=== PATIENT | female | born 1955 | race Caucasian/White ===

== ENCOUNTER → 2016-06-15 | Outpatient (CLI) | payer OTHER ==
--- NOTE | 2016-06-15 14:19 | REPMRS ---
Patient History The patient states she has not had a clinical breast exam in over a year. Patient is postmenopausal, has history of lung cancer at age 60, and had previous chemotherapy at age 60. No known family history of cancer. Benign excisional biopsy of the left breast, 1979. Benign excisional biopsy of the right breast, 1977. Took hormonal contraceptives for 2 months. Digital Woman Screen Mammo: June 15, 2016 - Exam #: [id number] Bilateral CC and MLO view(s) were taken. Technologist: Tammy Martinez, Technologist Prior study comparison: July 15, 2014, digital woman screen mammo performed at [facility]. October 17, 2012, bilateral bilat screen digital mammo, performed at [facility] ([facility]). FINDINGS: The breast tissue is heterogeneously dense. This may lower the sensitivity of mammography. There has been no change in the appearance of the mammogram from the prior studies. There is a moderate amount of residual fibroglandular tissue which is fairly symmetric. There is no interval development of dominant mass, areas of architectural distortion, or clustered microcalcification typical of malignancy. ASSESSMENT: BI-RADS/ACR category 1 mammogram. Negative. Recommendation Routine screening mammogram in 1 year (for women over age 40). This mammogram was interpreted with the aid of an FDA-approved computer-aided dectection system. Electronically Signed By: Eriberto Ulloa MD 06/15/16 [id number]
== END | disposition home or self-care (01) ==
LOC: M WHC 13:03
PROVIDERS: ATTEND Family Medicine
DX: Z12.31 Encounter for screening mammogram for malignant neoplasm of breast (principal); Z78.0 Asymptomatic menopausal state; Z92.0 Personal history of contraception; Z85.118 Personal history of other malignant neoplasm of bronchus and lung; Z92.21 Personal history of antineoplastic chemotherapy

== ENCOUNTER → 2016-06-28 | Outpatient (CLI) | payer OTHER ==
[2016-06-28 17:57] LABS: MEAN CORPUSCULAR HEMOGLOBIN 30.2 pg (27.0-33.0); MEAN CORPUSCULAR HGB CONC 33.1 g/dl (32.0-36.5); MEAN CORPUSCULAR VOLUME 91.1 fl (80.0-96.0); RED CELL DISTRIBUTION WIDTH 12.6 % (11.5-14.5)
[2016-06-28 21:43] LABS: BASOPHILS 1 % (0-4)
[2016-06-28 21:44] LABS: POIKILOCYTOSIS 1+
[2016-06-28 21:47] LABS: ACANTHOCYTES 1+
== END | disposition home or self-care (01) ==
LOC: M WUC 11:35
PROVIDERS: ATTEND Family Medicine
DX: D70.2 Other drug-induced agranulocytosis (principal)

== ENCOUNTER → 2016-06-28 | Outpatient (REF) | payer OTHER | END | disposition home or self-care (01) | LOC: M SFHCPLAZ 10:44 | PROVIDERS: ATTEND Family Medicine | DX: Z53.8 Procedure and treatment not carried out for other reasons (principal) ==

== ENCOUNTER → 2016-07-08 | Outpatient (REF) | payer OTHER | END | disposition home or self-care (01) | LOC: M LAB REF 12:41 | PROVIDERS: ATTEND Internal Medicine Medical Oncology | DX: C34.90 Malignant neoplasm of unspecified part of unspecified bronchus or lung (principal) ==

== ENCOUNTER → 2016-08-09 | Outpatient (REF) | payer OTHER | LOC: M LAB REF 13:14 | PROVIDERS: ATTEND Internal Medicine Medical Oncology | DX: C34.90 Malignant neoplasm of unspecified part of unspecified bronchus or lung (principal) ==

== ENCOUNTER → 2016-08-17 | Outpatient (CLI) | payer OTHER ==
[~2016-08-17] MED LIST: GASTROGRAFIN SOLUTION 30ML (Q9963) As Ordered ONE; ISOVUE-370 76% 100ML VIAL (Q9967) As Ordered ONE
--- NOTE | 2016-08-17 18:27 | REP ---
CT study of the chest with IV contrast: History: Non-small cell lung carcinoma on chemotherapy. Increasing tumor markers with cough. Question progression. Comparison chest CT study is from 05/03/2016. Also reviewed is 10/13/[address] findings: There is a band of spiculated density in the right lower lobe again noted essentially unchanged from the most recent prior study of 05/03/2016. At its posterior extent this has a somewhat spherical spiculated shape. This component of this density measures 2.5 x 1.5 cm previously 2.4 x 1.4 cm. This is essentially unchanged. At the anterior margin of this band of density there is a nodular opacity which measures 7 mm in diameter. This appears a little more prominent. Previously this measured 5.5-6 mm. There is a tiny stable 4 mm noncalcified nodular opacity in the right middle lobe adjacent to the minor fissure unchanged from both prior studies. No other pulmonary nodule or mass lesion is seen. No pleural effusion is seen. No pericardial effusion is noted. No hilar or mediastinal mass has developed. Bone window settings show a hemangioma in the lower cervical spine unchanged from comparison study. No bony destructive lesion is seen. Impression: Stable appearance of the spiculated mass in the right lower lobe. There is a band of fibrosis extending anteriorly from this. At the anterior edge of this there is a 7 mm nodular component. This nodular component appears a little larger than the most recent prior study although it is smaller than on October 2015. Otherwise stable chest CT findings. Signed by Eddie Connors MD 08/18/2016 12:24 P
--- NOTE | 2016-08-17 18:30 | REP ---
CT abdomen and pelvis without and with IV contrast: With oral contrast. History: Non-small cell lung carcinoma on chemotherapy. Increased tumor markers and cough. Question of progression. Comparison PET/CT is from 02/11/2016. Comparison CT abdomen study is from 05/03/2016. CT contrast dose: There are two low density lesions in the right lobe of the liver and one in the belkis region of the left lobe. These are unchanged compared to multiple prior studies and felt to be compatible with hemangiomas or cysts. No new focal liver lesion is appreciated. No adrenal mass has developed. Pancreas is unremarkable. There is a cyst in the left kidney in the upper pole measuring 4.8 cm in greatest diameter unchanged. Small and large bowel loops are normal in the abdomen and pelvis. No uterine or adnexal abnormality is seen. No pelvic mass or adenopathy is seen. No retroperitoneal mass or adenopathy is observed. Bone window settings show no bony destructive lesion. There is bilateral L5 spondylolysis and a grade 1 L5-S1 spondylolisthesis is noted unchanged measuring 12 mm. Impression: No CT evidence of intraabdominal progression or metastasis. Multiple stable low density liver lesions consistent with hepatic cysts or hemangiomas. Signed by Eddie Connors MD 08/18/2016 12:24 P
== END ==
LOC: M RAD 14:29
PROVIDERS: ATTEND Internal Medicine Medical Oncology
DX: C34.90 Malignant neoplasm of unspecified part of unspecified bronchus or lung (principal); R05 Cough
CPT/HCPCS: 71260; 74178; Q9963; Q9967

== ENCOUNTER → 2016-10-07 | Outpatient (REF) | payer OTHER | LOC: M LAB REF 13:40 | PROVIDERS: ATTEND Internal Medicine Medical Oncology | DX: C34.90 Malignant neoplasm of unspecified part of unspecified bronchus or lung (principal) ==

== ENCOUNTER → 2016-12-15 | Outpatient (REF) | payer OTHER | LOC: M LAB REF 12:38 | PROVIDERS: ATTEND Internal Medicine Medical Oncology | DX: C34.90 Malignant neoplasm of unspecified part of unspecified bronchus or lung (principal) ==

== ENCOUNTER → 2017-01-13 | Outpatient (REF) | payer OTHER | LOC: M LAB REF 13:18 | PROVIDERS: ATTEND Internal Medicine Medical Oncology | DX: C34.90 Malignant neoplasm of unspecified part of unspecified bronchus or lung (principal) ==

== ENCOUNTER → 2017-01-14 | Outpatient (REF) | payer OTHER | LOC: M LAB REF 11:06 | PROVIDERS: ATTEND Internal Medicine Medical Oncology | DX: R19.7 Diarrhea, unspecified (principal) ==

== ENCOUNTER → 2017-01-17 | Outpatient (CLI) | payer OTHER ==
[~2017-01-17] MED LIST changes: -GASTROGRAFIN SOLUTION 30ML (Q9963) As Ordered ONE
--- NOTE | 2017-01-17 12:33 | REP ---
CT of the chest with IV contrast: Comparisons are 08/17/2016 and 05/03/2016. The patient's known spiculated mass in the right lower lobe on image 68 today measures 1.6 x 2.6 cm. (1.5 x 2.5 cm on 08/17/2016 and 1.4 x 2.4 cm 05/03/2016). The anterior and lateral to this in the right lower lobe there is a second nodular density today measuring 1.5 by 1.8 cm (0.5 cm on 05/03/2016 and 0. 7 cm 08/17/2016. There are linear bands extending between these two densities in the right lower lobe which have also been present previously. There is a 4 mm nodule in the right middle lobe which is unchanged from both prior studies. There are no other masses or nodules. There are no infiltrates or effusions. There is no mediastinal, hilar or axillary adenopathy. The thoracic aorta is unremarkable. Cardiac size is normal. There is no pericardial effusion. There is a double low density lesion in the C7 vertebral body, unchanged from 08/03/2004, compatible with hemangioma. There are multiple low density lesions in the liver, unchanged. Impression: The patient's known two right lower lobe lung masses have increased in size. The there is no adenopathy. There is no acute infiltrate or effusion. Signed by Eriberto Calvo MD 01/17/2017 12:25 P
== END ==
LOC: M RAD 10:49
PROVIDERS: ATTEND Advanced Practice Midwife
DX: C34.90 Malignant neoplasm of unspecified part of unspecified bronchus or lung (principal)
CPT/HCPCS: 71260; Q9967

== ENCOUNTER → 2017-01-26 | Outpatient (CLI) | payer OTHER ==
--- NOTE | 2017-01-27 16:19 | REP ---
Whole body PET CT scan: The studies performed for restaging lung carcinoma. Comparison is a 2015. Whole body PET CT scanning is performed from skull base to the upper thighs. Neck and supraclavicular areas: There are no hypermetabolic foci. Chest: There are too nodules in the lower lobe of the right lung. The more posterior and medial nodule demonstrates hypermetabolic activity with a standard uptake value of 5.3. This value was 3.2 previously. More anterior and lateral to this nodule is a second nodule today demonstrating hypermetabolic uptake with a standard uptake value of 7.2. On the prior study there was no hypermetabolic uptake in this nodule. There is a small borderline hypermetabolic focus in the right hilus with a standard uptake value of 3.0. Previously this value was 3.5. There are no other hypermetabolic foci in the chest. Abdomen, pelvis and upper thighs: There are no hypermetabolic foci, as previously. Impression: There are two hypermetabolic nodules in the lower lobe of the right lung as described. There is a small hypermetabolic focus in the right hilus as described. There are no other hypermetabolic foci. The studies performed with 10 mCi of F 18 FDG. Signed by Eriberto Calvo MD 01/27/2017 04:10 P
== END ==
LOC: M PLARAD 10:31
PROVIDERS: ATTEND Internal Medicine Medical Oncology
DX: C34.90 Malignant neoplasm of unspecified part of unspecified bronchus or lung (principal); R91.8 Other nonspecific abnormal finding of lung field
CPT/HCPCS: 78815; A9552

== ENCOUNTER → 2017-02-08 | Outpatient (REF) | payer OTHER | LOC: M LAB REF 11:22 | PROVIDERS: ATTEND Internal Medicine Medical Oncology | DX: C34.90 Malignant neoplasm of unspecified part of unspecified bronchus or lung (principal) ==

== ENCOUNTER → 2017-02-21 | Outpatient (REF) | payer OTHER | LOC: M LAB REF 13:10 | PROVIDERS: ATTEND Internal Medicine Medical Oncology | DX: C18.9 Malignant neoplasm of colon, unspecified (principal) ==

== ENCOUNTER → 2017-03-17 | Outpatient (REF) | payer OTHER | LOC: M LAB REF 17:55 | PROVIDERS: ATTEND Internal Medicine Medical Oncology | DX: C34.90 Malignant neoplasm of unspecified part of unspecified bronchus or lung (principal) ==

== ENCOUNTER → 2017-05-13 | Outpatient (REF) | payer OTHER | LOC: M LAB REF 13:31 | PROVIDERS: ATTEND Internal Medicine Medical Oncology | DX: C78.01 Secondary malignant neoplasm of right lung (principal); C34.80 Malignant neoplasm of overlapping sites of unspecified bronchus and lung ==

== ENCOUNTER → 2017-05-18 | Outpatient (CLI) | payer OTHER ==
[~2017-05-18] MED LIST changes: +GASTROGRAFIN SOLUTION 30ML (Q9963) As Ordered ONE
--- NOTE | 2017-05-19 07:37 | REP ---
CONTRAST ENHANCED CHEST CT: CLINICAL: Non-small cell lung cancer with progressive increasing cough and pain. TECHNIQUE: Axial contrast enhanced images from the thoracic inlet to the upper abdomen using 100 mL Isovue 370 intravenous contrast material with coronal and sagittal reformations. COMPARISON: 01/17/2017. FINDINGS: Most notable are multiple right lower lobe lung masses which have increased in size from prior examination. Two dominant lesions connected by soft tissue and/or fibrosis are identified. The more anterior lesion currently measures approximately 3.0 x 2.3 cm and previously measured 1.8 x 1.5 cm. The more posterior lesion currently measures approximately 2.8 x 2.3 cm and previously measured approximately 2.5 x 1.6 cm. Smaller scattered soft tissue lesions and nodules predominately noted in the right lower lobe have also increased in size. As example, there is a lesion along the anterior margin of the right lower lobe adjacent to the fissure which currently measures 11 mm (image 64) and previously measured 6.5 mm. A small lesion in the medial basilar right upper lobe adjacent to the mediastinum (image 47) currently measures approximately 6 mm and previously measured at best 2 mm. Subtle increased interstitial changes with a slight tree-in-bud type of appearance to the basilar right upper lobe, and right middle lobe, as well as scattered increased interstitial markings noted bilaterally (right greater than left) are also identified. No pleural effusion. Tracheobronchial tree is patent. Mediastinal and hilar lymph nodes are nonspecific and measure up to approximately 16 mm in the right hilum. Thoracic aorta, pulmonary vasculature and heart/pericardium are relatively normal. There is no evidence for aortic aneurysm/dissection or pericardial effusion. The surrounding musculoskeletal structures are intact and without focal osseous abnormality. IMPRESSION: Increase in size to the two main lesions in the right lower lobe as well as diffusely increased quantity and size to multiple pulmonary nodules. Increased interstitial changes are also noted, and findings are most compatible with progressive neoplastic changes. MTDD
--- NOTE | 2017-05-19 07:37 | REP ---
CONTRAST ENHANCED CT OF THE ABDOMEN AND PELVIS: CLINICAL HISTORY: Non small cell lung cancer with increasing progressive cough and abdominal pain. TECHNIQUE: Axial contrast enhanced images from the lung bases to the pubic symphysis using oral (per protocol) and 100 mL Isovue 370 intravenous contrast material with precontrast and delayed images of the abdomen as well as coronal and sagittal reformations. COMPARISON: 08/17/2016, 05/03/2016. FINDINGS: Right lower lobe lung masses have increased in size from prior examination. The visualized portions of the heart and pericardium are normal. The liver again includes two low density lesions in the posterior segment right lobe consistent with hemangioma and cyst and unchanged compared to 2016. The spleen includes 12 mm hyper enhancing lesion along the anterior spleen and subcentimeter hypodensity in the mid spleen, which remain stable compared to 2016 and likely represent splenic hemangioma and cyst. Pancreas, gallbladder, bilateral adrenal glands and kidneys are normal/stable. 4.8 cm septated bilobed left renal cyst remains unchanged. The enteric system demonstrates moderate fecal stasis without obstruction or acute inflammatory process. Normal terminal ileum and appendix are identified in the right lower quadrant. The pelvis demonstrates partially collapsed normal bladder and normal age-appropriate uterus/adnexa. No pelvic fluid or ascites. No obvious intraperitoneal or retroperitoneal adenopathy. No solitary abdominal mass lesion identified. Atherosclerotic changes to the aorta noted without aneurysm or dissection. Musculoskeletal structures demonstrate chronic degenerative changes including spondylolysis and grade 2 spondylolisthesis at the L5-S1 level. IMPRESSION: 1. Increasing mass lesions in the right lung base. 2. Stable appearance to hepatic, splenic, and left renal cysts and benign hemangiomas. 3. Moderate fecal stasis. 4. Chronic grade 2 spondylolysis and spondylolisthesis at the L5-S1 level. 5. No further acute abdominopelvic pathology appreciated. Signed by Patricio Martinez MD 05/20/2017 09:01 A
== END ==
LOC: M RAD 15:00
PROVIDERS: ATTEND Internal Medicine Medical Oncology
DX: C34.90 Malignant neoplasm of unspecified part of unspecified bronchus or lung (principal); R05 Cough

== ENCOUNTER → 2017-05-25 | Outpatient (REF) | payer OTHER ==
[2017-05-25 17:43] LABS: INR 1.07
== END ==
LOC: M LAB REF 16:38
PROVIDERS: ATTEND Internal Medicine Medical Oncology
DX: C34.90 Malignant neoplasm of unspecified part of unspecified bronchus or lung (principal)

== ENCOUNTER → 2017-06-15 | Outpatient (CLI) | payer OTHER ==
[~2017-06-15] MED LIST changes: +ACETAMINOPHEN 325 MG TAB As Ordered; -GASTROGRAFIN SOLUTION 30ML (Q9963) As Ordered ONE; -ISOVUE-370 76% 100ML VIAL (Q9967) As Ordered ONE; +LIDOCAINE 1% MDV 20ML VIAL As Ordered
== END ==
LOC: M RADPRO 08:14
DX: C34.11 Malignant neoplasm of upper lobe, right bronchus or lung (principal); J93.9 Pneumothorax, unspecified; Z79.899 Other long term (current) drug therapy; Z88.8 Allergy status to other drugs, medicaments and biological substances
CPT/HCPCS: 32405

== ENCOUNTER → 2017-06-20 | Outpatient (REF) | payer OTHER ==
[2017-06-21 07:17] LABS: CARCINOEMBRYONIC ANTIGEN 16.6 NG/ML (<2.5)
== END ==
LOC: M LAB REF 13:39
DX: C34.90 Malignant neoplasm of unspecified part of unspecified bronchus or lung (principal)
CPT/HCPCS: 82378

== ENCOUNTER → 2017-06-28 | Outpatient (CLI) | payer OTHER ==
[~2017-06-28] MED LIST changes: -ACETAMINOPHEN 325 MG TAB As Ordered; -LIDOCAINE 1% MDV 20ML VIAL As Ordered; +PROHANCE 279.3MG/ML 15ML VIAL (A9576) As Ordered
== END ==
LOC: M RAD 14:23
DX: C34.90 Malignant neoplasm of unspecified part of unspecified bronchus or lung (principal)
CPT/HCPCS: A9576

== ENCOUNTER → 2017-07-08 | Outpatient (CLI) | payer OTHER | LOC: M WHC 08:07 | DX: Z12.31 Encounter for screening mammogram for malignant neoplasm of breast (principal); R92.8 Other abnormal and inconclusive findings on diagnostic imaging of breast | CPT/HCPCS: 77067 ==

== ENCOUNTER → 2017-07-28 | Outpatient (REF) | payer OTHER ==
[2017-07-29 11:47] LABS: CARCINOEMBRYONIC ANTIGEN 18.2 NG/ML (<2.5)
== END ==
LOC: M LAB REF 13:14
DX: C34.90 Malignant neoplasm of unspecified part of unspecified bronchus or lung (principal)

== ENCOUNTER → 2017-08-04 | Outpatient (CLI) | payer OTHER | LOC: M RAD 08:34 | DX: J01.90 Acute sinusitis, unspecified (principal) | CPT/HCPCS: 70486 ==

== ENCOUNTER → 2017-08-15 | Outpatient (CLI) | payer OTHER | LOC: M CARPUL 08:59 | DX: I50.1 Left ventricular failure, unspecified (principal) ==

== ENCOUNTER → 2017-08-22 | Outpatient (REF) | payer OTHER ==
[2017-08-23 09:57] LABS: CARCINOEMBRYONIC ANTIGEN 14.5 NG/ML (<2.5)
== END ==
LOC: M LAB REF 13:48
DX: C34.90 Malignant neoplasm of unspecified part of unspecified bronchus or lung (principal)
CPT/HCPCS: 82378

== ENCOUNTER → 2017-08-26 | Outpatient (CLI) | payer OTHER ==
[~2017-08-26] MED LIST changes: +GASTROGRAFIN SOLUTION 30ML (Q9963) As Ordered; +ISOVUE-370 76% 100ML VIAL (Q9967) As Ordered; -PROHANCE 279.3MG/ML 15ML VIAL (A9576) As Ordered
== END ==
LOC: M RAD 14:06
DX: C34.90 Malignant neoplasm of unspecified part of unspecified bronchus or lung (principal); K76.89 Other specified diseases of liver; D73.89 Other diseases of spleen; N28.1 Cyst of kidney, acquired
CPT/HCPCS: Q9963

== ENCOUNTER → 2017-10-13 | Outpatient (REF) | payer OTHER ==
[2017-10-14 09:03] LABS: CARCINOEMBRYONIC ANTIGEN 12.6 NG/ML (<2.5)
== END ==
LOC: M LAB REF 18:36
DX: C34.90 Malignant neoplasm of unspecified part of unspecified bronchus or lung (principal)
CPT/HCPCS: 82378

== ENCOUNTER → 2017-10-14 | Outpatient (CLI) | payer OTHER ==
[~2017-10-14] MED LIST changes: -GASTROGRAFIN SOLUTION 30ML (Q9963) As Ordered; -ISOVUE-370 76% 100ML VIAL (Q9967) As Ordered; +PROHANCE 279.3MG/ML 15ML VIAL (A9576) As Ordered
== END ==
LOC: M RAD 16:27
DX: C34.31 Malignant neoplasm of lower lobe, right bronchus or lung (principal); C79.31 Secondary malignant neoplasm of brain; C79.49 Secondary malignant neoplasm of other parts of nervous system
CPT/HCPCS: A9576

== ENCOUNTER → 2017-11-01 | Outpatient (REF) | payer OTHER ==
[2017-11-01 18:16] LABS: BASO % 0.3 % (0.0-1.0); HEMATOCRIT 34.8 % (36.0-47.0); HEMOGLOBIN 11.4 g/dl (12.0-15.5); IMMATURE GRANULOCYTE % 0.3 % (0-3.0); LYMPH # 0.9 10^3/uL (1.5-4.5); LYMPH % 23.6 % (24.0-44.0); MEAN CORPUSCULAR HEMOGLOBIN 29.5 pg (27.0-33.0); MEAN CORPUSCULAR HGB CONC 32.8 g/dl (32.0-36.5); MEAN CORPUSCULAR VOLUME 89.9 fl (80.0-96.0); MONO # 0.4 10^3/uL (0.0-0.8); MONO % 10.1 % (0.0-5.0); NEUTROPHILS # 2.5 10^3/uL (1.8-7.7); NEUTROPHILS % 64.7 % (36.0-66.0); PLATELET COUNT, AUTOMATED 191 10^3/uL (150-450); RED BLOOD COUNT 3.87 10^6/uL (4.00-5.40); RED CELL DISTRIBUTION WIDTH 12.6 % (11.5-14.5); WHITE BLOOD COUNT 3.9 10^3/uL (4.0-10.0)
== END ==
LOC: M SFHCPLAZ 14:42
DX: R68.83 Chills (without fever) (principal)

== ENCOUNTER → 2017-11-01 | Outpatient (CLI) | payer OTHER | LOC: M WUC 15:19 | DX: R91.8 Other nonspecific abnormal finding of lung field (principal); R91.1 Solitary pulmonary nodule | CPT/HCPCS: 71046 ==

== ENCOUNTER → 2017-12-01 | Outpatient (CLI) | payer OTHER ==
[~2017-12-01] MED LIST changes: +GASTROGRAFIN SOLUTION 30ML (Q9963) As Ordered; +ISOVUE-370 76% 100ML VIAL (Q9967) As Ordered; -PROHANCE 279.3MG/ML 15ML VIAL (A9576) As Ordered
== END ==
LOC: M RAD 09:47
DX: R05 Cough (principal); C34.31 Malignant neoplasm of lower lobe, right bronchus or lung
CPT/HCPCS: Q9963

== ENCOUNTER 2017-12-15 09:40 | Observation (INO) | payer OTHER ==
[2017-12-15 11:14] LABS: BASO % 0.3 % (0.0-1.0); EOS # 0.1 10^3/uL (0.0-0.50); EOS % 2.3 % (0.0-3.0); HEMATOCRIT 35.7 % (36.0-47.0); HEMOGLOBIN 11.8 g/dl (12.0-15.5); IMMATURE GRANULOCYTE % 0.3 % (0-3.0); LYMPH # 0.7 10^3/uL (1.5-4.5); LYMPH % 22.1 % (24.0-44.0); MEAN CORPUSCULAR HEMOGLOBIN 30.1 pg (27.0-33.0); MEAN CORPUSCULAR HGB CONC 33.1 g/dl (32.0-36.5); MEAN CORPUSCULAR VOLUME 91.1 fl (80.0-96.0); MONO # 0.4 10^3/uL (0.0-0.8); MONO % 11.7 % (0.0-5.0); NEUTROPHILS # 1.9 10^3/uL (1.8-7.7); NEUTROPHILS % 63.3 % (36.0-66.0); PLATELET COUNT, AUTOMATED 197 10^3/uL (150-450); RED BLOOD COUNT 3.92 10^6/uL (4.00-5.40); RED CELL DISTRIBUTION WIDTH 12.8 % (11.5-14.5)
[2017-12-15 11:17] LABS: INR 1.07
[2017-12-15 11:18] LABS: PARTIAL THROMBOPLASTIN TIME 35.4 SECONDS (25.4-37.6)
[2017-12-15 11:39] LABS: ALBUMIN 3.1 GM/DL (3.2-5.2); ALBUMIN/GLOBULIN RATIO 0.84 (1.00-1.93); ALKALINE PHOSPHATASE 44 U/L (45-117); ALT/SGPT 19 U/L (12-78); ANION GAP 6 MEQ/L (8-16); AST/SGOT 18 U/L (7-37); BILIRUBIN,DIRECT < 0.1 MG/DL (0.0-0.2); BILIRUBIN,TOTAL 0.3 MG/DL (0.2-1.0); BLOOD UREA NITROGEN 13 MG/DL (7-18); CALCIUM LEVEL 8.9 MG/DL (8.8-10.2); CARBON DIOXIDE LEVEL 31 MEQ/L (21-32); CHLORIDE LEVEL 106 MEQ/L (98-107); CREATININE FOR GFR 1.09 MG/DL (0.55-1.30); GLOMERULAR FILTRATION RATE 53.8 (>45); GLUCOSE, FASTING 82 MG/DL (70-100); LIPASE 310 U/L (73-393); POTASSIUM SERUM 4.4 MEQ/L (3.5-5.1); SODIUM LEVEL 143 MEQ/L (136-145); TOTAL PROTEIN 6.8 GM/DL (6.4-8.2); TROPONIN I < 0.02 NG/ML (< 0.10)
[2017-12-15 11:44] LABS: CK-MB VALUE MASS < 1.0 NG/ML (<3.6); CPK CREATINE PHOSPHOKINASE 119 U/L (26-192); MB/CK RELATIVE INDEX 0.84 (< OR =4); THYROID STIMULATING HORMONE 0.878 uIU/ML (0.358-3.740)
[2017-12-15 13:46] LABS: CK-MB VALUE MASS < 1.0 NG/ML (<3.6); CPK CREATINE PHOSPHOKINASE 115 U/L (26-192); MB/CK RELATIVE INDEX 0.86 (< OR =4); TROPONIN I < 0.02 NG/ML (< 0.10)
[2017-12-15 16:04] LABS: CK-MB VALUE MASS < 1.0 NG/ML (<3.6); CPK CREATINE PHOSPHOKINASE 108 U/L (26-192); MB/CK RELATIVE INDEX 0.92 (< OR =4); TROPONIN I < 0.02 NG/ML (< 0.10)
[2017-12-15] MEDS ORDERED: PROHANCE 279.3MG/ML 5ML VIAL (A9576) As Ordered (18:08)
[2017-12-15] MEDS ORDERED: BISACODYL 5 MG TAB PO (21:15)
[2017-12-15] MEDS ORDERED: ONDANSETRON 4 MG TAB (S0181) PO (21:15)
[2017-12-15] MEDS ORDERED: ACETAMINOPHEN TAB 650MG DOSE (2X325MG) PO (21:15)
[2017-12-15 22:29] LABS: CREATININE FOR GFR 0.89 MG/DL (0.55-1.30); GLOMERULAR FILTRATION RATE > 60.0 (>45)
[2017-12-15] MEDS: SIMVASTATIN 20 MG TAB PO (23:07)
[2017-12-15] MEDS: VITAMIN D 1,000 INTERNATIONAL UNITS TABLET PO (23:08)
[2017-12-15] MEDS: ASCORBIC ACID 500 MG TAB PO (23:08)
[2017-12-16] MEDS: VITAMIN B COMPLEX/VIT C CAP PO ×3 (02:35→14:49)
[2017-12-16 05:48] LABS: BASO % 0.3 % (0.0-1.0); EOS # 0.1 10^3/uL (0.0-0.50); EOS % 2.2 % (0.0-3.0); HEMATOCRIT 33.9 % (36.0-47.0); HEMOGLOBIN 11.6 g/dl (12.0-15.5); IMMATURE GRANULOCYTE % 0.3 % (0-3.0); LYMPH # 0.7 10^3/uL (1.5-4.5); LYMPH % 20.2 % (24.0-44.0); MEAN CORPUSCULAR HGB CONC 34.2 g/dl (32.0-36.5); MEAN CORPUSCULAR VOLUME 87.6 fl (80.0-96.0); MONO # 0.4 10^3/uL (0.0-0.8); MONO % 9.8 % (0.0-5.0); NEUTROPHILS # 2.4 10^3/uL (1.8-7.7); NEUTROPHILS % 67.2 % (36.0-66.0); PLATELET COUNT, AUTOMATED 185 10^3/uL (150-450); RED BLOOD COUNT 3.87 10^6/uL (4.00-5.40); RED CELL DISTRIBUTION WIDTH 12.7 % (11.5-14.5); WHITE BLOOD COUNT 3.6 10^3/uL (4.0-10.0)
[2017-12-16 06:14] LABS: ANION GAP 8 MEQ/L (8-16); BLOOD UREA NITROGEN 12 MG/DL (7-18); CALCIUM LEVEL 8.7 MG/DL (8.8-10.2); CARBON DIOXIDE LEVEL 26 MEQ/L (21-32); CHLORIDE LEVEL 105 MEQ/L (98-107); CREATININE FOR GFR 0.88 MG/DL (0.55-1.30); GLOMERULAR FILTRATION RATE > 60.0 (>45); GLUCOSE, FASTING 96 MG/DL (70-100); POTASSIUM SERUM 4.1 MEQ/L (3.5-5.1); SODIUM LEVEL 139 MEQ/L (136-145); THYROID STIMULATING HORMONE 0.999 uIU/ML (0.358-3.740)
[2017-12-16] MEDS: ENOXAPARIN 100MG/1ML SYRINGE (J1650) SC (09:07)
[2017-12-16] MEDS: VITAMIN D 1,000 INTERNATIONAL UNITS TABLET PO ×2 (09:07→14:49)
[2017-12-16] MEDS: ASCORBIC ACID 500 MG TAB PO ×2 (09:07→14:49)
[2017-12-16] MEDS: ASPIRIN 81 MG ENTERIC TAB PO (14:49)
[2017-12-16] MEDS ORDERED: OSIMERTINIB 80 MG PO (21:00)
== END 2017-12-16 18:15 | disposition home or self-care (01) ==
LOC: M ED 09:40 → M ED INP 21:33 → M MSPAV 22:11
DX: G45.9 Transient cerebral ischemic attack, unspecified (principal); R53.1 Weakness; I35.0 Nonrheumatic aortic (valve) stenosis; Z85.118 Personal history of other malignant neoplasm of bronchus and lung; Z85.841 Personal history of malignant neoplasm of brain; Z79.01 Long term (current) use of anticoagulants; Z79.899 Other long term (current) drug therapy; I50.30 Unspecified diastolic (congestive) heart failure; E78.4 Other hyperlipidemia
CPT/HCPCS: A9576

== ENCOUNTER → 2017-12-19 | Outpatient (REF) | payer OTHER ==
[2017-12-19 14:12] LABS: CHOLESTEROL LEVEL 148 MG/DL (< 200)
[2017-12-20 09:55] LABS: CARCINOEMBRYONIC ANTIGEN 30.3 NG/ML (<2.5)
== END ==
LOC: M LAB REF 13:41
DX: E78.4 Other hyperlipidemia (principal)

== ENCOUNTER → 2018-01-03 | Outpatient (CLI) | payer OTHER | LOC: M PLARAD 11:59 | DX: C34.31 Malignant neoplasm of lower lobe, right bronchus or lung (principal); N28.1 Cyst of kidney, acquired | CPT/HCPCS: 78815 ==

== ENCOUNTER → 2018-02-23 | Outpatient (REF) | payer OTHER ==
[2018-02-24 13:13] LABS: CARCINOEMBRYONIC ANTIGEN 38.1 NG/ML (<2.5)
== END ==
LOC: M LAB REF 18:27
DX: Z00.00 Encounter for general adult medical examination without abnormal findings (principal)
CPT/HCPCS: 82378

== ENCOUNTER → 2018-03-14 | Outpatient (CLI) | payer MEDICARE, OTHER ==
[2018-03-14 11:02] LABS: HEMATOCRIT 38.2 % (36.0-47.0); HEMOGLOBIN 12.3 g/dl (12.0-15.5); MEAN CORPUSCULAR HEMOGLOBIN 29.2 pg (27.0-33.0); MEAN CORPUSCULAR HGB CONC 32.2 g/dl (32.0-36.5); MEAN CORPUSCULAR VOLUME 90.7 fl (80.0-96.0); PLATELET COUNT, AUTOMATED 253 10^3/uL (150-450); RED BLOOD COUNT 4.21 10^6/uL (4.00-5.40); RED CELL DISTRIBUTION WIDTH 12.6 % (11.5-14.5); WHITE BLOOD COUNT 4.4 10^3/uL (4.0-10.0)
[2018-03-14 11:47] LABS: ALBUMIN/GLOBULIN RATIO 0.71 (1.00-1.93); ALKALINE PHOSPHATASE 94 U/L (45-117); ALT/SGPT 19 U/L (12-78); ANION GAP 10 MEQ/L (8-16); AST/SGOT 24 U/L (7-37); BILIRUBIN,TOTAL 0.3 MG/DL (0.2-1.0); BLOOD UREA NITROGEN 10 MG/DL (7-18); CALCIUM LEVEL 8.9 MG/DL (8.8-10.2); CARBON DIOXIDE LEVEL 26 MEQ/L (21-32); CARCINOEMBRYONIC ANTIGEN 37.3 NG/ML (<2.5); CHLORIDE LEVEL 102 MEQ/L (98-107); CREATININE FOR GFR 1.01 MG/DL (0.55-1.30); GLOMERULAR FILTRATION RATE 58.6 (>45); GLUCOSE, FASTING 90 MG/DL (70-100); POTASSIUM SERUM 4.5 MEQ/L (3.5-5.1); SODIUM LEVEL 138 MEQ/L (136-145); TOTAL PROTEIN 7.2 GM/DL (6.4-8.2)
== END ==
LOC: M LAB 09:29
DX: C78.01 Secondary malignant neoplasm of right lung (principal); C79.31 Secondary malignant neoplasm of brain; E78.5 Hyperlipidemia, unspecified; E55.9 Vitamin D deficiency, unspecified
CPT/HCPCS: 82378

== ENCOUNTER → 2018-03-14 | Outpatient (CLI) | payer MEDICARE, OTHER ==
[2018-03-14 11:42] LABS: CHOLESTEROL LEVEL 165 MG/DL (<200); CHOLESTEROL RISK RATIO 2.291 (<5); HDL CHOLESTEROL 72 MG/DL (>40); LDL CHOLESTEROL 76 MG/DL (<100); NON-HDL-C 93 MG/DL; TOTAL 25(OH) VITAMIN D 75.6 NG/ML (30.0-100.0); TRIGLYCERIDES LEVEL 85 MG/DL (<150)
== END ==
LOC: M LAB 09:24
DX: E78.5 Hyperlipidemia, unspecified (principal); E55.9 Vitamin D deficiency, unspecified

== ENCOUNTER → 2018-03-14 | Outpatient (CLI) | payer MEDICARE, OTHER ==
[2018-03-14 11:42] LABS: BLOOD UREA NITROGEN 9 MG/DL (7-18)
[2018-03-14 11:42] LABS: GLOMERULAR FILTRATION RATE 59.2 (>45)
== END ==
LOC: M LAB 09:33
DX: C79.31 Secondary malignant neoplasm of brain (principal)

== ENCOUNTER 2018-03-16 13:17 | Day surgery (SDC) | payer MEDICARE, OTHER ==
[~2018-03-16 13:17] MED LIST changes: -GASTROGRAFIN SOLUTION 30ML (Q9963) As Ordered; -ISOVUE-370 76% 100ML VIAL (Q9967) As Ordered; +LIDOCAINE 1% MDV 20ML VIAL SQ; +LIDOCAINE 2% INJ 100 MG/5 ML SDV (FOR ANES.) As Ordered; +MIDAZOLAM INJ 2 MG/2 ML VIAL (J2250) As Ordered; +ONDANSETRON 4MG/2ML VIAL (J2405) As Ordered; +PROPOFOL 200 MG/20 ML VIAL As Ordered; +fentaNYL 100 MCG/2 ML INJECTION (J3010) As Ordered
[2018-03-16] MEDS: LR 1,000 ML IV (14:10)
[2018-03-16] MEDS: ceFAZolin SOD 1 GM in D5W MINI-BAG PLUS 50 ML IV (14:24)
[2018-03-16] MEDS: LIDOCAINE 1% SDV INJ 30 ML VIAL As Ordered (14:44)
== END 2018-03-16 16:01 | disposition home or self-care (01) ==
LOC: M SDC 13:17
DX: I63.9 Cerebral infarction, unspecified (principal); E78.00 Pure hypercholesterolemia, unspecified; C34.90 Malignant neoplasm of unspecified part of unspecified bronchus or lung; C79.31 Secondary malignant neoplasm of brain; T88.59XD Other complications of anesthesia, subsequent encounter; Z88.8 Allergy status to other drugs, medicaments and biological substances; Z79.899 Other long term (current) drug therapy; Z79.82 Long term (current) use of aspirin; Z79.01 Long term (current) use of anticoagulants; Z92.3 Personal history of irradiation; Z92.21 Personal history of antineoplastic chemotherapy; Z86.718 Personal history of other venous thrombosis and embolism; Z78.0 Asymptomatic menopausal state
CPT/HCPCS: 33282

== ENCOUNTER 2018-03-20 11:50 | Emergency (ER) | payer MEDICARE, OTHER | END 2018-03-20 15:24 | disposition home or self-care (01) | LOC: M ED 11:50 | DX: L23.89 Allergic contact dermatitis due to other agents (principal); E78.00 Pure hypercholesterolemia, unspecified; E05.90 Thyrotoxicosis, unspecified without thyrotoxic crisis or storm; F41.9 Anxiety disorder, unspecified; C34.90 Malignant neoplasm of unspecified part of unspecified bronchus or lung; Z86.73 Personal history of transient ischemic attack (TIA), and cerebral infarction without residual deficits; Z86.718 Personal history of other venous thrombosis and embolism; Z88.8 Allergy status to other drugs, medicaments and biological substances; Z79.899 Other long term (current) drug therapy; Z79.82 Long term (current) use of aspirin; Z98.890 Other specified postprocedural states | CPT/HCPCS: 99283 ==

== ENCOUNTER → 2018-03-21 | Outpatient (CLI) | payer MEDICARE, OTHER ==
[~2018-03-21] MED LIST changes: -LIDOCAINE 1% MDV 20ML VIAL SQ; -LIDOCAINE 2% INJ 100 MG/5 ML SDV (FOR ANES.) As Ordered; -MIDAZOLAM INJ 2 MG/2 ML VIAL (J2250) As Ordered; -ONDANSETRON 4MG/2ML VIAL (J2405) As Ordered; +PROHANCE 279.3MG/ML 5ML VIAL (A9576) As Ordered; -PROPOFOL 200 MG/20 ML VIAL As Ordered; -fentaNYL 100 MCG/2 ML INJECTION (J3010) As Ordered
== END ==
LOC: M RAD 10:15
DX: C79.31 Secondary malignant neoplasm of brain (principal)
CPT/HCPCS: A9576

== ENCOUNTER → 2018-03-27 | Outpatient (REF) | payer MEDICARE, OTHER | LOC: M SFHCPLAZ 11:53 | DX: R87.615 Unsatisfactory cytologic smear of cervix (principal); Z23 Encounter for immunization | CPT/HCPCS: G0123 ==

== ENCOUNTER 2018-04-13 06:47 | Day surgery (SDC) | payer MEDICARE, OTHER ==
[2018-04-13] MEDS: OFLOXACIN 0.3 % (OCUFLOX) OPTH SOL 5ML OD (07:28)
[2018-04-13] MEDS: TROPICAMIDE 1% OPHTH SOLN 2ML OD (07:28)
[2018-04-13] MEDS: PHENYLEPHRINE 2.5% OPHTH SOL 2ML OD (07:29)
[2018-04-13] MEDS: PROPARACAINE 0.5% OPHTH SOL 15ML OD (07:29)
[2018-04-13] MEDS ORDERED: fentaNYL 100 MCG/2 ML INJECTION (J3010) As Ordered (07:31)
[2018-04-13] MEDS ORDERED: MIDAZOLAM INJ 2 MG/2 ML VIAL (J2250) As Ordered (07:31)
[2018-04-13] MEDS: POVIDONE-IODINE 5% OPHTH PREP SOL 30ML As Ordered (07:54)
[2018-04-13] MEDS: BALANCED SALT IRRIGATION SOLUTION 500ML BAG (FOR OR EYE MACHINE) As Ordered (08:00)
[2018-04-13] MEDS: LIDOCAINE 0.75%/EPINEPHRINE 0.025% IN BSS 1ML SYR INTRACAMERAL (OR ONLY) As Ordered (08:00)
[2018-04-13] MEDS: DUOVISC (0.50ML VISCOAT/0.55ML PROVISC) OPHTH KIT As Ordered (08:00)
[2018-04-13] MEDS: CEFUROXIME 1MG/0.1ML INTRACAMERAL INJ As Ordered (08:00)
== END 2018-04-13 08:50 | disposition home or self-care (01) ==
LOC: M SDC 06:47
DX: H25.11 Age-related nuclear cataract, right eye (principal); E78.5 Hyperlipidemia, unspecified; C34.90 Malignant neoplasm of unspecified part of unspecified bronchus or lung; Z92.21 Personal history of antineoplastic chemotherapy; Z92.3 Personal history of irradiation; Z79.82 Long term (current) use of aspirin; Z86.73 Personal history of transient ischemic attack (TIA), and cerebral infarction without residual deficits
CPT/HCPCS: 66984

== ENCOUNTER → 2018-04-20 | Outpatient (CLI) | payer MEDICARE, OTHER ==
[~2018-04-20] MED LIST changes: +GASTROGRAFIN SOLUTION 30ML (Q9963) As Ordered; +ISOVUE-370 76% 100ML VIAL (Q9967) As Ordered; -PROHANCE 279.3MG/ML 5ML VIAL (A9576) As Ordered
== END ==
LOC: M RAD 11:10
DX: C34.91 Malignant neoplasm of unspecified part of right bronchus or lung (principal); C79.31 Secondary malignant neoplasm of brain; J90 Pleural effusion, not elsewhere classified; N28.1 Cyst of kidney, acquired; K76.89 Other specified diseases of liver; M43.17 Spondylolisthesis, lumbosacral region; D18.03 Hemangioma of intra-abdominal structures
CPT/HCPCS: Q9963

== ENCOUNTER → 2018-05-02 | Outpatient (CLI) | payer MEDICARE, OTHER ==
[~2018-05-02] MED LIST changes: +ASPI1TAB PO; +ASPI81TAEC PO; +BESI0.6S; +BROM0.07 OU; +CALC100T2 PO; +DRENAMIN PO; +ENOX100I3; +ENOX40IN3 SC; -GASTROGRAFIN SOLUTION 30ML (Q9963) As Ordered; +HYDR5TAB59 PO; -ISOVUE-370 76% 100ML VIAL (Q9967) As Ordered; +LEVO750T13 PO; +LOVE0.8I; +LOVE0.8I SC; +ONDA8TAB7 PO; +PRED1SOL3 OU; +PREDOPD; +PREDOPD OD; +PROC10TA4 PO; +SIMV20TA2; +SIMV20TA2 PO; +TAGR80TA; +TAGR80TA PO; +VITA100066 PO; +VITA500T PO; +VITATAB11 PO; +ZOFR4TAB14 PO; +[UNRECOGNIZED DRUG - OTHER] PO; +[UNRECOGNIZED DRUG - OTHER] PO
--- NOTE | 2018-05-05 09:33 | REP ---
PET/CT: History: Stage IV non-small cell lung carcinoma. New adrenal and lung mets. Restaging exam. Comparisons: Comparison PET CT January 03, 2018. Comparison CT chest and abdomen April 20, 2018. TECHNIQUE: 45 minutes following the intravenous injection of a 8.5 mCi dose of F-18 FDG, three-dimensional PET scintigraphy is acquired from the skull base to the proximal thighs. Triplanar noncontrast CT scanning is acquired through the same anatomic range for attenuation correction, and image registration with scan parameters optimized to minimize radiation exposure to the patient. PET scintigraphy and CT datasets were fused and displayed on a workstation with multiplanar and projection display capability. PET/CT Findings: There is improvement in the intrathoracic disease as seen on the last PET CT in the right lower lobe from December 2017. The hypermetabolic masses previously noted in the right lower lobe have regressed. However, there is some residual hypermetabolic uptake in the right hilus in a small subcentimeter focus, maximum standard uptake value 4.1. There is extensive consolidation and collapse in the right lower lobe. There is increased metabolic uptake in this collapsed and consolidated right lower lobe. This may be post radiation or inflammatory pneumonia. The activity pattern is not mass-like. There is a focus of nodular hypermetabolic uptake in the posteromedial lung gutter on the right with maximum standard uptake value 4.8. The nodular opacity in this location measures 1.4 cm. There is some mild nonhypermetabolic pleural uptake. There is extrathoracic hypermetabolic uptake in the skeletal muscle along the medial edge of the right clavicle posteriorly. Maximum standard uptake value here is 8.0. This focus measures approximately 2 cm in greatest diameter. There is a subtle isodense mass visible in this location on accompanying CT and this would be a safe target for ultrasound-guided needle biopsy if additional tissue sampling if clinically warranted. No other abnormal hypermetabolic uptake is seen within the thorax. However, there is a bony lesion in the thoracic spine at the T3 vertebral body level. Maximum standard uptake value here is 7.0. This is consistent with skeletal metastasis. In the abdomen and pelvis, there are metastatic hypermetabolic masses in the adrenal glands bilaterally as seen on recent CT. These are hypermetabolic. Maximum standard uptake value in the larger right adrenal mass is 13.7. The hypermetabolic left adrenal mass lesion has maximum standard uptake value of 15.5. The right adrenal mass appears a little larger than it was on April 20, 2018. Lastly, there is a new hypermetabolic mass in the left lower quadrant of the abdomen anterior to the iliopsoas muscle. This mass measures 3.8 x 3.0 of cm. Maximum standard uptake value within this lesion is 13.4. Lateral to this, in and adjacent small bowel loop, there is another hypermetabolic somewhat annular mass lesion. Maximum standard uptake value within the small bowel lesion is 11.4. Impression: The previously radiated right lower lobe lung disease has regressed. However, there is multifocal evidence of progression with metastatic lesions in the adrenals bilaterally, left lower quadrant small bowel mesentery, a jejunal small bowel metastasis, a right posterior chest wall skeletal muscle metastasis, and a bony metastasis in the T3 vertebral body. If additional histologic sampling is clinically warranted, I would suggest ultrasound guided needle biopsy of the right posterior chest wall muscle metastasis be considered. Electronically Signed by Eddie Connors MD 05/05/2018 09:46 A
== END ==
LOC: M PLARAD 15:07
PROVIDERS: ATTEND Internal Medicine Medical Oncology
DX: C34.91 Malignant neoplasm of unspecified part of right bronchus or lung (principal); C79.71 Secondary malignant neoplasm of right adrenal gland; C79.72 Secondary malignant neoplasm of left adrenal gland; C78.4 Secondary malignant neoplasm of small intestine; C79.89 Secondary malignant neoplasm of other specified sites; C79.51 Secondary malignant neoplasm of bone
CPT/HCPCS: 78815; A9552

== ENCOUNTER 2018-05-10 11:54 | Emergency (ER) | payer MEDICARE, OTHER ==
[2018-05-10] MEDS: NS 1,000 ML IV ×2 (12:50→14:35)
[2018-05-10] MEDS: ONDANSETRON 4MG/2ML VIAL (J2405) IV (12:51)
[2018-05-10 13:05] LABS: BASO % 0.2 % (0.0-1.0); EOS # 0.2 10^3/uL (0.0-0.50); EOS % 2.5 % (0.0-3.0); HEMOGLOBIN 10.2 g/dl (12.0-15.5); IMMATURE GRANULOCYTE % 0.5 % (0-3.0); LYMPH # 0.7 10^3/uL (1.5-4.5); LYMPH % 7.7 % (24.0-44.0); MEAN CORPUSCULAR HEMOGLOBIN 27.6 pg (27.0-33.0); MEAN CORPUSCULAR HGB CONC 32.9 g/dl (32.0-36.5); MONO # 0.7 10^3/uL (0.0-0.8); MONO % 7.7 % (0.0-5.0); NEUTROPHILS # 7.1 10^3/uL (1.8-7.7); NEUTROPHILS % 81.4 % (36.0-66.0); PLATELET COUNT, AUTOMATED 343 10^3/uL (150-450); RED BLOOD COUNT 3.69 10^6/uL (4.00-5.40); RED CELL DISTRIBUTION WIDTH 12.5 % (11.5-14.5); WHITE BLOOD COUNT 8.7 10^3/uL (4.0-10.0)
[2018-05-10 13:37] LABS: ALBUMIN/GLOBULIN RATIO 0.75 (1.00-1.93); ALKALINE PHOSPHATASE 99 U/L (45-117); ALT/SGPT 13 U/L (12-78); ANION GAP 7 MEQ/L (8-16); AST/SGOT 25 U/L (7-37); BILIRUBIN,DIRECT < 0.1 MG/DL (0.0-0.2); BILIRUBIN,TOTAL 0.4 MG/DL (0.2-1.0); BLOOD UREA NITROGEN 15 MG/DL (7-18); CALCIUM LEVEL 9.2 MG/DL (8.8-10.2); CARBON DIOXIDE LEVEL 30 MEQ/L (21-32); CHLORIDE LEVEL 93 MEQ/L (98-107); CREATININE FOR GFR 1.01 MG/DL (0.55-1.30); GLOMERULAR FILTRATION RATE 58.6 (>45); GLUCOSE, FASTING 90 MG/DL (70-100); LIPASE 223 U/L (73-393); POTASSIUM SERUM 4.3 MEQ/L (3.5-5.1); SODIUM LEVEL 130 MEQ/L (136-145)
[2018-05-10] MEDS: GASTROGRAFIN SOLUTION 30ML PO ×2 (14:35→15:00)
[2018-05-10] MEDS ORDERED: ISOVUE-370 76% 100ML VIAL (Q9967) As Ordered (16:21)
[2018-05-10] MEDS: ACETAMINOPHEN TAB 650MG DOSE (2X325MG) PO (17:05)
[2018-05-10] MEDS ORDERED: IBUPROFEN 600 MG TAB PO (18:30)
== END 2018-05-10 19:39 | disposition home or self-care (01) ==
LOC: M ED 11:54
DX: R11.10 Vomiting, unspecified (principal); R50.9 Fever, unspecified; E55.9 Vitamin D deficiency, unspecified; E78.5 Hyperlipidemia, unspecified; C34.31 Malignant neoplasm of lower lobe, right bronchus or lung; M19.90 Unspecified osteoarthritis, unspecified site; Z86.73 Personal history of transient ischemic attack (TIA), and cerebral infarction without residual deficits; Z86.718 Personal history of other venous thrombosis and embolism; Z88.8 Allergy status to other drugs, medicaments and biological substances; Z79.899 Other long term (current) drug therapy; Z79.82 Long term (current) use of aspirin
CPT/HCPCS: Q9963

== ENCOUNTER 2018-05-25 12:02 | Outpatient (CLI) | payer MEDICARE, OTHER ==
[~2018-05-25] VITALS: Ht 160 cm; Wt 52.7 kg
[2018-05-25] VITALS (8 sets, daily range): BP systolic 108–129; BP diastolic 56–64
[~2018-05-25 12:02] MED LIST changes: -ASPI1TAB PO; -PRED1SOL3 OU; -PREDOPD OD
[2018-05-25] MEDS ORDERED: diphenhydrAMINE 50 MG CAP PO ONE (12:15)
[2018-05-25] MEDS ORDERED: ACETAMINOPHEN TAB 650MG DOSE (2X325MG) PO ONE (12:15)
== END 2018-05-25 13:45 | disposition home or self-care (01) ==
LOC: M INFU 12:02
PROVIDERS: ATTEND Nurse Practitioner Family
DX: C34.90 Malignant neoplasm of unspecified part of unspecified bronchus or lung (principal); Z88.8 Allergy status to other drugs, medicaments and biological substances

== ENCOUNTER 2018-05-27 17:23 | Inpatient (IN) | payer MEDICARE, OTHER ==
[~2018-05-27] VITALS: Ht 160 cm; Wt 51.5 kg
[2018-05-27] MEDS ORDERED: NS 1,000 ML IV SCH (17:45)
[2018-05-27 18:19] LABS: HEMATOCRIT 29.8 % (36.0-47.0); HEMOGLOBIN 9.5 g/dl (12.0-15.5); MEAN CORPUSCULAR HEMOGLOBIN 27.2 pg (27.0-33.0); MEAN CORPUSCULAR HGB CONC 31.9 g/dl (32.0-36.5); MEAN CORPUSCULAR VOLUME 85.4 fl (80.0-96.0); PLATELET COUNT, AUTOMATED 299 10^3/uL (150-450); RED BLOOD COUNT 3.49 10^6/uL (4.00-5.40); WHITE BLOOD COUNT 23.7 10^3/uL (4.0-10.0)
[2018-05-27 18:44] LABS: LYMPHOCYTES 3 % (16-52); METAMYELOCYTES 1 % (0-0); NEUTROPHILS 88 % (35-75)
[2018-05-27 18:45] LABS: DOHLE BODIES 1+; PLATELET ESTIMATE NORMAL (NORMAL)
[2018-05-27 18:59] LABS: INR 1.16; PARTIAL THROMBOPLASTIN TIME 28.2 SECONDS (25.4-37.6)
[2018-05-27 19:05] LABS: ALBUMIN 2.3 GM/DL (3.2-5.2); ALT/SGPT 12 U/L (12-78); BILIRUBIN,DIRECT < 0.1 MG/DL (0.0-0.2); BILIRUBIN,TOTAL 0.2 MG/DL (0.2-1.0); BLOOD UREA NITROGEN 29 MG/DL (7-18); CALCIUM LEVEL 8.3 MG/DL (8.8-10.2); CARBON DIOXIDE LEVEL 25 MEQ/L (21-32); CHLORIDE LEVEL 100 MEQ/L (98-107); CREATININE FOR GFR 0.89 MG/DL (0.55-1.30); GLOMERULAR FILTRATION RATE > 60.0 (>45); GLUCOSE, FASTING 112 MG/DL (70-100); LIPASE 276 U/L (73-393); POTASSIUM SERUM 4.5 MEQ/L (3.5-5.1); SODIUM LEVEL 134 MEQ/L (136-145)
[2018-05-27] MEDS ORDERED: ISOVUE-370 76% 100ML VIAL (Q9967) As Ordered ONE (19:14)
[2018-05-27] MEDS ORDERED: NS 1,000 ML IV ONE ×2 (19:15→21:15)
--- NOTE | 2018-05-27 20:42 | REPVR ---
EXAM: CT Abdomen and Pelvis With Contrast EXAM DATE/TIME: 05/27/2018 7:20 PM CLINICAL HISTORY: 63 years old, female; Signs and symptoms; Vomiting; Patient HX: Lung CA, brain mets. ; Additional info: Vomiting, gi bleed TECHNIQUE: Axial computed tomography images of the abdomen and pelvis with intravenous contrast. All CT scans at this facility use at least one of these dose optimization techniques: automated exposure control; mA and/or kV adjustment per patient size (includes targeted exams where dose is matched to clinical indication); or iterative reconstruction. Coronal and sagittal reformatted images were created and reviewed. CONTRAST: 100 ml of ISOVUE 370 administered intravenously. COMPARISON: CT ABD/PEL W/IV ORAL CONTRAS 05/10/2018 4:21 PM FINDINGS: Lower thorax: Right middle lobe and right lower lobe consolidation, not significantly changed. Tiny right pleural effusion decreased since the prior examination. ABDOMEN: Liver: Unchanged low density lesions with peripheral contrast puddling within the medial segment of the left hepatic lobe and posterior segment of the right hepatic lobe, likely hemangiomas. Unchanged indeterminate 6 mm low-density lesion within the right hepatic lobe posterior segment. No new hepatic lesions. Gallbladder and bile ducts: Unremarkable. No calcified stones. No ductal dilation. Pancreas: Unremarkable. No ductal dilation. Spleen: 10 mm enhancing lesion within the spleen and indeterminate tiny low density splenic lesion, unchanged. No new splenic lesions. Adrenals: Bilateral low-density adrenal masses, unchanged and consistent with adrenal metastases. Kidneys and ureters: 3 cm cyst within the left kidney, unchanged. Unremarkable right kidney. No renal stone or hydronephrosis. Stomach and bowel: Distended fluid-filled proximal and mid small bowel with decompressed mid and distal ileum consistent with bowel obstruction, likely partial. The etiology of small bowel obstruction is not identified. No definite obstructing mass is seen. 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 A bowel wall mass is not excluded given lack of enteric contrast. Appendix: No evidence of appendicitis. Retroperitoneal space: No free intraperitoneal fluid or free air. PELVIS: Bladder: Unremarkable as visualized. Reproductive: Unremarkable as visualized. ABDOMEN and PELVIS: Intraperitoneal space: Unremarkable. No free air. No significant fluid collection. Bones/joints: Bilateral L5 chronic pars defects with grade 2 anterolisthesis of L5. No suspicious bone lesions. Soft tissues: Trace gas collections within the subcutaneous tissues of left anterior abdomen likely secondary to medication injection. Vasculature: Unremarkable. No abdominal aortic aneurysm. Lymph nodes: Unremarkable. No enlarged lymph nodes. IMPRESSION: 1. Right lower lobe and right middle lobe pulmonary consolidation, unchanged. Interval decrease in size of right pleural effusion, now tiny. 2. Radiographically stable hepatic and splenic lesions. 3. Bilateral adrenal metastases, unchanged. 4. 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 A bowel wall mass is not excluded given the lack of enteric contrast. 5. Mid small bowel obstruction, likely partial, with indeterminate etiology and gradual caliber transition. COMMENT: Consistent with the [employer]'s Incidental Findings Committee Report (J Am Tila Radiol 2010): Unless the patient's specific circumstances suggest otherwise, any liver lesion 0.5 cm or less, any cystic kidney lesion less than 1.0 cm, and/or any adrenal lesion 1.0 cm or less not otherwise characterized in this report as possessing suspicious or indeterminate imaging features is/are highly likely to be benign and do not require follow-up imaging or biopsy. Electronically signed by: Mark Cosby On 05/27/2018 20:42:23 PM
[2018-05-27] MEDS ORDERED: ONDANSETRON 4MG/2ML VIAL (J2405) As Ordered ONE (21:07)
[2018-05-27] MEDS ORDERED: ONDANSETRON 4MG/2ML VIAL (J2405) IV ONE (21:15)
[2018-05-27] MEDS ORDERED: PRED1SOL3 OU (21:28)
[2018-05-27] MEDS ORDERED: PREDOPD OD (21:29)
[2018-05-27] MEDS ORDERED: ENOX40IN3 SC (21:39)
[2018-05-27] MEDS ORDERED: ONDA8TAB7 PO (21:39)
[2018-05-27] MEDS ORDERED: ASPI1TAB PO (21:41)
[2018-05-27] MEDS ORDERED: PROC10TA4 PO (21:43)
[2018-05-27] MEDS ORDERED: HYDROCORTISONE 100 MG/2 ML VIAL (J1720) IV SCH (23:00)
[2018-05-27 23:53] VITALS: BP 152/72
[2018-05-28] VITALS (20 sets, daily range): BP systolic 99–135; BP diastolic 55–66
[2018-05-28] MEDS: HYDROCORTISONE 100 MG/2 ML VIAL (J1720) IV SCH ×3 (00:32→16:38)
[2018-05-28] MEDS: PROMETHAZINE INJ 25 MG/ML VIAL (J2550) IV PRN (00:32)
[2018-05-28] MEDS: MEROPENEM INJ 1 GM in APPROPRIATE DILUENT 1 EA IV SCH ×4 (00:32→20:54)
[2018-05-28] MEDS: NS 1,000 ML IV SCH ×4 (00:32→20:10)
[2018-05-28] MEDS: PANTOPRAZOLE 40MG INJ (PROTONIX) (C9113) IV SCH ×3 (00:32→20:53)
[2018-05-28] MEDS ORDERED: ACETAMINOPHEN 325 MG/10.15 ML UDC PO ONE (01:00)
[2018-05-28] MEDS: metroNIDAZOLE 500 MG in APPROPRIATE DILUENT 1 EA IV SCH ×3 (02:12→16:38)
[2018-05-28 03:05] LABS: HEMATOCRIT 26.9 % (36.0-47.0); HEMOGLOBIN 8.8 g/dl (12.0-15.5); MEAN CORPUSCULAR HEMOGLOBIN 27.8 pg (27.0-33.0); MEAN CORPUSCULAR HGB CONC 32.7 g/dl (32.0-36.5); MEAN CORPUSCULAR VOLUME 85.1 fl (80.0-96.0); PLATELET COUNT, AUTOMATED 229 10^3/uL (150-450); RED BLOOD COUNT 3.16 10^6/uL (4.00-5.40); WHITE BLOOD COUNT 17.3 10^3/uL (4.0-10.0)
[2018-05-28 03:33] LABS: ALBUMIN 2.1 GM/DL (3.2-5.2); ALT/SGPT 13 U/L (12-78); BILIRUBIN,TOTAL 0.2 MG/DL (0.2-1.0); BLOOD UREA NITROGEN 26 MG/DL (7-18); CALCIUM LEVEL 7.7 MG/DL (8.8-10.2); CARBON DIOXIDE LEVEL 25 MEQ/L (21-32); CHLORIDE LEVEL 104 MEQ/L (98-107); GLOMERULAR FILTRATION RATE > 60.0 (>45); GLUCOSE, FASTING 127 MG/DL (70-100); POTASSIUM SERUM 4.5 MEQ/L (3.5-5.1); SODIUM LEVEL 137 MEQ/L (136-145); TOTAL PROTEIN 5.9 GM/DL (6.4-8.2)
[2018-05-28 03:45] LABS: LYMPHOCYTES 2 % (16-52); METAMYELOCYTES 1 % (0-0); MONOCYTES 1 % (0-8); NEUTROPHILS 92 % (35-75)
[2018-05-28 03:46] LABS: PLATELET ESTIMATE NORMAL (NORMAL)
[2018-05-28 03:47] LABS: TOXIC VACUOLATION 1+
[2018-05-28 03:48] LABS: ANISOCYTOSIS 1+
[2018-05-28 03:49] LABS: DOHLE BODIES 1+
[2018-05-28] MEDS: MORPHINE 4 MG/ML 1ML VIAL/SYRINGE (J2270) IV PRN ×5 (09:36→20:11)
[2018-05-28 10:01] LABS: HEMATOCRIT 25.8 % (36.0-47.0)
[2018-05-28 10:36] LABS: HEMOGLOBIN 8.5 g/dl (12.0-15.5)
--- NOTE | 2018-05-28 12:29 | REP ---
REASON: Abdominal pain. COMPARISON: Frontal view of the chest of 12/15/2017. There is a patchy and asymmetric right lung base opacity which has transformed itself from a predominant patchy right lung opacity without costophrenic and cardiophrenic angle blunting on the prior exam. There is no other significant change in the lung ballesteros. The intestinal gas pattern is nonspecific. There is no evidence of intestinal obstruction or free intraperitoneal air. The organ silhouettes insofar as delineated are within normal limits. The osseous structures are within normal limits. IMPRESSION: Right lung base changes as described above pneumonia/atelectasis/pleural effusion this should be correlated clinically with appropriate followup. Nonspecific intestinal gas pattern without evidence of intestinal obstruction. Electronically Signed by Talon Marino DO 05/28/2018 10:38 A
--- NOTE | 2018-05-28 12:31 | HPE ---
DATE OF ADMISSION: 05/27/2018 PRIMARY CARE PROVIDER: Dr. Olvera ONCOLOGIST: Dr. Baker ATTENDING PHYSICIAN: Dr. Nur MACHINE TRACER: Dr. Hairston from general surgical service. CHIEF COMPLAINT: Abdominal pain, hematemesis, diarrhea, and rectal bleeding. HISTORY OF THE PRESENT ILLNESS: The patient is a 63-year-old white female with a history of metastatic lung cancer, presented to the emergency room (ER) for evaluation of above complaints. The history is provided by herself, as well as her family who are in the ER with her. Per the patient, she was diagnosed with lung cancer about 2 years ago, and she was treated with chemotherapy. Also, she was found to have metastasis to her brain, which was treated with Gamma knife and bilateral adrenal gland metastasis. Recently, she started on chemotherapy as well as immunotherapy. She states in the last few days, she has some diarrhea, otherwise she was doing relatively okay. However, since noontime, she said she developed abdominal pain, which is diffuse, about 5/10 in severity, no radiation and also she had some more frequent diarrhea. She also was found to have some rectal bleeding. Meanwhile, she threw up with hematemesis several times. But denies fever, no chills, and in the emergency room (ER) she was found to have leukocytosis, WBC of 23 with 8% bands. Also, she had a CT of the abdomen and pelvis done in the ER, which demonstrated she has extensive metastasis including liver, spleen, mesenteric tissue, and also questionable small bowel obstruction, so medicine called for admission. Meanwhile, the general surgical service was consulted per the ER attending. REVIEW OF SYSTEMS: Denies fever. No chills. No headache. No blurred vision. No shortness of breath. No chest pain. Positive nausea and hematemesis and positive abdominal pain. Positive diarrhea as well as rectal bleeding. No tingling, numbness, or weakness in the arms or lower extremities. All other systems were reviewed but negative. PAST MEDICAL HISTORY: 1. Lung cancer with metastasis to the brain, bone, adrenal glands. 2. Dyslipidemia. 3. Transient ischemic attack (TIA). 4. Deep vein thrombosis (DVT), on Lovenox. PAST SURGICAL HISTORY: 1. Bilateral breast mass removed, which was benign. 2. Dilation and curettage (D and C) in the past. 3. Cataract surgery. 4. Loop recorder placement. SOCIAL HISTORY: Denies tobacco use. Denies alcohol abuse. Denies illicit drug abuse. She is living with her , and she is a FULL CODE. ALLERGIES: No known drug allergies. MEDICATIONS: Reviewed. FAMILY HISTORY: One of the sisters has MS, another sister has thyroid cancer, and one brother has chronic obstructive pulmonary disease (COPD). PHYSICAL EXAMINATION: VITAL SIGNS: Temperature 95.3, heart rate is 100, respiratory rate 18, blood pressure 81/53, oxygen saturation 94% on room air. GENERAL: She is awake, alert, oriented times three. She is in acute distress. HEENT: Atraumatic. Pupils are equal, round, reactive to light. No jaundice. Extraocular muscles intact. NECK: No jugular venous distention (JVD), no bruits. LUNGS: Clear. No wheezing, no crackles. HEART; S1, S2, tachycardic but no murmur. ABDOMEN: Soft. Bowel sounds are positive, but has some tenderness in the middle of the abdomen. No rebound. LOWER EXTREMITIES: No edema in bilateral lower extremities. SKIN: No rash. NEUROLOGIC: Nonfocal. PSYCHOLOGIC: No acute psychosis. DIAGNOSTIC AND LAB STUDIES: Include the following - CBC and differential showed WBC 23.7 with 8% bands, hemoglobin and hematocrit 9.5 over 29.8, platelets 299. Sodium 134, potassium 4.5, chloride 100, bicarbonate 25, BUN 29, creatinine 0.9, glucose 112. CT of the abdomen and pelvis reviewed. ASSESSMENT AND PLAN: 1. Upper gastrointestinal (GI) bleed. She is typed and crossed and will transfuse as needed. Will follow hemoglobin and hematocrit every 6 hours, and I will start on intravenous (IV) Protonix. 2. Possible small bowel obstruction and will keep her nothing by mouth, and general surgical service will consult. 3. Severe sepsis. She has leukocytosis bands, but infection source is not clear. I will treat her with meropenem and Flagyl. Will check GI panel, to rule out any Clostridium difficile (C diff) diarrhea. 4. Lung cancer with extensive metastasis. 5. History of deep vein thrombosis and will hold her Lovenox since she has a GI bleed. DISPOSITION: She will be admitted to the intensive care unit (ICU) for close monitoring, and her prognosis is guarded. She is a FULL CODE. [facility]
--- NOTE | 2018-05-28 15:19 | IPNPDOC ---
Subjective Date Seen The patient was seen on 05/28/18. Subjective Chief Complaint/HPI Patient seen and examined at the bedside. Reports that she is feeling better this morning, but notes that she is having some pain in her left lower abdominal quadrant. She was also noted to have another bloody bowel movement this morning. Additional blood transfusion products have been ordered. We will continue to serially trend her H&H. General surgery on board. Objective Physical Examination General Exam: Positive: Alert, Cooperative, Mild Distress (2/2 lethargy), Other (pale-appearing) ENT Exam: Positive: Atraumatic; Negative: Mucous membr. moist/pink (dry mucous membranes) Neck Exam: Negative: JVD Chest Exam: Positive: Diminished Heart Exam: Positive: Rate Normal, Normal S1, Normal S2 Abdomen Exam: Positive: Soft, Tenderness (tenderness to deep palpation in the left lower quadrant. 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 Baker as an outpatient Leukocytosis possibly 2/2 GI Bleed, also on Chronic Steroid Therapy Cultures pending Patient has been febrile this morning Cont Meropenem, Flagyl given immunocompromised state We will cont to monitor Hx of CVA, Left Jugular Vein Thrombosis ASA, Lovenox SC on hold 2/2 GI Bleed DVT Prophylaxis SCDs/TEDs Condition: Critical Poor long-term prognosis I discussed goals of care and advanced directives extensively at the bedside with the patient and her . Poor prognosis with lung cancer with extensive metastasis was discussed at length with the patient. She understands that she is currently undergoing palliative chemotherapy, and that her cancer is terminal. However, the patient states that she would like to remain a full code at this time. Implications of this decision, and alternative options were discussed with her. She has verbalized understanding of the same, and all questions were answered to her satisfaction. VS, I&O, 24H, Fishbone Vital Signs/I&O Vital Signs Date Time Temp Pulse Resp B/P (MAP) Pulse Ox O2 Delivery O2 Flow Rate FiO2 05/28/18 15:03 85 20 129/61 100 Room Air 05/28/18 14:59 100.4 I&O- Last 24 Hours up to 6 AM 05/28/18 06:00 Intake Total 2881 ml Balance 2881 ml Laboratory Data 24H LABS Laboratory Tests 2 05/27/18 17:55: Immature Granulocyte % (Auto) , Nucleated Red Blood Cells % (auto) 0.0, Neutrophils 88H, Band Neutrophils 8, Lymphocytes (Manual) 3L, Metamyelocytes 1H, Dohle Bodies 1+, Platelet Estimate NORMAL 05/27/18 18:35: Prothrombin Time 15.0H, Prothromb Time International Ratio 1.16, Activated Partial Thromboplast Time 28.2, Anion Gap 9, Glomerular Filtration Rate > 60.0, Calcium Level 8.3L, Aspartate Amino Transf (AST/SGOT) 20, Alanine Aminotra nsferase (ALT/SGPT) 12, Alkaline Phosphatase 98, Total Bilirubin 0.2, Direct Bilirubin < 0.1, Total Protein 6.0L, Albumin 2.3L, Albumin/Globulin Ratio 0.62L, Lipase 276 05/28/18 02:56: Immature Granulocyte % (Auto) , Nucleated Red Blood Cells % (auto) 0.0, Neutrophils 92H, Band Neutrophils 4, Lymphocytes (Manual) 2L, Metamyelocytes 1H, Dohle Bodies 1+, Platelet Estimate NORMAL, Anion Gap 8, Glomerular Filtration Rate > 60.0, Calcium Level 7.7L, Aspartate Amino Transf (AST/SGOT) 19, Alanine Aminotransferase (ALT/SGPT) 13, Alkaline Phosphatase 88, Total Bilirubin 0.2, Total Protein 5.9L, Albumin 2.1L, Albumin/Globulin Ratio 0.55L, Monocytes (Manual) 1, Toxic Vacuolation 1+, Anisocytosis 1+, Blood Urea Nitrogen 26H, Creatinine 0.90, Sodium Level 137, Potassium Level 4.5, Chloride Level 104, Carbon Dioxide Level 25 05/28/18 12:34: Lactic Acid Level 1.1 CBC/BMP Laboratory Tests 05/27/18 17:55 Red Blood Count 3.49 L, Mean Corpuscular Volume 85.4, Mean Corpuscular Hemoglobin 27.2, Mean Corpuscular Hemoglobin Concent 31.9 L, Red Cell Distribution Width 14.6 H 05/27/18 18:35 05/28/18 02:56 Red Blood Count 3.16 L, Mean Corpuscular Volume 85.1, Mean Corpuscular Hemoglobin 27.8, Mean Corpuscular Hemoglobin Concent 32.7, Red Cell Distribution Width 14.6 H, Calcium Level 7.7 L, Aspartate Amino Transf (AST/SGOT) 19, Alanine Aminotransferase (ALT/SGPT) 13, Alkaline Phosphatase 88, Total Bilirubin 0.2, Total Protein 5.9 L, Albumin 2.1 L 05/28/18 09:49 CONRADO MANLEY MD May 28, 2018 15:19
--- NOTE | 2018-05-28 17:19 | IPN ---
DATE: 05/28/2018 The patient was seen last night in the emergency room after being admitted for sepsis, gastrointestinal (GI) bleeding, abdominal pain. She presents now this morning and overall she states that she is feeling better this morning. Her white count has dropped down and she is not as hypotensive as she was previously. Her abdominal exam reveals less abdominal distension. She is wharf tender head on exam, but it is a little bit less than it was last night. IMPRESSION AND PLAN: From a surgical standpoint, she is still a very poor operative risk for intervention and I do feel that nonoperative treatment is the best option for her, specifically trying to treat her with antibiotics should this be an infectious enteritis that is causing this problem. If it is a viral enteritis, it will take some time to get over it and otherwise it does not seem like it is an ischemic enteritis. Overall, I ordered an abdominal study this morning to rule out perforation given she had some increased abdominal pain earlier this morning that seemed to resolve and now she states that she is really not that uncomfortable when she is laying in bed. It is mostly when people palpate her abdomen. The patient's enteritis seems to be stable/improved from last night. I do feel that this is a very poor situation for her to be in given that it is a palliative position that she is in and I do feel that it is reasonable to continue her with antibiotic coverage; and at this point, no surgical intervention is recommended. She states that she has had some significant weight loss and it may be reasonable to start some total parenteral nutrition (TPN) on her tomorrow if she has continued improvement, resolution of her sepsis/acute symptoms.
[2018-05-28 18:41] LABS: HEMOGLOBIN 9.5 g/dl (12.0-15.5)
[2018-05-28] MEDS: prednisoLONE ACET 1% OPHTH SUSP 5ML OD SCH (20:53)
[2018-05-28] MEDS: PERCOCET 5MG/325MG TAB PO PRN (20:53)
[2018-05-28] MEDS: BROMSITE 0.075% OS SCH (20:54)
[2018-05-29] VITALS: BP 120/61
[2018-05-29] MEDS: HYDROCORTISONE 100 MG/2 ML VIAL (J1720) IV SCH ×3 (00:24→15:25)
[2018-05-29] MEDS: metroNIDAZOLE 500 MG in APPROPRIATE DILUENT 1 EA IV SCH ×3 (00:25→15:25)
[2018-05-29] MEDS: MORPHINE 4 MG/ML 1ML VIAL/SYRINGE (J2270) IV PRN ×3 (00:25→09:45)
[2018-05-29] MEDS: PERCOCET 5MG/325MG TAB PO PRN ×3 (01:22→10:34)
[2018-05-29 02:17] LABS: HEMATOCRIT 28.7 % (36.0-47.0); HEMOGLOBIN 9.6 g/dl (12.0-15.5); MEAN CORPUSCULAR HEMOGLOBIN 28.4 pg (27.0-33.0); MEAN CORPUSCULAR HGB CONC 33.4 g/dl (32.0-36.5); MEAN CORPUSCULAR VOLUME 84.9 fl (80.0-96.0); PLATELET COUNT, AUTOMATED 193 10^3/uL (150-450); RED BLOOD COUNT 3.38 10^6/uL (4.00-5.40); WHITE BLOOD COUNT 14.5 10^3/uL (4.0-10.0)
[2018-05-29 02:35] LABS: ANISOCYTOSIS 1+; ATYPICAL LYMPH 1 % (0-5); DOHLE BODIES 2+; LYMPHOCYTES 3 % (16-52); METAMYELOCYTES 3 % (0-0); MONOCYTES 1 % (0-8); NEUTROPHILS 88 % (35-75); PLATELET ESTIMATE NORMAL (NORMAL); TOXIC VACUOLATION 1+
[2018-05-29 02:51] LABS: ALT/SGPT 11 U/L (12-78); BILIRUBIN,TOTAL 0.4 MG/DL (0.2-1.0); BLOOD UREA NITROGEN 19 MG/DL (7-18); CARBON DIOXIDE LEVEL 25 MEQ/L (21-32); CHLORIDE LEVEL 110 MEQ/L (98-107); CREATININE FOR GFR 0.74 MG/DL (0.55-1.30); GLOMERULAR FILTRATION RATE > 60.0 (>45); GLUCOSE, FASTING 133 MG/DL (70-100); POTASSIUM SERUM 3.9 MEQ/L (3.5-5.1); SODIUM LEVEL 142 MEQ/L (136-145); TOTAL PROTEIN 5.5 GM/DL (6.4-8.2)
[2018-05-29 04:00] VITALS: BP 118/61
[2018-05-29] MEDS: NS 1,000 ML IV SCH ×2 (06:02→13:36)
[2018-05-29] MEDS: MEROPENEM INJ 1 GM in APPROPRIATE DILUENT 1 EA IV SCH ×3 (06:02→21:10)
[2018-05-29 07:45] VITALS: BP 142/70
[2018-05-29] MEDS: BROMSITE 0.075% OS SCH ×2 (08:06→21:08)
[2018-05-29] MEDS: PANTOPRAZOLE 40MG INJ (PROTONIX) (C9113) IV SCH ×2 (08:06→21:08)
[2018-05-29] MEDS ORDERED: MORPHINE 4 MG/ML 1ML VIAL/SYRINGE (J2270) IV PRN (11:00)
--- NOTE | 2018-05-29 11:29 | REP ---
Portable chest x-ray: Single view. History: Abdomen pain. Comparison study: May 28, 2018. Findings: Bowel gas pattern is unremarkable. No large or small bowel dilation is seen. Flank stripes are intact. Psoas margins are intact. No organomegaly is seen. There is consolidation and/or collapse in the right lower lobe of the lung with blunting of the right lateral pleural angle unchanged from May 28, 2018 prior study. No pathologic calcification seen. Impression: Large area of infiltrate with air bronchograms and pleural thickening and pleural angle blunting in the right base. A normal bowel gas pattern. Electronically Signed by Eddie Connors MD 05/29/2018 07:59 P
--- NOTE | 2018-05-29 11:45 | IPNPDOC ---
Subjective Date Seen The patient was seen on 05/29/18. Subjective Chief Complaint/HPI Patient seen and examined at the bedside. She continues to have left sided abdominal pain this morning. Denies any more episodes of bloody bowel movements. Her hemoglobin has remained stable. A PICC line has been ordered to start the patient on TPN. Surgical input appreciated. Objective Physical Examination General Exam: Positive: Alert, Cooperative, Mild Distress (LLQ Abdominal Pain) ENT Exam: Positive: Atraumatic Neck Exam: Negative: JVD Chest Exam: Positive: Diminished Heart Exam: Positive: Rate Normal, Normal S1, Normal S2 Abdomen Exam: Positive: Soft, Tenderness (tenderness to deep palpation in the left lower quadrant. 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, and mid small bowel obstruction IV fluid hydration, s/p blood transfusions The patient's blood pressure and Hgb is stable this morning, and she has not had a bloody BM since yesterday morning We will continue to monitor H&H serially Patient advanced to clear liquid diet Analgesic medication as ordered, Pain management consulted PICC Line ordered for TPN infusion Surgery on consult Lung Cancer with Metastasis to Brain s/p gamma knife, and recently discovered extensive Metastasis to B/L Adrenal Glands, Infrascapular region, and Intestinal Metastatic Implants s/p 1st cycle of Palliative Chemotherapy on 05/24 for recently discovered Mets Follows with Dr. Baker as an outpatient Leukocytosis possibly 2/2 GI Bleed, also on Chronic Steroid Therapy Cultures pending Patient has not had a fever this morning, and WBC continues to trend downward Cont Meropenem, Flagyl given immunocompromised state We will cont to monitor Hx of CVA, Left Jugular Vein Thrombosis ASA, Lovenox SC on hold 2/2 GI Bleed DVT Prophylaxis SCDs/TEDs Condition: Critical Poor long-term prognosis VS, I&O, 24H, Fishbone Vital Signs/I&O Vital Signs Date Time Temp Pulse Resp B/P (MAP) Pulse Ox O2 Delivery O2 Flow Rate FiO2 05/29/18 11:04 20 05/29/18 07:45 98.8 82 142/70 (94) 95 Room Air I&O- Last 24 Hours up to 6 AM 05/29/18 05:59 Intake Total 3105 ml Output Total 450 ml Balance 2655 ml Laboratory Data 24H LABS Laboratory Tests 2 05/28/18 12:34: Lactic Acid Level 1.1 05/29/18 02:07: Immature Granulocyte % (Auto) , Nucleated Red Blood Cells % (auto) 0.0, Neutrophils 88H, Band Neutrophils 4, Lymphocytes (Manual) 3L, Monocytes (Manual) 1, Metamyelocytes 3H, Atypical Lymphocytes 1, Toxic Vacuolation 1+, Dohle Bodies 2+, Platelet Estimate NORMAL, Anisocytosis 1+, Anion Gap 7L, Glomerular Filtration Rate > 60.0, Blood Urea Nitrogen 19H, Creatinine 0.74, Sodium Level 142, Potassium Level 3.9, Chloride Level 110H, Carbon Dioxide Level 25, Calcium Level 8.0L, Aspartate Amino Transf (AST/SGOT) 15, Alanine Aminotransferase (ALT/SGPT) 11L, Alkaline Phosphatase 101, Total Bilirubin 0.4#, Total Protein 5.5L, Albumin 2.0L, Albumin/Globulin Ratio 0.57L CBC/BMP Laboratory Tests 05/28/18 18:01 05/29/18 02:07 Red Blood Count 3.38 L, Mean Corpuscular Volume 84.9, Mean Corpuscular Hemoglobin 28.4, Mean Corpuscular Hemoglobin Concent 33.4, Red Cell Distribution Width 15.0 H, Calcium Level 8.0 L, Aspartate Amino Transf (AST/SGOT) 15, Alanine Aminotransferase (ALT/SGPT) 11 L, Alkaline Phosphatase 101, Total Bilirubin 0.4 #, Total Protein 5.5 L, Albumin 2.0 L CONRADO MANLEY MD May 29, 2018 11:45
[2018-05-29 12:00] VITALS: BP 145/69
[2018-05-29] MEDS: MORPHINE 30 MG SA TAB PO SCH ×2 (12:13→21:08)
[2018-05-29] MEDS ORDERED: LIDOCAINE 1% MDV 20ML VIAL As Ordered ONE (14:36)
[2018-05-29] MEDS: SODIUM CHLORIDE 0.9% INJ 10 ML SYR IV SCH (17:46)
--- NOTE | 2018-05-29 18:13 | IPN ---
DATE OF CONSULTATION: CHIEF COMPLAINT: Generalized back pain with history of metastatic cancer (CA). We were asked to see Hallie Turcios for uncontrolled pain. Spoke with child care teacher nurse in ICU taking care of Hallie this afternoon. Since early this afternoon, her pain has been better controlled. They started her on MS Contin 30 mg twice a day and she is also using oxycodone 5/325 as needed for breakthrough pain. Also on Fortaz IV, morphine 4 mg every 2 hours as needed. She was sleeping when I came up to visit her today. I spoke with nursing and they will talk to Dr. Vogt to let us know if her pain becomes out of control again that we would be glad to see her tomorrow. Otherwise, my recommendations would be to not change her current available pain regimen.
[2018-05-29 19:20] LABS: HEMATOCRIT 30.4 % (36.0-47.0); HEMOGLOBIN 9.9 g/dl (12.0-15.5)
--- NOTE | 2018-05-29 19:57 | REP ---
Procedure: PICC line insertion with Keeley The procedure was performed under the direct supervision of Dr. Connors. The risks and benefits of the procedure were explained to the patient and informed consent was obtained. The right brachial vein was localized using ultrasound guidance. The skin was prepped and draped in a sterile fashion. 2% lidocaine was used as a local anesthetic. Using ultrasound guidance the brachial vein was cannulated and a 0.018 guidewire was inserted and advanced to the SVC using fluoroscopic guidance. The needle was removed and a 5.5 Mohawk dilator and peel-away sheath was inserted over the guide wire. A 5.5 [place]awk dual lumen catheter was cut to length of 34 cm. The dilator was removed and the catheter was inserted over the guide wire with the tip ending in the SVC. The peel-away sheath was removed and the catheter was flushed with heparinized saline as per Hospital protocol. The catheter was affixed to the skin and a sterile dressing was applied. The patient tolerated the procedure well and there were no immediate complications. 0.2 minutes of fluoro time was utilized for this procedure. Reviewed by ZENY Reinoso 05/29/2018 04:56 P Electronically Signed by Eddie Connors MD 05/29/2018 07:48 P
[2018-05-29 20:00] VITALS: BP 130/63
[2018-05-29] MEDS: prednisoLONE ACET 1% OPHTH SUSP 5ML OD SCH (21:08)
[2018-05-30] VITALS: BP 124/66
[2018-05-30] MEDS: HYDROCORTISONE 100 MG/2 ML VIAL (J1720) IV SCH ×3 (00:15→16:08)
[2018-05-30] MEDS: NS 1,000 ML IV SCH ×4 (00:15→22:14)
[2018-05-30] MEDS: metroNIDAZOLE 500 MG in APPROPRIATE DILUENT 1 EA IV SCH ×3 (00:15→16:08)
[2018-05-30 04:00] VITALS: BP 138/78
[2018-05-30 05:10] LABS: HEMATOCRIT 27.7 % (36.0-47.0); HEMOGLOBIN 9.1 g/dl (12.0-15.5); MEAN CORPUSCULAR HEMOGLOBIN 28.1 pg (27.0-33.0); MEAN CORPUSCULAR HGB CONC 32.9 g/dl (32.0-36.5); MEAN CORPUSCULAR VOLUME 85.5 fl (80.0-96.0); PLATELET COUNT, AUTOMATED 179 10^3/uL (150-450); RED BLOOD COUNT 3.24 10^6/uL (4.00-5.40); WHITE BLOOD COUNT 14.8 10^3/uL (4.0-10.0)
[2018-05-30] MEDS: MEROPENEM INJ 1 GM in APPROPRIATE DILUENT 1 EA IV SCH ×3 (05:11→21:11)
[2018-05-30] MEDS: SODIUM CHLORIDE 0.9% INJ 10 ML SYR IV SCH ×2 (05:12→17:49)
[2018-05-30 05:48] LABS: DOHLE BODIES 2+; LYMPHOCYTES 1 % (16-52); MONOCYTES 2 % (0-8); NEUTROPHILS 96 % (35-75); PLATELET ESTIMATE NORMAL (NORMAL)
[2018-05-30 05:49] LABS: ANISOCYTOSIS 1+
[2018-05-30 05:51] LABS: BURR CELLS 1+
[2018-05-30 08:00] VITALS: BP 138/72
[2018-05-30 08:30] LABS: ALBUMIN 1.8 GM/DL (3.2-5.2); ALT/SGPT 12 U/L (12-78); BILIRUBIN,TOTAL 0.2 MG/DL (0.2-1.0); BLOOD UREA NITROGEN 16 MG/DL (7-18); CALCIUM LEVEL 7.8 MG/DL (8.8-10.2); CARBON DIOXIDE LEVEL 25 MEQ/L (21-32); CHLORIDE LEVEL 107 MEQ/L (98-107); CREATININE FOR GFR 0.56 MG/DL (0.55-1.30); GLOMERULAR FILTRATION RATE > 60.0 (>45); GLUCOSE, FASTING 112 MG/DL (70-100); MAGNESIUM LEVEL 1.9 MG/DL (1.8-2.4); POTASSIUM SERUM 3.8 MEQ/L (3.5-5.1); SODIUM LEVEL 140 MEQ/L (136-145); TOTAL PROTEIN 4.6 GM/DL (6.4-8.2)
[2018-05-30] MEDS: BROMSITE 0.075% OS SCH ×2 (09:16→21:15)
[2018-05-30] MEDS: PANTOPRAZOLE 40MG INJ (PROTONIX) (C9113) IV SCH ×2 (09:17→21:11)
[2018-05-30] MEDS: MORPHINE 30 MG SA TAB PO SCH ×2 (09:17→21:11)
[2018-05-30 12:00] VITALS: BP 127/60
[2018-05-30 13:09] LABS: HEMATOCRIT 28.7 % (36.0-47.0); HEMOGLOBIN 9.5 g/dl (12.0-15.5)
--- NOTE | 2018-05-30 14:24 | IPNPDOC ---
Text Note Date of Service The patient was seen on 05/30/18. NOTE Subjective: Patient is a 63-year-old female with a PMHx of Lung CA (Stage IV, metastasis to bone, brain, adrenal glands), DLP, Hx of TIA, Hx of DVT who presented to the ER with abdominal pain and associated rectal bleeding. Patient was admitted to the hospitalist service for further evaluation and treatment. Patient was seen and examined at the bedside. This morning patient denies any chest pain, shortness of breath, palpitations. Denies any nausea or vomiting. Has reported improvement in abdominal pain. Denies any recent bowel movements. Denies any discomfort with urination. Objective: Vitals (See below) General: Lying in bed, no acute distress, comfortable, AAOx3 HEENT: NC, AT CVS: RRR, +S1S2 Lungs: Fair air entry b/l, -w/r/r Abdomen: Soft, ND, NT Extremities: - Edema, - Calf tenderness Assessment and plan: Acute blood loss anemia - likely 2/2 GI etiology - Clinically has noted improvement in abdominal pain - Hemodynamically stable - H&H stable - s/p 3 units PRBC - CT ab/pelv 05/27:1. RLL and RML pulmonary consolidation, unchanged. Interval decrease in size of right pleural effusion, now tiny. 2. Radiographically stable hepatic and splenic lesions. 3. Bilateral adrenal metastases, unchanged. 4. 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 A bowel wall mass is not excluded given the lack of enteric contrast. 5. Mid small bowel obstruction, likely partial, with indeterminate etiology and gradual caliber transition. - Will follow H&H q6h - General surgery on consultation - Advance diet as tolerated; will start TPN today Lung Cancer (Stage IV; Metastasis to Brain s/p gamma knife, recent metastasis to B/L Adrenal Glands, Infrascapular region, and Intestinal Metastatic Implants) - s/p 1st cycle of Palliative Chemotherapy on 05/24 for recently discovered Mets - Follows with Dr. Baker as an outpatient Leukocytosis - likely 2/2 reactive etiology; less likely 2/2 infectious etiology - ROS negative for source of infection - Afebrile / hemodynamically stable - c/w Meropenem / Flagyl Hx of CVA - c/w ASA Left Jugular Vein Thrombosis - Lovenox on hold / GI Bleed DVT Prophylaxis - c/w SCDs Prognosis: - Poor Disposition: - Slowly advance diet as tolerated VS,Fishbone, I+O VS, Fishbone, I+O Laboratory Tests 05/29/18 18:48 05/30/18 04:59 Red Blood Count 3.24 L, Mean Corpuscular Volume 85.5, Mean Corpuscular Hemoglobin 28.1, Mean Corpuscular Hemoglobin Concent 32.9, Red Cell Distribution Width 15.8 H 05/30/18 07:49 Calcium Level 7.8 L, Aspartate Amino Transf (AST/SGOT) 38 H, Alanine Aminotransferase (ALT/SGPT) 12, Alkaline Phosphatase 100, Total Bilirubin 0.2, Total Protein 4.6 L, Albumin 1.8 L 05/30/18 12:47 Vital Signs Date Time Temp Pulse Resp B/P (MAP) Pulse Ox O2 Delivery O2 Flow Rate FiO2 05/30/18 12:00 99.0 89 16 127/60 (82) 94 Room Air I&O- Last 24 Hours up to 6 AM 05/30/18 05:59 Intake Total 2810 ml Output Total 1200 ml Balance 1610 ml TONI KURTZ MD May 30, 2018 14:24
[2018-05-30 16:00] VITALS: BP 158/69
[2018-05-30] MEDS: AMINO AC/ELECTROLYTE/DEX/CALC 2,000 ML IV SCH (17:49)
[2018-05-30] MEDS ORDERED: FAT EMULSION IV 20% 500 ML IV SCH (18:00)
[2018-05-30] MEDS ORDERED: SODIUM CHLORIDE NASAL 0.65% SPRAY BTL (OCEAN) PRN (18:00)
[2018-05-30] MEDS: PERCOCET 5MG/325MG TAB PO PRN (18:44)
[2018-05-30 19:37] LABS: HEMATOCRIT 28.8 % (36.0-47.0); HEMOGLOBIN 9.5 g/dl (12.0-15.5)
[2018-05-30 21:00] VITALS: BP 146/80
[2018-05-30] MEDS: prednisoLONE ACET 1% OPHTH SUSP 5ML OD SCH (21:15)
[2018-05-31] VITALS (7 sets, daily range): BP systolic 93–143; BP diastolic 56–95
[2018-05-31] MEDS: PERCOCET 5MG/325MG TAB PO PRN ×5 (00:15→19:36)
[2018-05-31] MEDS: HYDROCORTISONE 100 MG/2 ML VIAL (J1720) IV SCH ×4 (00:15→23:33)
[2018-05-31] MEDS: metroNIDAZOLE 500 MG in APPROPRIATE DILUENT 1 EA IV SCH ×2 (00:15→08:02)
[2018-05-31 00:46] LABS: HEMOGLOBIN 10.5 g/dl (12.0-15.5)
[2018-05-31] MEDS: MEROPENEM INJ 1 GM in APPROPRIATE DILUENT 1 EA IV SCH ×3 (05:12→21:34)
[2018-05-31] MEDS: SODIUM CHLORIDE 0.9% INJ 10 ML SYR IV SCH ×2 (05:13→16:54)
[2018-05-31 05:40] LABS: HEMATOCRIT 32.2 % (36.0-47.0); HEMOGLOBIN 10.7 g/dl (12.0-15.5); MEAN CORPUSCULAR HEMOGLOBIN 27.9 pg (27.0-33.0); MEAN CORPUSCULAR HGB CONC 33.2 g/dl (32.0-36.5); MEAN CORPUSCULAR VOLUME 83.9 fl (80.0-96.0); PLATELET COUNT, AUTOMATED 206 10^3/uL (150-450); RED BLOOD COUNT 3.84 10^6/uL (4.00-5.40)
[2018-05-31 05:56] LABS: ALBUMIN 1.6 GM/DL (3.2-5.2); ALT/SGPT 15 U/L (12-78); BILIRUBIN,TOTAL 0.2 MG/DL (0.2-1.0); BLOOD UREA NITROGEN 18 MG/DL (7-18); CALCIUM LEVEL 7.5 MG/DL (8.8-10.2); CARBON DIOXIDE LEVEL 23 MEQ/L (21-32); CHLORIDE LEVEL 105 MEQ/L (98-107); CREATININE FOR GFR 0.61 MG/DL (0.55-1.30); GLOMERULAR FILTRATION RATE > 60.0 (>45); GLUCOSE, FASTING 200 MG/DL (70-100); POTASSIUM SERUM 3.9 MEQ/L (3.5-5.1); SODIUM LEVEL 137 MEQ/L (136-145); TOTAL PROTEIN 4.5 GM/DL (6.4-8.2)
[2018-05-31 06:08] LABS: DOHLE BODIES 1+; LYMPHOCYTES 3 % (16-52); MONOCYTES 3 % (0-8); MYELOCYTES 2 % (0-0); NEUTROPHILS 90 % (35-75); TOXIC VACUOLATION 1+
[2018-05-31 06:09] LABS: BURR CELLS 1+
[2018-05-31 06:10] LABS: PLATELET ESTIMATE NORMAL (NORMAL)
[2018-05-31] MEDS: PANTOPRAZOLE 40MG INJ (PROTONIX) (C9113) IV SCH ×2 (08:02→21:33)
[2018-05-31] MEDS: MORPHINE 30 MG SA TAB PO SCH ×2 (08:03→21:36)
[2018-05-31] MEDS: NS 1,000 ML IV SCH (08:04)
[2018-05-31] MEDS: BROMSITE 0.075% OS SCH ×2 (08:04→21:34)
--- NOTE | 2018-05-31 10:56 | REP ---
KUB: Portable exam. History: Abdominal distension. Comparison portable abdominal film is from May 29, 2018. Findings: Supine abdominal film shows a essentially normal bowel gas pattern. There is no evidence of obstruction or significant ileus. Some gas is seen in the colon loops. I cannot exclude some degree of ascites. No significant bony abnormality. Impression: No evidence of obstruction or significant ileus. Question some degree of ascites. Electronically Signed by Eddie Connors MD 05/31/2018 08:31 P
--- NOTE | 2018-05-31 10:58 | REP ---
Portable chest x-ray: Single view. History: Leukocytosis. Comparison study: May 28, 2018. Findings: There are bilateral pleural effusions blunting the pleural angles. A loop recorder is visualized over the heart. EKG electrodes are seen. A right arm PICC line is seen with its tip in the expected location of the superior vena cava. There is bowel gas under the right hemidiaphragm and left hemidiaphragm. Heart is not felt to be enlarged. Remaining lung ballesteros are clear. Impression: Bilateral pleural effusions, left a little larger than right. These are increased compared to the May 28, 2018 prior study. Electronically Signed by Eddie Connors MD 05/31/2018 08:31 P
[2018-05-31] MEDS ORDERED: VANCOMYCIN HCL 1,000 MG, VIAL MATE ADAPTER 1 EACH in D5W 250 ML IV ONE (11:15)
--- NOTE | 2018-05-31 11:21 | IPNPDOC ---
Text Note Date of Service The patient was seen on 05/31/18. NOTE Subjective: Patient is a 63-year-old female with a PMHx of Lung CA (Stage IV, metastasis to bone, brain, adrenal glands), DLP, Hx of TIA, Hx of DVT who presented to the ER with abdominal pain and associated rectal bleeding. Patient was admitted to the hospitalist service for further evaluation and treatment. Patient was seen and examined at the bedside. Patient has noted that she's not experiencing any significant abdominal pain. He denies experiencing any nausea or vomiting. Has had bowel movements yesterday that were dark colored with possible blood. .He denies any discomfort with urination. Denies any chest pain, shortness of breath, palpitations, lightheadedness or dizziness. I have called and discussed the case with oncology, Dr. Baker. They have indicated that the patient's leukocytosis could probably be a reflection of Neulasta and corticosteroids. They've indicated that the patient's prognosis may be poor given stage IV lung cancer. In general, however, she has had good functional status as an outpatient recently. Will discuss case with surgery for considering possible EGD or colonoscopy given persistence of GI bleed. Objective: Vitals (See below) General: Lying in bed, no acute distress, comfortable, AAOx3 HEENT: NC, AT CVS: RRR, +S1S2 Lungs: Fair air entry b/l, no appreciable wheezing, rales or rhonchi Abdomen: Soft, ND, remains nontender Extremities: - Edema, - Calf tenderness Assessment and plan: Acute blood loss anemia - likely 2/2 GI etiology - unclear if this is 2/2 to metastatic disease - Clinically has noted improvement in abdominal pain - Hemodynamically stable - H&H stable - s/p 3 units PRBC - CT ab/pelv 05/27:1. RLL and RML pulmonary consolidation, unchanged. Interval decrease in size of right pleural effusion, now tiny. 2. Radiographically stable hepatic and splenic lesions. 3. Bilateral adrenal metastases, unchanged. 4. 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 A bowel wall mass is not excluded given the lack of enteric contrast. 5. Mid small bowel obstruction, likely partial, with indeterminate etiology and gradual caliber transition. - Will follow H&H q6h - c/w Protonix IV BID - General surgery on consultation - c/w soft diet as tolerated and TPN Leukocytosis - possibly 2/2 reactive etiology - 2/2 Neulasta / Corticosteroids; possibly 2/2 infectious etiology - Clinically patient has not noted any significant abdominal pain at this time - She denies any shortness of breath, cough, discomfort with urination or diarrhea - She remains afebrile / hemodynamically stable - Will check blood cultures, lactic acid, UA - Will check CXR / Abdominal XR - c/w Meropenem; Will DC Flagyl, will add vancomycin Adrenal insufficiency - c/w Hydrocortisone Lung Cancer (Stage IV; Metastasis to Brain s/p gamma knife, recent metastasis to B/L Adrenal Glands, Infrascapular region, and Intestinal Metastatic Implants) - s/p 1st cycle of Palliative Chemotherapy on 05/24 for recently discovered Mets - Follows with Dr. Baker as an outpatient - Consulted oncology Hx of CVA - c/w ASA Left Jugular Vein Thrombosis - Lovenox on hold 2/2 GI Bleed Protein calorie malnutrition - likely moderate - Patient has had significant weight loss - likely 2/2 malignancy - Poor oral intake - Appears cachectic DVT Prophylaxis - c/w SCDs Prognosis: - Poor Disposition: - Slowly advance diet as tolerated - Monitor H&H; transfuse PRN - Potential EGD / Colonoscopy if bleeding fails to resolve VS,Fishbone, I+O VS, Fishbone, I+O Laboratory Tests 05/30/18 12:47 05/30/18 19:23 05/31/18 00:28 05/31/18 05:11 Red Blood Count 3.84 L, Mean Corpuscular Volume 83.9, Mean Corpuscular Hemoglobin 27.9, Mean Corpuscular Hemoglobin Concent 33.2, Red Cell Distribution Width 16.2 H, Calcium Level 7.5 L, Aspartate Amino Transf (AST/SGOT) 47 H, Alanine Aminotransferase (ALT/SGPT) 15, Alkaline Phosphatase 115, Total Bilirubin 0.2, Total Protein 4.5 L, Albumin 1.6 L Vital Signs Date Time Temp Pulse Resp B/P (MAP) Pulse Ox O2 Delivery O2 Flow Rate FiO2 05/31/18 10:45 22 05/31/18 10:15 126 127/62 94 Room Air 05/31/18 08:00 98.9 I&O- Last 24 Hours up to 6 AM 05/31/18 05:59 Intake Total 4590 ml Output Total 650 ml Balance 3940 ml TONI KURTZ MD May 31, 2018 11:20
[2018-05-31] MEDS: AMINO AC/ELECTROLYTE/DEX/CALC 2,000 ML IV SCH (11:39)
[2018-05-31 12:13] LABS: HEMATOCRIT 34.5 % (36.0-47.0); HEMOGLOBIN 11.6 g/dl (12.0-15.5); MEAN CORPUSCULAR HEMOGLOBIN 28.5 pg (27.0-33.0); MEAN CORPUSCULAR HGB CONC 33.6 g/dl (32.0-36.5); MEAN CORPUSCULAR VOLUME 84.8 fl (80.0-96.0); PLATELET COUNT, AUTOMATED 193 10^3/uL (150-450); RED BLOOD COUNT 4.07 10^6/uL (4.00-5.40); WHITE BLOOD COUNT 18.7 10^3/uL (4.0-10.0)
[2018-05-31] MEDS ORDERED: FUROSEMIDE 40 MG/4 ML VIAL (J1940) IV ONE (12:15)
[2018-05-31 12:41] LABS: ATYPICAL LYMPH 7 % (0-5); LYMPHOCYTES 1 % (16-52); METAMYELOCYTES 10 % (0-0); MONOCYTES 6 % (0-8); NEUTROPHILS 48 % (35-75); NUCLEATED RED BLOOD CELL 5 % (0-0); PLATELET ESTIMATE NORMAL (NORMAL)
[2018-05-31 12:42] LABS: TOXIC GRANULATION 2+; TOXIC VACUOLATION 1+
--- NOTE | 2018-05-31 14:24 | PHACANCOPD ---
PHARMACY VANCOMYCIN DOSING Pt Demographics Demographics Patient Age:63 , Weight:51.400 , Gender: female Adjusted Body Weight Date: 05/31/18, Adjusted Body Weight: Kg Events Past 24 Hours Events Past 24 Hours: NO: Dialysis, Diuretic Therapy, Change in CrCl, Fever, Elevation in WBC, Pending Diagnostics, Pending Procedures, Other Vancomycin Vancomycin Target Ranges: 15-20 mcg/ml Vancomycin Load Y/N: Yes Load Dose Date Time Vancomycin Load Dose: 1G Date: 05/31/18 Time: 1138 Vancomycin Dose Date: 05/31/18. Current Vancomycin Dose: Intermittent Dosing?: No Labs Labs Item Value Date Time White Blood Count 18.7 10^3/uL H 05/31/18 1155 White Blood Count 20.0 10^3/uL H 05/31/18 0511 Creatinine 0.61 MG/DL 05/31/18 0511 Creatinine 0.56 MG/DL 05/30/18 0749 Creatinine 0.74 MG/DL 05/29/18 0207 Vital Signs Label Value Date Time Patient Temperature 98.9 degrees F 05/31/18 0800 Temperature Source Temporal 05/31/18 0800 Patient Temperature 99.9 degrees F 05/31/18 0430 Temperature Source Temporal 05/31/18 0430 Patient Temperature 99.7 degrees F 05/31/18 0000 Temperature Source Temporal 05/31/18 0000 Micro Microbiology 05/31/18 Blood Culture, Received Pending 05/31/18 Blood Culture, Received Pending Creatinine Clearance Date:05/31/18. Creatinine Clearance: . Assessment and Plan Maintaining Current Dose?: No Reason for dose change: No Dose Change Pharmacist Note Pharmacist Note Date: 05/31/18. Pharmacist note: Pt. started on Vanco and Merrem for possible sepsis. Pt has no hx of Vanco with us. I have loaded her with 1G today at 1138 followed by Vanco 750mg IV Q12H@0000(midnight 06/01). We will continue to follow and adjust dose as needed. GUS HERNANDEZ [facility]ARM[facility] May 31, 2018 14:24
[2018-05-31] MEDS ORDERED: MULTIVITAMIN -ADULT INJECTION 10 ML, CR/CU/SE/MN/ZN INJ 1 ML in AMINO AC/ELECTROLYTE/DE... IV SCH (18:00)
[2018-05-31] MEDS ORDERED: FAT EMULSION IV 20% 500 ML IV SCH (18:00)
[2018-05-31 18:40] LABS: HEMATOCRIT 36.3 % (36.0-47.0); HEMOGLOBIN 12.2 g/dl (12.0-15.5)
[2018-05-31] MEDS ORDERED: FUROSEMIDE 40 MG/4 ML VIAL (J1940) IV SCH (20:00)
[2018-05-31] MEDS: prednisoLONE ACET 1% OPHTH SUSP 5ML OD SCH (21:34)
[2018-05-31] MEDS: prednisoLONE ACET 1% OPHTH SUSP 5ML OS SCH (22:16)
[2018-05-31] MEDS: FUROSEMIDE 40 MG/4 ML VIAL (J1940) IV SCH (23:33)
[2018-05-31] MEDS: VANCOMYCIN HCL 750 MG, VIAL MATE ADAPTER 1 EACH in D5W 250 ML IV SCH (23:34)
[2018-05-31 23:44] LABS: HEMATOCRIT 34.5 % (36.0-47.0); HEMOGLOBIN 11.3 g/dl (12.0-15.5)
[2018-06-01] VITALS (40 sets, daily range): BP systolic 84–145; BP diastolic 46–94
[2018-06-01] MEDS ORDERED: DIGOXIN INJ 0.5 MG/2 ML AMP (J1160) IV STA ×2 (00:37→03:04)
[2018-06-01] MEDS ORDERED: METOPROLOL 5 MG/5 ML VIAL IV STA (00:50)
[2018-06-01] MEDS ORDERED: METOPROLOL 5 MG/5 ML VIAL As Ordered ONE (00:52)
[2018-06-01 01:19] LABS: MB/CK RELATIVE INDEX 1.8 (< OR =4); TROPONIN I 1.04 NG/ML (< 0.10)
[2018-06-01] MEDS ORDERED: AMIODARONE 200 MG TAB (PACERONE) PO ONE (01:30)
[2018-06-01] MEDS ORDERED: DIGOXIN INJ 0.5 MG/2 ML AMP (J1160) IV ONE (02:00)
[2018-06-01] MEDS ORDERED: MIDAZOLAM INJ 2 MG/2 ML VIAL (J2250) As Ordered ONE ×2 (03:23→03:24)
[2018-06-01] MEDS ORDERED: MIDAZOLAM INJ 2 MG/2 ML VIAL (J2250) IV STA (03:52)
--- NOTE | 2018-06-01 03:58 | CR ---
DATE OF CONSULTATION: 02/22/1920 Dr. Toshia Joseph of hospitalist service requested inpatient medical oncology consult for management recommendations regarding Hallie Turcios with metastatic EGFR mutation positive adenocarcinoma of lung, admitted with gastrointestinal (GI) bleed malaise, fever following start of the salvage chemotherapy 05/24/2018 for aggressive recurrence of adenocarcinoma of lung. HISTORY OF PRESENT ILLNESS: Hallie is a never smoker, active normally. Eastern Cooperative Oncology Group (ECOG) performance status zero. A 63-year-old woman who in July 2015 was diagnosed with T4 N2 M0 advanced stage III, EGFR mutation positive adenocarcinoma of lung involving dominant right lower lobe, right middle lobes, infiltrate suspicious for lymphangitic spread right paratracheal adenopathy. She was deemed unresectable and because of multilobar disease not a candidate for definitive chemoradiation. She began treatment with erlotinib, a TKI and had a great response with near complete resolution of all sites of disease. In late 2016 she developed progression with increase in size in the right lower lobe mass and was found to have a T790 EGFR mutation, and began osimertinib. In early 2017, June She was found to have screen-detected intracranial metastases treated with gamma treatment in [place]. In December 18, 2017, she had small volume progression of disease in the right lung. No distant sites of disease detectable, no intracranial recurrence. This focus in the right lung was treated with involved-field radiation and she continued on the osimertinib. At the time of her first progression she was seen by Artemio Torres MD of the thoracic oncology program at [facility] who had recommended the switch to osimertinib. In April 2018 she presented with new GI symptoms, increased cough and rising CEA which has been a reliable marker of her disease state. Restaging scans revealed extensive visceral progression involving bilateral large adrenal metastases, a possible left lower quadrant intestinal mass which was new, anterior to the iliopsoas measuring up to 3.8 cm with high SUV and postradiation consolidation with collapse of the right lower lobe lung. There were no bone sites of disease and no detectable intracranial metastases. Prior to starting a new treatment 05/24/2018, Hallie sought second opinion with Dr. Torres again [facility]. There were no active clinical trials appropriate for her. Biopsy was performed at [facility], it came back non small cell lung carcinoma, T790 mutation negative, indicating an evolution of her tumor to be resistant to TKI therapy. Dr. Torres recommended she immediately began combination chemo immunotherapy and she did on 05/24/2018 with the following drugs: carboplatin/ paclitaxel/bevacizumab/atezolizumab. She received pegfilgrastim injection the following day. Of note, while in [place], Hallie was also diagnosed with adrenal insufficiency having a very high ACTH though a normal a.m. cortisol and was started on hydrocortisone [address] Torres. Three days after starting chemotherapy with carboplatin/Taxol/ethan/atezolizumab, Hallie, who had been feeling more or less quite well took a nap and woke up dizzy, unable to stand up well, semi collapsed, developed diarrhea with blood in her stools and went to the emergency room. On admission, 05/27/2018 white blood cell (WBC) was 23, hemoglobin/hematocrit 9.5 and 29.8 respectively with hematocrit dropping down to 25. 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 A bowel MALT wall mass could not be excluded on the non by mouth contrast study. A mid small bowel partial obstruction was also noted. Since admission Hallie has had very great difficulty eating and taking in by mouth but has had no iman evidence of bowel perforation, has continued to lose weight and 2 days ago she was started on TPN. Albumin is 1.6 today. Serial abdominal imaging over the last several days continues to be negative for free air or evidence of perforation. There is a question of ascites on today's abdominal x-ray. Dr. Hairston is following closely. Today, Hallie reportedly had another episode of bloody stool. Her most recent blood transfusion was 05/28/2018 when she received 2 units of RBCs. PAST MEDICAL HISTORY: Lung cancer as described above, dyslipidemia, transient ischemic attack (TIA), deep vein thrombosis (DVT), adrenal insufficiency secondary to adrenal metastases diagnosed May 2018. PAST SURGICAL HISTORY: Bilateral benign breast biopsy, dilation and curettage (D and C), cataract surgery, loop recorder placement. SOCIAL HISTORY: Never smoker and denies alcohol. , lives with her . Has a grown daughter living in [place]. Baseline physically fit and active. ALLERGIES: No known drug allergies. MEDICATIONS: Medications were reviewed and include: - Lasix - vancomycin - TPN - morphine sulfate - long-acting and short-acting morphine sulfate - hydrocortisone 100 mg every 8 hours - ondansetron - meropenem PHYSICAL EXAMINATION: On limited physical exam at the bedside Hallie is mildly tachypneic but denies feeling short of breath. She is aware that she is breathing faster, reports feeling much better today than yesterday, though she has had more opioids today. On brief exam, her abdomen is nontender. No rebound tenderness. No palpable mass. No palpable organomegaly. Remainder of exam deferred. Vital signs: Heart rate 136, blood pressure 115/76, her respiratory rate "35" (25 by MD). LABORATORY DATA: As described above. IMPRESSION: Hallie Turcios is a 64-year-old woman diagnosed in 2015 with EGFR mutation positive, advanced lung cancer who enjoyed a nearly 2-year period of clinical remission on erlotinib followed by oligoprogression in the brain and lung switched to osimertinib upon finding T790 EGFR mutation and undergoing gamma radiation to small brain metastases. She had mild right lung progression as her only site in December 2017 received radiation to the site and continued on osimertinib but unfortunately in April has had fairly vigorous disease recurrence involving extensive below the diaphragm visceral metastases with bilateral large adrenal metastases and a left lower quadrant mesenteric mass, possible intestinal implant. She nevertheless was minimally symptomatic from this beyond a cough and a generalized GI malaise; she has undergone a repeat biopsy involving the adrenal metastatic disease while at [facility] which shows non-small cell lung carcinoma with a disappearance of a T790, mutation reflecting resistance to TKI therapy. She started on combination chemotherapy and immunotherapy and anti-VEGF therapy 05/24/2018 was fine for 3 days but on the fourth day or so developed a fairly rapid onset dizziness, near syncope and GI bleed. She was admitted to the hospital 05/27/2018. She has received 3 units of RBC transfusion. Continues to have abdominal discomfort but under much better control with opioids, analgesics. There is no clear-cut evidence of GI perforation. Notably this a risk with the drug bevacizumab, the anti-VEGF she received on the May 24, 2018 but this would be a very rapid onset of wound nonhealing/intestinal perforation somewhat unlikely. Overall it is unclear whether her abdominal pain, reflects the mesenteric mass and adrenal metastases which are progressing though stable on most recent scans, evolution of an intestinal site which may threaten perforation, or some other cause uncertain like a colitis unrelated to her cancer. She was briefly admitted to the hospital about a week before her trip to [place] for colitis that then seemed to resolve. Overall she is at high risk for GI perforation based on an intestinal implant of cancer and having received bevacizumab, she is at high risk for an aggressive chemo resistant progression of her lung cancer, but it is too early to make this call given she is only 7 days out from receiving initial high-potency chemotherapy. She has adrenal insufficiency associated with her adrenal metastases and is appropriately treated with hydrocortisone. Her leukocytosis likely reflects corticosteroids and pegfilgrastim. She is mildly improved today but notably tachypnic with new bilateral pleural effusions on chest x-ray. These may reflect fluid overload secondary to hypoalbuminemia and receiving IV fluids in the hospital but malignant pleural effusion needs to be considered as well. Hallie was somewhat loopy on her MS Contin today and I spoke extensively with her after a brief visit. I outlined the potentially dire situation in which she has a chemo-resistant aggressive recurrence of lung cancer which can be the natural evolution of initially indolent EGFR mutation adenocarcinoma of lung. Alternatively she suffered an acute intestinal disruption possibly related to the cancer but potentially amendable to correction. The clinical picture is not clear right now. PLAN/RECOMMENDATIONS 1. Continue aggressive/close surgical followup. Would have a low threshold for considering endoscopy with another episode of GI bleeding. 2. So far Hallie is FULL CODE and not ready to consider DNR. It is not unreasonable to aggressively treat the current situation given we do not yet know if she will respond to chemotherapy, and her symptoms came on so suddenly it argues a little more strongly for a localized GI problem rather than systemic disease progression. 3. I will continue to follow. There is no role for additional chemotherapy now that there is a 21-day interval between treatment cycles. Platelets may drop in response to chemotherapy in the typical bj period approximately day 10 which would be 06/03/2018. Will continue to follow. MTDD
[2018-06-01] MEDS: SODIUM CHLORIDE 0.9% INJ 10 ML SYR IV SCH ×2 (05:56→16:42)
[2018-06-01] MEDS: MEROPENEM INJ 1 GM in APPROPRIATE DILUENT 1 EA IV SCH ×3 (05:57→21:32)
[2018-06-01] MEDS: PERCOCET 5MG/325MG TAB PO PRN (06:03)
--- NOTE | 2018-06-01 06:29 | IPNPDOC ---
Text Note Date of Service The patient was seen on 06/01/18. NOTE overnight provider called for patient converting to A. fib RVR with rates into the 220's, upon physical exam patient was AAOx3 and only complained of some minor SOB, denied chest pain or palpitations. Pt. was treated overall medically with IV labetolol, digoxin and amiodarone which slowed rate down temporarily however also resulted in hypotension, cardiology was consulted and patient was given additional digoxin. Eventually due to poor response from medications and soft BP., cardiology came in and cardioverted the patient which resulted in sinus tachycardia with rate into 120's. Pt will be followed by cardiology, we appreciate their help greatly. VS,Fishbone, I+O VS, Fishbone, I+O Laboratory Tests 05/31/18 11:55 Red Blood Count 4.07, Mean Corpuscular Volume 84.8, Mean Corpuscular Hemoglobin 28.5, Mean Corpuscular Hemoglobin Concent 33.6, Red Cell Distribution Width 16.4 H 05/31/18 18:28 05/31/18 23:40 Vital Signs Date Time Temp Pulse Resp B/P (MAP) Pulse Ox O2 Delivery O2 Flow Rate FiO2 06/01/18 06:03 117 28 133/73 92 Nasal Cannula 4.0 06/01/18 04:00 99.4 I&O- Last 24 Hours up to 6 AM 06/01/18 05:59 Intake Total 3010 ml Output Total 1900 ml Balance 1110 ml GME ATTESTATION GME ATTESTATION My faculty preceptor for this patient encounter was physically present during the encounter and was fully available. All aspects of the patient interview, examination, medical decision making process, and medical care plan development were reviewed and approved by the faculty preceptor. The faculty preceptor is aware and concurs with the plan as stated in the body of this note and will attest to such by his/her cosignature. LIEN APONTE DO Jun 01, 2018 06:29
[2018-06-01 06:33] LABS: HEMATOCRIT 33.5 % (36.0-47.0); HEMOGLOBIN 11.1 g/dl (12.0-15.5); MEAN CORPUSCULAR HEMOGLOBIN 27.6 pg (27.0-33.0); MEAN CORPUSCULAR HGB CONC 33.1 g/dl (32.0-36.5); MEAN CORPUSCULAR VOLUME 83.3 fl (80.0-96.0); PLATELET COUNT, AUTOMATED 159 10^3/uL (150-450); RED BLOOD COUNT 4.02 10^6/uL (4.00-5.40); WHITE BLOOD COUNT 15.2 10^3/uL (4.0-10.0)
--- NOTE | 2018-06-01 06:49 | RO ---
DATE OF PROCEDURE: 06/01/2018 PREPROCEDURE DIAGNOSIS: Hemodynamically unstable atrial fibrillation with rapid ventricular rate. POSTPROCEDURE DIAGNOSIS: Sinus tachycardia. PROCEDURE PERFORMED: Direct current electrical cardioversion, 125 joules times one. INDICATION: Hemodynamically unstable atrial fibrillation with rapid ventricular rate. PROCEDURE PERFORMED BY: Sanjay Kim MD [employer] P[employer]: None. IV SEDATION: Midazolam 3 mg IV. COMPLICATIONS: None. PROCEDURE DESCRIPTION: Transthoracic paced/defibrillation patches were applied in reverse polarity with the sternal patch applied over the left posterior hemithorax and the apical patch placed over the central anterior chest. The patient received IV sedation with midazolam 3 mg IV. She then received a single synchronized direct current biphasic cardioversion shock of 125 joules, which was successful converting her to sinus tachycardia initially at 125 beats per minute. She tolerated the procedure well without any immediate complications.
[2018-06-01] MEDS: FUROSEMIDE 40 MG/4 ML VIAL (J1940) IV SCH ×3 (07:02→18:33)
[2018-06-01 07:05] LABS: ALBUMIN 1.3 GM/DL (3.2-5.2); ALT/SGPT 21 U/L (12-78); BILIRUBIN,TOTAL 0.3 MG/DL (0.2-1.0); BLOOD UREA NITROGEN 28 MG/DL (7-18); CARBON DIOXIDE LEVEL 23 MEQ/L (21-32); CHLORIDE LEVEL 102 MEQ/L (98-107); CREATININE FOR GFR 0.94 MG/DL (0.55-1.30); GLOMERULAR FILTRATION RATE > 60.0 (>45); GLUCOSE, FASTING 114 MG/DL (70-100); MAGNESIUM LEVEL 1.9 MG/DL (1.8-2.4); POTASSIUM SERUM 4.3 MEQ/L (3.5-5.1); SODIUM LEVEL 135 MEQ/L (136-145); TOTAL PROTEIN 4.4 GM/DL (6.4-8.2)
[2018-06-01 08:11] LABS: LYMPHOCYTES 4 % (16-52); MONOCYTES 4 % (0-8); MYELOCYTES 2 % (0-0); NEUTROPHILS 79 % (35-75); PLATELET ESTIMATE NORMAL (NORMAL); TOXIC GRANULATION 1+
[2018-06-01 08:12] LABS: ANISOCYTOSIS 1+; HYPOCHROMASIA 1+; MICROCYTOSIS 1+; POIKILOCYTOSIS 1+
[2018-06-01] MEDS: PANTOPRAZOLE 40MG INJ (PROTONIX) (C9113) IV SCH ×2 (08:16→21:32)
[2018-06-01] MEDS: HYDROCORTISONE 100 MG/2 ML VIAL (J1720) IV SCH ×2 (08:16→16:41)
[2018-06-01] MEDS: AMIODARONE 200 MG TAB (PACERONE) PO SCH ×4 (08:17→21:31)
[2018-06-01] MEDS: MORPHINE 30 MG SA TAB PO SCH ×2 (08:17→21:31)
[2018-06-01] MEDS: BROMSITE 0.075% OS SCH ×2 (08:18→21:31)
--- NOTE | 2018-06-01 10:00 | IPNPDOC ---
Text Note Date of Service The patient was seen on 06/01/18. NOTE Subjective: Patient is a 63-year-old female with a PMHx of Lung CA (Stage IV, metastasis to bone, brain, adrenal glands), DLP, Hx of TIA, Hx of DVT who presented to the ER with abdominal pain and associated rectal bleeding. Patient was admitted to the hospitalist service for further evaluation and treatment. Overnight (06/01 early AM) patient experienced worsening tachycardia and was found to be in a. fib with RVR. Cardiology was consulted and had recommended Digoxin, however she failed to improve. Ultimately patient was cardioverted and revered back to sinus rhythm. Patient was seen and examined at the bedside. This morning, she denies any CP, SOB or palpitations. Denies any N/V, abdominal pain, C/D or discomfort with urination. Objective: Vitals (See below) General: Lying in bed, no acute distress, comfortable, AAOx3 HEENT: NC, AT CVS: RRR, +S1S2 Lungs: Fair air entry b/l, diminished sounds at bases, no aprpeciated rhonchi / rales/ wheezing Abdomen: Soft, ND, remains nontender Extremities: No evidence of LE edema, - Calf tenderness Assessment and plan: Acute blood loss anemia - likely 2/2 GI etiology - unclear if this is 2/2 to metastatic disease - No significant abdominal pain noted this morning; physical without any tenderness - Hemodynamically stable - H&H stable - s/p 3 units PRBC - CT ab/pelv 05/27:1. RLL and RML pulmonary consolidation, unchanged. Interval decrease in size of right pleural effusion, now tiny. 2. Radiographically stable hepatic and splenic lesions. 3. Bilateral adrenal metastases, unchanged. 4. 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 A bowel wall mass is not excluded given the lack of enteric contrast. 5. Mid small bowel obstruction, likely partial, with indeterminate etiology and gradual caliber transition. - Will continue to follow H&H every 12 hours - c/w Protonix IV BID - General surgery on consultation - c/w soft diet as tolerated; TPN on hold Leukocytosis - possibly 2/2 reactive etiology - 2/2 Neulasta / Corticosteroids; possibly 2/2 infectious etiology - Improving - Clinically patient has not noted any significant abdominal pain at this time - She denies any shortness of breath, cough, discomfort with urination or diarrhea - She remains afebrile / hemodynamically stable - Lactic acid negative; UA without signs of infection - Blood culture 05/31: Pending / MRSA scren 05/31: Pending - CXR 05/31: Bilateral pleural effusions, left a little larger than right. These are increased compared to the May 28, 2018 prior study. - Abdominal XR 05/31: No evidence of obstruction or significant ileus. Question some degree of ascites. - c/w Meropenem and Vancomycin - Will trend CRP Atrial fibrillation with RVR - Failed to improve with Digoxin - s/p Cardioversion - ECHO completed 06/01: report pending - Dr. Kim (Cardiology) on consult; appreciate their input Fluid overload - Imaging consistent with b/l pleural effusions and evidence of ascites - ECHO completed 06/01: report pending - c/w strict ins/outs, daily weights, - Will c/w Furosemide 40 IV q6h Adrenal insufficiency - c/w Hydrocortisone Lung Cancer (Stage IV; Metastasis to Brain s/p gamma knife, recent metastasis to B/L Adrenal Glands, Infrascapular region, and Intestinal Metastatic Implants) - s/p 1st cycle of Palliative Chemotherapy on 05/24 for recently discovered Mets - Follows with Dr. Baker as an outpatient - Dr. Baker (Oncology) on consult; appreciate their input Hx of CVA - c/w ASA Left Jugular Vein Thrombosis - Lovenox on hold 2/2 GI Bleed Protein calorie malnutrition - likely moderate - Patient has had significant weight loss - likely 2/2 malignancy - Poor oral intake - Appears cachectic DVT Prophylaxis - c/w SCDs Prognosis: - Poor Disposition: - c/w Diuresis - Monitor H&H; transfuse PRN - Potential EGD / Colonoscopy if bleeding fails to resolve VS,Fishbone, I+O VS, Fishbone, I+O Laboratory Tests 05/31/18 11:55 Red Blood Count 4.07, Mean Corpuscular Volume 84.8, Mean Corpuscular Hemoglobin 28.5, Mean Corpuscular Hemoglobin Concent 33.6, Red Cell Distribution Width 16.4 H 05/31/18 18:28 05/31/18 23:40 06/01/18 05:55 Red Blood Count 4.02, Mean Corpuscular Volume 83.3, Mean Corpuscular Hemoglobin 27.6, Mean Corpuscular Hemoglobin Concent 33.1, Red Cell Distribution Width 16.7 H, Calcium Level 8.0 L, Aspartate Amino Transf (AST/SGOT) 58 H, Alanine Aminotransferase (ALT/SGPT) 21, Alkaline Phosphatase 98, Total Bilirubin 0.3, Total Protein 4.4 L, Albumin 1.3 L Vital Signs Date Time Temp Pulse Resp B/P (MAP) Pulse Ox O2 Delivery O2 Flow Rate FiO2 06/01/18 08:17 117 21 104/65 97 Nasal Cannula 3.0 06/01/18 08:00 97.9 I&O- Last 24 Hours up to 6 AM 06/01/18 06:00 Intake Total 3010 ml Output Total 1900 ml Balance 1110 ml TONI KURTZ MD Jun 01, 2018 10:00
[2018-06-01] MEDS: VANCOMYCIN HCL 750 MG, VIAL MATE ADAPTER 1 EACH in D5W 250 ML IV SCH (12:17)
[2018-06-01] MEDS ORDERED: METOPROLOL TART 25 MG TABLET As Ordered ONE (13:14)
[2018-06-01] MEDS ORDERED: METOPROLOL TART 25 MG TABLET PO ONE (13:30)
--- NOTE | 2018-06-01 16:45 | CR ---
DATE OF CONSULTATION: 06/01/2018 REFERRING PHYSICIAN: Dr. Sarabia REASON FOR CONSULTATION: Atrial fibrillation with rapid ventricular response. INDICATION: Atrial fibrillation with rapid ventricular response, heart failure unspecified. HISTORY OF PRESENT ILLNESS: Hallie Turcios is a very pleasant 63-year-old woman with a history of a TIA 12/17/2017 at which time she was discovered to have evidence of a subacute stroke involving the left posterior temporal and septal parietal lobe. She underwent implantation of a [employer] implantable loop recorder for cryptogenic stroke 03/16/2018. She has hypercholesterolemia. She was hospitalized at [facility] on this occasion on 05/27/2018 after presenting with abdominal pain, hematemesis, diarrhea, and rectal bleeding. During this hospitalization she received several units of packed red blood cells and also received intravenous fluids. PAST MEDICAL HISTORY: Significant for metastatic lung cancer with metastases to the brain, bone, adrenal glands. She also has a history of DVT for which she has been on Lovenox. She felt atrial fibrillation with rapid ventricular response very early this morning approximately 30 minutes after midnight. Her ECG 06/01/2018 documented atrial fibrillation with rapid ventricular response, heart rate 204 BPM. She was given several doses of Digoxin IV and was given one dose of Metoprolol 5 mg IV. Despite these actions she continued to have a ventricular response hypertension for which she mildly hemodynamically unstable. For this reason I came in early this morning and performed a successful direct current cardioversion which got her back to sinus tachycardia at about 125 beats per minute. She is also observed to be in heart failure during this hospitalization with a significant elevated NT ProBNP level. She had also received some IV Lasix this far during her hospitalization. She has not been noticing any dyspnea at rest. No chest, neck, jaw, or upper extremity pain, pressure, tightness, squeezing or heaviness. She has an approximate 1 year history of stable exertional dyspnea with above ordinary physical activity. No orthopnea or PND. No leg or ankle swelling. No presyncope or syncope. She has not been symptomatic with palpitations. No intermittent claudication. Echocardiogram Doppler showed normal LV internal dimensions and wall thickness. Normal regional LV wall motion and wall thickening. Normal LV systolic function. (LVEF 65%) and normal diastolic function. Mild aortic valve sclerosis of a three-cuspid aortic valve. Very mild aortic regurgitation. Otherwise normal appearing echocardiogram Doppler findings. Carotid ultrasound 12/15/2017 was normal. Brain MRA 12/16/2017 did not show any critical stenosis or aneurysms. OTHER PAST MEDICAL AND SURGICAL HISTORY: Lung cancer with metastases to the left cerebellum, status-post gamma knife radiation 07/2017. Metastases to the bilateral adrenal glands. She was first diagnosed with lung cancer about 2 years ago. She has had previous chemotherapy as well as immunotherapy. History of TIA 12/17/2017 with an incidental discovery at that time of a subacute stroke involving the left posterior temporal and septal parietal lobe. Hypercholesterolemia. Cataracts. Bilateral breast lumpectomies. Prior D and C. FAMILY HISTORY: Father of stroke at age 74, mother of heart attack at age 97 and had a stroke. 1 brother with a myocardial infarct. SOCIAL HISTORY: . Lives with spouse. Retired. Independent with activities of daily living. Lifetime nonsmoker. Occasional wine. REVIEW OF SYSTEMS: Fatigue, cataracts, wears glasses, exertional shortness of breath, prior to this admission diarrhea, hematemesis, rectal bleeding. No fever or chills, low back pain, cold intolerance, all other 10 point review of systems is negative. ADVERSE DRUG REACTIONS: PREDNISONE. MEDICATIONS PRIOR TO ADMISSION: Vitamin C 500 mg three times a day, aspirin 81 mg daily, vitamin B complex 1 three times a day, Bromsite 1 drop both eyes twice a day, calcium lactate 200 mg three times a day Vitamin D 200 units by mouth three times a day, Lovenox 40 mg subcu daily, hydrocortisone 5 mg twice a day, Zofran 8 mg by mouth at bedtime as needed for nausea, prednisolone ophthalmic solution 1 drop OD at bedtime, prochlorperazine 10 mg by mouth every 6 hours as needed for nausea, ribonucleic acid 180 mg three times a day. Simvastatin 20 mg at bedtime. CURRENT MEDICATIONS IN HOSPITAL SETTING: Amiodarone 200 mg by mouth three times a day, furosemide 40 mg IV every 6 hours, heparin PICC line flush, hydrocortisone 100 mg IV every 8 hours at bedtime, meropenem 1 gram IV every 8 hours, Morphine 4 mg IV every 2 hours as needed, Morphine MS contin 30 mg by mouth three times a day, Zofran 30 mg by mouth three times a day, Zofran 4 mg IV every 6 hours as needed, Percocet 1 tablet every 4 hours as needed, Protonix 40 mg IV every 12 hours, Bromsite ophthalmic solution OS twice a day, prednisone ophthalmic solution 1 drop OS at bedtime, Phenergan 25 mg IV every 6 hours as needed for nausea, vancomycin 750 mg IV every 12 hours. PHYSICAL EXAMINATION: Pleasant woman who appears her stated age who is not in any respiratory or psychological distress. She appears her stated normal body weight. Temperature 98.6, pulse 125 (regular), respiratory 21, blood pressure 110/68, Oxygen saturation 88% on oxygen 4 liters per minute by nasal cannula. No conjunctiva pallor. She has some dental fillings and some missing teeth. Oral mucosa is moist without pallor or cyanosis. Trachea is midline. No palpable thyroid, jugular venous pulsations were at 4 cm. Respiratory expansion effort was normal. No crackles or wheezes. No left parasternal disease. Palpable heart sounds. Implant loop recorder in situ left parasternal border region. S1 normal. S2 rub. S4 present. No S3. No murmurs. No pericardial friction rubs. Carotid are normal in volume and contour and without bruits. No palpable abdominal aorta. Femoral pulse 2+/2. Pedal pulses 2+/2. No lower extremity edema bilaterally. No varicose veins. No clubbing, cyanosis, or splinter hemorrhages. Positive bowel sounds. Abdomen was soft, nontender with normal bowel sounds. No abdominal masses. No hepatosplenomegaly. Stool for occult blood not presently indicated. This patient has known GI bleeding. Gait was not appropriate to test at the time as the patient is on bedrest. No kyphosis or scoliosis. Gross motor strength and tone appear normal. No skin icterus, lesions, or skin color. Alert to person, place and time. Mood and affect are normal. Electrocardiogram 06/01/2018 at 0032 hours shows atrial fibrillation with rapid ventricular response, 204 beats per minute, nonspecific ST-T abnormalities. I have independently visualized the patient's portable chest x-ray acquired 05/31/2018 at 1015 hours. Presence of small bilateral pleural effusions, left more than right. Implantable loop recorder near the left parasternal border region. Presence of a PICC line in the right arm. Suboptimal inflation. Cardiac silhouette did not appear enlarged. LABORATORY WORK: 06/01/2018 was reviewed: WBC 15.2, hemoglobin 11.1, hematocrit 33.5, platelets 459, sodium 135, potassium 4.3, chloride 102, CO2 23, BUN 28, anion gap 10, creatinine 0.94, estimated GFR greater than 60, glucose 114, calcium 8.0, magnesium 1.9, AST elevated at 58, total protein 4.4, albumin 1.3. NT ProBNP level 05/31/2018 at 2205 hours was 19,178. ASSESSMENT AND RECOMMENDATION: 1. Paroxysmal atrial fibrillation. In view of this patient's prior stroke and TIA, it would be best if this patient was on anticoagulation custodial. However, in fear of the patient's current hospitalization for GI bleeding for which she is still being evaluated it will not be possible to safely place her on anticoagulation at this time. Agree with discontinuation of aspirin, further decision with regards to chcf anticoagulation will depend upon results of her GI investigations with regards to etiology of her current GI bleeding. I have cardioverted this patient earlier this morning and this was dictated under a separate report. She was hemodynamically unstable and required cardioversion. Electrocardioversion was successful to return to sinus rhythm. Since then she has been having short burst of atrial fibrillation. Recommend amiodarone. Also for heart rate control I have ordered a dose of Metoprolol tartrate by mouth. If she does well with that then I will continue with oral beta-jamie. 2. Left heart failure. Echocardiogram Doppler has been performed earlier today. I will review this later. She appears compensated at present. At present she is on IV furosemide. Further treatment depending on results of the echocardiogram Doppler. I believe that this patient's left heart failure has significant contribution by atrial fibrillation with rapid ventricular response. 3. Hypercholesterolemia. Recommend a low fat low cholesterol diet. Her usual statin therapy is presently on hold. 4. History of stroke. Now that the patient has been demonstrating to have a paroxysmal atrial fibrillation ideally she should be on some form of anticoagulation custodial. As noted above, however this will depend upon what is discovered during this hospitalization with regards to the etiology of her current GI bleeding. I agree with discontinuation of aspirin and placing her Lovenox subcu on hold. Thank you kindly for asking me to participate in the cardiac care of Hallie Turcios.
[2018-06-01] MEDS: METOPROLOL SUCC (TopROL XL) 50MG **XL** TAB PO SCH (16:54)
[2018-06-01 18:05] LABS: HEMATOCRIT 35.2 % (36.0-47.0); HEMOGLOBIN 11.5 g/dl (12.0-15.5)
--- NOTE | 2018-06-01 20:47 | ECGEPIP ---
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
--- NOTE | 2018-06-01 20:47 | ECGEPIP ---
Stationary ECG Study 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
[2018-06-01] MEDS: prednisoLONE ACET 1% OPHTH SUSP 5ML OS SCH (21:32)
[2018-06-02] VITALS (11 sets, daily range): BP systolic 126–152; BP diastolic 67–93
[2018-06-02] MEDS: HYDROCORTISONE 100 MG/2 ML VIAL (J1720) IV SCH ×3 (00:21→20:52)
[2018-06-02] MEDS: VANCOMYCIN HCL 750 MG, VIAL MATE ADAPTER 1 EACH in D5W 250 ML IV SCH (00:21)
[2018-06-02] MEDS: FUROSEMIDE 40 MG/4 ML VIAL (J1940) IV SCH ×2 (00:22→06:02)
[2018-06-02 04:58] LABS: HEMATOCRIT 34.2 % (36.0-47.0); HEMOGLOBIN 11.3 g/dl (12.0-15.5); MEAN CORPUSCULAR HEMOGLOBIN 27.7 pg (27.0-33.0); MEAN CORPUSCULAR VOLUME 83.8 fl (80.0-96.0); PLATELET COUNT, AUTOMATED 149 10^3/uL (150-450); RED BLOOD COUNT 4.08 10^6/uL (4.00-5.40); WHITE BLOOD COUNT 16.6 10^3/uL (4.0-10.0)
[2018-06-02] MEDS: MEROPENEM INJ 1 GM in APPROPRIATE DILUENT 1 EA IV SCH ×3 (05:31→22:04)
[2018-06-02] MEDS: SODIUM CHLORIDE 0.9% INJ 10 ML SYR IV SCH ×2 (05:32→20:49)
[2018-06-02 05:39] LABS: ALBUMIN 1.4 GM/DL (3.2-5.2); ANISOCYTOSIS 1+; BILIRUBIN,TOTAL 0.3 MG/DL (0.2-1.0); CALCIUM LEVEL 8.9 MG/DL (8.8-10.2); CREATININE FOR GFR 1.22 MG/DL (0.55-1.30); GLOMERULAR FILTRATION RATE 47.1 (>45); LYMPHOCYTES 2 % (16-52); MAGNESIUM LEVEL 2.2 MG/DL (1.8-2.4); METAMYELOCYTES 4 % (0-0); MONOCYTES 1 % (0-8); MYELOCYTES 2 % (0-0); NEUTROPHILS 78 % (35-75); PLATELET ESTIMATE NORMAL (NORMAL); POLYCHROMASIA 1+; POTASSIUM SERUM 4.1 MEQ/L (3.5-5.1); TOTAL PROTEIN 5.6 GM/DL (6.4-8.2)
[2018-06-02 05:40] LABS: POIKILOCYTOSIS 1+
--- NOTE | 2018-06-02 06:17 | ECHO ---
DATE OF STUDY: 06/01/2018 REFERRING PHYSICIAN: Dr. Sanjay Kim INDICATION: Heart failure unspecified, paroxysmal atrial fibrillation. HEIGHT: 150 cm WEIGHT: 51 kg 2-D MEASUREMENTS: Ventricular septum: 1.08 cm Posterior wall: 1.13 cm Left ventricle diastole: 3.6 cm Aortic root: 2.91 cm Left atrium: 3.2 cm LVOT: 2.0 cm Left atrial volume index: 21 DOPPLER MEASUREMENTS: Mild aortic regurgitation. No aortic stenosis. Aortic valve velocity: 131 cm/s LVOT velocity: 126 cm/s LVOT VTI: 20.3 cm Mitral E velocity: 46.6 cm/s Mitral A velocity: 78.1 cm/s Mitral deceleration time: 123 ms Moderate tricuspid regurgitation. Estimated right ventricle systolic pressure 54 mmHg assuming an atrial pressure of 15 mmHg. MITRAL ANNULAR TISSUE DOPPLER: E prime lateral: 10.8 cm/s E prime septal: 13.1 cm/s DESCRIPTION: Rhythm was sinus tachycardia. Image quality was good. This is a 2-D, M-mode, color flow Doppler and pulse waved Doppler examination and included mitral annular tissue Doppler. CONCLUSIONS: 1. Normal left ventricle internal dimensions and wall thickness. Normal regional LV wall motion and wall thickening. Normal LV systolic function. Left ventricular ejection fraction (LVEF) 70% by visual estimate. Normal LV diastolic function. 2. Suggestive of moderate elevation of estimated right ventricle sytolic pressure (54 mmHg). Normal right ventricle size and systolic function. Severe tricuspid regurgitation. Normal-appearing tricuspid leaflets. 3. Normal left atrial size by left atrial volume index. 4. Mild to moderate aortic valve sclerosis of a 3-cusp aortic valve. No aortic stenosis. Mild aortic regurgitation. 5. Bilateral pleural effusions. 6. Very small pericardial effusion.
[2018-06-02] MEDS: AMIODARONE 200 MG TAB (PACERONE) PO SCH ×2 (08:50→13:00)
[2018-06-02] MEDS: METOPROLOL SUCC (TopROL XL) 50MG **XL** TAB PO SCH (08:50)
[2018-06-02] MEDS: PANTOPRAZOLE 40MG INJ (PROTONIX) (C9113) IV SCH ×2 (08:50→20:47)
[2018-06-02] MEDS: MORPHINE 30 MG SA TAB PO SCH (08:51)
[2018-06-02] MEDS: BROMSITE 0.075% OS SCH ×2 (08:52→20:47)
--- NOTE | 2018-06-02 09:28 | REP ---
Chest x-ray: Two views. History: Evaluate pleural effusions. Comparison study: June 10, 2018. Findings: Upright chest x-ray today demonstrates collection of free air under the leaves of the diaphragm bilaterally. There are bilateral pleural effusions again noted. Free air is a new finding. This implies intra-abdominal perforation. A right-sided PICC line is again noted with its tip in the expected location of the superior vena cava. Impression: Bilateral pleural effusions persist. There is evidence of free air bilaterally under the left and right leaves of the diaphragms today abdominal bowel perforation. Findings were reviewed at the workstation with Dr. Hairston, attending surgeon at the time of this dictation. Electronically Signed by Eddie Connors MD 06/02/2018 10:18 A
[2018-06-02] MEDS: GASTROGRAFIN SOLUTION 30ML PO SCH ×2 (09:56→10:23)
--- NOTE | 2018-06-02 10:37 | IPNPDOC ---
Text Note Date of Service The patient was seen on 06/02/18. NOTE Subjective: Patient is a 63-year-old female with a PMHx of Lung CA (Stage IV, metastasis to bone, brain, adrenal glands), DLP, Hx of TIA, Hx of DVT who presented to the ER with abdominal pain and associated rectal bleeding. Patient was admitted to the hospitalist service for further evaluation and treatment. Overnight (06/01 early AM) patient experienced worsening tachycardia and was found to be in a. fib with RVR. Cardiology was consulted and had recommended Digoxin, however she failed to improve. Ultimately patient was cardioverted and revered back to sinus rhythm. Patient was seen and examined at the bedside. Currently patient does not report any significant pain. She does note some difficulty with breathing. Denies any CP or palpitations. Denies any significant abdominal pain, N/V, she has been having bowel movements. Stool has been described as dark. Denies any discomfort with urination. Objective: Vitals (See below) General: Lying in bed, no acute distress, comfortable, AAOx3 HEENT: NC, AT CVS: RRR, +S1S2 Lungs: Fair air entry b/l, again diminished at the bases, no wheezing / rales / rhonchi Abdomen: Soft, ND, again no significant abdominal tenderness Extremities: LE are without any edema, - Calf tenderness Assessment and plan: Acute blood loss anemia - likely 2/2 GI etiology - unclear if this is 2/2 to metastatic disease - Benign abdomen on exam - Hemodynamically stable / Afebrile - H&H stable - s/p 3 units PRBC - CT ab/pelv 05/27:1. RLL and RML pulmonary consolidation, unchanged. Interval decrease in size of right pleural effusion, now tiny. 2. Radiographically stable hepatic and splenic lesions. 3. Bilateral adrenal metastases, unchanged. 4. 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 A bowel wall mass is not excluded given the lack of enteric contrast. 5. Mid small bowel obstruction, likely partial, with indeterminate etiology and gradual caliber transition. - c/w Protonix IV BID - General surgery (Dr. Hairston) on consultation; appreciate their input Abdominal metastatic disease with free air in abdomen - CXR 06/02: Bilateral pleural effusions persist. There is evidence of free air bilaterally under the left and right leaves of the diaphragms today abdominal bowel perforation. - Will change patient to NPO - Radiologist has discussed findings with Surgery; current plan is for additional imaging via CT abdomen / pelvis - General surgery (Dr. Hairston) on consultation; appreciate their input Leukocytosis - possibly 2/2 reactive etiology - 2/2 Neulasta / Corticosteroids; possibly 2/2 infectious etiology - Improving - Clinically patient has not noted any significant abdominal pain at this time - She denies any shortness of breath, cough, discomfort with urination or diarrhea - She remains afebrile / hemodynamically stable - Lactic acid negative; UA without signs of infection - Blood culture 05/31: Pending / MRSA scren 05/31: Pending - CXR 05/31: Bilateral pleural effusions, left a little larger than right. These are increased compared to the May 28, 2018 prior study. - Abdominal XR 05/31: No evidence of obstruction or significant ileus. Question some degree of ascites. - c/w Meropenem; Will DC Vancomycin Atrial fibrillation with RVR - Failed to improve with Digoxin - s/p Cardioversion - ECHO completed 06/01: report pending - Dr. Kim (Cardiology) on consult; appreciate their input Right sided heart failure - likely 2/2 Moderate - Severe pulmonary HTN - Imaging consistent with b/l pleural effusions and evidence of ascites - CVP evaluated this morning of 4 - ECHO 06/01: EF 70%, Normal Diastolic function, Moderate elevation of RVSP at 54, Severe TR, Very small pericardial effusion - c/w strict ins/outs, daily weights, - Will hold diuresis Adrenal insufficiency - c/w Hydrocortisone Lung Cancer (Stage IV; Metastasis to Brain s/p gamma knife, recent metastasis to B/L Adrenal Glands, Infrascapular region, and Intestinal Metastatic Implants) - s/p 1st cycle of Palliative Chemotherapy on 05/24 for recently discovered Mets - Follows with Dr. Baker as an outpatient - Dr. Baker (Oncology) on consult; appreciate their input Hx of CVA - c/w ASA Left Jugular Vein Thrombosis - Lovenox on hold 2/2 GI Bleed Protein calorie malnutrition - likely moderate - Patient has had significant weight loss - likely 2/2 malignancy - Poor oral intake - Appears cachectic DVT Prophylaxis - c/w SCDs Prognosis: - Poor Disposition: - c/w Diuresis - Monitor H&H; transfuse PRN - Free air within abdomen VS,Fishbone, I+O VS, Fishbone, I+O Laboratory Tests 06/01/18 17:54 06/02/18 04:42 Red Blood Count 4.08, Mean Corpuscular Volume 83.8, Mean Corpuscular Hemoglobin 27.7, Mean Corpuscular Hemoglobin Concent 33.0, Red Cell Distribution Width 16.7 H, Calcium Level 8.9, Aspartate Amino Transf (AST/SGOT) 110 H, Alanine Aminotransferase (ALT/SGPT) 42, Alkaline Phosphatase 107, Total Bilirubin 0.3, Total Protein 5.6 #L, Albumin 1.4 L Vital Signs Date Time Temp Pulse Resp B/P (MAP) Pulse Ox O2 Delivery O2 Flow Rate FiO2 06/02/18 10:00 98.6 86 16 133/73 (93) 95 High Flow Cannula 5.0 I&O- Last 24 Hours up to 6 AM 06/02/18 06:00 Intake Total 1195 ml Output Total 1450 ml Balance -255 ml TONI KURTZ MD Jun 02, 2018 10:37
[2018-06-02 11:15] LABS: C REACTIVE PROTEIN QUANTITATIV 29.5 MG/DL (0.00-0.30)
--- NOTE | 2018-06-02 12:33 | REP ---
CT abdomen and pelvis without IV but with oral contrast: History: Question free air. Comparison CT study May 27, 2018. Findings: Digital preliminary medical oncology physician radiograph shows evidence of ascites. Axial CT images show small to moderate bilateral pleural effusions. There are atelectatic changes in the lower lobes bilaterally. A tiny amount of pleural fluid was visible on the on the right on May 27. Findings are otherwise new. The CT images confirm the presence of free intraperitoneal air and a large amount of ascites which is also a new finding. Orally administered contrast is seen opacifying the stomach, duodenal C-loop and jejunal loops of bowel. There is however a peritoneal Gastrografin accumulating along the left anterior abdominal wall. These findings indicate perforation probably involving the upper gastrointestinal tract. Stomach is not dilated but there are some prominent bowel loops in the central abdomen. There is a large collection of extra luminal peritoneal Gastrografin in the left central abdomen between loops of small intestine. Impression: Pneumoperitoneum is confirmed. There is a large amount of ascitic fluid and some free intraperitoneal Gastrografin is seen in the peritoneal space mostly in the left mid abdomen. Findings are compatible with a perforation of the upper gastrointestinal tract. Electronically Signed by Eddie Connors MD 06/02/2018 04:34 P
[2018-06-02] MEDS ORDERED: ROCURONIUM BROMIDE 50 MG/5 ML VIAL As Ordered ONE ×2 (14:08→16:52)
[2018-06-02] MEDS ORDERED: ONDANSETRON 4MG/2ML VIAL (J2405) As Ordered ONE (14:10)
[2018-06-02] MEDS ORDERED: dexameTHASONE 4 MG/ML 1ML VIAL (J1100) As Ordered ONE (14:10)
[2018-06-02] MEDS ORDERED: LIDOCAINE 2% INJ 100 MG/5 ML SDV (FOR ANES.) As Ordered ONE (14:11)
[2018-06-02] MEDS ORDERED: PROPOFOL 200 MG/20 ML VIAL As Ordered ONE (14:11)
[2018-06-02] MEDS ORDERED: fentaNYL 250 MCG/5 ML INJECTION (J3010) As Ordered ONE (14:12)
[2018-06-02] MEDS ORDERED: MIDAZOLAM INJ 2 MG/2 ML VIAL (J2250) As Ordered ONE (14:12)
[2018-06-02] MEDS ORDERED: GLUCAGON FOR INJ 1 MG VIAL (J1610) As Ordered ONE (14:18)
--- NOTE | 2018-06-02 14:44 | IPN ---
DATE: 06/02/2018 Patient was seen early this morning after being notified of a possible free air underneath the diaphragm. Patient was seen and, overall, the patient states that she seems to be feeling better each day without nausea, without vomiting. She is tolerating some minimal by mouth intake at this time. She is still having some light maroon stool. Her CAT scan was ordered, and with the CAT scan, she had evidence of perforation and, more importantly, had evidence of contrast going into abscess cavity/peritoneum. Thus, original discussions with the patient was if she had a stable abdomen with possible contained perforation, there may have been some options for possible nonoperative, possible drainage, etc., but given the obvious drainage of contrast into the peritoneum, this an uncontrolled perforation at this time, and I have discussed this with the patient and her family and they understand that my recommendation is to proceed with exploratory laparotomy with possible small bowel resection. I anticipate the location of the perforation is the small bowel given her inflammatory changes in this previously, and then when I reviewed the films again with the radiologist. Originally, they had said they thought there was some diagnosis of possible nodule intra-abdominally, and when I reviewed this with the radiologist again here today, he originally was not able to visualize this area, thought this was actually unopacified bowel, but it may have actually been a necrotic lymph node in the mesentery of the bowel or necrotic metastatic lesion is another possibility. If that is the concern, it may be that there is a small area of ischemic small bowel (1) or possibly that the chemotherapy was working on this lymph node or nodule and it may have shrunk away enough that the bowel wall might be compromised. In any case, at this point, it seems as though it is most likely small bowel as the most likely etiology. Of course, we discussed that other possibilities are obviously a potential, such as stomach, colon, etc., but given her presentation, I anticipate this is most likely small bowel. The operative intervention had been discussed with her at length. The risks include, but are not limited to, infection, bleeding, damage to surrounding structures, probable bowel resection. At this point, I have instructed that I think that it is relatively unlikely that we will be proceeding with a colostomy unless something intra-abdominally changes our initial diagnosis. She understands she will have a probable Romero catheter, nasogastric (NG) tube, as well as drainage catheters in place. Will bring her to the operating room as soon as possible and proceed with exploratory laparotomy as soon as possible.
--- NOTE | 2018-06-02 14:51 | IPN ---
DATE/TIME OF SERVICE: 06/02/2018 @ 2:20 p.m. SUBJECTIVE: Patient is not having any dyspnea at rest. No orthopnea or paroxysmal nocturnal dyspnea (PND). No palpitations. No chest pain or chest discomfort. She has been discovered to have a bowel perforation and is scheduled to go to the operating room for emergency surgery later today. PHYSICAL EXAMINATION: Patient appeared to be mildly dyspneic. Temperature 97.3, pulse 87 (sinus rhythm), respiratory rate 18, blood pressure 141/82, oxygen saturation 96% on oxygen by high flow nasal cannula at 6 liters per minute. Input and output the 24 hours of 06/01/2018 show the patient to be net negative 410 mL. Weight today is listed as 62.9 kg, which does not appear right given that her weight recorded yesterday was 50.9 kg. Jugular venous pulsations were at 3 cm. First and second heart sounds were normal. No S3 or S4 or murmurs appreciated. Respiratory expansion effort was good. No crackles or wheezes. No lower extremity edema. Laboratory work 06/02/2018 was reviewed: WBC 16.6, hemoglobin 11.3, hematocrit 34.2, platelets 149, sodium 133, potassium 4.1, chloride 99, CO2 23, BUN 48, creatinine 1.22, estimated GFR 47.1, glucose 128, albumin 1.4, total protein 5.6, NT-proBNP 9,787. ASSESSMENT/PLAN: 1. Paroxysmal atrial fibrillation. The patient is now remaining in sinus rhythm. The plan will be to continue to load her up with amiodarone, which is currently 200 mg four times a day. She will be going for surgery soon and she has had a recent GI bleed therefore anticoagulation is not an option at this time. Continue metoprolol succinate 50 mg daily. 2. Left heart failure. The patient's echocardiogram Doppler showed normal LV systolic function. She appears compensated on examination. Her NT-proBNP remains elevated, but has come down quite markedly from a few days ago. Continue metoprolol succinate at the current dosage. IV furosemide has been stopped. 3. Hypercholesterolemia. Patient is currently nothing by mouth status awaiting surgery for bowel perforation. 4. Personal history of stroke. Now that this patient has been discovered to have paroxysmal atrial fibrillation, this is the likely etiology of the stroke. Unfortunately, she is not a candidate for anticoagulation at this time because of bowel perforation and recent GI bleeding.
[2018-06-02] MEDS ORDERED: BUPIVACAINE LIPOSOME/PF 1.3% 20ML VIAL (13.3MG/ML)(EXPAREL)(C9290 PER1MG) As Ordered ONE ×2 (17:45→17:48)
[2018-06-02] MEDS ORDERED: BUPIVACAINE HCL 0.25% 10 ML VIAL As Ordered ONE ×2 (17:45→17:48)
[2018-06-02] MEDS ORDERED: SUGAMMADEX SODIUM 500 MG/5 ML VIAL (BRIDION) As Ordered ONE (17:58)
[2018-06-02] MEDS ORDERED: FAT EMULSION IV 20% 500 ML IV SCH (18:00)
[2018-06-02] MEDS ORDERED: MULTIVITAMIN -ADULT INJECTION 10 ML, CR/CU/SE/MN/ZN INJ 1 ML in AMINO AC/ELECTROLYTE/DE... IV SCH (18:00)
[2018-06-02] MEDS ORDERED: NS 1,000 ML IV SCH (18:18)
[2018-06-02] MEDS ORDERED: NALBUPHINE HCL 10 MG/ML AMP (J2300) IV PRN (18:30)
[2018-06-02] MEDS ORDERED: NALOXONE INJ 0.4 MG/1 ML VIAL (J2310) IV PRN (18:30)
[2018-06-02] MEDS ORDERED: EPIDURAL/PCA KEYS XX PRN (18:30)
[2018-06-02] MEDS ORDERED: ONDANSETRON 4MG/2ML VIAL (J2405) IV PRN ×2 (18:30→18:45)
[2018-06-02] MEDS ORDERED: IPRATROPIUM 0.5MG/ALBUTEROL 2.5MG INH SOL UD 3ML (DUONEB)(J7620) NEB PRN (18:30)
[2018-06-02] MEDS ORDERED: diphenhydrAMINE INJ 50MG/ML VIAL (J1200) IV PRN (18:30)
[2018-06-02] MEDS ORDERED: MORPHINE 1MG/ML IN 0.9% NACL 100ML IV BAG As Ordered ONE (18:32)
[2018-06-02] MEDS ORDERED: PERCOCET 5MG/325MG TAB PO PRN (18:45)
[2018-06-02] MEDS ORDERED: MEPERIDINE INJ 25 MG/ML VIAL (J2175) IV PRN (18:45)
[2018-06-02] MEDS ORDERED: METOCLOPRAMIDE INJ 10MG/2ML VIAL (J2765) IV PRN (18:45)
[2018-06-02] MEDS ORDERED: LR 1,000 ML IV SCH (18:45)
[2018-06-02] MEDS ORDERED: fentaNYL 100 MCG/2 ML INJECTION (J3010) IV PRN (18:45)
[2018-06-02] MEDS ORDERED: FUROSEMIDE 40 MG/4 ML VIAL (J1940) IV SCH (19:00)
[2018-06-02] MEDS: MORPHINE 1MG/ML IN 0.9% NACL 100ML IV BAG IV PRN (19:53)
[2018-06-02] MEDS: IPRATROPIUM 0.5MG/ALBUTEROL 2.5MG INH SOL UD 3ML (DUONEB)(J7620) NEB SCH (20:00)
[2018-06-02] MEDS: prednisoLONE ACET 1% OPHTH SUSP 5ML OS SCH (20:47)
[2018-06-02] MEDS: AMIODARONE HCL 360 MG in APPROPRIATE DILUENT 1 EA IV SCH (20:47)
[2018-06-02] MEDS: NS 1,000 ML IV SCH (20:49)
[2018-06-03] VITALS (26 sets, daily range): BP systolic 126–201; BP diastolic 60–96; O2SAT 93
[2018-06-03] MEDS: HYDROCORTISONE 100 MG/2 ML VIAL (J1720) IV SCH ×4 (00:45→23:22)
[2018-06-03] MEDS: NS 1,000 ML IV SCH ×3 (01:40→15:00)
[2018-06-03] MEDS: IPRATROPIUM 0.5MG/ALBUTEROL 2.5MG INH SOL UD 3ML (DUONEB)(J7620) NEB SCH ×4 (02:29→20:12)
[2018-06-03 05:38] LABS: HEMATOCRIT 26.6 % (36.0-47.0); MEAN CORPUSCULAR HEMOGLOBIN 28.3 pg (27.0-33.0); MEAN CORPUSCULAR HGB CONC 33.5 g/dl (32.0-36.5); MEAN CORPUSCULAR VOLUME 84.4 fl (80.0-96.0); PLATELET COUNT, AUTOMATED 119 10^3/uL (150-450); RED BLOOD COUNT 3.15 10^6/uL (4.00-5.40); WHITE BLOOD COUNT 25.7 10^3/uL (4.0-10.0)
[2018-06-03 05:39] LABS: HEMOGLOBIN 8.9 g/dl (12.0-15.5)
[2018-06-03] MEDS: SODIUM CHLORIDE 0.9% INJ 10 ML SYR IV SCH ×2 (06:00→17:18)
[2018-06-03 06:03] LABS: ALT/SGPT 30 U/L (12-78); BILIRUBIN,TOTAL 0.2 MG/DL (0.2-1.0); BLOOD UREA NITROGEN 44 MG/DL (7-18); CALCIUM LEVEL 7.4 MG/DL (8.8-10.2); CARBON DIOXIDE LEVEL 24 MEQ/L (21-32); CHLORIDE LEVEL 102 MEQ/L (98-107); GLOMERULAR FILTRATION RATE > 60.0 (>45); GLUCOSE, FASTING 195 MG/DL (70-100); MAGNESIUM LEVEL 2.2 MG/DL (1.8-2.4); SODIUM LEVEL 134 MEQ/L (136-145); TOTAL PROTEIN 3.8 GM/DL (6.4-8.2)
[2018-06-03] MEDS: MEROPENEM INJ 1 GM in APPROPRIATE DILUENT 1 EA IV SCH ×3 (06:07→21:31)
[2018-06-03] MEDS: AMIODARONE HCL 360 MG in APPROPRIATE DILUENT 1 EA IV SCH ×2 (06:07→17:17)
[2018-06-03 06:30] LABS: LYMPHOCYTES 1 % (16-52); MONOCYTES 1 % (0-8); NEUTROPHILS 95 % (35-75); PLATELET ESTIMATE DECREASED (NORMAL); SMUDGE CELLS 1+; TOXIC VACUOLATION 2+
[2018-06-03 06:31] LABS: ANISOCYTOSIS 1+
[2018-06-03 06:33] LABS: POIKILOCYTOSIS 1+; POLYCHROMASIA 1+; SCHISTOCYTES 1+
[2018-06-03 06:34] LABS: TOXIC GRANULATION 1+
--- NOTE | 2018-06-03 07:33 | REP ---
Clinical: Pleural effusion. Follow-up. Comparison: 06/02/2018. Findings: Nasogastric tube courses below left hemidiaphragm in satisfactory position. Right PICC line with tip in the SVC. Interstitial edema is suggested. Bilateral perihilar/bibasilar opacities consistent with elements of atelectasis and pleural effusions are again noted and relatively unchanged allowing for differences in technique. No pneumothorax. Impression: Interstitial edema. Perihilar/basilar atelectasis and moderate pleural effusions similar to prior examination. Electronically Signed by Patricio Martinez MD 06/03/2018 07:24 A
[2018-06-03] MEDS: PANTOPRAZOLE 40MG INJ (PROTONIX) (C9113) IV SCH ×2 (08:54→21:31)
[2018-06-03] MEDS: BROMSITE 0.075% OS SCH ×2 (08:54→21:31)
[2018-06-03] MEDS: METOPROLOL SUCC (TopROL XL) 50MG **XL** TAB PO SCH (08:55)
[2018-06-03 12:07] LABS: HEMATOCRIT 26.1 % (36.0-47.0); HEMOGLOBIN 8.7 g/dl (12.0-15.5)
--- NOTE | 2018-06-03 12:52 | IPNPDOC ---
Text Note Date of Service The patient was seen on 06/03/18. NOTE Subjective: Patient is a 63-year-old female with a PMHx of Lung CA (Stage IV, metastasis to bone, brain, adrenal glands), DLP, Hx of TIA, Hx of DVT who presented to the ER with abdominal pain and associated rectal bleeding. Patient was admitted to the hospitalist service for further evaluation and treatment. Overnight (06/01 early AM) patient experienced worsening tachycardia and was found to be in a. fib with RVR. Cardiology was consulted and had recommended Digoxin, however she failed to improve. Ultimately patient was cardioverted and revered back to sinus rhythm. Patient was seen and examined at the bedside. Patient is seen post-operatively. She denies any N/V, notes that she is not experiencing any significant abdominal pain. Has not had any BMs. Denies any CP or palpitations. Still appears to have some SOB. Objective: Vitals (See below) General: Lying in bed, no acute distress, comfortable, AAOx3 HEENT: NC, AT, NG tube in place CVS: +S1S2 Lungs: Diminished sounds at bases, no rhonchi / rales / wheezing Abdomen: Mid abdominal wound, 2 GREER drains, remains non-tender, hypoactive bowel sounds Extremities: No evidence of edema, - Calf tenderness Assessment and plan: Perforated upper GI tract - likely 2/2 abdominal metastatic disease - Clinically patient has noted no significant abdominal pain, NG tube in place - CXR 06/03: Interstitial edema. Perihilar/basilar atelectasis and moderate pleural effusions similar to prior examination. - CT abdomen / pelvis 06/02: Pneumoperitoneum is confirmed. There is a large amount of ascitic fluid and some free intraperitoneal Gastrografin is seen in the peritoneal space mostly in the left mid abdomen. Findings are compatible wi th a perforation of the upper gastrointestinal tract. - s/p Exploratory laparotomy (POD#1) - General surgery (Dr. Hairston) on consultation; appreciate their input - c/w TPN Acute blood loss anemia - likely 2/2 GI etiology - suspected upper GI source (see above) - Benign abdomen on exam - Hemodynamically stable / Afebrile - H&H stable - s/p 3 units PRBC - CT ab/pelv 05/27:1. RLL and RML pulmonary consolidation, unchanged. Interval decrease in size of right pleural effusion, now tiny. 2. Radiographically stable hepatic and splenic lesions. 3. Bilateral adrenal metastases, unchanged. 4. 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 A bowel wall mass is not excluded given the lack of enteric contrast. 5. Mid small bowel obstruction, likely partial, with indeterminate etiology and gradual caliber transition. - c/w Protonix IV BID Leukocytosis - possibly 2/2 reactive etiology - 2/2 Neulasta / Corticosteroids; possibly 2/2 infectious etiology - Remains afebrile / hemodynamically stable - Lactic acid negative; UA without signs of infection - Blood culture 05/31: Negative at 72 horus / MRSA screen 05/31: Negative - CXR 05/31: Bilateral pleural effusions, left a little larger than right. These are increased compared to the May 28, 2018 prior study. - Abdominal XR 05/31: No evidence of obstruction or significant ileus. Question some degree of ascites. - c/w Meropenem; Will DC Vancomycin Atrial fibrillation with RVR - Failed to improve with Digoxin - s/p Cardioversion - ECHO completed 06/01: report pending - c/w Amiodarone; PO has been changed to drip - Dr. Kim (Cardiology) on consult; appreciate their input Anasarca / Right sided heart failure - likely 2/2 Moderate - Severe pulmonary HTN - Imaging consistent with b/l pleural effusions and evidence of ascites - CVP evaluated this morning of 4 - ECHO 06/01: EF 70%, Normal Diastolic function, Moderate elevation of RVSP at 54, Severe TR, Very small pericardial effusion - c/w strict ins/outs, daily weights, - c/w TPN Adrenal insufficiency - c/w Hydrocortisone Lung Cancer (Stage IV; Metastasis to Brain s/p gamma knife, recent metastasis to B/L Adrenal Glands, Infrascapular region, and Intestinal Metastatic Implants) - s/p 1st cycle of Palliative Chemotherapy on 05/24 for recently discovered Mets - Follows with Dr. Baker as an outpatient - Dr. Baker (Oncology) on consult; appreciate their input Hx of CVA - c/w ASA Left Jugular Vein Thrombosis - Lovenox on hold 2/2 GI Bleed Protein calorie malnutrition - likely moderate / severe - Patient has had significant weight loss - likely 2/2 malignancy - Poor oral intake - Appears cachectic - c/w TPN DVT Prophylaxis - c/w SCDs Prognosis: - Poor Disposition: - c/w Diuresis - c/w TPN VS,Fishbone, I+O VS, Fishbone, I+O Laboratory Tests 06/03/18 05:20 Red Blood Count 3.15 L, Mean Corpuscular Volume 84.4, Mean Corpuscular Hemoglobin 28.3, Mean Corpuscular Hemoglobin Concent 33.5, Red Cell Distribution Width 16.8 H, Lymphocytes # (Auto) , Calcium Level 7.4 #L, Aspartate Amino Transf (AST/SGOT) 61 H, Alanine Aminotransferase (ALT/SGPT) 30, Alkaline Phosphatase 92, Total Bilirubin 0.2, Total Protein 3.8 #L, Albumin 1.0 #L 06/03/18 11:51 Vital Signs Date Time Temp Pulse Resp B/P (MAP) Pulse Ox O2 Delivery O2 Flow Rate FiO2 06/03/18 11:00 96 152/74 (100) 94 Venturi Mask 50 183/85 (117) 06/03/18 10:00 18 06/03/18 08:00 98.1 06/03/18 02:29 15.0 I&O- Last 24 Hours up to 6 AM 06/03/18 06:00 Intake Total 5163.6 ml Output Total 2290 ml Balance 2873.6 ml TONI KURTZ MD Jun 03, 2018 12:52
--- NOTE | 2018-06-03 12:55 | IPN ---
DATE OF SERVICE: 06/03/2018 Mrs. Turcios had surgery yesterday evening. Surprisingly, she tolerated it quite well. There have not been any recurrences of atrial fibrillation, and she is currently maintained on intravenous amiodarone. At the bedside, she tells me that she is not feeling well but does not have any truly specific complaints. She tells me that her abdomen is not hurting too bad. On her vital signs: Blood pressure 133/65, heart rate has been mostly 90s sinus rhythm. I did not find any evidence for recurrence of atrial fibrillation (AFib) or any other ectopy on review of air sampling and monitoring. She is afebrile. Saturation is 94% on 50% FIO2. Her fluid balance yesterday was about positive 2 liters. She is alert and oriented times three, even though she is somewhat somnolent and dozes off intermittently. Her jugular venous pressure (JVP) does not appear high. Lungs are reasonably clear to auscultation. I do not appreciate any wheezing or crackles. Heart examination reveals a regular rhythm, relatively fast but no gallop, rub, or murmur is appreciated. Abdomen is soft. There is obviously tenderness, and she has very prominent peripheral edema on both lower and upper extremities. LABORATORY-TORIBIO: Basic metabolic panel: Sodium 134, potassium 4.0, BUN 44, creatinine 0.8, and glucose 195,000. Complete blood count (CBC): Hemoglobin 8.9, hematocrit 26, platelet count 119,000, WBC count 25.7. ASSESSMENT AND PLAN: Mrs. Turcios is a very unfortunate 63-year-old female who has metastatic lung cancer (CA). She, unfortunately, developed bowel perforation shortly after a course of chemotherapy last week. Underwent emergency surgery yesterday. Cardiology was involved because she had atrial fibrillation with rapid ventricular response. Dr. Kim actually cardioverted the patient 2 days ago and started her on amiodarone. She has been maintaining sinus rhythm since. She is still completing the course of IV loading. I will not make any changes in her management today. It is likely that she will not be able to be taking any oral preparations, so we will probably ending up giving her boluses of IV amiodarone for the next few days. Unfortunately, her overall prognosis certainly poor.
[2018-06-03] MEDS: FUROSEMIDE 40 MG/4 ML VIAL (J1940) IV SCH ×2 (17:18→23:23)
[2018-06-03] MEDS ORDERED: AMINO AC/ELECTROLYTE/DEX/CALC 2,000 ML IV SCH (18:00)
[2018-06-03] MEDS ORDERED: FAT EMULSION IV 20% 500 ML IV SCH (18:00)
[2018-06-03 18:51] LABS: HEMATOCRIT 27.1 % (36.0-47.0); HEMOGLOBIN 9.3 g/dl (12.0-15.5)
[2018-06-03] MEDS: prednisoLONE ACET 1% OPHTH SUSP 5ML OS SCH (21:31)
[2018-06-03 22:57] LABS: HEMATOCRIT 25.5 % (36.0-47.0); HEMOGLOBIN 8.6 g/dl (12.0-15.5)
[2018-06-03 23:18] LABS: BLOOD UREA NITROGEN 31 MG/DL (7-18); CALCIUM LEVEL 7.4 MG/DL (8.8-10.2); CARBON DIOXIDE LEVEL 28 MEQ/L (21-32); CHLORIDE LEVEL 102 MEQ/L (98-107); CREATININE FOR GFR 0.63 MG/DL (0.55-1.30); GLOMERULAR FILTRATION RATE > 60.0 (>45); GLUCOSE, FASTING 145 MG/DL (70-100); POTASSIUM SERUM 3.2 MEQ/L (3.5-5.1); SODIUM LEVEL 139 MEQ/L (136-145)
[2018-06-03] MEDS: KCL 10MEQ/100ML SWI (KRUN) 10 MEQ in APPROPRIATE DILUENT 1 EA IV SCH (23:23)
[2018-06-04] VITALS (22 sets, daily range): BP systolic 128–160; BP diastolic 66–84; O2SAT 93
[2018-06-04] MEDS: KCL 10MEQ/100ML SWI (KRUN) 10 MEQ in APPROPRIATE DILUENT 1 EA IV SCH ×4 (00:29→08:31)
[2018-06-04] MEDS: IPRATROPIUM 0.5MG/ALBUTEROL 2.5MG INH SOL UD 3ML (DUONEB)(J7620) NEB SCH ×4 (02:00→20:07)
[2018-06-04] MEDS: SODIUM CHLORIDE 0.9% INJ 10 ML SYR IV SCH ×2 (05:17→18:00)
[2018-06-04] MEDS: FUROSEMIDE 40 MG/4 ML VIAL (J1940) IV SCH ×4 (05:17→23:10)
[2018-06-04] MEDS: MEROPENEM INJ 1 GM in APPROPRIATE DILUENT 1 EA IV SCH ×3 (05:18→21:44)
[2018-06-04 05:38] LABS: HEMATOCRIT 24.6 % (36.0-47.0); HEMOGLOBIN 8.6 g/dl (12.0-15.5); MEAN CORPUSCULAR HEMOGLOBIN 27.7 pg (27.0-33.0); MEAN CORPUSCULAR VOLUME 79.4 fl (80.0-96.0); PLATELET COUNT, AUTOMATED 112 10^3/uL (150-450)
[2018-06-04 05:54] LABS: ALBUMIN 1.1 GM/DL (3.2-5.2); ALT/SGPT 29 U/L (12-78); BILIRUBIN,TOTAL 0.3 MG/DL (0.2-1.0); BLOOD UREA NITROGEN 32 MG/DL (7-18); CALCIUM LEVEL 7.7 MG/DL (8.8-10.2); CARBON DIOXIDE LEVEL 31 MEQ/L (21-32); CHLORIDE LEVEL 101 MEQ/L (98-107); CREATININE FOR GFR 0.72 MG/DL (0.55-1.30); GLOMERULAR FILTRATION RATE > 60.0 (>45); GLUCOSE, FASTING 121 MG/DL (70-100); MAGNESIUM LEVEL 1.9 MG/DL (1.8-2.4); POTASSIUM SERUM 3.3 MEQ/L (3.5-5.1); SODIUM LEVEL 139 MEQ/L (136-145); TOTAL PROTEIN 4.2 GM/DL (6.4-8.2)
[2018-06-04 06:10] LABS: WHITE BLOOD COUNT 36.9 10^3/uL (4.0-10.0)
[2018-06-04 06:13] LABS: ATYPICAL LYMPH 1 % (0-5); LYMPHOCYTES 2 % (16-52); MONOCYTES 1 % (0-8); NEUTROPHILS 93 % (35-75)
[2018-06-04 06:14] LABS: PLATELET ESTIMATE DECREASED (NORMAL)
[2018-06-04 06:16] LABS: ANISOCYTOSIS 1+; HYPOCHROMASIA 2+
[2018-06-04 06:18] LABS: DOHLE BODIES 1+
--- NOTE | 2018-06-04 07:47 | CR ---
DATE OF CONSULTATION: 06/03/2018 HISTORY OF PRESENT ILLNESS: Mrs. Turcios is a 63-year-old female with a past medical history of metastatic lung cancer with mets to the bone, brain and adrenal glands, history of deep vein thrombosis (DVT), history of transient ischemic attack (TIA), history of atrial fibrillation, who presented initially with a complaint of abdominal pain and gastrointestinal (GI) bleed. The patient was transfused with packed red blood cells (PRBCs) for her GI bleed. She also was noted to have atrial fibrillation with rapid ventricular response (RVR) and was being seen by cardiology. She was being managed by cardiology with IV digoxin and metoprolol. The patient became hemodynamically unstable with rapid ventricular response and had a synchronized direct cardioversion performed with return to sinus rhythm. The patient has also been noted to have decompensated heart failure with anasarca and severely elevated BNP. Of note, the patient's chest x-ray on 06/02 showed evidence of free air under the diaphragm suggestive of an abdominal bowel perforation. The patient had a CT of the abdomen and pelvis done which did show pneumoperitoneum as well as a large amount of ascitic fluid and some free intraperitoneal Gastrografin in the peritoneal space consistent with the perforation of the upper GI tract. The patient therefore had an exploratory laparotomy done on 06/02/2018. Postoperatively, the patient was able to be extubated, however she has required since her surgery increasing amounts of oxygen supplementation, was on a VentiMask earlier at 60% FiO2 and saturating in the 88-90% range. The patient does complain of some abdominal pain. 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 She denies any increased shortness of breath or chest pain. She does report some shortness of breath with any movement in bed. She does have an occasional cough, does not appear to be productive much. She has no fevers or chills. She continues to have diffuse anasarca. She was given IV Lasix, however, patient has continued to be significantly net positive. PAST MEDICAL HISTORY: 1. Lung cancer with mets to the brain, bone and adrenal glands. She is status post CyberKnife for the brain mets and on palliative chemotherapy. 2. Dyslipidemia. 3. Transient ischemic attack (TIA). 4. Deep vein thrombosis (DVT) was on Lovenox. 5. Adrenal insufficiency secondary to her adrenal mets on hydrocortisone. PAST SURGICAL HISTORY: 1. Bilateral breast mass removed, which was benign. 2. History of dilatation and curettage in the past. 3. Cataract surgery. 4. Loop recorder placement. SOCIAL HISTORY: No history of tobacco use or alcohol use. Denies illicit drug use. ALLERGIES: No known drug allergies. HOME MEDICATIONS: - aspirin - vitamin B - vitamin C - vitamin D - Lovenox - hydrocortisone - Zofran as needed - Compazine as needed - simvastatin PHYSICAL EXAMINATION: Temperature afebrile. Pulse 105. Respiratory rate 22. Blood pressure 149/81. Saturating 90% on high flow nasal cannula at 30 liters per minute with an FiO2 of 60%. GENERAL: Patient is in no apparent distress, appears weak. She is able to speak incomplete sentences, not using any accessory muscles. Appears to have some generalized anasarca. HEENT: Normocephalic, atraumatic. Pupil are reactive. Moist mucous membranes. NECK: Supple. No jugular venous distention (JVD) noted. CARDIAC: Tachycardic, regular rate and rhythm. No murmurs appreciated. LUNGS: Decreased breath sounds at the bases. No wheezing or rales or rhonchi. ABDOMEN: Soft. There is some tenderness. EXTREMITIES: There is pitting edema in the lower extremities as well as in the upper extremities and sacral edema. LABS: WBC 25.7, hemoglobin 8.9, platelets 119. Chemistries: Sodium 134, potassium 4.0, chloride 102, bicarb 24, BUN 44, creatinine 0.8, glucose 195, AST 61, ALT 30, CRP trending down 14.6. BNP 06/02 was 9789. Albumin today was 1.0. Total protein 3.8. Microbiology: Blood cultures have been no growth to date. IMAGING: Chest x-ray today showed NG tube in place coursing below the diaphragm. There is a right PICC line in place. There is bilateral atelectasis and moderate pleural effusion, which appear relatively unchanged and there is evidence of some pulmonary vascular congestion. ASSESSMENT/PLAN: Mrs. Turcios is a 63-year-old female with a past medical history of metastatic lung cancer, atrial fibrillation, history of TIA, history of DVT, who presented initially with rectal bleeding and abdominal pain. The patient had initial CT with evidence of some partial small bowel obstruction and a possible mesenteric james mass in the mid abdomen. Her hospital course was complicated by fluid overload and heart failure in the setting of atrial fibrillation with RVR, status post synchronized cardioversion to sinus rhythm. She further developed acute bowel perforation and is status post exploratory laparotomy, is postop day 1. After her surgery, patient was noted to require increasing oxygen requirements, was on a VentiMask and later changed to a Vapotherm at 30 liters per minute with FiO2 of 60%. The patient's chest x-ray appears relatively unchanged. She continues to have some moderate pleural effusions and atelectasis bilaterally with evidence of pulmonary vascular congestion. She does continue to have some diffuse anasarca, likely in the setting of severe hypoalbuminemia and protein malnourishment. The patient has been getting periodic doses of IV Lasix, however she has continued to be significantly net positive in the past few days. Her initial weight on admission was 53 kg and her weight today was almost 10 kg more at 62.9. Suspect the patient's worsening hypoxemia is likely in the setting of pulmonary edema with pleural effusion secondary to fluid overload as well as from worsening atelectasis postoperatively as the patient does appear to be uncomfortable with minimal movement and is most likely not taking deep breaths. She has a PCI for pain control, however she has not given herself any as needed doses of the pain medication. Will give the patient an incentive spirometer and encourage her to use her pain medication as needed for improved pain control and to aid in her mobilization as tolerated. Would also increase her diuretics. The patient will be increased to Lasix 40 mg every 6 hours as well as would given her albumin supplementation to assist with diuresis. The patient may require a Lasix drip for further diuresis depending on her intake and output. Will continue to monitor her renal function. She does have some mild acute kidney injury, may also be cardiorenal, however will continue to monitor her renal function and blood pressure with the diuresis. The patient does not appear to be in any acute respiratory distress at this time. Would hold off on thoracentesis or chest tube placement as the fluid is likely secondary to fluid overload and with chest tube placement, it would just likely have continuous drainage as well as drain protein and albumin. Would monitor electrolytes and replete as needed. The patient was noted to have leukocytosis today, likely from her postoperative state. She has had no fever. She is on meropenem for antibiotics. Would continue to monitor. Continue oxygen supplementation with Vapotherm and continue to wean down as tolerated. The patient is a FULL CODE, has had multiple discussions with the primary team and other providers about goals of care and she continues to wish to be a FULL CODE at this time. JIMI
--- NOTE | 2018-06-04 08:17 | IPN ---
MEDICAL ONCOLOGY INPATIENT FOLLOWUP DATE OF SERVICE: 06/03/2018 DIAGNOSIS: EGFR mutation metastatic adenocarcinoma of lung in a never smoker, now with aggressive visceral progressive disease, biopsy showing loss of T790 mutation previously sensitive to targeted agent. Admitted with gastrointestinal (GI) bleed, found to have bowel perforation three days after starting palliative chemotherapy with paclitaxel/carboplatin/bevacizumab/ atezolizumab. INTERVAL HISTORY: Hallie underwent surgery last night after abdomen and pelvis CT revealed extravasation of contrast into the intraperitoneal space and pneumoperitoneum. I am not able to see the operative note at this point. Postoperatively Hallie is awake, alert with some slightly labored breathing, complains of abdominal pain when she moves, but somewhat more cheerful than in the last prior few days. She denies shortness of breath, cough, fevers. Temperature normal 98.4, heart rate 95, blood pressure holding 150/79, satting at 93% on FiO2 of 40, Venturi mask. Labs this morning an approximate 2 unit hemoglobin drop to 8.7 and new thrombocytopenia has emerged in the last two days from platelet count normal to 119 today. This could reflect chemotherapy started on 05/24/2018 as this would tip the day 10 bj point. WBC is 25. Hallie was well enough to discuss her overall prognosis with me today along with her . Her healthcare proxy is her daughter. It is unclear whether her GI bleed is related or unrelated to the tumor, I suspect that it is; it is unclear whether her cancer is responding to the chemotherapy or whether her tumor is so aggressively progressing that she developed a GI bleed. She has had a prodrome of ongoing diarrhea and abdominal discomfort over the last month, even taking her to the hospital several weeks ago diagnosed with enteritis and discharged on antibiotics, feeling better and then again abruptly ill three days after chemotherapy. Of note, her ECOG performance status has been 0 up until admitted to the hospital on the 05/27. That is, she has been up and around, planning travel, and with almost no interruption of her normal life. IMPRESSION: Hallie Turcios is a 63-year-old woman with refractory recurrent adenocarcinoma of lung originally EGFR mutation positive, treated with erlotinib for more than a year, then developing mild progression, found to have T790 mutation treated with osimertinib, found on screening to have small intracranial metastases treated with gamma radiation. She then last summer had mild progression of her lung focus of disease in the right middle and lower lobes treated with radiation. However, this month she presented with rising tumor marker, progressive cough, found to have extensive peritoneal involvement including two large adrenal metastases, some intestinal implants. She started combination chemotherapy targeted therapy the 05/27/2018, one of the agents, bevacizumab, is known to be associated with viscus perforation. Whether the bevacizumab caused the perforation or whether it predated her treatment is unclear. She has been having GI problems on and off for several weeks. Today discussing her prognosis, her current acute illness Hallie expressed the desire to be a FULL CODE. She is not ready to consider DNR but she has given it thought and will continue to do so. RECOMMENDATIONS: 1. Defer to surgery the surgical management of this patient's perforation. 2. Will follow up pathology. 3. Would monitor platelets daily. A continuing drop in platelets should immediately prompt checking for heparin-induced thrombocytopenia antibody as from this day forward, Hallie will be farther and farther out from her chemotherapy and that cannot be invoked as the cause of her thrombocytopenia. I will continue to follow.
[2018-06-04] MEDS: PANTOPRAZOLE 40MG INJ (PROTONIX) (C9113) IV SCH ×2 (08:28→21:44)
[2018-06-04] MEDS: HYDROCORTISONE 100 MG/2 ML VIAL (J1720) IV SCH ×2 (08:28→15:21)
[2018-06-04] MEDS: METOPROLOL SUCC (TopROL XL) 50MG **XL** TAB PO SCH (08:31)
[2018-06-04] MEDS: BROMSITE 0.075% OS SCH ×2 (08:32→21:44)
--- NOTE | 2018-06-04 10:52 | IPN ---
DATE: 06/03/2018 HISTORY: The patient is now postop from exploratory laparotomy and a small bowel resection for a perforation with extensive bile staining and contamination of the abdomen. She has done fairly well postop. She has drains in place which are draining some lightly stained bilious fluid. She has been maintained on antibiotics with meropenem. She remains n.p.o. with a nasogastric tube in place. PHYSICAL EXAMINATION: The patient is a somewhat frail-appearing woman lying quietly in bed. She is on some higher flow oxygen at this point for support. This is being managed by the pulmonary team. The patient's abdomen is nondistended, but quiet. Laboratory studies today show a white count of 26,000 this morning with a hemoglobin of 9, hematocrit of 27 and platelet count of 119,000. Chemistry profile showed normal electrolytes with the exception of a sodium of 134. BUN was 44 with a creatinine of 0.8 and glucose was 195. IMPRESSION: The patient is doing well now one day postop from exploratory laparotomy for a small bowel perforation. She will need to remain on antibiotics for now. It remains to be seen how quickly her bowel will resume normal function. For now she will need to remain n.p.o. with the NG tube in place until there is some evidence of bowel function. Her urine output has been stimulated with some Lasix today and this has clearly improved her output.
[2018-06-04] MEDS ORDERED: AMIODARONE 150MG/3ML INJ (J0282) IVP SCH (11:00)
--- NOTE | 2018-06-04 11:11 | IPN ---
DATE: 06/04/2018 Mrs. Turcios feels a little bit better today she seems to be more alert and little more communicative. To my surprise she denies any chest pain and she tells me that she feels a relatively good other than abdominal "tenderness." The patient did get several doses of furosemide yesterday and had a very good urinary output with a net negative balance about 3.5 liters. She is already about 2 liters negative today. VITAL SIGNS: Blood pressure 134/68, heart rate has been mostly 100s. Sinus tachycardia. She is afebrile. Saturation 95% on 70% FiO2. Her jugular venous pulse (JVP) does not look high. Lungs are reasonably clear. Heart exam reveals irregular tachycardia. I do not appreciate any gallop or rub. Abdomen is diffusely tender. No guarding. She has an nasogastric (NG) tube in place. Extremities: Reveal marked improvement in edema of upper extremities but there is still fairly significant edema in the lower extremities. Neurologically, there is generalized weakness but otherwise she is intact. LABORATORY: Sodium 139, potassium 3.3, BUN 32, creatinine 0.7 and glucose 121, albumin is 1.1 and her CBC reveals WBC count 37,000, 8.6 hemoglobin, 24.6 hematocrit, platelet count 112,000 and in differential she has 93% neutrophils and 3 bands. ASSESSMENT/PLAN: Mrs. Turcios is a very unfortunate 63-year-old female who does have widely metastatic lung cancer that now presented with bowel perforation which required surgical intervention and also developed atrial fibrillation with rapid ventricular response(RVR) that actually required cardioversion initially due to hemodynamic instability. As far as the atrial fibrillation is concerned, she is currently maintaining sinus rhythm. She completed the loading dose of IV amiodarone yesterday afternoon. Because her oral intake is so far not possible, I am going to give her a daily dose of 150 mg in an attempt to prevent further episodes of atrial fibrillation. The risk of anticoagulation at this point outweigh the benefit as she presented with GI bleeding and she has thrombocytopenia and is on steroids. As far as the volume is concerned, she is being fairly aggressively diuresed in an attempt to prevent need for intubation. I think it is reasonable. I think that most of her volume overloaded state has to do with steroid administration and malnutrition. Unfortunately, I do not foresee a good ending to her story. I am afraid that the obstacles for recovery are just too high. I will continue following the patient with you. In spite of numerous discussions with the patient about her code status, she remains FULL CODE but I am afraid that if she should actually suffer cardiopulmonary arrest that the resuscitative measures would likely be futile. JIMI
[2018-06-04] MEDS: AMIODARONE HCL 150 MG in APPROPRIATE DILUENT 1 EA IV SCH (11:49)
--- NOTE | 2018-06-04 11:51 | IPNPDOC ---
Text Note Date of Service The patient was seen on 06/04/18. NOTE Subjective: Patient is a 63-year-old female with a PMHx of Lung CA (Stage IV, metastasis to bone, brain, adrenal glands), DLP, Hx of TIA, Hx of DVT who presented to the ER with abdominal pain and associated rectal bleeding. Patient was admitted to the hospitalist service for further evaluation and treatment. Overnight (06/01 early AM) patient experienced worsening tachycardia and was found to be in a. fib with RVR. Cardiology was consulted and had recommended Digoxin, however she failed to improve. Ultimately patient was cardioverted and revered back to sinus rhythm. Patient was seen and examined at the bedside. . Currently, patient does not complain of any significant chest pain or palpitations. Patient to report difficulty with breathing has maintained saturations using Vapotherm with an FiO2 of 70%. Denies any abdominal pain, NG tube remains in place. Has not expense any bowel movements urine output with Romero catheter in place has improved. Objective: Vitals (See below) General: Lying in bed, no acute distress, comfortable, AAOx3 HEENT: NC, AT, NG tube in place CVS: +S1S2 Lungs: Diminished sounds at bases, again, there does not appear to be any evidence of wheezing, rales or rhonchi Abdomen: Mid abdominal incision with dressing in place, 2 GREER drains present with serosanguineous fluid, no significant tenderness, hypoactive bowel sounds Extremities: Again LE are without any evidence of edema, - Calf tenderness Assessment and plan: Perforated upper GI tract - likely 2/2 abdominal metastatic disease - Clinically patient has noted no significant abdominal pain, NG tube in place - CXR 06/03: Interstitial edema. Perihilar/basilar atelectasis and moderate pleural effusions similar to prior examination. - CT abdomen / pelvis 06/02: Pneumoperitoneum is confirmed. There is a large amount of ascitic fluid and some free intraperitoneal Gastrografin is seen in the peritoneal space mostly in the left mid abdomen. Findings are compatible with a perforation of the upper gastrointestinal tract. - s/p Exploratory laparotomy (POD#2) - General surgery (Dr. Hairston) on consultation; appreciate their input - TPN on hold (re: fluid overload) Acute blood loss anemia - likely 2/2 GI etiology - suspected upper GI source (see above) - Benign abdomen on exam - Hemodynamically stable / Afebrile - H&H stable - s/p 3 units PRBC - CT ab/pelv 05/27:1. RLL and RML pulmonary consolidation, unchanged. Interval decrease in size of right pleural effusion, now tiny. 2. Radiographically stable hepatic and splenic lesions. 3. Bilateral adrenal metastases, unchanged. 4. 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 A bowel wall mass is not excluded given the lack of enteric contrast. 5. Mid small bowel obstruction, likely partial, with indeterminate etiology and gradual caliber transition. - c/w Protonix IV BID Leukocytosis - possibly 2/2 reactive etiology - 2/2 Neulasta / Corticosteroids; possibly 2/2 infectious etiology - Remains afebrile / hemodynamically stable - Lactic acid negative; UA without signs of infection - Blood culture 05/31: Negative at 72 horus / MRSA screen 05/31: Negative - CXR 05/31: Bilateral pleural effusions, left a little larger than right. These are increased compared to the May 28, 2018 prior study. - Abdominal XR 05/31: No evidence of obstruction or significant ileus. Question some degree of ascites. - c/w Meropenem; Will DC Vancomycin Atrial fibrillation with RVR - Failed to improve with Digoxin - s/p Cardioversion - ECHO completed 06/01: report pending - c/w Amiodarone; PO has been changed to drip - Dr. Kim (Cardiology) on consult; appreciate their input Anasarca / Right sided heart failure - likely 2/2 Moderate - Severe pulmonary HTN - Imaging consistent with b/l pleural effusions and evidence of ascites - ECHO 06/01: EF 70%, Normal Diastolic function, Moderate elevation of RVSP at 54, Severe TR, Very small pericardial effusion - c/w strict ins/outs, daily weights - has had significant diuresis - s/p TPN - c/w Furosemide Acute hypoxic respiratory failure - likely 2/2 anasarca / fluid overload, likely 2/2 atelectasis - See above - c/w Incentive spirometry - Dr. Neri (Pulmonary/intensive care) consulted; appreciate their input Thrombocytopenia - possibly 2/2 critical illness, possibly 2/2 chemotherapy, possibly 2/2 ALECIA - Will check coagulation profile, FDP, Fibrinogen, LDH - Will check serotonin release assay - Will continue to monitor - Dr. Carina Baker (Hematology) on consultation; appreciate input Adrenal insufficiency - c/w Hydrocortisone Lung Cancer (Stage IV; Metastasis to Brain s/p gamma knife, recent metastasis to B/L Adrenal Glands, Infrascapular region, and Intestinal Metastatic Implants) - s/p 1st cycle of Palliative Chemotherapy on 05/24 for recently discovered Mets - Follows with Dr. Baker as an outpatient - Dr. Baker (Oncology) on consult; appreciate their input Hx of CVA - c/w ASA Left Jugular Vein Thrombosis - Lovenox on hold 2/2 GI Bleed Protein calorie malnutrition - likely moderate / severe - Patient has had significant weight loss - likely 2/2 malignancy - Poor oral intake - Appears cachectic - s/p TPN DVT Prophylaxis - c/w SCDs Prognosis: - Poor Disposition: - c/w Diuresis VS,Fishbone, I+O VS, Fishbone, I+O Laboratory Tests 06/03/18 11:51 06/03/18 18:36 06/03/18 22:45 Calcium Level 7.4 L 06/04/18 05:16 Calcium Level 7.7 L, Red Blood Count 3.10 L, Mean Corpuscular Volume 79.4 L, Mean Corpuscular Hemoglobin 27.7, Mean Corpuscular Hemoglobin Concent 35.0, Red Cell Distribution Width 16.6 H, Neutrophils (%) (Auto) , Lymphocytes (%) (Auto) , Monocytes (%) (Auto) , Eosinophils (%) (Auto) , Basophils (%) (Auto) , Neutrophils # (Auto) , Lymphocytes # (Auto) , Monocytes # (Auto) , Eosinophils # (Auto) , Basophils # (Auto) , Aspartate Amino Transf (AST/SGOT) 61 H, Alanine Aminotransferase (ALT/SGPT) 29, Alkaline Phosphatase 186 H, Total Bilirubin 0.3, Total Protein 4.2 L, Albumin 1.1 L Vital Signs Date Time Temp Pulse Resp B/P (MAP) Pulse Ox O2 Delivery O2 Flow Rate FiO2 06/04/18 08:31 105 134/68 06/04/18 08:00 30.0 70 06/04/18 04:00 98.5 95 High Flow Cannula 06/04/18 00:00 20 I&O- Last 24 Hours up to 6 AM 06/04/18 06:00 Intake Total 150 ml Output Total 5645 ml Balance -5495 ml TONI KURTZ MD Jun 04, 2018 11:51
[2018-06-04 12:44] LABS: LDH LACTATE DEHYDROGENASE 387 U/L (84-246)
[2018-06-04 12:51] LABS: HEMATOCRIT 24.5 % (36.0-47.0); HEMOGLOBIN 8.3 g/dl (12.0-15.5)
--- NOTE | 2018-06-04 13:34 | IPN ---
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 Now hospitalized with GI bleed found to have small bowel perforation associated with a conglomerate necrotic james metastasis. Status post laparotomy and currently on IV antibiotics. Course complicated by fluid overload, atrial fibrillation requiring cardioversion now on diuresis. Progressive leukocytosis postoperatively. INTERVAL HISTORY: Hallie is doing better today, more awake and alert, oxygenation better. She has diuresed significantly over the last 24 hours. She does have progressive leukocytosis is on antibacterial antibiotics. A brief conversation with Dr. Lopez today. Consideration of fungal infection such as yeast needs to be made. There is a role for empiric antibiotics and culturing drains. At the bedside Hallie is accompanied by her daughter and son-in-law. She is awake, reclining has less pain. Was trying to use her spirometer but having difficulty. Dr. Neri of pulmonary is also now involved recommending aggressive diuresis. Echocardiogram showed normal systolic function, some tricuspid regurgitation. Dr. Cohen of cardiology also involved. He thinks all of this is secondary to ongoing oncology issues, surgery, fluid load. Current vital signs: Blood pressure 134/68, heart rate 105, O2 at 30 flow, FiO2 70. LABS: WBC 37, hemoglobin 8.6, hematocrit 24, platelets 112. Stable neutrophilia with 93% neutrophils. Electrolytes stable. Potassium today 3.3, BUN, creatinine with mild azotemia normal GFR albumin 1.1. IMPRESSION: Hallie Turcios is a 63-year-old woman with metastatic adenocarcinoma, recently with new disease progression involving bilateral adrenal metastases and mesenteric implants. She began a new chemotherapy regimen 05/24/2018, tolerated this well but within 3 days was admitted with malaise, presyncopal event and found to have GI bleed and subsequently diagnosed with GI perforation. One of her chemotherapy agents, bevacizumab is associated with viscus perforation but the chronology makes it unclear whether this was the cause or bystander and not involved. Certainly, the focus of necrotic james mass near and abutting small bowel resection resected by Dr. Hairston suggests that the tumor was involved in the perforation, and Hallie prodrome of GI disturbance of the last 3-4 weeks suggests tumor rather than antitumor agent is responsible for the perforation. She is postoperatively struggling with fluid overload much improved today with diuresis. Leukocytosis is worsening. Dr. Lopez suggested evaluating for yeast infected drains and empiric coverage for Grace. I agree with this approach given other indices improving but white count worsening. Alternatively, pegfilgrastim which she did receive could be responsible for the rising white count. However its half life is about 8 days and a white count should be dropping not rising at this point. Finally, she has had some mild to moderate thrombocytopenia. This has plateaued for the moment likely also chemotherapy associated. Overall prognosis is guarded. It is unclear whether Hallie will respond to the chemotherapy started on 05/24/2018; it is unclear if she has a refractory tumor and her overall clinical picture is one of tumor progression in this acute setting. She and I have discussed advance directives and DO NOT RESUSCITATE. She wishes to be FULL CODE for the present. PLAN/RECOMMENDATIONS: As above. Will follow
[2018-06-04 14:30] LABS: INR 1.07
[2018-06-04 14:31] LABS: PARTIAL THROMBOPLASTIN TIME 24.5 SECONDS (25.4-37.6)
[2018-06-04] MEDS: MICAFUNGIN SODIUM 100 MG in D5W MINI-BAG PLUS 100 ML IV SCH (15:21)
[2018-06-04 16:44] LABS: AMORPHOUS SEDIMENT SMALL (NEGATIVE); APPEARANCE, URINE HAZY (CLEAR); BACTERIA, URINE AUTO 1+ (NEGATIVE); BILIRUBIN, URINE AUTO NEGATIVE (NEGATIVE); BLOOD, URINE BLOOD 2+ (NEGATIVE); COLOR, URINE YELLOW (YELLOW); GLUCOSE, URINE (UA) AUTO NEGATIVE (NEGATIVE); KETONE, URINE AUTO NEGATIVE (NEGATIVE); LEUKOCYTE ESTERASE, URINE AUTO NEGATIVE (NEGATIVE); MUCUS, URINE SMALL (NEGATIVE); NITRITE, URINE AUTO NEGATIVE (NEGATIVE); PROTEIN, URINE AUTO 1+ mg/dL (NEGATIVE); RBC, URINE AUTO 2 /HPF (0-3); SPECIFIC GRAVITY URINE AUTO 1.009 (1.002-1.035); SQUAMOUS EPITHELIAL CELL UR AU 0 /HPF (0-6); UROBILINOGEN, URINE AUTO 0.2 mg/dL (0.0-2.0); WBC, URINE AUTO 1 /HPF (0-3)
[2018-06-04 16:56] LABS: CREATININE,RANDOM URINE 18.6 MG/DL; SODIUM,RANDOM URINE 74 MEQ/L
[2018-06-04 17:06] LABS: OSMOLALITY URINE 391 MOSM/KG (500-800)
[2018-06-04 17:34] LABS: BLOOD UREA NITROGEN 30 MG/DL (7-18); CALCIUM LEVEL 7.5 MG/DL (8.8-10.2); CARBON DIOXIDE LEVEL 27 MEQ/L (21-32); CHLORIDE LEVEL 94 MEQ/L (98-107); CREATININE FOR GFR 0.74 MG/DL (0.55-1.30); GLOMERULAR FILTRATION RATE > 60.0 (>45); GLUCOSE, FASTING 50 MG/DL (70-100); POTASSIUM SERUM 2.9 MEQ/L (3.5-5.1); SODIUM LEVEL 142 MEQ/L (136-145)
[2018-06-04] MEDS ORDERED: AMINO AC/ELECTROLYTE/DEX/CALC 2,000 ML IV SCH (18:00)
[2018-06-04] MEDS ORDERED: FAT EMULSION IV 20% 500 ML IV SCH (18:00)
[2018-06-04] MEDS: HumaLOG INSULIN (NovoLOG) PER UNIT SC SCH (18:00)
[2018-06-04] MEDS: KCL 20MEQ IN 100ML SWI (KRUN) 20 MEQ in APPROPRIATE DILUENT 1 EA IV SCH ×6 (18:01→21:44)
[2018-06-04 18:58] LABS: HEMATOCRIT 24.8 % (36.0-47.0); HEMOGLOBIN 8.3 g/dl (12.0-15.5)
[2018-06-04] MEDS: MORPHINE 1MG/ML IN 0.9% NACL 100ML IV BAG IV PRN (19:49)
[2018-06-04 20:55] LABS: MAGNESIUM LEVEL 2.3 MG/DL (1.8-2.4)
[2018-06-04] MEDS: prednisoLONE ACET 1% OPHTH SUSP 5ML OS SCH (21:44)
[2018-06-04 23:18] LABS: HEMATOCRIT 24.6 % (36.0-47.0); HEMOGLOBIN 8.6 g/dl (12.0-15.5)
[2018-06-04 23:43] LABS: BLOOD UREA NITROGEN 33 MG/DL (7-18); CALCIUM LEVEL 7.5 MG/DL (8.8-10.2); CARBON DIOXIDE LEVEL 36 MEQ/L (21-32); CHLORIDE LEVEL 95 MEQ/L (98-107); CREATININE FOR GFR 0.81 MG/DL (0.55-1.30); GLOMERULAR FILTRATION RATE > 60.0 (>45); GLUCOSE, FASTING 324 MG/DL (70-100); POTASSIUM SERUM 3.8 MEQ/L (3.5-5.1); SODIUM LEVEL 138 MEQ/L (136-145)
[2018-06-05] VITALS (22 sets, daily range): BP systolic 124–167; BP diastolic 66–85
[2018-06-05] MEDS: HumaLOG INSULIN (NovoLOG) PER UNIT SC SCH ×4 (00:13→17:41)
[2018-06-05] MEDS: HYDROCORTISONE 100 MG/2 ML VIAL (J1720) IV SCH ×3 (00:13→17:41)
[2018-06-05] MEDS: IPRATROPIUM 0.5MG/ALBUTEROL 2.5MG INH SOL UD 3ML (DUONEB)(J7620) NEB SCH ×4 (03:18→19:21)
[2018-06-05 05:48] LABS: HEMATOCRIT 24.7 % (36.0-47.0); HEMOGLOBIN 8.5 g/dl (12.0-15.5); MEAN CORPUSCULAR HEMOGLOBIN 28.3 pg (27.0-33.0); MEAN CORPUSCULAR HGB CONC 34.4 g/dl (32.0-36.5); MEAN CORPUSCULAR VOLUME 82.3 fl (80.0-96.0); PLATELET COUNT, AUTOMATED 131 10^3/uL (150-450)
[2018-06-05 05:49] LABS: WHITE BLOOD COUNT 31.5 10^3/uL (4.0-10.0)
[2018-06-05] MEDS: SODIUM CHLORIDE 0.9% INJ 10 ML SYR IV SCH ×2 (05:59→17:35)
[2018-06-05] MEDS: FUROSEMIDE 40 MG/4 ML VIAL (J1940) IV SCH ×3 (05:59→17:35)
[2018-06-05] MEDS: MEROPENEM INJ 1 GM in APPROPRIATE DILUENT 1 EA IV SCH ×3 (05:59→21:10)
[2018-06-05 06:08] LABS: ALBUMIN 1.1 GM/DL (3.2-5.2); ALT/SGPT 49 U/L (12-78); BILIRUBIN,TOTAL 0.4 MG/DL (0.2-1.0); BLOOD UREA NITROGEN 35 MG/DL (7-18); CALCIUM LEVEL 7.7 MG/DL (8.8-10.2); CARBON DIOXIDE LEVEL 37 MEQ/L (21-32); CHLORIDE LEVEL 97 MEQ/L (98-107); CREATININE FOR GFR 0.72 MG/DL (0.55-1.30); GLOMERULAR FILTRATION RATE > 60.0 (>45); GLUCOSE, FASTING 154 MG/DL (70-100); MAGNESIUM LEVEL 1.9 MG/DL (1.8-2.4); SODIUM LEVEL 145 MEQ/L (136-145); TOTAL PROTEIN 4.4 GM/DL (6.4-8.2)
[2018-06-05 06:39] LABS: ATYPICAL LYMPH 1 % (0-5); LYMPHOCYTES 1 % (16-52); MONOCYTES 5 % (0-8); NEUTROPHILS 88 % (35-75)
[2018-06-05 06:40] LABS: HYPOCHROMASIA 1+
[2018-06-05 06:41] LABS: ANISOCYTOSIS 1+; POIKILOCYTOSIS 1+
[2018-06-05 06:42] LABS: PLATELET ESTIMATE DECREASED (NORMAL); SCHISTOCYTES 1+
[2018-06-05 06:43] LABS: TOXIC VACUOLATION 1+
[2018-06-05] MEDS: PANTOPRAZOLE 40MG INJ (PROTONIX) (C9113) IV SCH ×2 (08:15→21:10)
[2018-06-05] MEDS: METOPROLOL SUCC (TopROL XL) 50MG **XL** TAB PO SCH (08:16)
[2018-06-05] MEDS: KCL 20MEQ IN 100ML SWI (KRUN) 20 MEQ in APPROPRIATE DILUENT 1 EA IV SCH ×8 (08:16→18:47)
[2018-06-05] MEDS: BROMSITE 0.075% OS SCH ×2 (08:17→20:01)
[2018-06-05] MEDS ORDERED: KCL 20MEQ IN 100ML SWI (KRUN) 20 MEQ in APPROPRIATE DILUENT 1 EA IV ONE ×4 (09:00)
[2018-06-05] MEDS: AMIODARONE HCL 150 MG in APPROPRIATE DILUENT 1 EA IV SCH (10:30)
--- NOTE | 2018-06-05 10:43 | IPNPDOC ---
Text Note Date of Service The patient was seen on 06/05/18. NOTE Subjective: Patient is a 63-year-old female with a PMHx of Lung CA (Stage IV, metastasis to bone, brain, adrenal glands), DLP, Hx of TIA, Hx of DVT who presented to the ER with abdominal pain and associated rectal bleeding. Patient was admitted to the hospitalist service for further evaluation and treatment. Overnight (06/01 early AM) patient experienced worsening tachycardia and was found to be in a. fib with RVR. Cardiology was consulted and had recommended Digoxin, however she failed to improve. Ultimately patient was cardioverted and revered back to sinus rhythm. Patient was seen and examined at the bedside. . Currently, patient does not complain of any significant chest pain or palpitations. Patient to report difficulty with breathing has maintained saturations using Vapotherm with an FiO2 of 70%. Denies any abdominal pain, NG tube remains in place. Has not expense any bowel movements urine output with Romero catheter in place has improved. Objective: Vitals (See below) General: Lying in bed, no acute distress, comfortable, AAOx3 HEENT: NC, AT, NG tube in place CVS: +S1S2 Lungs: Diminished sounds at bases, again, there does not appear to be any evidence of wheezing, rales or rhonchi Abdomen: Mid abdominal incision with dressing in place, 2 GREER drains present with serosanguineous fluid, no significant tenderness, hypoactive bowel sounds Extremities: Again LE are without any evidence of edema, - Calf tenderness Assessment and plan: Perforated upper GI tract - likely 2/2 abdominal metastatic disease - Clinically patient has noted no significant abdominal pain, NG tube in place - CXR 06/03: Interstitial edema. Perihilar/basilar atelectasis and moderate pleural effusions similar to prior examination. - CT abdomen / pelvis 06/02: Pneumoperitoneum is confirmed. There is a large amount of ascitic fluid and some free intraperitoneal Gastrografin is seen in the peritoneal space mostly in the left mid abdomen. Findings are compatible with a perforation of the upper gastrointestinal tract. - s/p Exploratory laparotomy (POD#3) - General surgery (Dr. Hairston) on consultation; appreciate their input - c/w TPN Acute blood loss anemia - likely 2/2 GI etiology - suspected upper GI source (see above) - Benign abdomen on exam - Hemodynamically stable / Afebrile - H&H stable - s/p 3 units PRBC - CT ab/pelv 05/27:1. RLL and RML pulmonary consolidation, unchanged. Interval decrease in size of right pleural effusion, now tiny. 2. Radiographically stable hepatic and splenic lesions. 3. Bilateral adrenal metastases, unchanged. 4. 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 A bowel wall mass is not excluded given the lack of enteric contrast. 5. Mid small bowel obstruction, likely partial, with indeterminate etiology and gradual caliber transition. - c/w Protonix IV BID Leukocytosis - possibly 2/2 reactive etiology - 2/2 Neulasta / Corticosteroids; possibly 2/2 infectious etiology - Remains afebrile / hemodynamically stable - Lactic acid negative; UA without signs of infection - Blood culture 05/31: Negative at 5 days / MRSA screen 05/31: Negative - Drainage fluid 06/04: Yeast like organisms - CXR 05/31: Bilateral pleural effusions, left a little larger than right. T hese are increased compared to the May 28, 2018 prior study. - Abdominal XR 05/31: No evidence of obstruction or significant ileus. Question some degree of ascites. - c/w Meropenem & Micafungin; s/p Vancomycin Atrial fibrillation with RVR - Failed to improve with Digoxin - s/p Cardioversion - ECHO completed 06/01: report pending - c/w Amiodarone; PO has been changed to drip - Dr. Kim (Cardiology) on consult; appreciate their input Anasarca / Right sided heart failure - likely 2/2 Moderate - Severe pulmonary HTN - Imaging consistent with b/l pleural effusions and evidence of ascites - ECHO 06/01: EF 70%, Normal Diastolic function, Moderate elevation of RVSP at 54, Severe TR, Very small pericardial effusion - c/w strict ins/outs, daily weights - has had significant diuresis - c/w Furosemide for net negative output of 1500 cc Acute hypoxic respiratory failure - likely 2/2 anasarca / fluid overload, likely 2/2 atelectasis, possibly 2/2 PE - See above - Consideration for possible CTA - c/w Incentive spirometry - Dr. Neri (Pulmonary/intensive care) consulted; appreciate their input Thrombocytopenia - possibly 2/2 critical illness, possibly 2/2 chemotherapy, less likely 2/2 ALECIA - Coagulation profile noted; Fibrogen level not depressed - Will check serotonin release assay - Will continue to monitor - Dr. Carina Baker (Hematology) on consultation; appreciate input Adrenal insufficiency - c/w Hydrocortisone Lung Cancer (Stage IV; Metastasis to Brain s/p gamma knife, recent metastasis to B/L Adrenal Glands, Infrascapular region, and Intestinal Metastatic Implants) - s/p 1st cycle of Palliative Chemotherapy on 05/24 for recently discovered Mets - Follows with Dr. Baker as an outpatient - Dr. Baker (Oncology) on consult; appreciate their input Hx of CVA - c/w ASA Left Jugular Vein Thrombosis - Anticoagulation on hold 2/2 GI Bleed - Will discuss with Surgery about resuming; will discuss risks / benefits with patient; may require IVC filter moving forward if anticoagulation cannot be reinstituted Protein calorie malnutrition - likely moderate / severe - Patient has had significant weight loss - likely 2/2 malignancy - Poor oral intake - Appears cachectic - s/p TPN DVT Prophylaxis - c/w SCDs Prognosis: - Poor Disposition: - c/w Diuresis VS,Fishbone, I+O VS, Fishbone, I+O Laboratory Tests 06/04/18 12:20 Calcium Level 7.5 L 06/04/18 18:43 06/04/18 23:09 Calcium Level 7.5 L 06/05/18 05:21 Calcium Level 7.7 L, Red Blood Count 3.00 L, Mean Corpuscular Volume 82.3, Mean Corpuscular Hemoglobin 28.3, Mean Corpuscular Hemoglobin Concent 34.4, Red Cell Distribution Width 16.5 H, Neutrophils # (Auto) , Aspartate Amino Transf (AST/SGOT) 94 H, Alanine Aminotransferase (ALT/SGPT) 49, Alkaline Phosphatase 291 H, Total Bilirubin 0.4, Total Protein 4.4 L, Albumin 1.1 L Vital Signs Date Time Temp Pulse Resp B/P (MAP) Pulse Ox O2 Delivery O2 Flow Rate FiO2 06/05/18 08:16 82 146/82 06/05/18 04:00 30.0 50 06/05/18 04:00 98.5 20 91 High Flow Cannula I&O- Last 24 Hours up to 6 AM 06/05/18 06:00 Intake Total 610 ml Output Total 6285 ml Balance -5675 ml TONI KURTZ MD Jun 05, 2018 10:43
[2018-06-05] MEDS: MICAFUNGIN SODIUM 100 MG in D5W MINI-BAG PLUS 100 ML IV SCH (12:01)
--- NOTE | 2018-06-05 13:23 | IPN ---
DATE: 06/05/2018 Mrs. Turcios has been doing quite better. She feels stronger. She does not feel as shortness of breath and the abdomen is even less tender, even though she did not complain about it much yesterday. She has not had any episodes of atrial fibrillation. VITAL SIGNS: Blood pressure 146/68, heart rate has been mostly in 80s. She is afebrile. Saturation is 91% on 30% FIO2. Fluid balance yesterday was documented negative almost 6 liters. The weight this morning has not been documented as yet. She is alert and oriented and completely appropriate. Her JVP is not high. Lungs are still diminished over bases but air movement is better. I do not appreciate any crackles or wheezing. Heart: Exam reveals regular rhythm. No gallop is appreciated. Abdomen is still somewhat tender. I do not appreciate a much short bowel sounds. NG tube is still in place. Peripheral edema has completely resolved. Neurologically she is intact. LABORATORY: Sodium 145, potassium 3.0, BUN 35, creatinine 8.7, glucose 154, albumin is 1.1 and CBC hemoglobin 8.5, hematocrit 24.7, platelet count is 31,000 and WBC count 31.5000. ASSESSMENT/PLAN: Mrs. Turcios is a 63-year-old who has metastatic lung cancer who presented with GI bleed and underwent urgent surgical intervention. In the preoperative period she developed AFib with RVR and was cardioverted by Dr. Kim. We have been maintaining her on daily amiodarone trying to prevent relapses, so far this strategy has been successful. I certainly believe that the risk of anticoagulation at this point outweighs the potential benefit and I will leave her without anticoagulants. She has been very aggressively diuresed, but her net negative balance over 5 liters yesterday think it will excessive. We have had a hard time keeping up with her potassium supplementation and I am going to restrict the oral use of diuretic to net negative balance of 1500 mL a day. Longer term prognosis remains very poor but in a short run she seems to be improving. MTDD
[2018-06-05 16:16] LABS: HEMATOCRIT 25.8 % (36.0-47.0); HEMOGLOBIN 8.8 g/dl (12.0-15.5); MEAN CORPUSCULAR HEMOGLOBIN 28.1 pg (27.0-33.0); MEAN CORPUSCULAR HGB CONC 34.1 g/dl (32.0-36.5); MEAN CORPUSCULAR VOLUME 82.4 fl (80.0-96.0); PLATELET COUNT, AUTOMATED 133 10^3/uL (150-450); RED BLOOD COUNT 3.13 10^6/uL (4.00-5.40)
[2018-06-05 16:28] LABS: ALBUMIN 1.2 GM/DL (3.2-5.2); ALT/SGPT 59 U/L (12-78); BILIRUBIN,TOTAL 0.5 MG/DL (0.2-1.0); BLOOD UREA NITROGEN 33 MG/DL (7-18); CALCIUM LEVEL 8.1 MG/DL (8.8-10.2); CARBON DIOXIDE LEVEL 38 MEQ/L (21-32); CHLORIDE LEVEL 91 MEQ/L (98-107); CREATININE FOR GFR 0.73 MG/DL (0.55-1.30); GLOMERULAR FILTRATION RATE > 60.0 (>45); GLUCOSE, FASTING 188 MG/DL (70-100); MAGNESIUM LEVEL 1.8 MG/DL (1.8-2.4); PHOSPHORUS LEVEL 2.1 MG/DL (2.5-4.9); POTASSIUM SERUM 3.1 MEQ/L (3.5-5.1); SODIUM LEVEL 139 MEQ/L (136-145); TOTAL PROTEIN 4.5 GM/DL (6.4-8.2)
[2018-06-05 16:48] LABS: LYMPHOCYTES 2 % (16-52); METAMYELOCYTES 2 % (0-0); MONOCYTES 4 % (0-8); NEUTROPHILS 84 % (35-75)
[2018-06-05 16:49] LABS: MICROCYTOSIS 1+; PLATELET ESTIMATE DECREASED (NORMAL)
[2018-06-05 16:51] LABS: WHITE BLOOD COUNT 30.6 10^3/uL (4.0-10.0)
[2018-06-05] MEDS ORDERED: [UNRECOGNIZED DRUG - MIXTURE] IV SCH ×4 (18:00)
[2018-06-05] MEDS ORDERED: FAT EMULSION IV 20% 500 ML IV SCH (18:00)
[2018-06-05] MEDS: prednisoLONE ACET 1% OPHTH SUSP 5ML OS SCH (20:01)
[2018-06-05] MEDS ORDERED: LISINOPRIL 5 MG TAB PO ONE (20:45)
[2018-06-05] MEDS: MORPHINE 1MG/ML IN 0.9% NACL 100ML IV BAG IV PRN (21:11)
[2018-06-06] VITALS (15 sets, daily range): BP systolic 138–162; BP diastolic 68–96
[2018-06-06] MEDS: HYDROCORTISONE 100 MG/2 ML VIAL (J1720) IV SCH ×4 (00:02→23:41)
[2018-06-06] MEDS: FUROSEMIDE 40 MG/4 ML VIAL (J1940) IV SCH ×2 (00:03→05:23)
[2018-06-06] MEDS: HumaLOG INSULIN (NovoLOG) PER UNIT SC SCH ×5 (00:04→23:47)
[2018-06-06] MEDS: NS 1,000 ML IV SCH (00:58)
[2018-06-06] MEDS: IPRATROPIUM 0.5MG/ALBUTEROL 2.5MG INH SOL UD 3ML (DUONEB)(J7620) NEB SCH ×4 (02:49→19:58)
[2018-06-06] MEDS: MEROPENEM INJ 1 GM in APPROPRIATE DILUENT 1 EA IV SCH ×3 (05:03→21:34)
[2018-06-06] MEDS: SODIUM CHLORIDE 0.9% INJ 10 ML SYR IV SCH ×2 (06:00→18:31)
[2018-06-06 06:24] LABS: HEMOGLOBIN 9.3 g/dl (12.0-15.5); MEAN CORPUSCULAR HEMOGLOBIN 27.9 pg (27.0-33.0); MEAN CORPUSCULAR HGB CONC 34.4 g/dl (32.0-36.5); MEAN CORPUSCULAR VOLUME 81.1 fl (80.0-96.0); PLATELET COUNT, AUTOMATED 148 10^3/uL (150-450); RED BLOOD COUNT 3.33 10^6/uL (4.00-5.40)
[2018-06-06 06:53] LABS: ALBUMIN 1.4 GM/DL (3.2-5.2); ALT/SGPT 77 U/L (12-78); BILIRUBIN,TOTAL 0.6 MG/DL (0.2-1.0); BLOOD UREA NITROGEN 36 MG/DL (7-18); CALCIUM LEVEL 8.5 MG/DL (8.8-10.2); CARBON DIOXIDE LEVEL 43 MEQ/L (21-32); CHLORIDE LEVEL 89 MEQ/L (98-107); CREATININE FOR GFR 0.73 MG/DL (0.55-1.30); GLOMERULAR FILTRATION RATE > 60.0 (>45); GLUCOSE, FASTING 212 MG/DL (70-100); POTASSIUM SERUM 3.1 MEQ/L (3.5-5.1); SODIUM LEVEL 136 MEQ/L (136-145); TOTAL PROTEIN 5.8 GM/DL (6.4-8.2)
[2018-06-06 06:55] LABS: WHITE BLOOD COUNT 30.4 10^3/uL (4.0-10.0)
[2018-06-06 06:57] LABS: ANISOCYTOSIS 1+; LYMPHOCYTES 2 % (16-52); METAMYELOCYTES 4 % (0-0); MONOCYTES 2 % (0-8); MYELOCYTES 2 % (0-0); NEUTROPHILS 87 % (35-75); PLATELET ESTIMATE NORMAL (NORMAL)
[2018-06-06 06:58] LABS: TEAR DROP CELLS 1+
[2018-06-06 07:01] LABS: POIKILOCYTOSIS 1+
[2018-06-06] MEDS: KCL 20MEQ IN 100ML SWI (KRUN) 20 MEQ in APPROPRIATE DILUENT 1 EA IV SCH ×6 (08:09→10:46)
[2018-06-06] MEDS: PANTOPRAZOLE 40MG INJ (PROTONIX) (C9113) IV SCH ×2 (08:09→21:34)
[2018-06-06] MEDS: METOPROLOL SUCC (TopROL XL) 50MG **XL** TAB PO SCH (08:10)
[2018-06-06] MEDS: BROMSITE 0.075% OS SCH ×2 (09:00→21:00)
[2018-06-06] MEDS ORDERED: LISINOPRIL 5 MG TAB PO SCH (09:00)
--- NOTE | 2018-06-06 09:49 | IPNPDOC ---
Text Note Date of Service The patient was seen on 06/06/18. NOTE Subjective: Patient is a 63-year-old female with a PMHx of Lung CA (Stage IV, metastasis to bone, brain, adrenal glands), DLP, Hx of TIA, Hx of DVT who presented to the ER with abdominal pain and associated rectal bleeding. Patient was admitted to the hospitalist service for further evaluation and treatment. Overnight (06/01 early AM) patient experienced worsening tachycardia and was found to be in a. fib with RVR. Cardiology was consulted and had recommended Digoxin, however she failed to improve. Ultimately patient was cardioverted and revered back to sinus rhythm. Patient was seen and examined at the bedside. Patient has no new complaints this morning. Notes that her breathing is doing better. Has any chest pain, palpitations or cough. Expresses some mild abdominal discomfort. Denies any nausea, vomiting, constipation. Has been experiencing bowel movements, still noted to be dark. Denies any discomfort with urination, however Romero catheter remains in place. Objective: Vitals (See below) General: Lying in bed, no acute distress, comfortable, AAOx3 HEENT: NC, AT, NG tube in place CVS: +S1S2 Lungs: Bases with diminished lung sounds without any evidence of rhonchi, wheezing or rales Abdomen: Abdominal wound in place with dressing present, 2 GREER drains present with serosanguineous fluid, mild tenderness appreciated at suprapubic area, hypoactive bowel sounds Extremities: No edema noted on exam, - Calf tenderness Assessment and plan: Perforated upper GI tract - likely 2/2 abdominal metastatic disease - Clinically patient has noted no significant abdominal pain, NG tube in place - CXR 06/03: Interstitial edema. Perihilar/basilar atelectasis and moderate pleural effusions similar to prior examination. - CT abdomen / pelvis 06/02: Pneumoperitoneum is confirmed. There is a large amount of ascitic fluid and some free intraperitoneal Gastrografin is seen in the peritoneal space mostly in the left mid abdomen. Findings are compatible with a perforation of the upper gastrointestinal tract. - s/p Exploratory laparotomy (POD#4) - General surgery (Dr. Hairston) on consultation; appreciate their input - c/w TPN Acute blood loss anemia - likely 2/2 GI etiology - suspected upper GI source (see above) - Benign abdomen on exam - Hemodynamically stable / Afebrile - H&H stable - s/p 3 units PRBC - CT ab/pelv 05/27:1. RLL and RML pulmonary consolidation, unchanged. Interval decrease in size of right pleural effusion, now tiny. 2. Radiographically stable hepatic and splenic lesions. 3. Bilateral adrenal metastases, unchanged. 4. 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 A bowel wall mass is not excluded given the lack of enteric contrast. 5. Mid small bowel obstruction, likely pa rtial, with indeterminate etiology and gradual caliber transition. - c/w Protonix IV BID Leukocytosis - possibly 2/2 reactive etiology - 2/2 Neulasta / Corticosteroids; possibly 2/2 infectious etiology - Remains afebrile / hemodynamically stable - Lactic acid negative; UA without signs of infection - Blood culture 05/31: Negative at 5 days / MRSA screen 05/31: Negative - Drainage fluid 06/04: Yeast like organisms - CXR 05/31: Bilateral pleural effusions, left a little larger than right. The se are increased compared to the May 28, 2018 prior study. - Abdominal XR 05/31: No evidence of obstruction or significant ileus. Question some degree of ascites. - c/w Meropenem & Micafungin; s/p Vancomycin s/p Atrial fibrillation with RVR - Failed to improve with Digoxin - s/p Cardioversion - ECHO completed 06/01: report pending - c/w Amiodarone - Dr. Kim (Cardiology) on consult; appreciate their input Anasarca / Right sided heart failure - likely 2/2 Moderate - Severe pulmonary HTN - Imaging consistent with b/l pleural effusions and evidence of ascites - Continues to diuresis significantly - ECHO 06/01: EF 70%, Normal Diastolic function, Moderate elevation of RVSP at 54, Severe TR, Very small pericardial effusion - c/w strict ins/outs, daily weights - has had significant diuresis - c/w Furosemide for net negative output of 1500 cc Acute hypoxic respiratory failure - likely 2/2 anasarca / fluid overload, likely 2/2 atelectasis, possibly 2/2 PE - See above - Consideration for possible CTA - c/w Incentive spirometry - Dr. Neri (Pulmonary/intensive care) consulted; appreciate their input Thrombocytopenia - possibly 2/2 critical illness, possibly 2/2 chemotherapy, less likely 2/2 ALECIA - Coagulation profile noted; Fibrogen level not depressed - Serotonin release assay pending - Counts improving - Dr. Carina Baker (Hematology) on consultation; appreciate input Adrenal insufficiency - c/w Hydrocortisone Lung Cancer (Stage IV; Metastasis to Brain s/p gamma knife, recent metastasis to B/L Adrenal Glands, Infrascapular region, and Intestinal Metastatic Implants) - s/p 1st cycle of Palliative Chemotherapy on 05/24 for recently discovered Mets - Follows with Dr. Baker as an outpatient - Dr. Baker (Oncology) on consult; appreciate their input Hx of CVA - c/w ASA Left Jugular Vein Thrombosis - Anticoagulation on hold 2/2 GI Bleed - Patient continues to experience dark stools; will continue to hold anticoagulation Protein calorie malnutrition - likely moderate / severe - Patient has had significant weight loss - likely 2/2 malignancy - Poor oral intake - Appears cachectic - s/p TPN DVT Prophylaxis - c/w SCDs Prognosis: - Poor Disposition: - c/w Diuresis - f/u CXR VS,Fishbone, I+O VS, Fishbone, I+O Laboratory Tests 06/05/18 15:54 Red Blood Count 3.13 L, Mean Corpuscular Volume 82.4, Mean Corpuscular Hemoglobin 28.1, Mean Corpuscular Hemoglobin Concent 34.1, Red Cell Distribution Width 16.4 H, Neutrophils # (Auto) , Calcium Level 8.1 L, Phosphorus Level 2.1 L, Aspartate Amino Transf (AST/SGOT) 111 H, Alanine Aminotransferase (ALT/SGPT) 59, Alkaline Phosphatase 352 H, Total Bilirubin 0.5, Total Protein 4.5 L, Albumin 1.2 L 06/06/18 06:07 Red Blood Count 3.33 L, Mean Corpuscular Volume 81.1, Mean Corpuscular Hem oglobin 27.9, Mean Corpuscular Hemoglobin Concent 34.4, Red Cell Distribution Width 16.9 H, Neutrophils # (Auto) , Calcium Level 8.5 L, Aspartate Amino Transf (AST/SGOT) 134 H, Alanine Aminotransferase (ALT/SGPT) 77, Alkaline Phosphatase 371 H, Total Bilirubin 0.6, Total Protein 5.8 #L, Albumin 1.4 L Vital Signs Date Time Temp Pulse Resp B/P (MAP) Pulse Ox O2 Delivery O2 Flow Rate FiO2 06/06/18 09:09 95 30.0 50 06/06/18 08:10 81 150/78 06/06/18 08:00 99.2 24 High Flow Cannula I&O- Last 24 Hours up to 6 AM 06/06/18 05:59 Intake Total 3225 ml Output Total 4130 ml Balance -905 ml TONI KURTZ MD Jun 06, 2018 09:49
--- NOTE | 2018-06-06 10:09 | REP ---
Clinical: Pleural effusion. Follow-up. Comparison: 06/03/2018. Findings: Right PICC line with tip in the SVC. Mediastinum and cardiac silhouette are stable. Moderate pleural effusions and lower lobe opacities are again identified and may be slightly improved when compared to prior examination. No pneumothorax. Impression: Moderate pleural effusions and lower lobe opacities minimally improved. Electronically Signed by Patricio Martinez MD 06/06/2018 10:00 A
--- NOTE | 2018-06-06 10:11 | IPN ---
DATE: 06/05/2018 The patient overall is doing relatively well since yesterday, feeling a little bit better each day, however her white count is still elevated today. Her pain however has been relatively well-controlled. She has only taken intermittent pain medication when she has some much more active. She states she had two bowel movements this morning which were a little bit bloody in nature (nurse stated that these were slightly bloody, patient did not realize there were old hilda/old blood.) The patient states otherwise she has been doing well, not nauseated. Had no vomiting. Hematocrit has been stable. Her albumin is still low and she has been getting TPN. PHYSICAL EXAMINATION: Lungs are diminished at the bases bilaterally without wheezes, without rhonchi. Heart is regular. She is definitely less labored in her breathing today on her exam. Abdomen is soft, mildly distended but nontender. No guarding, no rebound. No peritoneal signs are appreciated. Rahat-Sumner are draining serosanguineous drainage. No feculent drainage is appreciated. No other significant abnormality. IMPRESSION/PLAN: Patient has evidence of a elevated white count. At this point, the white count being elevated is most likely from the yeast infection that is currently being covered. Other possibilities are obviously developing abscess, although with a improving abdominal exam and resolving postoperative ileus, then I feel that it would make more sense that this is a yeast associated. Will see how treatment goes with antifungals at this point. I do feel that the best option at this time is to still keep her n.p.o. Will keep her NG tube clamped at this point, check residuals every 4, if this has not put significant output by the end of the day or by tomorrow morning we may discontinue her NG tube and possibly start up clears the next day or so if she still having bowel movements. The other issue concerning anticoagulation I would like to hold off on anticoagulation today with the hilda stools. It is most likely from the anastomosis or old blood that was there previously, but if she has a decreasing hematocrit obviously I do feel that we should forego treatment with anticoagulation at this time. However, if her hematocrit is stable tomorrow it is reasonable to start some subcu heparin or if it is felt that she needs a higher dose anticoagulation then I would recommend continuing with some IV heparin drip without a starting bolus. From a the standpoint of GI as stated above, I anticipate that she is starting to resolve her GI issues, and clamping her NG tube hopefully getting the NG tube out later on today/tomorrow and having her diet advanced at that point.
[2018-06-06] MEDS: AMIODARONE HCL 150 MG in APPROPRIATE DILUENT 1 EA IV SCH (10:46)
--- NOTE | 2018-06-06 11:09 | IPN ---
MEDICAL ONCOLOGY BRIEF FOLLOWUP DATE OF SERVICE: 06/05/2018 Hallie is reclining in bed awake, alert NG tube has been discontinued. She is eating a popsicle and feeling better. She continues to have some hypoxia and be O2 dependent. There is consideration of starting anticoagulation empirically. Yeastlike forms were present in the abdominal cavity fluid. She was started on antifungal micafungin, continues on meropenem. Pulmonary following, surgery following overall clinically more or less stable, still with leukocytosis WBC today 30, hemoglobin/hematocrit stable 8 and 25, platelets 133 stable. IMPRESSION: Metastatic EGFR mutation positive adenocarcinoma now with progression through T790 mutation targeting medication with rebiopsy of adrenal metastasis showing loss of T790 mutation, extensive visceral metastases, chronic right lower lobe atelectasis status post radiation, treated intracranial metastases, status post open laparotomy for GI bleed thought secondary to malignant implant involving small bowel. 1. I will continue to defer to surgical management regarding small bowel perforation. 2. Hallie is well out from chemotherapy and blood count bj and her leukocytosis is most likely inflammatory/infectious in origin rather than due to colony-stimulating factor. I agree with broad-spectrum antibiotics and antifungals. 3. I will continue to follow. MTDD
[2018-06-06] MEDS ORDERED: FUROSEMIDE 40 MG/4 ML VIAL (J1940) IV SCH (12:00)
--- NOTE | 2018-06-06 12:37 | REP ---
Clinical: Hypoxemia . Technique: Ulloa scale and color Doppler evaluation of the bilateral lower extremities using linear high frequency transducer. Findings: Ultrasound examination of the left lower extremity demonstrates nonocclusive thrombus in the distal superficial femoral vein. Remainder examination including common femoral vein, proximal/mid superficial femoral vein and popliteal vein demonstrate normal compressibility, flow, and wave patterns and response to respiration and augmentation. Ultrasound examination of the right lower extremity demonstrates normal compressibility, flow and wave patterns in response to respiration and augmentation from the common femoral vein to the popliteal vein. There is no evidence for deep venous thrombosis. Impression: 1. Acute nonocclusive thrombus in the left distal superficial femoral vein. 2. Normal right lower extremity without thrombosis. Electronically Signed by Patricio Martinez MD 06/06/2018 12:29 P
[2018-06-06] MEDS: MICAFUNGIN SODIUM 100 MG in D5W MINI-BAG PLUS 100 ML IV SCH (12:51)
[2018-06-06] MEDS ORDERED: HEPARIN DRIP 25,000 UNITS in APPROPRIATE DILUENT 1 EA IV SCH (14:58)
[2018-06-06] MEDS ORDERED: HEPARIN SOD (PORCINE) 5000 UNITS/ML VIAL IV PRN (15:00)
[2018-06-06 15:57] LABS: HEMATOCRIT 26.7 % (36.0-47.0); HEMOGLOBIN 9.1 g/dl (12.0-15.5); MEAN CORPUSCULAR HEMOGLOBIN 28.4 pg (27.0-33.0); MEAN CORPUSCULAR HGB CONC 34.1 g/dl (32.0-36.5); MEAN CORPUSCULAR VOLUME 83.4 fl (80.0-96.0); PLATELET COUNT, AUTOMATED 159 10^3/uL (150-450)
[2018-06-06 15:59] LABS: WHITE BLOOD COUNT 33.8 10^3/uL (4.0-10.0)
[2018-06-06] MEDS ORDERED: POTASSIUM CHLORIDE IV SCH (18:00)
[2018-06-06] MEDS ORDERED: AMINO AC IV SCH (18:00)
[2018-06-06] MEDS ORDERED: CALC IV SCH (18:00)
[2018-06-06] MEDS ORDERED: DEX IV SCH (18:00)
[2018-06-06] MEDS ORDERED: FAT EMULSION IV 20% 500 ML IV SCH (18:00)
[2018-06-06] MEDS ORDERED: ELECTROLYTE IV SCH (18:00)
[2018-06-06] MEDS: prednisoLONE ACET 1% OPHTH SUSP 5ML OS SCH (21:00)
[2018-06-06 21:02] LABS: HEMATOCRIT 27.3 % (36.0-47.0); HEMOGLOBIN 9.2 g/dl (12.0-15.5); MEAN CORPUSCULAR HGB CONC 33.7 g/dl (32.0-36.5); PLATELET COUNT, AUTOMATED 166 10^3/uL (150-450); RED BLOOD COUNT 3.29 10^6/uL (4.00-5.40)
[2018-06-06 21:05] LABS: WHITE BLOOD COUNT 35.6 10^3/uL (4.0-10.0)
[2018-06-07] VITALS (20 sets, daily range): BP systolic 138–170; BP diastolic 72–86
[2018-06-07] MEDS: NS 1,000 ML IV SCH (01:00)
[2018-06-07] MEDS: IPRATROPIUM 0.5MG/ALBUTEROL 2.5MG INH SOL UD 3ML (DUONEB)(J7620) NEB SCH ×4 (02:01→20:06)
[2018-06-07 02:56] LABS: HEMATOCRIT 27.2 % (36.0-47.0); HEMOGLOBIN 9.2 g/dl (12.0-15.5); MEAN CORPUSCULAR HEMOGLOBIN 28.3 pg (27.0-33.0); MEAN CORPUSCULAR HGB CONC 33.8 g/dl (32.0-36.5); MEAN CORPUSCULAR VOLUME 83.7 fl (80.0-96.0); PLATELET COUNT, AUTOMATED 182 10^3/uL (150-450); RED BLOOD COUNT 3.25 10^6/uL (4.00-5.40)
[2018-06-07 02:58] LABS: WHITE BLOOD COUNT 34.5 10^3/uL (4.0-10.0)
[2018-06-07] MEDS: SODIUM CHLORIDE 0.9% INJ 10 ML SYR IV SCH ×2 (04:23→18:00)
[2018-06-07] MEDS: MORPHINE 1MG/ML IN 0.9% NACL 100ML IV BAG IV PRN (05:00)
[2018-06-07] MEDS: MEROPENEM INJ 1 GM in APPROPRIATE DILUENT 1 EA IV SCH ×3 (05:38→20:57)
[2018-06-07] MEDS: HumaLOG INSULIN (NovoLOG) PER UNIT SC SCH ×2 (05:43→13:29)
--- NOTE | 2018-06-07 07:16 | RO ---
DATE OF PROCEDURE: 06/02/2018 PREOPERATIVE DIAGNOSIS: Gastrointestinal (GI) perforation. POSTOPERATIVE DIAGNOSIS: Small bowel perforation with bile peritonitis. PROCEDURE: Exploratory laparotomy with small-bowel resection. SURGEON: Dr. Ramiro Hairston. CUSTOM TAILOR: Dr. Neftali Chapman (provided assistance with retraction exposure, anastomosis and abdominal wall closure. ANESTHESIA: General. DISPOSITION: The patient was brought to the recovery room awake, alert, and hemodynamically stable. DESCRIPTION OF PROCEDURE: The patient was brought to the operating room and was given general anesthesia after adequate anesthesia and preoperative antibiotics were given, the patient was prepped and draped in the usual sterile fashion. Next a midline incision was made with skin knife. Electrocautery was used cut through dermis and subcutaneous tissue down to the peritoneum, which was opened sharply and several liters of bile were aspirated at this time. After the incision was increased along its length, more bile was removed and at least 3-4 liters of bile were removed at this time. Once this was removed and the abdomen was started to be copiously irrigated and multiple liters of irrigation were used to try to get rid of a lot of this fibrinous exudate, the small bowel was run distally as well as up to the ligament of Treitz and in the proximal jejunum, there was this omental nodule that was adherent to the bowel with some inflammation/nodules in the mesentery. I transected the omentum in this area using a MYNOR stapler. Further examination was used to evaluate the stomach and the colon. There is such a thick layer of fibrin over most structures that eventually I did have to wipe these away with rags and eventually I was adequately seeing things and knowing that this was much more proximal hole, we had concerns that it may actually be in the stomach as the small bowel was not showing any leakage. Thus, air was placed in the stomach. Water was placed within the abdomen at this point and there was no air leak in this area. The air was pushed into the small intestine and the small intestine then was milked distally and then air bubbles could be seen at the area where the omental implant was and the abnormality in the mesentery. The hole was actually on the mesenteric side in a crease and was actually somewhat hidden but was obvious that this was where the hole in the small bowel was. Thus the small bowel was resected using a MYNOR stapler on both sides of this and then the mesentery was taken with Delaplaine 60 vascular loads. But care was taken to slowly go across this area because the lymph node was so large and I had to get to the base of it that I want to stay away from the superior mesenteric artery (SMA) at this point and careful dissection off the lymph node. It seems as though it was a confluence of lymph nodes on the mesenteric side where the vessels across this area also were ligated with Vicryl ties as needed. But the majority of the mass in the mesentery was resected with the Delaplaine vascular load. Good hemostasis was achieved in that area and then a [id number] anastomosis was created with MYNOR 75 green loads. The abdomen was copiously irrigated once again until clear and then two Rahat-Sumner drains were left in the bed of the dissection area where the anastomosis was created. Had some mild oozing in general from the mesentery and it was mostly because of the inflammation present and I did use some Carey in this area to provide some additional hemostasis and this was nice and white after spreading this into this area. The midline then was closed in a running manner with looped 0 PDS and kashmir were used to loosely approximate the skin. A dry sterile dressing was applied. The patient was awakened, extubated, brought to recovery room awake, alert, hemodynamically stable. Sponge and needle counts correct time two.
[2018-06-07] MEDS: PANTOPRAZOLE 40MG INJ (PROTONIX) (C9113) IV SCH ×2 (08:51→20:57)
[2018-06-07] MEDS: HYDROCORTISONE 100 MG/2 ML VIAL (J1720) IV SCH ×2 (08:51→15:13)
[2018-06-07] MEDS: METOPROLOL SUCC (TopROL XL) 50MG **XL** TAB PO SCH (08:52)
[2018-06-07] MEDS: LISINOPRIL 10 MG TAB PO SCH (08:52)
[2018-06-07] MEDS: FUROSEMIDE 20 MG TAB PO SCH (08:52)
[2018-06-07] MEDS: BROMSITE 0.075% OS SCH ×2 (09:00→20:52)
[2018-06-07 10:07] LABS: ALBUMIN 1.3 GM/DL (3.2-5.2); ALT/SGPT 135 U/L (12-78); BILIRUBIN,TOTAL 0.7 MG/DL (0.2-1.0); BLOOD UREA NITROGEN 40 MG/DL (7-18); CALCIUM LEVEL 8.3 MG/DL (8.8-10.2); CARBON DIOXIDE LEVEL 37 MEQ/L (21-32); CHLORIDE LEVEL 92 MEQ/L (98-107); CREATININE FOR GFR 0.62 MG/DL (0.55-1.30); GLOMERULAR FILTRATION RATE > 60.0 (>45); GLUCOSE, FASTING 147 MG/DL (70-100); MAGNESIUM LEVEL 1.9 MG/DL (1.8-2.4); POTASSIUM SERUM 3.9 MEQ/L (3.5-5.1); SODIUM LEVEL 134 MEQ/L (136-145); TOTAL PROTEIN 5.4 GM/DL (6.4-8.2)
--- NOTE | 2018-06-07 11:22 | IPN ---
DATE: 06/06/2018 Mrs. Turcios has been doing relatively well. She had no arrhythmias since yesterday. She feels better, stronger. She started sipping on fluids and will start getting some liquid diet today. She complains about abdominal pain but she says it is tolerable and it is getting better. Her blood pressure is also higher. She got a single dose of lisinopril last night. Vital signs: Blood pressure 150/78, heart rate has been mostly 80s and in sinus rhythm. She is afebrile. Saturation is 95 to 97% on 50% FiO2. Her fluid balance yesterday was again negative about 1800. The weight has been documented 58.3 kg. She made almost 5 liters of urine yesterday and about 1400 mL today. She is alert and oriented and appropriate. Her jugular venous pressure is not high. Lungs still diminished over the bases. I do not appreciate any wheezing, crackles. Heart exam shows regular rhythm. There is no convincing gallop. Abdomen is tender but soft. Extremities are free of edema. Peripheral pulses are palpable. LABORATORY: Sodium 136, potassium 3.1, BUN 36, creatinine 0.7, glucose 212. CBC reveals hemoglobin 9.3, hematocrit 27 and platelet count 147,000. Her chest x-ray was performed today and continues to demonstrate pleural effusion bigger on the right and interstitial infiltrates as well, together with cardiomegaly. ASSESSMENT/PLAN: Mrs. Turcios is a 63-year-old female who has metastatic lung cancer and presented with GI bleeding and eventually turned out to have perforated small bowel that was surgically corrected. She currently is recovering. Cardiology was initially involved because she had episode of atrial fibrillation with rapid ventricular response. Dr. Kim cardioverted the patient and started her on amiodarone. She has been maintaining sinus rhythm since. She has been receiving daily dose of amiodarone IV as the gastrointestinal tract is still not completely reliable for absorption I am not going to start her on oral amiodarone as yet as it is generally a drug that is not well tolerated orally. As far as the additional issues are concerned, she was grossly volume overloaded but now looks much improved. I am going to reduce the dose of diuretics further and will switch her to oral furosemide. She appears euvolemic to me even though there is a persistent pleural effusion. I do expect that she will continue to have negative balance, even with this regimen. As far as the hypoxemia is concerned, it seems to be out of proportion to the degree of volume overload. There was a talk with Dr. Neri yesterday for potential suspicion for pulmonary embolism, she is certainly very high risk candidate, I think that it is still less likely. We will address this issue on a daily basis. I do think she probably will be ready for anticoagulation either today or tomorrow. JIMI
[2018-06-07] MEDS ORDERED: ISOVUE-300 61% 50ML VIAL (Q9967) As Ordered ONE (11:26)
[2018-06-07] MEDS ORDERED: LIDOCAINE 2% MDV 20 ML VIAL As Ordered ONE (11:26)
--- NOTE | 2018-06-07 11:44 | IPNPDOC ---
Text Note Date of Service The patient was seen on 06/07/18. NOTE Subjective: Patient is a 63-year-old female with a PMHx of Lung CA (Stage IV, metastasis to bone, brain, adrenal glands), DLP, Hx of TIA, Hx of DVT who presented to the ER with abdominal pain and associated rectal bleeding. Patient was admitted to the hospitalist service for further evaluation and treatment. Overnight (06/01 early AM) patient experienced worsening tachycardia and was found to be in a. fib with RVR. Cardiology was consulted and had recommended Digoxin, however she failed to improve. Ultimately patient was cardioverted and revered back to sinus rhythm. Patient was seen and examined at the bedside. Patient has no new complaints this morning. Denies any chest pain or palpitations. Notes improvement in her shortness of breath. Denies any significant cough. Denies any nausea, vomiting, abdominal pain, has been expressing dark stools. Has a Romero catheter in place. Objective: Vitals (See below) General: Lying in bed, no acute distress, comfortable, AAOx3 HEENT: NC, AT, NG tube in place CVS: +S1S2 Lungs: Diminished lung sounds at bases. No evidence of rhonchi, rales or wheezing Abdomen: Abdominal wound in place with dressing present, 2 GREER drains present with serosanguineous fluid, mild tenderness appreciated at suprapubic area, BS remain hypoactive Extremities: Lower extremities without any evidence of edema, - Calf tenderness Assessment and plan: Perforated upper GI tract - likely 2/2 abdominal metastatic disease - Clinically patient has noted no significant abdominal pain, NG tube in place - CXR 06/03: Interstitial edema. Perihilar/basilar atelectasis and moderate pleural effusions similar to prior examination. - CT abdomen / pelvis 06/02: Pneumoperitoneum is confirmed. There is a large amount of ascitic fluid and some free intraperitoneal Gastrografin is seen in the peritoneal space mostly in the left mid abdomen. Findings are compatible with a perforation of the upper gastrointestinal tract. - s/p Exploratory laparotomy (POD#5) - General surgery (Dr. Hairston) on consultation; appreciate their input - c/w TPN Acute blood loss anemia - likely 2/2 GI etiology - suspected upper GI source (see above) - Benign abdomen on exam - Hemodynamically stable / Afebrile - H&H stable - has not required any additional transfusions since 05/28 - s/p 3 units PRBC - CT ab/pelv 05/27:1. RLL and RML pulmonary consolidation, unchanged. Interval decrease in size of right pleural effusion, now tiny. 2. Radiographically stable hepatic and splenic lesions. 3. Bilateral adrenal metastases, unchanged. 4. 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 A bowel wall mass is not excluded given the lack of enteric contrast. 5. Mid small bowel obstruction, likely partial, with indeterminate etiology and gradual caliber transition. - c/w Protonix IV BID Leukocytosis - possibly 2/2 reactive etiology - 2/2 Neulasta / Corticosteroids; possibly 2/2 infectious etiology - Remains afebrile / hemodynamically stable - Lactic acid negative; UA without signs of infection - Blood culture 05/31: Negative at 5 days / MRSA screen 05/31: Negative - Drainage fluid 06/04: Yeast like organisms - CXR 05/31: Bilateral pleural effusions, left a little larger than right. These are increased compared to the May 28, 2018 prior study. - Abdominal XR 05/31: No evidence of obstruction or significant ileus. Question some degree of ascites. - c/w Meropenem & Micafungin; s/p Vancomycin Acute non-occlusive DVT at L distal superficial femoral vein - Patient is not a candidate for anticoagulation given her persistent GI bleed - Duplex US 06/06: Acute nonocclusive thrombus in the left distal superficial femoral vein. Normal right lower extremity without thrombosis. - Dr. Young (Vascular surgery) consulted; will be placing IVC filter today s/p Atrial fibrillation with RVR - Failed to improve with Digoxin - s/p Cardioversion - ECHO completed 06/01: report pending - c/w Amiodarone - Dr. Kim (Cardiology) on consult; appreciate their input Anasarca / Right sided heart failure - likely 2/2 Moderate - Severe pulmonary HTN - Imaging consistent with b/l pleural effusions and evidence of ascites - Continues to diuresis significantly - ECHO 06/01: EF 70%, Normal Diastolic function, Moderate elevation of RVSP at 54, Severe TR, Very small pericardial effusion - c/w strict ins/outs, daily weights - has had significant diuresis - c/w Furosemide for net negative output of 1500 cc Acute hypoxic respiratory failure - likely 2/2 anasarca / fluid overload, likely 2/2 atelectasis, possibly 2/2 PE - See above - Consideration for possible CTA - c/w Incentive spirometry - Dr. Neri (Pulmonary/intensive care) consulted; appreciate their input Thrombocytopenia - possibly 2/2 critical illness, possibly 2/2 chemotherapy, less likely 2/2 ALECIA - Coagulation profile noted; Fibrogen level not depressed - Serotonin release assay pending - Counts improving - Dr. Carina Baker (Hematology) on consultation; appreciate input Adrenal insufficiency - c/w Hydrocortisone Lung Cancer (Stage IV; Metastasis to Brain s/p gamma knife, recent metastasis to B/L Adrenal Glands, Infrascapular region, and Intestinal Metastatic Implants) - s/p 1st cycle of Palliative Chemotherapy on 05/24 for recently discovered Mets - Follows with Dr. Baker as an outpatient - Dr. Baker (Oncology) on consult; appreciate their input Hx of CVA - c/w ASA Left Jugular Vein Thrombosis - Anticoagulation on hold 2/2 GI Bleed - Patient continues to experience dark stools; will continue to hold anticoagulation Protein calorie malnutrition - likely moderate / severe - Patient has had significant weight loss - likely 2/2 malignancy - Poor oral intake - Appears cachectic - c/w TPN DVT Prophylaxis - c/w SCDs Prognosis: - Poor Disposition: - c/w Diuresis - Will be going for IVC filter today VS,Fishbone, I+O VS, Fishbone, I+O Laboratory Tests 06/06/18 15:42 Red Blood Count 3.20 L, Mean Corpuscular Volume 83.4, Mean Corpuscular Hemoglobin 28.4, Mean Corpuscular Hemoglobin Concent 34.1, Red Cell Distribution Width 16.6 H 06/06/18 20:52 Red Blood Count 3.29 L, Mean Corpuscular Volume 83.0, Mean Corpuscular Hemoglobin 28.0, Mean Corpuscular Hemoglobin Concent 33.7, Red Cell Distribution Width 16.6 H 06/07/18 02:43 Red Blood Count 3.25 L, Mean Corpuscular Volume 83.7, Mean Corpuscular Hemoglobin 28.3, Mean Corpuscular Hemoglobin Concent 33.8, Red Cell Distribution Width 16.8 H 06/07/18 09:27 Calcium Level 8.3 L, Aspartate Amino Transf (AST/SGOT) 201 H, Alanine Aminotransferase (ALT/SGPT) 135 H, Alkaline Phosphatase 403 H, Total Bilirubin 0.7, Total Protein 5.4 L, Albumin 1.3 L Vital Signs Date Time Temp Pulse Resp B/P (MAP) Pulse Ox O2 Delivery O2 Flow Rate FiO2 06/07/18 08:52 151/79 06/07/18 08:52 83 06/07/18 08:20 92 25.0 30 06/07/18 06:00 24 High Flow Cannula 06/07/18 04:00 98.4 I&O- Last 24 Hours up to 6 AM 06/07/18 06:00 Intake Total 890 ml Output Total 2255 ml Balance -1365 ml TONI KURTZ MD Jun 07, 2018 11:44
[2018-06-07] MEDS: MICAFUNGIN SODIUM 100 MG in D5W MINI-BAG PLUS 100 ML IV SCH (13:29)
--- NOTE | 2018-06-07 14:42 | IPN ---
DATE: 06/04/2018 HISTORY: Patient has metastatic lung cancer and has been undergoing chemotherapy. She is now 2 days postop from exploratory laparotomy with a small bowel resection for a perforation apparently related to an adjacent tumor nodule. She has a nasogastric tube in place, a Romero catheter and two lower abdominal drains. She is on high flow oxygen to maintain her saturations. She has been getting diuresed fairly aggressively by medicine. She is also being followed by medical oncology and cardiology. Vital signs: The patient has been afebrile for the past 24 hours. Pulse has generally ranged from 100-115. Blood pressure is acceptable and her pulse oximetry on 70% oxygen has been in the low 90s. Intake and output: Yesterday she had 1500 in with 5000 out. She had 4600 in urine, 100 from her nasogastric (NG) tube and 300 from her collected drains. Today shows 2250 of urine so far with no significant gastric output and only 30 from her drains. PHYSICAL EXAMINATION: The patient is a thin, somewhat frail woman appearing older than her age of 63 years. She is alert and responsive and appropriate. She has a nasogastric tube in place. This has some minimal light greenish fluid in the tubing itself. Heart exam shows a regular rhythm and the lungs show distant breath sounds bilaterally. The abdomen shows drains in both lower quadrants with a minimal amount of slightly cloudy serous fluid and both drains currently. She does have some bowel sounds on auscultation of the abdomen and the abdomen itself is nondistended and soft. LABORATORY STUDIES: Today she has a white count of 37,000 which represents a marked increase from yesterday's 26,000. Her hemoglobin is 9 with a hematocrit of 25 and her platelet count is 112,000. Her differential count showed 93% neutrophils and three bands with two lymphocytes. Chemistry profile shows sodium of 139, potassium 3.3, chloride 101, CO2 of 31, BUN of 32 and her creatinine is 0.7. Glucose was 121. Total protein is 4.2 with an albumin of 1.1. IMPRESSION: Patient is doing acceptably 2 days out from her exploratory laparotomy and bowel resection. Her most significant issues right now are her need for high flow oxygen to maintain adequate saturation and her significant rise in her white blood cell count today to 37,000. Clinically she looks fairly stable without any obvious immediate risk of . PLAN: I discussed briefly her care with Dr. Carina Baker and Dr. Cohen. The sudden rise in her white count would make me concerned about the possibility of fungal infection most likely rory in the abdomen. I will order a Gram stain and culture from the drain fluid in her right lower quadrant and start her empirically on some micafungin as this has a low risk of causing problems. I will leave the management of her other medical issues to the appropriate specialists. We will continue her abdominal drains for now. The NG tube is putting out very little and she does have some bowel sounds and when she shows more evidence for return of bowel function, we will discontinue (DC) the NG tube and then begin advancing her diet. It may well be prudent to start her back on her total parenteral nutrition as she may not yet eat for several days and her nutrition parameters are poor. JIMI
--- NOTE | 2018-06-07 16:18 | IPN ---
DATE: 06/06/2018 HISTORY: The patient is now 4 days postop from a exploratory laparotomy with bowel resection for perforation caused by an implant of tumor. The patient has been requiring high concentrations of oxygen. She was vigorously diuresed by the medicine service. She has been followed by pulmonary medicine who advised me yesterday that she thought it was likely the patient had, had a pulmonary embolus. The patient remains on antibiotic coverage. VITAL SIGNS: The patient has been afebrile over the past 24 hours. Pulse is in the 80s and her blood pressure is good with a pulse oximetry in the mid 90s on 50% oxygen. INTAKE AND OUTPUT: Yesterday, she had 2800 in with 4700 out. She is receiving total parenteral nutrition (TPN). Her drains in the lower abdomen together put out 30 mL yesterday. She had two bowel movements recorded yesterday. Her nasogastric (NG) tube was discontinued yesterday as well. PHYSICAL EXAM: The patient is sitting up in the bed looking more comfortable. She is alert and seems oriented. Heart exam shows a regular rhythm. Lungs show some bilateral breath sounds. The abdomen is mildly full. She has some bowel sounds present. The abdomen is soft and without undue tenderness considering her recent surgery. Her drains have minimal, if any output. Laboratory studies this morning showed a white count of 30,000 with a hemoglobin of 9, hematocrit of 27 and platelet count of 148,000. Differential count showed 87% neutrophils, 3% bands, 2 lymphocytes and 2 monocytes. Her chemistry profile showed a sodium of 136, potassium 3.1, chloride 89, CO2 of 43, BUN of 36 and a creatinine of 0.73. Glucose was 212. C-reactive protein was 11.4. Albumin was 1.4 with a total protein of 5.8. IMPRESSION: The patient appears to be tolerating the absence of the NG tube well. She is being started on heparin by medicine for the possibility of a pulmonary embolus. She is on total parenteral nutrition for support. Her oxygen will be weaned by pulmonary medicine as possible. PLAN: I would continue all supportive cares at this point. Continue the micafungin for a possible yeast infection in the abdomen. I will let her take some clear liquids and see how she does with these today. Overall I think she is doing fairly well all things considered.
--- NOTE | 2018-06-07 17:46 | IPN ---
DATE: 06/07/2018 This patient overall is stable. Had some bowel movements again, but she did have some blood within the bowel movement yesterday. Hematocrit has been relatively stable but despite, being stable with this bright red blood per rectum/melanotic stool, we have concerns that she may have some ongoing gastrointestinal (GI) bleeding. Did end up having a deep vein thrombosis (DVT) in her leg, and the plan is for a [place] filter today. Otherwise, her abdomen has been soft. She has been tolerating a clear liquid diet. Her Rahat-Sumner drains have some necrotic, old debris coming out of this, but the output has come down quite significantly. IMPRESSION AND PLAN: 1. From a gastrointestinal (GI) standpoint, I do feel that she can advance her diet as tolerated to regular diet. 2. Anemia, GI bleeding. I anticipated there may be still some ongoing bleeding at the anastomosis, although there could be a separate abnormality undiagnosed at this time. Most likely etiology is where we did our operation/the resection area; however, if the patient has ongoing bleeding/anemia issues, she may need endoscopy as well as possible capsule endoscopy in the future. I do feel that at this point, anticoagulation: I agree with full anticoagulation is not a great idea for her; however, if she stays stable for the next 24-48 hours, it is reasonable to start her on a heparin drip and then to see how she does with this over the ensuing few days. If she is stable with this, starting her up on full anticoagulation is not unreasonable from my standpoint. With the plan to have her on a medication that is reversible, such that if she has any recurrence of bleeding, that this can be reversed relatively quickly.
[2018-06-07] MEDS ORDERED: HumaLOG INSULIN (NovoLOG) PER UNIT SC SCH (18:00)
[2018-06-07] MEDS ORDERED: FAT EMULSION IV 20% 500 ML IV SCH (18:00)
[2018-06-07] MEDS ORDERED: MULTIVITAMIN -ADULT INJECTION 10 ML, CR/CU/SE/MN/ZN INJ 1 ML, POTASSIUM CHLORIDE INJ 83... IV SCH ×4 (18:00)
[2018-06-07] MEDS: prednisoLONE ACET 1% OPHTH SUSP 5ML OS SCH (20:52)
[2018-06-08] VITALS (7 sets, daily range): BP systolic 101–165; BP diastolic 68–84
[2018-06-08] MEDS: IPRATROPIUM 0.5MG/ALBUTEROL 2.5MG INH SOL UD 3ML (DUONEB)(J7620) NEB SCH ×4 (01:18→20:00)
[2018-06-08 04:48] LABS: HEMATOCRIT 26.6 % (36.0-47.0); HEMOGLOBIN 8.7 g/dl (12.0-15.5); MEAN CORPUSCULAR HEMOGLOBIN 27.2 pg (27.0-33.0); MEAN CORPUSCULAR HGB CONC 32.7 g/dl (32.0-36.5); MEAN CORPUSCULAR VOLUME 83.1 fl (80.0-96.0); PLATELET COUNT, AUTOMATED 204 10^3/uL (150-450)
[2018-06-08 05:06] LABS: WHITE BLOOD COUNT 33.4 10^3/uL (4.0-10.0)
[2018-06-08 05:08] LABS: ALBUMIN 1.4 GM/DL (3.2-5.2); ALT/SGPT 176 U/L (12-78); BILIRUBIN,TOTAL 0.5 MG/DL (0.2-1.0); BLOOD UREA NITROGEN 38 MG/DL (7-18); C REACTIVE PROTEIN QUANTITATIV 4.91 MG/DL (0.00-0.30); CALCIUM LEVEL 8.4 MG/DL (8.8-10.2); CARBON DIOXIDE LEVEL 37 MEQ/L (21-32); CHLORIDE LEVEL 93 MEQ/L (98-107); CREATININE FOR GFR 0.69 MG/DL (0.55-1.30); GLOMERULAR FILTRATION RATE > 60.0 (>45); GLUCOSE, FASTING 126 MG/DL (70-100); MAGNESIUM LEVEL 1.9 MG/DL (1.8-2.4); POTASSIUM SERUM 3.4 MEQ/L (3.5-5.1); SODIUM LEVEL 136 MEQ/L (136-145); TOTAL PROTEIN 5.4 GM/DL (6.4-8.2)
[2018-06-08 05:11] LABS: ANISOCYTOSIS 1+; METAMYELOCYTES 2 % (0-0); MONOCYTES 1 % (0-8); NEUTROPHILS 95 % (35-75); PLATELET ESTIMATE NORMAL (NORMAL); TOXIC GRANULATION 1+; TOXIC VACUOLATION 1+
[2018-06-08 05:13] LABS: POLYCHROMASIA 1+
[2018-06-08] MEDS: MORPHINE 1MG/ML IN 0.9% NACL 100ML IV BAG IV PRN (05:32)
[2018-06-08] MEDS: SODIUM CHLORIDE 0.9% INJ 10 ML SYR IV SCH ×2 (05:33→17:26)
[2018-06-08] MEDS: MEROPENEM INJ 1 GM in APPROPRIATE DILUENT 1 EA IV SCH ×3 (05:33→22:44)
[2018-06-08] MEDS ORDERED: PERCOCET 5MG/325MG TAB PO PRN (07:45)
[2018-06-08] MEDS: PANTOPRAZOLE 40MG INJ (PROTONIX) (C9113) IV SCH ×2 (08:32→20:41)
[2018-06-08] MEDS: HYDROCORTISONE 100 MG/2 ML VIAL (J1720) IV SCH ×3 (08:33→20:42)
[2018-06-08] MEDS: METOPROLOL SUCC (TopROL XL) 50MG **XL** TAB PO SCH ×2 (08:33→09:00)
[2018-06-08] MEDS: FUROSEMIDE 20 MG TAB PO SCH (08:34)
[2018-06-08] MEDS: LISINOPRIL 10 MG TAB PO SCH (09:00)
[2018-06-08] MEDS: BROMSITE 0.075% OS SCH (09:00)
--- NOTE | 2018-06-08 10:01 | IPN ---
DATE OF SERVICE: 06/07/2018 Mrs. Hallie Turcios was seen this evening, she was supine in bed in no acute distress at rest. She denies any chest pain or shortness of breath or palpitations. She said that she is feeling much better and stronger. She had a Doppler of the legs done yesterday and it revealed acute nonocclusive thrombosis in the left distal superficial femoral vein. The right lower extremity did not reveal any deep venous thrombosis (DVT). Earlier this year, she said that she was diagnosed with cerebrovascular accident (CVA) and she had an implantable loop recorder done by Dr. Kim. She was being monitored and has been negative until this hospitalization where she was found to be in atrial fibrillation. She was mechanically cardioverted by Dr. Kim. In view of recent bleed, she has not been on anticoagulation therapy. She has a history of metastatic lung cancer putting her at a high risk for thromboembolic events. On physical examination, patient is alert and oriented, in no acute distress at rest, and her vital signs when I saw her revealed a blood pressure of 157/79 with a pulse of 77, respiration 18-20 and a maximum temperature was 99 degree Fahrenheit. She has a negative fluid balance of 1.5 liters. Examination of the head: Atraumatic. Neck is supple. Lungs do not reveal any wheezing. Heart examination reveals irregular heart sounds without gallops. The PMI is not displaced. There is no rub. I could not appreciate any murmurs. Abdominal examination is normal. Extremities reveal no pedal edema. Neurological examination: Patient was able to move her upper extremities. LABS: CBC done today revealed a WBC of 34.5, hemoglobin 9.2, hematocrit 27.2, platelets 182,000. BMP revealed a sodium of 134, potassium 3.9, chloride 92, CO2 37, BUN 40, creatinine 0.62, glomerular filtration rate more than 60. Fasting glucose 146. Calcium 8.3. Serum magnesium is 1.9. Liver enzymes revealed an AST of 201, ALT 135, alkaline phosphatase is 403, total protein 5.4, albumin 1.3. IMPRESSION: 1. Atrial fibrillation, recently diagnosed, paroxysmal in nature and patient was mechanically cardioverted this hospitalization by Dr. Kim. Since then, she has been in normal sinus rhythm. She has been on the current dose of beta-jamie and will continue the same. When she is ready to be anticoagulated, I will consider Eliquis at 5 mg by mouth twice a day. IV amiodarone can be given as needed if any paroxysmal atrial fibrillation. 2. Hypertension. Patient denies any prior history. Currently on lisinopril and metoprolol succinate. The lisinopril can be increased if needed, if her blood pressure remains the same tomorrow 06/08/2018. 3. Anemia secondary to blood loss due to GI bleeding and is being addressed. 4. Leukocytosis and she is being monitored. 5. Nonocclusive deep venous thrombosis (DVT) of the left distal superficial femoral vein, an IVC filter was inserted today. When she is cleared, we shall consider chronic anticoagulation therapy. 6. Thrombocytopenia. 7. History of adrenal insufficiency. 8. History of lung cancer with metastasis to the brain, adrenal glands. She is being monitored by nephrology in [facility]. 9. History of cerebrovascular accident. It was a pleasure to participate in the care of Mrs. Hallie Turcios for her underlying cardiac condition. I will continue to monitor her along with you while in the hospital until the return of her primary dragline mechanic, Dr. Sanjay Kim. [facility]ENTER[facility]isel
--- NOTE | 2018-06-08 13:01 | IPNPDOC ---
Subjective Date Seen The patient was seen on 06/08/18. Subjective Chief Complaint/HPI Patient seen and examined at the bedside. Denies any acute overnight events. States that her volume status is improving with diuresis. Notes that she is still having some dark colored stools, but her H&H has remained relatively stable. Her diet has been advanced as tolerated. After extensive discussion, the patient has opted to start anticoagulation tomorrow pending stable H&H. We will continue to have the patient work with physical therapy today. The patient has been downgraded to PCU status. Objective Physical Examination General Exam: Positive: Alert, Cooperative, No Acute Distress ENT Exam: Positive: Atraumatic, Mucous membr. moist/pink, Other ENT (bitemporal wasting noted) Neck Exam: Negative: JVD Chest Exam: Positive: Diminished Heart Exam: Positive: Rate Normal, Normal S1, Normal S2 Telemetry: Positive: Sinus Abdomen Exam: Positive: Soft, Other (right-sided and left-sided GREER drain noted. Surgical dressing noted over the abdominal wall) Extremity Exam: Negative: Tenderness, Swelling Psych Exam: Positive: Oriented x 3 Assessment /Plan Plan/VTE VTE Prophylaxis Ordered?: Yes Plan Small Bowel Perforation with Bile Peritonitis s/p Ex Lap with Small Bowel Resection on 06/02 Patient with no abdominal pain GREER Drains x 2 with no significant drainage noted Patient's diet has been advanced by Gen Surg She has been passing BMs c/w TPN We will cont to f/u with Gen Surg recommendations Acute blood loss anemia likely 2/2 GI Bleeding, possibly from anastamosis H&H has been stable since blood transfusion Cont Protonix IV BID Leukocytosis - possibly 2/2 reactive etiology - 2/2 Neulasta / Corticosteroids; possibly 2/2 infectious etiology Remains afebrile / hemodynamically stable Lactic acid negative; UA without signs of infection Blood culture 05/31: Negative at 5 days / MRSA screen 05/31: Negative Drainage fluid 06/04: Yeast like organisms CXR 05/31: Bilateral pleural effusions, left a little larger than right Cont Meropenem & Micafungin Acute non-occlusive DVT at L distal superficial femoral vein Duplex US 06/06: Acute nonocclusive thrombus in the left distal superficial femoral vein. Normal right lower extremity without thrombosis. Dr. Young (Vascular surgery) consulted; s/p IVC filter on 06/07 I have extensively discussed the risks, benefits, and alternative therapies in relation to Anticoagulation for this patient. She has verbalized understanding that an IVC filter will not fully protect her from a pulmonary embolism. She understands that she is at a relatively high risk for bleeding given her metastatic cancer with GI bleeding, and this can ultimately lead to . She has opted to start anticoagulation tomorrow. We will start her on a heparin drip to make sure that she does not have any further bleeding episodes. s/p Atrial fibrillation with RVR s/p Mechanical Cardioversion on 06/01 with conversion to normal sinus rhythm ECHO notable for preserved EF, and normal diastolic function. Moderate/severe pulmonary hypertension and tricuspid regurgitation noted. Continue metoprolol We will start the patient on a heparin drip tomorrow for anticoagulation provided her hgb remains table. The patient has verbalized understanding of the risks, benefits, and alternative therapies available. She understands that she is at risk for a CVA (sony given her history of CVA/TIA, and A-Fib) if she is not on AC, and unfortunately she is also at risk for a GI bleed if she is started on AC. Dr. Kim (Cardiology) on consult; appreciate their input Anasarca / Right sided heart failure - likely 2/2 Moderate - Severe pulmonary HTN Imaging consistent with b/l pleural effusions and evidence of ascites The patient's volume status continues to improve with by mouth Lasix Continue strict ins/outs, daily weights We will continue to monitor the patient's volume status Acute hypoxic respiratory failure - likely 2/2 anasarca / fluid overload We will cont to downtirate supplemental oxygen as tolerated with optimization of volume status Thrombocytopenia, resolved Adrenal insufficiency Cont Hydrocortisone, tapering down to home dose Lung Cancer (Stage IV; Metastasis to Brain s/p gamma knife, 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 Baker as an outpatient Dr. Baker (Oncology) on consult; appreciate input Hx of CVA Left Jugular Vein Thrombosis s/p IVC filter Patient will be started on anticoagulation tomorrow pending stable H&H Protein calorie malnutrition - likely moderate / severe Patient has had significant weight loss - likely 2/2 malignancy Poor oral intake Appears cachectic c/w TPN Prognosis Poor--discussed at length with the patient at the bedside. Disposition: Pending clinical improvement based on continued diuresis, advancement of diet as tolerated, work with physical therapy, and H&H stability once anticoagulation is started. VS, I&O, 24H, Fishbone Vital Signs/I&O Vital Signs Date Time Temp Pulse Resp B/P (MAP) Pulse Ox O2 Delivery O2 Flow Rate FiO2 06/08/18 12:00 97.8 88 22 127/77 (94) 94 Nasal Cannula 3.0 06/07/18 10:08 30 I&O- Last 24 Hours up to 6 AM 06/08/18 06:00 Intake Total 1140 ml Output Total 1575 ml Balance -435 ml Laboratory Data 24H LABS Laboratory Tests 2 06/07/18 13:22: Bedside Glucose (Misc Panel) 166H 06/08/18 04:18: Immature Granulocyte % (Auto) , White Blood Count 33.4*H, Red Blood Count 3.20L, Hemoglobin 8.7L, Hematocrit 26.6L, Mean Corpuscular Volume 83.1, Mean Corpuscular Hemoglobin 27.2, Mean Corpuscular Hemoglobin Concent 32.7, Red Cell Distribution Width 17.0H, Platelet Count 204, Neutrophils # (Auto) , Nucleated Red Blood Cells % (auto) 0.1H, Neutrophils 95H, Band Neutrophils 2, Monocytes (Manual) 1, Metamyelocytes 2H, Toxic Granulation 1+, Toxic Vacuolation 1+, Platelet Estimate NORMAL, Polychromasia 1+, Basophilic Stippling 1+, Anisocytosis 1+, Anion Gap 6L, Glomerular Filtration Rate > 60.0, Blood Urea Nitrogen 38H, Creatinine 0.69, Sodium Level 136, Potassium Level 3.4L, Chloride Level 93L, Carbon Dioxide Level 37H, Calcium Level 8.4L, Aspartate Amino Transf (AST/SGOT) 183H, Alanine Aminotransferase (ALT/SGPT) 176H, Alkaline Phosphatase 363H, Total Bilirubin 0.5, Total Protein 5.4L, Albumin 1.4L, Magnesium Level 1.9, C-Reactive Protein, Quantitative 4.91H, Albumin/Globulin Ratio 0.35L CBC/BMP Laboratory Tests 06/08/18 04:18 Red Blood Count 3.20 L, Mean Corpuscular Volume 83.1, Mean Corpuscular Hemoglobin 27.2, Mean Corpuscular Hemoglobin Concent 32.7, Red Cell Distribution Width 17.0 H, Neutrophils # (Auto) , Calcium Level 8.4 L, Aspartate Amino Transf (AST/SGOT) 183 H, Alanine Aminotransferase (ALT/SGPT) 176 H, Alkaline Phosphatase 363 H, Total Bilirubin 0.5, Total Protein 5.4 L, Albumin 1.4 L Microbiology Microbiology 05/31/18 Blood Culture - Final, Complete NO GROWTH AFTER 5 DAYS 05/31/18 Blood Culture - Final, Complete NO GROWTH AFTER 5 DAYS 06/04/18 Gram Stain - Final, Complete 06/04/18 Body Fluid Culture - Final, Complete Yeast Like Organism 05/31/18 MRSA Screen - Final, Complete CONRADO MANLEY MD Jun 08, 2018 13:01
[2018-06-08] MEDS: PERCOCET 5MG/325MG TAB PO PRN (14:24)
[2018-06-08] MEDS: MICAFUNGIN SODIUM 100 MG in D5W MINI-BAG PLUS 100 ML IV SCH (14:24)
[2018-06-08] MEDS: AMIODARONE 200 MG TAB (PACERONE) PO SCH (16:03)
--- NOTE | 2018-06-08 19:18 | IPN ---
DATE: 06/08/2018 Patient seems to be making some good progress at this time. From her standpoint, we have discussed progressing her diet to a regular diet. She still has an elevated white count, but her abdomen, from her standpoint, has improved. She states that her pain has improved, her discomfort. Overall, she is feeling good. She is making some overall stable, progressive improvement from a gastrointestinal (GI) standpoint. Otherwise, her labs were as they have been, which are stable anemia and stable leukocytosis, without fever. Her abdomen is soft, nondistended, nontender. Her incisions are healing nicely without any erythema, drainage or discharge. The Rahat-Sumner drains are still draining some fluid and it is somewhat turbid colored, but the amount of drainage has cut down substantially, and she has been having some increased bowel movements. IMPRESSION/PLAN: Gastrointestinal (GI) ileus has resolved. At this point, regular diet is warranted. Changing her over to oral pain medications is warranted. I anticipate we will be able to get the Rahat-Sumner drains out over the next couple of days. From the standpoint of the leukocytosis, I am not sure of the etiology, but from the general surgery standpoint, I do feel that her chances of having an intraabdominal abscess are extremely high given our intraoperative findings and if proceeding with a CAT scan is deemed the next step, that is very reasonable; however, if we look at her clinically, she seems to be resolving her issues. I feel that this may actually be a more appropriate indicator of how she is doing and improving intraabdominally. We will see how she does over the next 24 hours with a regular diet.
[2018-06-08] MEDS: SODIUM CHLORIDE 0.9% INJ 10 ML SYR IV PRN (23:00)
[2018-06-09] VITALS (8 sets, daily range): BP systolic 139–162; BP diastolic 50–92
[2018-06-09] MEDS: IPRATROPIUM 0.5MG/ALBUTEROL 2.5MG INH SOL UD 3ML (DUONEB)(J7620) NEB SCH ×4 (01:32→20:33)
[2018-06-09] MEDS: PERCOCET 5MG/325MG TAB PO PRN (03:47)
[2018-06-09] MEDS: MEROPENEM INJ 1 GM in APPROPRIATE DILUENT 1 EA IV SCH ×3 (05:00→21:55)
[2018-06-09] MEDS: SODIUM CHLORIDE 0.9% INJ 10 ML SYR IV SCH ×2 (05:00→18:00)
[2018-06-09 05:10] LABS: BASO # 0.1 10^3/uL (0.0-0.2); BASO % 0.2 % (0.0-1.0); HEMOGLOBIN 8.6 g/dl (12.0-15.5); LYMPH # 0.3 10^3/uL (1.5-4.5); LYMPH % 1.1 % (24.0-44.0); MEAN CORPUSCULAR HEMOGLOBIN 27.2 pg (27.0-33.0); MEAN CORPUSCULAR HGB CONC 31.9 g/dl (32.0-36.5); MEAN CORPUSCULAR VOLUME 85.4 fl (80.0-96.0); MONO # 0.4 10^3/uL (0.0-0.8); MONO % 1.4 % (0.0-5.0); NEUTROPHILS # 24.9 10^3/uL (1.8-7.7); NEUTROPHILS % 93.7 % (36.0-66.0); PLATELET COUNT, AUTOMATED 203 10^3/uL (150-450); RED BLOOD COUNT 3.16 10^6/uL (4.00-5.40); WHITE BLOOD COUNT 26.6 10^3/uL (4.0-10.0)
[2018-06-09 05:40] LABS: ALBUMIN 1.4 GM/DL (3.2-5.2); ALT/SGPT 115 U/L (12-78); BILIRUBIN,TOTAL 0.4 MG/DL (0.2-1.0); BLOOD UREA NITROGEN 28 MG/DL (7-18); CALCIUM LEVEL 8.1 MG/DL (8.8-10.2); CARBON DIOXIDE LEVEL 36 MEQ/L (21-32); CHLORIDE LEVEL 91 MEQ/L (98-107); CREATININE FOR GFR 0.62 MG/DL (0.55-1.30); GLOMERULAR FILTRATION RATE > 60.0 (>45); GLUCOSE, FASTING 95 MG/DL (70-100); MAGNESIUM LEVEL 1.7 MG/DL (1.8-2.4); POTASSIUM SERUM 2.9 MEQ/L (3.5-5.1); SODIUM LEVEL 134 MEQ/L (136-145)
[2018-06-09] MEDS ORDERED: KCL 10MEQ/100ML SWI (KRUN) 10 MEQ in APPROPRIATE DILUENT 1 EA IV ONE (06:15)
[2018-06-09] MEDS ORDERED: POTASSIUM CHLORIDE 10 MEQ SR TABLET PO ONE ×3 (06:15→19:00)
[2018-06-09] MEDS ORDERED: MAGNESIUM CHLORIDE 64 MG TABCR (SLO MAG) PO ONE (06:30)
[2018-06-09] MEDS ORDERED: HEPARIN SOD (PORCINE) 5000 UNITS/ML VIAL IV PRN (08:15)
[2018-06-09] MEDS ORDERED: MAG SULF 1GM/100ML (MAG RUN) 1 GM in APPROPRIATE DILUENT 1 EA IV ONE (08:15)
[2018-06-09] MEDS: HYDROCORTISONE 100 MG/2 ML VIAL (J1720) IV SCH ×2 (08:22→20:30)
[2018-06-09] MEDS: AMIODARONE 200 MG TAB (PACERONE) PO SCH (08:23)
[2018-06-09] MEDS: PANTOPRAZOLE 40MG INJ (PROTONIX) (C9113) IV SCH ×2 (08:23→20:30)
[2018-06-09] MEDS: FUROSEMIDE 20 MG TAB PO SCH (08:23)
[2018-06-09] MEDS: METOPROLOL SUCC (TopROL XL) 50MG **XL** TAB PO SCH (08:24)
[2018-06-09] MEDS ORDERED: HEPARIN SOD (PORCINE) 5000 UNITS/ML VIAL IV ONE (09:00)
[2018-06-09] MEDS ORDERED: HEPARIN DRIP 25,000 UNITS in APPROPRIATE DILUENT 1 EA IV SCH (09:00)
[2018-06-09] MEDS: LISINOPRIL 20 MG TAB PO SCH (09:29)
[2018-06-09 10:13] LABS: UNFRACTIONATED HEPARIN HI DOSE <1 % (0-20); UNFRACTIONATED HEPARIN LOW DOS <1 % (0-20)
--- NOTE | 2018-06-09 11:08 | IPN ---
DATE: 06/09/2018 The patient has made some good progress over time from a surgical standpoint. She is tolerating the Romero out. She has been ambulating more. She has been tolerating a better diet and overall has had decreasing pain. She has been having bowel movements. Her incisions are clean and dry. Abdomen is soft. Rahat-Sumner drain on the right-hand side really has not put out much and thus, we will remove that today. IMPRESSION AND PLAN: Surgically we seem to have made some good improvement and at this point it is mostly a rehabilitation activity type of tissue. Thus, will have her increase her activity as tolerated and will see how we to over the weekend. I anticipate the left sided Rahat-Sumner will be removed tomorrow given that it is had minimal output.
[2018-06-09] MEDS: MICAFUNGIN SODIUM 100 MG in D5W MINI-BAG PLUS 100 ML IV SCH (13:48)
--- NOTE | 2018-06-09 15:55 | IPNPDOC ---
Subjective Date Seen The patient was seen on 06/09/18. Subjective Chief Complaint/HPI Patient seen and examined at the bedside. She continues to progress, and is tolerating a diet with a stable H&H. We will start her on a heparin drip today and monitor her for the weekend. Hopefully she can have her GREER drains removed over the next several days. The patient has already started to work with physical therapy post surgery, and seems to be doing well. Objective Physical Examination General Exam: Positive: Alert, Cooperative, No Acute Distress ENT Exam: Positive: Atraumatic, Mucous membr. moist/pink, Other ENT (bitemporal wasting noted) Neck Exam: Negative: JVD Chest Exam: Positive: Diminished Heart Exam: Positive: Rate Normal, Normal S1, Normal S2 Telemetry: Positive: Sinus Abdomen Exam: Positive: Soft, Other (right-sided and left-sided GREER drain noted. Surgical dressing noted over the abdominal wall); Negative: Tenderness Extremity Exam: Negative: Tenderness, Swelling Psych Exam: Positive: Oriented x 3 Assessment /Plan Plan/VTE VTE Prophylaxis Ordered?: Yes Plan Small Bowel Perforation with Bile Peritonitis s/p Ex Lap with Small Bowel Resection on 06/02 Patient with no abdominal pain GREER Drains x 2 with no significant drainage noted Patient's diet has been advanced by Gen Surg She has been passing BMs c/w TPN We will cont to f/u with Gen Surg recommendations Acute blood loss anemia likely 2/2 GI Bleeding, possibly from anastamosis H&H has been stable since blood transfusion Cont Protonix IV BID Leukocytosis - possibly 2/2 reactive etiology - 2/2 Neulasta / Corticosteroids; possibly 2/2 infectious etiology Remains afebrile / hemodynamically stable Lactic acid negative; UA without signs of infection Blood culture 05/31: Negative at 5 days / MRSA screen 05/31: Negative Drainage fluid 06/04: Yeast like organisms CXR 05/31: Bilateral pleural effusions, left a little larger than right Cont Meropenem & Micafungin Acute non-occlusive DVT at L distal superficial femoral vein Duplex US 06/06: Acute nonocclusive thrombus in the left distal superficial femoral vein. Normal right lower extremity without thrombosis. Dr. Young (Vascular surgery) consulted; s/p IVC filter on 06/07 I have extensively discussed the risks, benefits, and alternative therapies in relation to Anticoagulation for this patient. She has verbalized understanding that an IVC filter will not fully protect her from a pulmonary embolism. She und erstands that she is at a relatively high risk for bleeding given her metastatic cancer with GI bleeding, and this can ultimately lead to Heparin gtt started s/p Atrial fibrillation with RVR s/p Mechanical Cardioversion on 06/01 with conversion to normal sinus rhythm ECHO notable for preserved EF, and normal diastolic function. Moderate/severe pulmonary hypertension and tricuspid regurgitation noted. Continue metoprolol The patient has verbalized understanding of the risks, benefits, and alternative therapies available. She understands that she is at risk for a CVA (sony given her history of CVA/TIA, and A-Fib) if she is not on AC, and unfortunately she is also at risk for a GI bleed when she is started on AC. Heparin gtt started Dr. Kim (Cardiology) on consult; appreciate their input Anasarca / Right sided heart failure - likely 2/2 Moderate - Severe pulmonary HTN Imaging consistent with b/l pleural effusions and evidence of ascites The patient's volume status continues to improve with by mouth Lasix Continue strict ins/outs, daily weights We will continue to monitor the patient's volume status Acute hypoxic respiratory failure - likely 2/2 anasarca / fluid overload We will cont to downtirate supplemental oxygen as tolerated with optimization of volume status Thrombocytopenia, resolved Adrenal insufficiency Cont Hydrocortisone, tapering down to home dose Lung Cancer (Stage IV; Metastasis to Brain s/p gamma knife, 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 Baker as an outpatient Dr. Baker (Oncology) on consult; appreciate input Hx of CVA Left Jugular Vein Thrombosis s/p IVC filter On Heparin gtt Protein calorie malnutrition - likely moderate / severe Patient has had significant weight loss - likely 2/2 malignancy Poor oral intake Appears cachectic c/w TPN DVT Prophylaxis On Heparin gtt Prognosis Poor--discussed at length with the patient at the bedside. Disposition: Pending clinical improvement based on continued diuresis, advancement of diet as tolerated, work with physical therapy, and H&H stability VS, I&O, 24H, Fishbone Vital Signs/I&O Vital Signs Date Time Temp Pulse Resp B/P (MAP) Pulse Ox O2 Delivery O2 Flow Rate FiO2 06/09/18 12:00 98.5 91 18 139/85 (103) 93 Nasal Cannula 2.0 06/07/18 10:08 30 I&O- Last 24 Hours up to 6 AM 06/09/18 06:00 Intake Total 1050 ml Output Total 780 ml Balance 270 ml Laboratory Data 24H LABS Laboratory Tests 2 06/09/18 04:51: Immature Granulocyte % (Auto) 3.6H, White Blood Count 26.6H, Red Blood Count 3.16L, Hemoglobin 8.6L, Hematocrit 27.0L, Mean Corpuscular Volume 85.4, Mean Corpuscular Hemoglobin 27.2, Mean Corpuscular Hemoglobin Concent 31.9L, Red Cell Distribution Width 17.2H, Platelet Count 203, Neutrophils (%) (Auto) 93.7H, Lymphocytes (%) (Auto) 1.1L, Monocytes (%) (Auto) 1.4, Eosinophils (%) (Auto) 0.0, Basophils (%) (Auto) 0.2, Neutrophils # (Auto) 24.9H, Lymphocytes # (Auto) 0.3L, Monocytes # (Auto) 0.4, Eosinophils # (Auto) 0.0, Basophils # (Auto) 0.1, Nucleated Red Blood Cells % (auto) 0.1H, Anion Gap 7L, Glomerular Filtration Rate > 60.0, Blood Urea Nitrogen 28H, Creatinine 0.62, Sodium Level 134L, Potassium Level 2.9*L, Chloride Level 91L, Carbon Dioxide Level 36H, Calcium Level 8.1L, Aspartate Amino Transf (AST/SGOT) 103H, Alanine Aminotransferase (ALT/SGPT) 115H, Alkaline Phosphatase 301H, Total Bilirubin 0.4, Total Protein 5.0L, Albumin 1.4L, Magnesium Level 1.7L, C-Reactive Protein, Quantitative 4.37H, Albumin/Globulin Ratio 0.39L 06/09/18 09:28: Activated Partial Thromboplast Time 24.1L CBC/BMP Laboratory Tests 06/09/18 04:51 Red Blood Count 3.16 L, Mean Corpuscular Volume 85.4, Mean Corpuscular Hemoglobin 27.2, Mean Corpuscular Hemoglobin Concent 31.9 L, Red Cell Distribution Width 17.2 H, Neutrophils (%) (Auto) 93.7 H, Lymphocytes (%) (Auto) 1.1 L, Monocytes (%) (Auto) 1.4, Eosinophils (%) (Auto) 0.0, Basophils (%) (Auto) 0.2, Neutrophils # (Auto) 24.9 H, Lymphocytes # (Auto) 0.3 L, Monocytes # (Auto) 0.4, Eosinophils # (Auto) 0.0, Basophils # (Auto) 0.1, Calcium Level 8.1 L, Aspartate Amino Transf (AST/SGOT) 103 H, Alanine Aminotransferase (ALT/SGPT) 115 H, Alkaline Phosphatase 301 H, Total Bilirubin 0.4, Total Protein 5.0 L, Albumin 1.4 L Microbiology Microbiology 05/31/18 Blood Culture - Final, Complete NO GROWTH AFTER 5 DAYS 05/31/18 Blood Culture - Final, Complete NO GROWTH AFTER 5 DAYS 06/04/18 Gram Stain - Final, Complete 06/04/18 Body Fluid Culture - Final, Complete Yeast Like Organism 05/31/18 MRSA Screen - Final, Complete CONRADO MANLEY MD Jun 09, 2018 15:55
[2018-06-09] MEDS ORDERED: MULTIVITAMIN -ADULT INJECTION 10 ML, CR/CU/SE/MN/ZN INJ 1 ML in AMINO AC/ELECTROLYTE/DE... IV SCH (18:00)
[2018-06-09] MEDS ORDERED: FAT EMULSION IV 20% 500 ML IV SCH (18:00)
[2018-06-09] MEDS: HumaLOG INSULIN (NovoLOG) PER UNIT SC SCH (18:09)
[2018-06-09] MEDS: ACETAMINOPHEN TAB 650MG DOSE (2X325MG) PO PRN (21:54)
[2018-06-10] VITALS: BP 118/70
[2018-06-10 00:26] LABS: BLOOD UREA NITROGEN 24 MG/DL (7-18); CARBON DIOXIDE LEVEL 35 MEQ/L (21-32); CHLORIDE LEVEL 93 MEQ/L (98-107); CREATININE FOR GFR 0.68 MG/DL (0.55-1.30); GLOMERULAR FILTRATION RATE > 60.0 (>45); GLUCOSE, FASTING 144 MG/DL (70-100); POTASSIUM SERUM 3.2 MEQ/L (3.5-5.1); SODIUM LEVEL 133 MEQ/L (136-145)
[2018-06-10] MEDS ORDERED: KCL 10MEQ/100ML SWI (KRUN) 10 MEQ in APPROPRIATE DILUENT 1 EA IV ONE (00:45)
[2018-06-10] MEDS ORDERED: POTASSIUM CHLORIDE 10 MEQ SR TABLET PO ONE (00:45)
[2018-06-10] MEDS: HumaLOG INSULIN (NovoLOG) PER UNIT SC SCH ×4 (00:48→17:24)
[2018-06-10] MEDS: IPRATROPIUM 0.5MG/ALBUTEROL 2.5MG INH SOL UD 3ML (DUONEB)(J7620) NEB SCH ×4 (02:00→21:01)
[2018-06-10 04:00] VITALS: BP 138/84
[2018-06-10] MEDS: SODIUM CHLORIDE 0.9% INJ 10 ML SYR IV SCH ×2 (05:04→17:25)
[2018-06-10 05:56] LABS: BASO % 0.1 % (0.0-1.0); EOS % 0.1 % (0.0-3.0); HEMATOCRIT 25.3 % (36.0-47.0); HEMOGLOBIN 8.4 g/dl (12.0-15.5); LYMPH # 0.4 10^3/uL (1.5-4.5); LYMPH % 1.3 % (24.0-44.0); MEAN CORPUSCULAR HEMOGLOBIN 27.9 pg (27.0-33.0); MEAN CORPUSCULAR HGB CONC 33.2 g/dl (32.0-36.5); MEAN CORPUSCULAR VOLUME 84.1 fl (80.0-96.0); MONO # 0.4 10^3/uL (0.0-0.8); MONO % 1.2 % (0.0-5.0); NEUTROPHILS % 95.3 % (36.0-66.0); PLATELET COUNT, AUTOMATED 227 10^3/uL (150-450); RED BLOOD COUNT 3.01 10^6/uL (4.00-5.40); WHITE BLOOD COUNT 29.3 10^3/uL (4.0-10.0)
[2018-06-10] MEDS: MEROPENEM INJ 1 GM in APPROPRIATE DILUENT 1 EA IV SCH ×3 (06:06→21:23)
[2018-06-10 06:28] LABS: ALBUMIN 1.3 GM/DL (3.2-5.2); ALT/SGPT 78 U/L (12-78); BILIRUBIN,TOTAL 0.5 MG/DL (0.2-1.0); BLOOD UREA NITROGEN 25 MG/DL (7-18); CALCIUM LEVEL 7.8 MG/DL (8.8-10.2); CARBON DIOXIDE LEVEL 33 MEQ/L (21-32); CHLORIDE LEVEL 94 MEQ/L (98-107); CREATININE FOR GFR 0.63 MG/DL (0.55-1.30); GLOMERULAR FILTRATION RATE > 60.0 (>45); GLUCOSE, FASTING 124 MG/DL (70-100); POTASSIUM SERUM 3.5 MEQ/L (3.5-5.1); SODIUM LEVEL 133 MEQ/L (136-145); TOTAL PROTEIN 5.1 GM/DL (6.4-8.2)
[2018-06-10 06:42] LABS: NEUTROPHILS # 27.9 10^3/uL (1.8-7.7)
[2018-06-10 08:00] VITALS: BP 135/83
[2018-06-10] MEDS: PANTOPRAZOLE 40MG INJ (PROTONIX) (C9113) IV SCH ×2 (08:28→21:22)
[2018-06-10] MEDS: HYDROCORTISONE 100 MG/2 ML VIAL (J1720) IV SCH ×2 (08:28→21:22)
[2018-06-10] MEDS: METOPROLOL SUCC (TopROL XL) 50MG **XL** TAB PO SCH (08:29)
[2018-06-10] MEDS: LISINOPRIL 20 MG TAB PO SCH (08:29)
[2018-06-10] MEDS: FUROSEMIDE 20 MG TAB PO SCH (08:30)
[2018-06-10] MEDS: AMIODARONE 200 MG TAB (PACERONE) PO SCH (08:30)
[2018-06-10] MEDS: GASTROGRAFIN SOLUTION 30ML PO SCH ×2 (11:20→11:50)
[2018-06-10] MEDS: ONDANSETRON 4MG/2ML VIAL (J2405) IV PRN (11:29)
[2018-06-10 12:00] VITALS: BP 139/79
--- NOTE | 2018-06-10 12:10 | IPN ---
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 Adrenal insufficiency secondary to metastatic adrenal implants on corticosteroids. Hallie is now on the floor in progressive care unit (PCU). Today she looks a little frail but is now getting up with assistance, eating and one of her drains removed today. She did have an episode of vomiting this afternoon and reports feeling very weak. Laboratories today notable for WBC 26, H and H 8.6 and 27, platelets 203. She continues on hydrocortisone 50 mg every 12. Pathology from her surgery 06/07/2018 is pending. She has a leukocytosis but peripheral smear shows no blast and most likely this is secondary to the corticosteroids. She grew out yeast-like organism from one of her drains and was started on antifungals, continuing micafungin, as well as meropenem. At the bedside, she is awake, alert, appearing a little bit uncomfortable but speaks in full sentences. Her abdomen is nontender, soft. The site where drain was pulled appears clean, dry, intact. IMPRESSION Hallie Turcios is a 63-year-old woman diagnosed in 2016 with locally advanced adenocarcinoma of lung with EGFR mutation, did very well for a year and half on oral medication but over the summer developed right lung progression requiring radiation and in April/May developing rapid onset visceral involvement with adrenal metastases and intestinal implants.. A biopsy shows acquired T790M resistance . She was started on four-drug chemotherapy 05/24/2018 with carboplatin / paclitaxel / atezolizomab/ bevacizumab. She was admitted to 05/27/2018 with GI bleed. The bevacizumab can contribute to poor wound healing, though retrospectively it is unlikely to be the cause of her GI bleed. More likely an intestinal implant caused erosion into the viscus causing perforation and this likely happened over several weeks prior to her 05/27/2018 admission. She is improving now but gradually, still requiring assistance to get out of bed, go to the bathroom and so forth. PLAN/RECOMMENDATIONS: 1. Oncology will continue to follow surgical management. No role for active treatment intervention from oncology standpoint. Hallie would normally be scheduled for next cycle of chemotherapy June 2. Obviously this will be postponed indefinitely. Because she received bevacizumab and has intestinal implants , she remains at risk for intestinal perforation and any new signs of a same should be closely followed up. Her leukocytosis is most likely secondary to corticosteroids, which should be continued until she is fully recovered and restaging scans show evidence of reduction in the adrenal metastases. I am away for 1 week until 06/18/2017. Dr. Abigail Almonte is vocational examiner over the weekend for oncology emergencies. The regular call scheduled with Dr. Robbins and Dr. Almonte will cover during the week next week.
[2018-06-10] MEDS: MICAFUNGIN SODIUM 100 MG in D5W MINI-BAG PLUS 100 ML IV SCH ×2 (12:53→13:42)
[2018-06-10] MEDS ORDERED: ISOVUE-370 76% 100ML VIAL (Q9967) As Ordered ONE (13:19)
--- NOTE | 2018-06-10 13:27 | IPNPDOC ---
Subjective Date Seen The patient was seen on 06/10/18. Subjective Chief Complaint/HPI Patient seen and examined at the bedside. She endorses that she has been having nausea and vomiting since yesterday with poor by mouth intake. In addition, the patient was noted to have multiple episodes of fever last night, and this morning her white blood cell count and CRP markers are more elevated. A CT scan of the abdomen/pelvis with by mouth/IV contrast has been ordered. General surgery aware and on board. Objective Physical Examination General Exam: Positive: Alert, Cooperative, No Acute Distress ENT Exam: Positive: Atraumatic, Mucous membr. moist/pink, Other ENT (bitemporal wasting noted) Neck Exam: Negative: JVD Chest Exam: Positive: Diminished Heart Exam: Positive: Rate Normal, Normal S1, Normal S2 Telemetry: Positive: Sinus Abdomen Exam: Positive: Soft, Other (right-sided drain removed, purulant discharge noted from site. Left-sided GREER drain noted with minimal purulant output. Surgical dressing noted over the abdominal wall); Negative: Tenderness Extremity Exam: Negative: Tenderness, Swelling Psych Exam: Positive: Oriented x 3 Assessment /Plan Plan/VTE VTE Prophylaxis Ordered?: Yes Plan Small Bowel Perforation with Bile Peritonitis s/p Ex Lap with Small Bowel Resection on 06/02 Patient with nausea and vomiting since yesterday, denies any abdominal pain Patient also had fevers last night, and noted to have more elevated WBC and CRP markers this morning Discussed case with on-call surgeon, we will order a CT Abd/Pel with IV/PO contrast to further investigate We will cont Meropenem, Micafungin Hold heparin gtt for possible surgical intervention Acute blood loss anemia likely 2/2 GI Bleeding, possibly from anastamosis H&H has been stable since blood transfusion Cont Protonix IV BID Leukocytosis - possibly 2/2 reactive etiology - 2/2 Neulasta / Corticosteroids; possibly 2/2 infectious etiology Remains afebrile / hemodynamically stable Lactic acid negative; UA without signs of infection Blood culture 05/31: Negative at 5 days / MRSA screen 05/31: Negative Drainage fluid 06/04: Yeast like organisms CXR 05/31: Bilateral pleural effusions, left a little larger than right Cont Meropenem & Micafungin Acute non-occlusive DVT at L distal superficial femoral vein Duplex US 06/06: Acute nonocclusive thrombus in the left distal superficial femoral vein. Normal right lower extremity without thrombosis. Dr. Young (Vascular surgery) consulted; s/p IVC filter on 06/07 Heparin gtt being held for possible surgical intervention s/p Atrial fibrillation with RVR s/p Mechanical Cardioversion on 06/01 with conversion to normal sinus rhythm ECHO notable for preserved EF, and normal diastolic function. Moderate/severe pulmonary hypertension and tricuspid regurgitation noted. Continue metoprolol Heparin gtt on hold Dr. Kim (Cardiology) on consult; appreciate their input Anasarca / Right sided heart failure - likely 2/2 Moderate - Severe pulmonary HTN Imaging consistent with b/l pleural effusions and evidence of ascites The patient's volume status continues to improve with by mouth Lasix Continue strict ins/outs, daily weights We will continue to monitor the patient's volume status Acute hypoxic respiratory failure - likely 2/2 anasarca / fluid overload We will cont to downtirate supplemental oxygen as tolerated with optimization of volume status Thrombocytopenia, resolved Adrenal insufficiency Cont Hydrocortisone, tapering down to home dose Lung Cancer (Stage IV; Metastasis to Brain s/p gamma knife, 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 Baker as an outpatient Dr. Baker (Oncology) on consult; appreciate input Hx of CVA Left Jugular Vein Thrombosis s/p IVC filter On Heparin gtt Protein calorie malnutrition - likely moderate / severe Patient has had significant weight loss - likely 2/2 malignancy Poor oral intake Appears cachectic c/w TPN DVT Prophylaxis Heparin gtt on hold Prognosis Poor--discussed at length with the patient at the bedside. I once again, had an extensive conversation with the patient and her family at the bedside regarding further medical treatment, which includes invasive intervention in view of the patient's current guarded clinical condition, and poor long-term prognosis. At this time, the patient states that she wishes to remain full code. Disposition: Pending clinical improvement VS, I&O, 24H, Fishbone Vital Signs/I&O Vital Signs Date Time Temp Pulse Resp B/P (MAP) Pulse Ox O2 Delivery O2 Flow Rate FiO2 06/10/18 12:00 98.7 99 18 139/79 (99) 94 Nasal Cannula 2.0 06/07/18 10:08 30 I&O- Last 24 Hours up to 6 AM 06/10/18 06:00 Intake Total 3046 ml Output Total 1282 ml Balance 1764 ml Laboratory Data 24H LABS Laboratory Tests 2 06/09/18 17:53: Bedside Glucose (Misc Panel) 102 06/09/18 17:58: Activated Partial Thromboplast Time 64.6H 06/09/18 23:52: Bedside Glucose (Misc Panel) 148H 06/10/18 00:00: Activated Partial Thromboplast Time 73.3H, Anion Gap 5L, Glomerular Filtration Rate > 60.0, Blood Urea Nitrogen 24H, Creatinine 0.68, Sodium Level 133L, Potassium Level 3.2L, Chloride Level 93L, Carbon Dioxide Level 35H, Calcium Level 8.0L 06/10/18 05:39: Bedside Glucose (Misc Panel) 128H 06/10/18 05:43: Immature Granulocyte % (Auto) 2.0, White Blood Count 29.3H, Red Blood Count 3.01L, Hemoglobin 8.4L, Hematocrit 25.3L, Mean Corpuscular Volume 84.1, Mean Corpuscular Hemoglobin 27.9, Mean Corpuscular Hemoglobin Concent 33.2, Red Cell Distribution Width 17.6H, Platelet Count 227, Neutrophils (%) (Auto) 95.3H, Lymphocytes (%) (Auto) 1.3L, Monocytes (%) (Auto) 1.2, Eosinophils (%) (Auto) 0.1, Basophils (%) (Auto) 0.1, Neutrophils # (Auto) 27.9H, Lymphocytes # (Auto) 0.4L, Monocytes # (Auto) 0.4, Eosinophils # (Auto) 0.0, Basophils # (Auto) 0.0, Nucleated Red Blood Cells % (auto) 0.0, Activated Partial Thromboplast Time 66.4H, Anion Gap 6L, Glomerular Filtration Rate > 60.0, Blood Urea Nitrogen 25H, Creatinine 0.63, Sodium Level 133L, Potassium Level 3.5, Chloride Level 94L, Carbon Dioxide Level 33H, Calcium Level 7.8L, Aspartate Amino Transf (AST/SGOT) 68H, Alanine Aminotransferase (ALT/SGPT) 78, Alkaline Phosphatase 242H, Total Bilirubin 0.5, Total Protein 5.1L, Albumin 1.3L, Magnesium Level 2.0, C-Reactive Protein, Quantitative 17.50H, Albumin/Globulin Ratio 0.34L 06/10/18 12:26: Bedside Glucose (Misc Panel) 156H CBC/BMP Laboratory Tests 06/09/18 17:58 06/10/18 00:00 Calcium Level 8.0 L 06/10/18 05:43 Calcium Level 7.8 L, Red Blood Count 3.01 L, Mean Corpuscular Volume 84.1, Mean Corpuscular Hemoglobin 27.9, Mean Corpuscular Hemoglobin Concent 33.2, Red Cell Distribution Width 17.6 H, Neutrophils (%) (Auto) 95.3 H, Lymphocytes (%) (Auto) 1.3 L, Monocytes (%) (Auto) 1.2, Eosinophils (%) (Auto) 0.1, Basophils (%) (Auto) 0.1, Neutrophils # (Auto) 27.9 H, Lymphocytes # (Auto) 0.4 L, Monocytes # (Auto) 0.4, Eosinophils # (Auto) 0.0, Basophils # (Auto) 0.0, Aspartate Amino Transf (AST/SGOT) 68 H, Alanine Aminotransferase (ALT/SGPT) 78, Alkaline Phosphatase 242 H, Total Bilirubin 0.5, Total Protein 5.1 L, Albumin 1.3 L Microbiology Microbiology 05/31/18 Blood Culture - Final, Complete NO GROWTH AFTER 5 DAYS 05/31/18 Blood Culture - Final, Complete NO GROWTH AFTER 5 DAYS 06/04/18 Gram Stain - Final, Complete 06/04/18 Body Fluid Culture - Final, Complete Yeast Like Organism 05/31/18 MRSA Screen - Final, Complete 06/10/18 Wound Culture, Received Pending CONRADO MANLEY MD Jun 10, 2018 13:27
--- NOTE | 2018-06-10 13:42 | IPNPDOC ---
Text Note Date of Service The patient was seen on 06/10/18. NOTE No acute events overnight. Her abd pain is slightly worse, and she had some nausea and emesis last night. She also had a few fevers up to 101.3. She is still having multiple soft loose BMs. VSSAF currently, Tmax 101.3 last night UOP - 1250 drain - 25 BM - 7 NAD abd - soft, TTP diffuse, no rebound or guarding, drain in the LUQ with some purulent drainage, there is some purulent drainage form the top of the midline incision, and also from the RLQ drain site. labs - below wbc - 26.6>29.3 A) 63y/o female s/p SBR for perforation of the small bowel from a likely metastatic lung cancer. persistent leukocytosis r/o abscess P) reg diet abx ambulate check CT with contrast to look for abdominal abscess Sg Conde DO VS,Fishbone, I+O VS, Fishbone, I+O Laboratory Tests 06/09/18 17:58 06/10/18 00:00 Calcium Level 8.0 L 06/10/18 05:43 Calcium Level 7.8 L, Red Blood Count 3.01 L, Mean Corpuscular Volume 84.1, Mean Corpuscular Hemoglobin 27.9, Mean Corpuscular Hemoglobin Concent 33.2, Red Cell Distribution Width 17.6 H, Neutrophils (%) (Auto) 95.3 H, Lymphocytes (%) (Auto) 1.3 L, Monocytes (%) (Auto) 1.2, Eosinophils (%) (Auto) 0.1, Basophils (%) (Auto) 0.1, Neutrophils # (Auto) 27.9 H, Lymphocytes # (Auto) 0.4 L, Monocytes # (Auto) 0.4, Eosinophils # (Auto) 0.0, Basophils # (Auto) 0.0, Aspartate Amino Transf (AST/SGOT) 68 H, Alanine Aminotransferase (ALT/SGPT) 78, Alkaline Phosp hatase 242 H, Total Bilirubin 0.5, Total Protein 5.1 L, Albumin 1.3 L Vital Signs Date Time Temp Pulse Resp B/P (MAP) Pulse Ox O2 Delivery O2 Flow Rate FiO2 06/10/18 12:00 98.7 99 18 139/79 (99) 94 Nasal Cannula 2.0 06/07/18 10:08 30 I&O- Last 24 Hours up to 6 AM 06/10/18 06:00 Intake Total 3046 ml Output Total 1282 ml Balance 1764 ml ARCADIO CONDE DO Jun 10, 2018 13:42
--- NOTE | 2018-06-10 14:05 | REP ---
Clinical: Small bowel perforation with peritonitis. Technique: Axial contrast enhanced images from the lung bases to the pubic symphysis using oral (per protocol) and 100 ml Isovue 370 intravenous contrast material with coronal and sagittal re-formations. Comparison: 06/02/2018. Findings: Postsurgical changes are appreciated including drainage catheter identified in the pelvis. A small amount of ascites is appreciated throughout the abdomen and pelvis along with infiltration and stranding throughout the mesentery consistent with the given history of peritonitis. No significant free air identified. No discrete drainable collection/abscess. The enteric system suggests an associated mild inflammatory enterocolitis pattern without obstruction. Liver demonstrates multiple hypodensities which are nonspecific. A few hepatic densities demonstrate peripheral enhancement pattern suggesting hemangiomas and warrant correlation. Spleen demonstrates 1.3 cm enhancing lesion and few scattered hypodensities suggesting cysts as well as lymphangioma/hemangioma. Pancreas is grossly normal. Kidneys demonstrate stable hypodensities suggesting peripelvic and cortical cysts - the largest of which is noted in the left kidney and measures 3.3 cm diameter. The gallbladder is relatively normal although mild gallbladder wall thickening cannot be excluded. The adrenal glands demonstrate stable hypodense nodular appearance suggesting benign adrenal adenomas. Pelvis demonstrates normal bladder and age-appropriate uterus/adnexa. Abdominal aorta and vasculature demonstrates atherosclerotic changes without aneurysm or dissection. IVC filter identified in the infrarenal vena cava. Osseous structures are intact. Lung bases demonstrate moderate pleural effusions with bibasilar, right middle lobe and lingular atelectasis. Impression: 1. Postsurgical changes with small amount of residual ascites and diffuse stranding throughout the mesentery consistent with a history of peritonitis. A mild associated inflammatory enterocolitis cannot be excluded. 2. There is no evidence for bowel obstruction and no free air is identified. 3. No discrete drainable collection/abscess. 4. Moderate bilateral pleural effusions with right middle lobe, lingular and lower lobe consolidations/atelectasis. 5. Further relatively chronic-appearing changes as detailed above including possible hepatic cysts and hemangiomas, splenic hemangioma, renal cysts, and bilateral adrenal adenomatous changes. Electronically Signed by Patricio Martinez MD 06/10/2018 01:57 P
[2018-06-10] MEDS ORDERED: HEPARIN SOD (PORCINE) 5000 UNITS/ML VIAL IV PRN (15:00)
[2018-06-10] MEDS: HEPARIN DRIP 25,000 UNITS in APPROPRIATE DILUENT 1 EA IV SCH (15:22)
[2018-06-10 16:00] VITALS: BP 127/72
[2018-06-10] MEDS ORDERED: AMINO AC/ELECTROLYTE/DEX/CALC 2,000 ML IV SCH (18:00)
[2018-06-10] MEDS ORDERED: FAT EMULSION IV 20% 500 ML IV SCH (18:00)
[2018-06-10 20:00] VITALS: BP 138/82
[2018-06-11] VITALS: BP 128/60
[2018-06-11] MEDS: HumaLOG INSULIN (NovoLOG) PER UNIT SC SCH ×4 (00:10→18:37)
[2018-06-11] MEDS: IPRATROPIUM 0.5MG/ALBUTEROL 2.5MG INH SOL UD 3ML (DUONEB)(J7620) NEB SCH ×3 (02:00→20:25)
[2018-06-11 04:00] VITALS: BP 135/71
[2018-06-11] MEDS: SODIUM CHLORIDE 0.9% INJ 10 ML SYR IV SCH ×2 (04:59→18:00)
[2018-06-11] MEDS: MEROPENEM INJ 1 GM in APPROPRIATE DILUENT 1 EA IV SCH ×3 (06:05→21:33)
[2018-06-11 06:45] LABS: BASO % 0.1 % (0.0-1.0); EOS % 0.1 % (0.0-3.0); HEMATOCRIT 23.5 % (36.0-47.0); HEMOGLOBIN 7.6 g/dl (12.0-15.5); LYMPH # 0.4 10^3/uL (1.5-4.5); LYMPH % 1.6 % (24.0-44.0); MEAN CORPUSCULAR HEMOGLOBIN 27.6 pg (27.0-33.0); MEAN CORPUSCULAR HGB CONC 32.3 g/dl (32.0-36.5); MEAN CORPUSCULAR VOLUME 85.5 fl (80.0-96.0); MONO # 0.4 10^3/uL (0.0-0.8); MONO % 1.6 % (0.0-5.0); NEUTROPHILS % 94.8 % (36.0-66.0); PLATELET COUNT, AUTOMATED 219 10^3/uL (150-450); RED BLOOD COUNT 2.75 10^6/uL (4.00-5.40)
[2018-06-11 07:10] LABS: ALBUMIN 1.3 GM/DL (3.2-5.2); ALT/SGPT 67 U/L (12-78); BILIRUBIN,TOTAL 0.2 MG/DL (0.2-1.0); BLOOD UREA NITROGEN 23 MG/DL (7-18); CALCIUM LEVEL 7.9 MG/DL (8.8-10.2); CARBON DIOXIDE LEVEL 33 MEQ/L (21-32); CHLORIDE LEVEL 94 MEQ/L (98-107); CREATININE FOR GFR 0.52 MG/DL (0.55-1.30); GLOMERULAR FILTRATION RATE > 60.0 (>45); GLUCOSE, FASTING 105 MG/DL (70-100); MAGNESIUM LEVEL 1.9 MG/DL (1.8-2.4); POTASSIUM SERUM 3.2 MEQ/L (3.5-5.1); SODIUM LEVEL 132 MEQ/L (136-145); TOTAL PROTEIN 5.2 GM/DL (6.4-8.2)
[2018-06-11 07:19] LABS: NEUTROPHILS # 25.6 10^3/uL (1.8-7.7)
[2018-06-11 08:00] VITALS: BP 140/98
[2018-06-11] MEDS ORDERED: POTASSIUM CHLORIDE 10 MEQ SR TABLET PO ONE ×2 (08:00→16:00)
[2018-06-11] MEDS: HYDROCORTISONE 100 MG/2 ML VIAL (J1720) IV SCH ×2 (08:09→21:33)
[2018-06-11] MEDS: METOPROLOL SUCC (TopROL XL) 50MG **XL** TAB PO SCH (08:09)
[2018-06-11] MEDS: LISINOPRIL 20 MG TAB PO SCH (08:09)
[2018-06-11] MEDS: FUROSEMIDE 20 MG TAB PO SCH (08:10)
[2018-06-11] MEDS: PANTOPRAZOLE 40MG INJ (PROTONIX) (C9113) IV SCH ×2 (08:10→21:33)
[2018-06-11] MEDS: AMIODARONE 200 MG TAB (PACERONE) PO SCH (08:10)
--- NOTE | 2018-06-11 11:28 | IPNPDOC ---
Text Note Date of Service The patient was seen on 06/11/18. NOTE No acute events overnight. Her abd pain is improved, and she is tolerating PO diet. Still having a slight fever up to 101.5. She is still having multiple soft loose BMs. VSSAF currently, Tmax 101.5 last night UOP - 900 drain - 45 BM - 8 NAD abd - soft, TTP diffuse, no rebound or guarding, drain in the LUQ with some purulent drainage, there is some purulent drainage form the top of the midline incision, and also from the RLQ drain site. labs - below wbc - 26.6>29.3>27 Imaging - CT was reviewed, there is some inflammation, but no distinct fluid collections to be drained A) 63y/o female s/p SBR for perforation of the small bowel from a likely metastatic lung cancer. persistent leukocytosis likely secondary to fungal infections P) reg diet abx, antifungals ambulate encouraged Po intake Sg Conde DO VS,Fishbone, I+O VS, Fishbone, I+O Laboratory Tests 06/11/18 06:23 Red Blood Count 2.75 L, Mean Corpuscular Volume 85.5, Mean Corpuscular Hemoglobin 27.6, Mean Corpuscular Hemoglobin Concent 32.3, Red Cell Distribution Width 17.5 H, Neutrophils (%) (Auto) 94.8 H, Lymphocytes (%) (Auto) 1.6 L, Monocytes (%) (Auto) 1.6, Eosinophils (%) (Auto) 0.1, Basophils (%) (Auto) 0.1, Neutrophils # (Auto) 25.6 H, Lymphocytes # (Auto) 0.4 L, Monocytes # (Auto) 0.4, Eosinophils # (Auto) 0.0, Basophils # (Auto) 0.0, Calcium Level 7.9 L, Aspartate Amino Transf (AST/SGOT) 63 H, Alanine Aminotransferase (ALT/SGPT) 67, Alkaline Phosphatase 199 H, Total Bilirubin 0.2 #, Total Protein 5.2 L, Albumin 1.3 L Vital Signs Date Time Temp Pulse Resp B/P (MAP) Pulse Ox O2 Delivery O2 Flow Rate FiO2 06/11/18 08:09 150/90 06/11/18 08:09 98 06/11/18 08:00 98.3 18 97 Room Air 06/11/18 00:00 12/26/18 10:08 30 I&O- Last 24 Hours up to 6 AM 06/11/18 06:00 Intake Total 1121 ml Output Total 1235 ml Balance -114 ml ARCADIO CONDE DO Jun 11, 2018 11:28
--- NOTE | 2018-06-11 12:14 | IPNPDOC ---
Subjective Date Seen The patient was seen on 06/11/18. Subjective Chief Complaint/HPI Patient seen and examined at the bedside. CT scan of the abdomen/pelvis did not reveal any abscess or significant fluid collection yesterday. She reports that she has been able to tolerate a by mouth diet without any further nausea/vomiting. She continues to have some loose bowel movements. Denies any significant abdominal pain. However, the patient's hemoglobin has down trended this morning, but she denies noting any changes to her bowel movements. We will transfuse the patient 1 unit of packed red blood cells. Objective Physical Examination General Exam: Positive: Alert, Cooperative, No Acute Distress ENT Exam: Positive: Atraumatic, Mucous membr. moist/pink, Other ENT (bitemporal wasting noted) Neck Exam: Negative: JVD Chest Exam: Positive: Diminished Heart Exam: Positive: Rate Normal, Normal S1, Normal S2 Telemetry: Positive: Sinus Abdomen Exam: Positive: Soft, Other (right-sided drain removed, purulant discharge noted from site. Left-sided GREER drain noted with some purulant output. Surgical dressing noted over the abdominal wall); Negative: Tenderness Extremity Exam: Negative: Tenderness, Swelling Psych Exam: Positive: Oriented x 3 Assessment /Plan Plan/VTE VTE Prophylaxis Ordered?: Yes Plan Small Bowel Perforation with Bile Peritonitis s/p Ex Lap with Small Bowel Resection on 06/02 Patient with one episode of fever last night, however WBC and CRP markers downtrending this morning Repeat CT Abd/Pel with IV/PO contrast from 06/10 with no abscess or significant fluid accumulation noted Patient tolerating a diet this morning w/o nausea or vomiting We will cont Meropenem, Micafungin Gen surg on board Acute blood loss anemia likely 2/2 GI Bleeding, possibly from anastamosis Patient's hgb has drifted downward this AM--however no overt bleeding noted We will transfuse the patient 1 Unit and repeat an H&H this afternoon Cont Protonix IV BID Leukocytosis - possibly 2/2 reactive etiology - 2/2 Neulasta / Corticosteroids; possibly 2/2 infectious etiology Blood culture 05/31: Negative at 5 days / MRSA screen 05/31: Negative Drainage fluid 06/04: Yeast like organisms Wound Culture from 06/10: Yeast like organisms Cont Meropenem & Micafungin Acute non-occlusive DVT at L distal superficial femoral vein Duplex US 06/06: Acute nonocclusive thrombus in the left distal superficial femoral vein. Normal right lower extremity without thrombosis. Dr. Young (Vascular surgery) consulted; s/p IVC filter on 06/07 Heparin gtt s/p Atrial fibrillation with RVR s/p Mechanical Cardioversion on 06/01 with conversion to normal sinus rhythm ECHO notable for preserved EF, and normal diastolic function. Moderate/severe pulmonary hypertension and tricuspid regurgitation noted. Continue metoprolol Heparin gtt Dr. Kim (Cardiology) on consult; appreciate their input Anasarca / Right sided heart failure - likely 2/2 Moderate - Severe pulmonary HTN Imaging consistent with b/l pleural effusions and evidence of ascites The patient's volume status continues to improve with by mouth Lasix Continue strict ins/outs, daily weights We will continue to monitor the patient's volume status Acute hypoxic respiratory failure - likely 2/2 anasarca / fluid overload We will cont to downtirate supplemental oxygen as tolerated with optimization of volume status Thrombocytopenia, resolved Adrenal insufficiency Cont Hydrocortisone, tapering down to home dose Lung Cancer (Stage IV; Metastasis to Brain s/p gamma knife, 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 Baker as an outpatient Dr. Baker (Oncology) on consult; appreciate input Hx of CVA Left Jugular Vein Thrombosis s/p IVC filter On Heparin gtt Protein calorie malnutrition - likely moderate / severe Patient has had significant weight loss - likely 2/2 malignancy Poor oral intake Appears cachectic c/w TPN DVT Prophylaxis Heparin gtt Poor Prognosis Disposition: Pending clinical improvement VS, I&O, 24H, Fishbone Vital Signs/I&O Vital Signs Date Time Temp Pulse Resp B/P (MAP) Pulse Ox O2 Delivery O2 Flow Rate FiO2 06/11/18 08:09 150/90 06/11/18 08:09 98 06/11/18 08:00 98.3 18 97 Room Air 06/11/18 00:00 06/07/18 10:08 30 I&O- Last 24 Hours up to 6 AM 06/11/18 06:00 Intake Total 1121 ml Output Total 1235 ml Balance -114 ml Laboratory Data 24H LABS Laboratory Tests 2 06/10/18 12:26: Bedside Glucose (Misc Panel) 156H 06/10/18 17:20: Bedside Glucose (Misc Panel) 135H 06/10/18 21:28: Activated Partial Thromboplast Time 40.3H 06/11/18 00:02: Bedside Glucose (Misc Panel) 151H 06/11/18 06:09: Bedside Glucose (Misc Panel) 118H 06/11/18 06:22: Activated Partial Thromboplast Time 74.3H 06/11/18 06:23: Immature Granulocyte % (Auto) 1.8, White Blood Count 27.0H, Red Blood Count 2.75L, Hemoglobin 7.6L, Hematocrit 23.5L, Mean Corpuscular Volume 85.5, Mean Corpuscular Hemoglobin 27.6, Mean Corpuscular Hemoglobin Concent 32.3, Red Cell Distribution Width 17.5H, Platelet Count 219, Neutrophils (%) (Auto) 94.8H, Lymphocytes (%) (Auto) 1.6L, Monocytes (%) (Auto) 1.6, Eosinophils (%) (Auto) 0.1, Basophils (%) (Auto) 0.1, Neutrophils # (Auto) 25.6H, Lymphocytes # (Auto) 0.4L, Monocytes # (Auto) 0.4, Eosinophils # (Auto) 0.0, Basophils # (Auto) 0.0, Nucleated Red Blood Cells % (auto) 0.0, Anion Gap 5L, Glomerular Filtration Rate > 60.0, Blood Urea Nitrogen 23H, Creatinine 0.52L, Sodium Level 132L, Potassium Level 3.2L, Chloride Level 94L, Carbon Dioxide Level 33H, Calcium Level 7.9L, Aspartate Amino Transf (AST/SGOT) 63H, Alanine Aminotransferase (ALT/SGPT) 67, Alkaline Phosphatase 199H, Total Bilirubin 0.2#, Total Protein 5.2L, Albumin 1.3L, Magnesium Level 1.9, C-Reactive Protein, Quantitative 13.10H, Albumin/Globulin Ratio 0.33L CBC/BMP Laboratory Tests 06/11/18 06:23 Red Blood Count 2.75 L, Mean Corpuscular Volume 85.5, Mean Corpuscular Hemoglobin 27.6, Mean Corpuscular Hemoglobin Concent 32.3, Red Cell Distribution Width 17.5 H, Neutrophils (%) (Auto) 94.8 H, Lymphocytes (%) (Auto) 1.6 L, Monocytes (%) (Auto) 1.6, Eosinophils (%) (Auto) 0.1, Basophils (%) (Auto) 0.1, Neutrophils # (Auto) 25.6 H, Lymphocytes # (Auto) 0.4 L, Monocytes # (Auto) 0.4, Eosinophils # (Auto) 0.0, Basophils # (Auto) 0.0, Calcium Level 7.9 L, Aspartate Amino Transf (AST/SGOT) 63 H, Alanine Aminotransferase (ALT/SGPT) 67, Alkaline Phosphatase 199 H, Total Bilirubin 0.2 #, Total Protein 5.2 L, Albumin 1.3 L Microbiology Microbiology 06/04/18 Gram Stain - Final, Complete 06/04/18 Body Fluid Culture - Final, Complete Yeast Like Organism 06/10/18 Wound Culture - Final, Complete Yeast Like Organism CONRADO MANLEY MD Jun 11, 2018 12:14
[2018-06-11 13:00] VITALS: BP 141/80
[2018-06-11] MEDS: MICAFUNGIN SODIUM 100 MG in D5W MINI-BAG PLUS 100 ML IV SCH (13:01)
[2018-06-11 15:16] LABS: HEMOGLOBIN 8.3 g/dl (12.0-15.5)
[2018-06-11 16:00] VITALS: BP 140/74
[2018-06-11] MEDS ORDERED: FAT EMULSION IV 20% 500 ML IV SCH (18:00)
[2018-06-11] MEDS ORDERED: AMINO AC/ELECTROLYTE/DEX/CALC 2,000 ML IV SCH (18:00)
[2018-06-11] MEDS: HEPARIN DRIP 25,000 UNITS in APPROPRIATE DILUENT 1 EA IV SCH (18:00)
[2018-06-11 19:52] VITALS: BP 134/84
[2018-06-12] VITALS (7 sets, daily range): BP systolic 119–145; BP diastolic 70–84
[2018-06-12] MEDS: HumaLOG INSULIN (NovoLOG) PER UNIT SC SCH ×4 (01:06→18:00)
[2018-06-12] MEDS: IPRATROPIUM 0.5MG/ALBUTEROL 2.5MG INH SOL UD 3ML (DUONEB)(J7620) NEB SCH ×3 (01:58→20:00)
[2018-06-12] MEDS: SODIUM CHLORIDE 0.9% INJ 10 ML SYR IV SCH ×2 (06:00→18:00)
[2018-06-12] MEDS: ONDANSETRON 4MG/2ML VIAL (J2405) IV PRN ×2 (06:18→13:56)
[2018-06-12 07:17] LABS: BASO % 0.1 % (0.0-1.0); EOS # 0.1 10^3/uL (0.0-0.50); EOS % 0.2 % (0.0-3.0); HEMATOCRIT 24.9 % (36.0-47.0); HEMOGLOBIN 8.3 g/dl (12.0-15.5); LYMPH # 0.5 10^3/uL (1.5-4.5); LYMPH % 2.3 % (24.0-44.0); MEAN CORPUSCULAR HEMOGLOBIN 28.2 pg (27.0-33.0); MEAN CORPUSCULAR HGB CONC 33.3 g/dl (32.0-36.5); MEAN CORPUSCULAR VOLUME 84.7 fl (80.0-96.0); MONO # 0.4 10^3/uL (0.0-0.8); NEUTROPHILS # 20.3 10^3/uL (1.8-7.7); NEUTROPHILS % 93.4 % (36.0-66.0); PLATELET COUNT, AUTOMATED 250 10^3/uL (150-450); RED BLOOD COUNT 2.94 10^6/uL (4.00-5.40); WHITE BLOOD COUNT 21.7 10^3/uL (4.0-10.0)
[2018-06-12] MEDS: MEROPENEM INJ 1 GM in APPROPRIATE DILUENT 1 EA IV SCH ×3 (07:34→22:21)
[2018-06-12 07:53] LABS: ALBUMIN 1.4 GM/DL (3.2-5.2); ALT/SGPT 74 U/L (12-78); BILIRUBIN,TOTAL 0.2 MG/DL (0.2-1.0); BLOOD UREA NITROGEN 29 MG/DL (7-18); C REACTIVE PROTEIN QUANTITATIV 8.19 MG/DL (0.00-0.30); CALCIUM LEVEL 8.1 MG/DL (8.8-10.2); CARBON DIOXIDE LEVEL 29 MEQ/L (21-32); CHLORIDE LEVEL 97 MEQ/L (98-107); CREATININE FOR GFR 0.56 MG/DL (0.55-1.30); GLOMERULAR FILTRATION RATE > 60.0 (>45); GLUCOSE, FASTING 133 MG/DL (70-100); MAGNESIUM LEVEL 1.9 MG/DL (1.8-2.4); POTASSIUM SERUM 3.2 MEQ/L (3.5-5.1); SODIUM LEVEL 133 MEQ/L (136-145); TOTAL PROTEIN 5.6 GM/DL (6.4-8.2)
[2018-06-12] MEDS: PROMETHAZINE INJ 25 MG/ML VIAL (J2550) IV PRN (07:54)
[2018-06-12] MEDS: PANTOPRAZOLE 40MG INJ (PROTONIX) (C9113) IV SCH ×2 (09:36→22:21)
[2018-06-12] MEDS: HYDROCORTISONE 100 MG/2 ML VIAL (J1720) IV SCH ×2 (09:36→22:20)
[2018-06-12] MEDS: KCL 10MEQ/100ML SWI (KRUN) 10 MEQ in APPROPRIATE DILUENT 1 EA IV SCH ×4 (09:36→13:31)
--- NOTE | 2018-06-12 10:06 | IPNPDOC ---
Text Note Date of Service The patient was seen on 06/12/18. NOTE No acute events overnight. She is still having multiple soft loose BMs. No f kayden overnight, but she feels weak and is haing lots of chills now. VSSAF UOP - 650 drain - 115 BM - 4 NAD abd - soft, TTP diffuse, no rebound or guarding, drain in the LUQ with some purulent drainage, there is some purulent drainage form the top of the midline incision, and also from the RLQ drain site. labs - below wbc - 26.6>29.3>27>21.7 Imaging - CT was reviewed, there is some inflammation, but no distinct fluid collections to be drained A) 63y/o female s/p SBR for perforation of the small bowel from a likely metastatic lung cancer. persistent leukocytosis likely secondary to fungal infections P) reg diet abx, antifungals ambulate encouraged Po intake PT will follow Sg Conde DO VS,Carter, I+O VS, Parrise, I+O Laboratory Tests 06/11/18 15:04 06/12/18 06:00 Red Blood Count 2.94 L, Mean Corpuscular Volume 84.7, Mean Corpuscular Hemoglobin 28.2, Mean Corpuscular Hemoglobin Concent 33.3, Red Cell Distribution Width 17.2 H, Neutrophils (%) (Auto) 93.4 H, Lymphocytes (%) (Auto) 2.3 L, Monocytes (%) (Auto) 2.0, Eosinophils (%) (Auto) 0.2, Basophils (%) (Auto) 0.1, Neutrophils # (Auto) 20.3 H, Lymphocytes # (Auto) 0.5 L, Monocytes # (Auto) 0.4, Eosinophils # (Auto) 0.1, Basophils # (Auto) 0.0 06/12/18 07:04 Calcium Level 8.1 L, Aspartate Amino Transf (AST/SGOT) 65 H, Alanine Aminotran sferase (ALT/SGPT) 74, Alkaline Phosphatase 197 H, Total Bilirubin 0.2, Total Protein 5.6 L, Albumin 1.4 L Vital Signs Date Time Temp Pulse Resp B/P (MAP) Pulse Ox O2 Delivery O2 Flow Rate FiO2 06/12/18 06:30 97.8 78 18 142/70 (94) 98 Room Air 06/11/18 00:00 06/07/18 10:08 30 I&O- Last 24 Hours up to 6 AM 06/12/18 05:59 Intake Total 1790 ml Output Total 1084 ml Balance 706 ml ARCADIO CONDE DO Jun 12, 2018 10:06
[2018-06-12] MEDS: LISINOPRIL 20 MG TAB PO SCH (10:56)
[2018-06-12] MEDS: FUROSEMIDE 20 MG TAB PO SCH (10:56)
[2018-06-12] MEDS: METOPROLOL SUCC (TopROL XL) 50MG **XL** TAB PO SCH (10:57)
[2018-06-12] MEDS: AMIODARONE 200 MG TAB (PACERONE) PO SCH (10:57)
[2018-06-12] MEDS: MICAFUNGIN SODIUM 100 MG in D5W MINI-BAG PLUS 100 ML IV SCH (12:43)
--- NOTE | 2018-06-12 13:09 | IPNPDOC ---
Subjective Date Seen The patient was seen on 06/12/18. Subjective Chief Complaint/HPI Patient seen and examined at the bedside. Patient's WBC and CRP markers downtrending this morning. However, the patient continues to spike intermittent fevers, and this morning had some bloody emesis with nausea. She also had 7 bouts of diarrhea this morning. We will send a GI panel, and serially trend H&H's. Objective Physical Examination General Exam: Positive: Alert, Cooperative, No Acute Distress ENT Exam: Positive: Atraumatic, Mucous membr. moist/pink, Other ENT (bitemporal wasting noted) Neck Exam: Negative: JVD Chest Exam: Positive: Diminished Heart Exam: Positive: Rate Normal, Normal S1, Normal S2 Telemetry: Positive: Sinus Abdomen Exam: Positive: Soft, Other (right-sided drain removed, purulant discharge noted from site. Left-sided GREER drain noted with some purulant output. Surgical dressing noted over the abdominal wall); Negative: Tenderness Extremity Exam: Negative: Tenderness, Swelling Psych Exam: Positive: Oriented x 3 Assessment /Plan Plan/VTE VTE Prophylaxis Ordered?: Yes Plan Small Bowel Perforation with Bile Peritonitis s/p Ex Lap with Small Bowel Resection on 06/02 Patient's WBC and CRP markers downtrending this morning Repeat CT Abd/Pel with IV/PO contrast from 06/10 with no abscess or significant fluid accumulation noted However, the patient continues to spike intermittent fevers, and this morning had some bloody emesis We will cont Meropenem, Micafungin Gen surg on board Acute blood loss anemia likely 2/2 GI Bleeding, possibly from anastamosis Patient's hgb stable following transfusion, however patient continues to have bloody emesis We will repeat H&H this afternoon and transfuse if needed, heparin gtt held Cont Protonix IV BID Leukocytosis - possibly 2/2 reactive etiology - 2/2 Neulasta / Corticosteroids; possibly 2/2 infectious etiology Blood culture 05/31: Negative at 5 days / MRSA screen 05/31: Negative Drainage fluid 06/04: Yeast like organisms Wound Culture from 06/10: Yeast like organisms Cont Meropenem & Micafungin Acute non-occlusive DVT at L distal superficial femoral vein Duplex US 06/06: Acute nonocclusive thrombus in the left distal superficial femoral vein. Normal right lower extremity without thrombosis. Dr. Young (Vascular surgery) consulted; s/p IVC filter on 06/07 Heparin on hold 2/2 above s/p Atrial fibrillation with RVR s/p Mechanical Cardioversion on 06/01 with conversion to normal sinus rhythm ECHO notable for preserved EF, and normal diastolic function. Moderate/severe pulmonary hypertension and tricuspid regurgitation noted. Continue metoprolol Heparin on hold 2/[address] Kim (Cardiology) on consult; appreciate their input Anasarca / Right sided heart failure - likely 2/2 Moderate - Severe pulmonary HTN Imaging consistent with b/l pleural effusions and evidence of ascites The patient's volume status continues to improve with by mouth Lasix Continue strict ins/outs, daily weights We will continue to monitor the patient's volume status Acute hypoxic respiratory failure - likely 2/2 anasarca / fluid overload We will cont to downtirate supplemental oxygen as tolerated with optimization of volume status Thrombocytopenia, resolved Adrenal insufficiency Cont Hydrocortisone, tapering down to home dose Lung Cancer (Stage IV; Metastasis to Brain s/p gamma knife, 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 Baker as an outpatient Dr. Baker (Oncology) on consult; appreciate input Hx of CVA Left Jugular Vein Thrombosis s/p IVC filter Protein calorie malnutrition - likely moderate / severe Patient has had significant weight loss - likely 2/2 malignancy Poor oral intake Appears cachectic c/w TPN DVT Prophylaxis Heparin on hold 2/2 GI Bleed Poor Prognosis Disposition: Pending clinical improvement VS, I&O, 24H, Fishbone Vital Signs/I&O Vital Signs Date Time Temp Pulse Resp B/P (MAP) Pulse Ox O2 Delivery O2 Flow Rate FiO2 06/12/18 12:00 100.6 121 20 145/77 (99) 94 Room Air 06/11/18 00:00 06/07/18 10:08 30 I&O- Last 24 Hours up to 6 AM 06/12/18 06:00 Intake Total 1790 ml Output Total 1084 ml Balance 706 ml Laboratory Data 24H LABS Laboratory Tests 2 06/11/18 18:32: Bedside Glucose (Misc Panel) 123H 06/11/18 19:50: Activated Partial Thromboplast Time 71.2H 06/11/18 23:51: Bedside Glucose (Misc Panel) 137H 06/12/18 01:11: Activated Partial Thromboplast Time 67.6H 06/12/18 06:00: Immature Granulocyte % (Auto) 2.0, White Blood Count 21.7H, Red Blood Count 2.94L, Hemoglobin 8.3L, Hematocrit 24.9L, Mean Corpuscular Volume 84.7, Mean Corpuscular Hemoglobin 28.2, Mean Corpuscular Hemoglobin Concent 33.3, Red Cell Distribution Width 17.2H, Platelet Count 250, Neutrophils (%) (Auto) 93.4H, Lymphocytes (%) (Auto) 2.3L, Monocytes (%) (Auto) 2.0, Eosinophils (%) (Auto) 0.2, Basophils (%) (Auto) 0.1, Neutrophils # (Auto) 20.3H, Lymphocytes # (Auto) 0.5L, Monocytes # (Auto) 0.4, Eosinophils # (Auto) 0.1, Basophils # (Auto) 0.0, Nucleated Red Blood Cells % (auto) 0.0 06/12/18 06:16: Bedside Glucose (Misc Panel) 142H 06/12/18 07:04: Anion Gap 7L, Glomerular Filtration Rate > 60.0, Blood Urea Nitrogen 29H, Creatinine 0.56, Sodium Level 133L, Potassium Level 3.2L, Chloride Level 97L, Carbon Dioxide Level 29, Calcium Level 8.1L, Aspartate Amino Transf (AST/SGOT) 65H, Alanine Aminotransferase (ALT/SGPT) 74, Alkaline Phosphatase 197H, Total Bilirubin 0.2, Total Protein 5.6L, Albumin 1.4L, Magnesium Level 1.9, C-Reactive Protein, Quantitative 8.19H, Albumin/Globulin Ratio 0.33L 06/12/18 12:17: Bedside Glucose (Misc Panel) 131H CBC/BMP Laboratory Tests 06/11/18 15:04 06/12/18 06:00 Red Blood Count 2.94 L, Mean Corpuscular Volume 84.7, Mean Corpuscular Hemoglobin 28.2, Mean Corpuscular Hemoglobin Concent 33.3, Red Cell Distribution Width 17.2 H, Neutrophils (%) (Auto) 93.4 H, Lymphocytes (%) (Auto) 2.3 L, Monoc ytes (%) (Auto) 2.0, Eosinophils (%) (Auto) 0.2, Basophils (%) (Auto) 0.1, Neutrophils # (Auto) 20.3 H, Lymphocytes # (Auto) 0.5 L, Monocytes # (Auto) 0.4, Eosinophils # (Auto) 0.1, Basophils # (Auto) 0.0 06/12/18 07:04 Calcium Level 8.1 L, Aspartate Amino Transf (AST/SGOT) 65 H, Alanine Aminotransferase (ALT/SGPT) 74, Alkaline Phosphatase 197 H, Total Bilirubin 0.2, Total Protein 5.6 L, Albumin 1.4 L Microbiology Microbiology 06/04/18 Gram Stain - Final, Complete 06/04/18 Body Fluid Culture - Final, Complete Yeast Like Organism 06/10/18 Wound Culture - Final, Complete Yeast Like Organism CONRADO MANLEY MD Jun 12, 2018 13:09
[2018-06-12] MEDS: HEPARIN DRIP 25,000 UNITS in APPROPRIATE DILUENT 1 EA IV SCH (15:00)
--- NOTE | 2018-06-12 15:02 | REP ---
Clinical: Hematuria. Technique: Real time wagner scale ultrasound examination using curved array transducer. Findings: The bilateral kidneys are normal in reniform shape with increased parenchymal echogenicity consistent with age-related medical renal disease. The right kidney measures 12.2 x 6.1 x 4.7 cm without hydronephrosis, nephrolithiasis, cystic or mass lesion. The left kidney measures 10.8 x 5.4 x 5.5 cm and includes a 3.3 x 4.4 x 2.3 cm septated mid pole cyst extending through the cortex. The bladder is under distended and grossly unremarkable. Impression: 1. Increased parenchymal echogenicity suggesting medical renal disease. 2. 4.4 cm left renal cyst with thin septation likely benign but warrants followup. 3. No hydronephrosis. Electronically Signed by Patricio Martinez MD 06/12/2018 02:54 P
[2018-06-12 15:39] LABS: HEMATOCRIT 23.5 % (36.0-47.0); HEMOGLOBIN 7.9 g/dl (12.0-15.5)
[2018-06-12] MEDS ORDERED: FAT EMULSION IV 20% 500 ML IV SCH (18:00)
[2018-06-12] MEDS ORDERED: POTASSIUM CHLORIDE 10% LIQ 20 MEQ/15 ML UDC PO ONE (18:00)
[2018-06-12] MEDS ORDERED: AMINO AC/ELECTROLYTE/DEX/CALC 2,000 ML IV SCH (18:00)
[2018-06-13] VITALS: BP 150/84
[2018-06-13] MEDS: HumaLOG INSULIN (NovoLOG) PER UNIT SC SCH ×3 (01:43→11:46)
[2018-06-13 01:55] LABS: HEMATOCRIT 27.7 % (36.0-47.0); HEMOGLOBIN 9.4 g/dl (12.0-15.5)
[2018-06-13] MEDS: IPRATROPIUM 0.5MG/ALBUTEROL 2.5MG INH SOL UD 3ML (DUONEB)(J7620) NEB SCH ×4 (02:00→20:00)
[2018-06-13 04:00] VITALS: BP 138/83
[2018-06-13] MEDS: SODIUM CHLORIDE 0.9% INJ 10 ML SYR IV SCH ×2 (06:00→18:00)
[2018-06-13] MEDS: MEROPENEM INJ 1 GM in APPROPRIATE DILUENT 1 EA IV SCH ×3 (07:12→21:15)
[2018-06-13 07:22] LABS: BASO % 0.2 % (0.0-1.0); EOS # 0.1 10^3/uL (0.0-0.50); EOS % 0.3 % (0.0-3.0); HEMATOCRIT 28.5 % (36.0-47.0); HEMOGLOBIN 9.4 g/dl (12.0-15.5); LYMPH # 0.5 10^3/uL (1.5-4.5); LYMPH % 2.5 % (24.0-44.0); MEAN CORPUSCULAR VOLUME 84.8 fl (80.0-96.0); MONO # 0.5 10^3/uL (0.0-0.8); MONO % 2.6 % (0.0-5.0); NEUTROPHILS # 17.7 10^3/uL (1.8-7.7); NEUTROPHILS % 92.7 % (36.0-66.0); PLATELET COUNT, AUTOMATED 197 10^3/uL (150-450); RED BLOOD COUNT 3.36 10^6/uL (4.00-5.40); WHITE BLOOD COUNT 19.1 10^3/uL (4.0-10.0)
[2018-06-13 08:00] VITALS: BP 160/80
[2018-06-13 08:03] LABS: ALBUMIN 1.3 GM/DL (3.2-5.2); ALT/SGPT 64 U/L (12-78); BILIRUBIN,TOTAL 0.3 MG/DL (0.2-1.0); BLOOD UREA NITROGEN 24 MG/DL (7-18); CALCIUM LEVEL 7.8 MG/DL (8.8-10.2); CARBON DIOXIDE LEVEL 27 MEQ/L (21-32); CHLORIDE LEVEL 95 MEQ/L (98-107); CREATININE FOR GFR 0.59 MG/DL (0.55-1.30); GLOMERULAR FILTRATION RATE > 60.0 (>45); GLUCOSE, FASTING 237 MG/DL (70-100); MAGNESIUM LEVEL 1.8 MG/DL (1.8-2.4); SODIUM LEVEL 129 MEQ/L (136-145); TOTAL PROTEIN 5.8 GM/DL (6.4-8.2)
[2018-06-13 08:36] LABS: C REACTIVE PROTEIN QUANTITATIV 9.44 MG/DL (0.00-0.30)
[2018-06-13] MEDS: FUROSEMIDE 20 MG TAB PO SCH (09:28)
[2018-06-13] MEDS: LISINOPRIL 20 MG TAB PO SCH (09:28)
[2018-06-13] MEDS: AMIODARONE 200 MG TAB (PACERONE) PO SCH (09:28)
[2018-06-13] MEDS: HYDROCORTISONE 100 MG/2 ML VIAL (J1720) IV SCH ×2 (09:29→21:16)
[2018-06-13] MEDS: PANTOPRAZOLE 40MG INJ (PROTONIX) (C9113) IV SCH ×2 (09:29→21:16)
[2018-06-13] MEDS: METOPROLOL SUCC (TopROL XL) 50MG **XL** TAB PO SCH (09:29)
--- NOTE | 2018-06-13 09:57 | IPNPDOC ---
Text Note Date of Service The patient was seen on 06/13/18. NOTE No acute events overnight. She had chills all day yesterday with multiple soft loose BMs. Today she feels much improved. No fevers overnight. VSSAF UOP - 1075 drain - 20 BM - 15 NAD abd - soft, TTP diffuse, no rebound or guarding, drain in the LUQ with some purulent drainage, there is some purulent drainage form the top of the midline incision, and also from the RLQ drain site. labs - below wbc - 26.6>29.3>27>21.7>19.1 A) 63y/o female s/p SBR for perforation of the small bowel from a likely metastatic lung cancer. persistent leukocytosis likely secondary to fungal infections P) reg diet abx, antifungals ambulate encouraged Po intake PT will follow Sg Conde DO VS,Carter, I+O VS, Carter, I+O Laboratory Tests 06/12/18 15:15 06/13/18 01:37 06/13/18 07:10 Red Blood Count 3.36 L, Mean Corpuscular Volume 84.8, Mean Corpuscular Hemoglobin 28.0, Mean Corpuscular Hemoglobin Concent 33.0, Red Cell Distribution Width 16.9 H, Neutrophils (%) (Auto) 92.7 H, Lymphocytes (%) (Auto) 2.5 L, Monocytes (%) (Auto) 2.6, Eosinophils (%) (Auto) 0.3, Basophils (%) (Auto) 0.2, Neutrophils # (Auto) 17.7 H, Lymphocytes # (Auto) 0.5 L, Monocytes # (Auto) 0.5, Eosinophils # (Auto) 0.1, Basophils # (Auto) 0.0, Calcium Level 7.8 L, Aspartate Amino Transf (AST/SGOT) 55 H, Alanine Aminotransferase (ALT/SGPT) 64, Alkaline Phosphatase 212 H, Total Bilirubin 0.3, Total Protein 5.8 L, Albumin 1.3 L Vital Signs Date Time Temp Pulse Resp B/P (MAP) Pulse Ox O2 Delivery O2 Flow Rate FiO2 06/13/18 09:29 105 160/80 06/13/18 08:00 97.3 18 95 Room Air 06/13/18 03:45 1.0 06/07/18 10:08 30 I&O- Last 24 Hours up to 6 AM 06/13/18 06:00 Intake Total 0 ml Output Total 1440 ml Balance -1440 ml ARCADIO CONDE DO Jun 13, 2018 09:56
[2018-06-13 12:00] VITALS: BP 132/66
[2018-06-13] MEDS: MICAFUNGIN SODIUM 100 MG in D5W MINI-BAG PLUS 100 ML IV SCH (12:28)
[2018-06-13 16:00] VITALS: BP 121/66
[2018-06-13] MEDS ORDERED: AMINO AC/ELECTROLYTE/DEX/CALC 2,000 ML IV SCH (18:00)
[2018-06-13] MEDS ORDERED: FAT EMULSION IV 20% 500 ML IV SCH (18:00)
[2018-06-13 18:21] LABS: HEMOGLOBIN 10.5 g/dl (12.0-15.5)
--- NOTE | 2018-06-13 19:50 | IPN ---
DATE: 06/13/2018 SUBJECTIVE: Patient seen and examined in the room today. In the last 24 hours patient has been complaining about diarrhea with severe nausea vomiting resulting in very poor oral intake. The patient had a temperature of 100.6 on 06/11/2018 around 12:00. No recurrence of temperature noted. Patient continues to have watery diarrhea. OBJECTIVE: Vital signs tem is 97.3, pulse 105, respirations 18, blood pressure is 160/80, pulse ox 95% on room air. GENERAL: No sign of acute distress. Patient alert and awake. HEENT: Normocephalic, atraumatic. Extraocular motor grossly intact. CARDIOVASCULAR: Positive S1, S2, regular rate. LUNGS: Clear to auscultation bilaterally. ABDOMEN: Positive drainage tube located in the left abdomen. Yellowish fluid noted. No blood. Abdomen soft. EXTREMITIES: No edema. LABORATORY DATA: WBC 19.1, hemoglobin 11.4, hematocrit 28.5, platelet count is 197, sodium 129, potassium 4, chloride 95, carbon dioxide 27, BUN 24, creatinine 0.59. Glomerular filtration rate (GFR) greater than 60. Fasting glucose 237, calci 7.8, magnesium 1.8, total bilirubin 0.3. AST 55, ALT 64, alkaline phosphatase 212. -reactive protein is 9.44. Total protein 5.8. Albumin 1.3. ASSESSMENT AND PLAN: 1. Small bowel perforation with bilateral peritonitis status exploratory laparotomy with small bowel resection on 06/02/2018. Patient has been on meropenem and micafungin. Culture was done from abdominal fluid and showed yeast like organism. Patient has been complaining about persistent diarrhea with some nausea and vomiting followed with C. Difficile test. Currently patient continued on TPN. General surgery on board. 2. Acute blood loss anemia secondary to GI bleeding from anastomosis and from metastatic cancer. Heparin drip has been on hold. Continue to follow hemoglobin and hematocrit. Since admission patient has been having 5 packed red blood transfusion, the most recent blood transfusion occurred on 06/11 and 06/12. 3. Leukocytosis. Possible multifactorial. Patient had Lunesta. Patient is on steroids. Patient also grew yeast like organism on the drainage fluid and wound cultures. Currently patient on tapering steroids. Patient is on meropenem and micafungin. 4. Acute nonocclusive deep vein thrombosis of the left distal superficial femoral vein. Dr. Jacobs was consulted and patient had IVC filter in place. Due to the GI bleed, patient's heparin is discontinued. 5. Atrial fibrillation with RVR. Status post cardioversion on 05/15/2018. Since the cardioversion patient's rhythm returned to sinus. Laundry Room Attendant consulted. Patient is on amiodarone, metoprolol. 6. Right sided heart failure with [id number] pulmonary hypertension. Patient is on Lasix. Continue to monitor strict input and putout and daily weight. 7. Acute hypoxic respiratory failure secondary to anasarca and fluid overload. Patient has been on the diuretic. Currently patient maintained satisfactory Oxygen saturation on room air. 8. Thrombocytopenia. Improved. 9. Adrenal insufficiency. On hydrocortisone. 10. Metastatic lung cancer with metastases to brain, bilateral adrenal glands, infrascapular region and interstitial metastatic implants. Patient with first cycle of palliative chemotherapy on 05/24. Oncology consulted. Per recommendation no active treatment or intervention from oncology. 11. History of cerebrovascular accident (CVA). 12. Left jugular vein thrombosis. Patient has an IVC filter due to the GI bleed. Heparin is on hold. 13. Protein calorie malnutrition. On TPN. Will encourage oral intake. 14. Deep vein thrombosis prophylaxis. On thromboembolic deterrent stockings (TEDS) compression. MTDD
[2018-06-13 20:00] VITALS: BP 128/96
[2018-06-14] MEDS: IPRATROPIUM 0.5MG/ALBUTEROL 2.5MG INH SOL UD 3ML (DUONEB)(J7620) NEB SCH ×4 (01:14→21:03)
[2018-06-14 04:00] VITALS: BP 128/86
[2018-06-14] MEDS: MEROPENEM INJ 1 GM in APPROPRIATE DILUENT 1 EA IV SCH ×3 (05:16→21:53)
[2018-06-14] MEDS: SODIUM CHLORIDE 0.9% INJ 10 ML SYR IV SCH ×2 (05:17→17:02)
[2018-06-14 06:07] LABS: BASO % 0.1 % (0.0-1.0); EOS # 0.1 10^3/uL (0.0-0.50); EOS % 0.5 % (0.0-3.0); HEMATOCRIT 19.4 % (36.0-47.0); LYMPH # 0.6 10^3/uL (1.5-4.5); LYMPH % 2.9 % (24.0-44.0); MEAN CORPUSCULAR HGB CONC 33.5 g/dl (32.0-36.5); MEAN CORPUSCULAR VOLUME 83.6 fl (80.0-96.0); MONO # 0.6 10^3/uL (0.0-0.8); MONO % 2.6 % (0.0-5.0); NEUTROPHILS # 19.4 10^3/uL (1.8-7.7); NEUTROPHILS % 92.7 % (36.0-66.0); PLATELET COUNT, AUTOMATED 195 10^3/uL (150-450); RED BLOOD COUNT 2.32 10^6/uL (4.00-5.40); WHITE BLOOD COUNT 20.9 10^3/uL (4.0-10.0)
[2018-06-14 06:14] LABS: HEMOGLOBIN 6.5 g/dl (12.0-15.5)
[2018-06-14 06:39] LABS: ALBUMIN 1.4 GM/DL (3.2-5.2); ALT/SGPT 67 U/L (12-78); BILIRUBIN,TOTAL 0.4 MG/DL (0.2-1.0); BLOOD UREA NITROGEN 19 MG/DL (7-18); CALCIUM LEVEL 7.8 MG/DL (8.8-10.2); CARBON DIOXIDE LEVEL 24 MEQ/L (21-32); CHLORIDE LEVEL 95 MEQ/L (98-107); CREATININE FOR GFR 0.45 MG/DL (0.55-1.30); GLOMERULAR FILTRATION RATE > 60.0 (>45); GLUCOSE, FASTING 99 MG/DL (70-100); MAGNESIUM LEVEL 1.5 MG/DL (1.8-2.4); POTASSIUM SERUM 3.5 MEQ/L (3.5-5.1); SODIUM LEVEL 130 MEQ/L (136-145); TOTAL PROTEIN 5.1 GM/DL (6.4-8.2)
[2018-06-14 06:51] LABS: HEMATOCRIT 29.4 % (36.0-47.0)
[2018-06-14 06:52] LABS: HEMOGLOBIN 9.8 g/dl (12.0-15.5)
[2018-06-14 08:00] VITALS: BP 130/86
[2018-06-14] MEDS: HYDROCORTISONE 100 MG/2 ML VIAL (J1720) IV SCH ×2 (08:25→20:10)
[2018-06-14] MEDS: LISINOPRIL 20 MG TAB PO SCH (08:25)
[2018-06-14] MEDS: PANTOPRAZOLE 40MG INJ (PROTONIX) (C9113) IV SCH ×2 (08:25→20:10)
[2018-06-14] MEDS: AMIODARONE 200 MG TAB (PACERONE) PO SCH (08:25)
[2018-06-14] MEDS: METOPROLOL SUCC (TopROL XL) 50MG **XL** TAB PO SCH (08:26)
[2018-06-14] MEDS: FUROSEMIDE 20 MG TAB PO SCH (08:26)
[2018-06-14] MEDS: MAGNESIUM CHLORIDE 64 MG TABCR (SLO MAG) PO SCH (11:50)
[2018-06-14] MEDS: MICAFUNGIN SODIUM 100 MG in D5W MINI-BAG PLUS 100 ML IV SCH (11:50)
[2018-06-14 12:00] VITALS: BP 132/71
--- NOTE | 2018-06-14 15:17 | IPNPDOC ---
Text Note Date of Service The patient was seen on 06/14/18. NOTE SUBJECTIVE: Patient is seen and examined in the room today. Patient states her nausea and vomiting improved. She can tolerate oral intake but the quantity of oral intake is still not enough. Patient continues having loose stool. OBJECTIVE: Listed below. GENERAL: No sign of acute distress. Patient alert and awake. HEENT: Normocephalic, atraumatic. Extraocular motor grossly intact. CARDIOVASCULAR: Positive S1, S2, regular rate. LUNGS: Clear to auscultation bilaterally. ABDOMEN: Positive drainage tube located in the left abdomen. Yellowish fluid noted. No blood. Abdomen is soft. EXTREMITIES: No edema. LABORATORY DATA: Listed below. ASSESSMENT AND PLAN: #. Small bowel perforation with bilateral peritonitis - status exploratory laparotomy with small bowel resection on 06/02/2018. - Culture from abdominal fluid and showed yeast like organism. On meropenem and micafungin. C diff study was negative. - Patient continues having poor oral intake. Continue on TPN. General surgery on board. # Metastatic lung cancer with metastases to brain, bilateral adrenal glands, i nfrascapular region and interstitial metastatic implants. - Patient had first cycle of palliative chemotherapy on 05/24. Oncology consulted. Patient states she is not sure what is the next step for her. Will discuss with Dr. Jimenez when she is available. #. Acute blood loss anemia secondary to GI bleeding from anastomosis and from metastatic cancer. - Heparin drip has been on hold. Continue to follow hemoglobin and hematocrit. 5 packed red blood transfusion since admission. Most recent blood transfusion occurred on 06/11 and 06/12. #. Leukocytosis. Possible multifactorial. - Patient had Lunesta. Patient is on steroids. Patient also grew yeast like organism on the drainage fluid and wound cultures. Currently patient on tapering steroids. Patient is on meropenem and micafungin. Patient had recent bowel perforation status post surgery. #. Acute nonocclusive deep vein thrombosis of the left distal superficial femoral vein. - Dr. Young was consulted and patient had IVC filter in place. Due to the GI bleed, patient's heparin is discontinued. #. Atrial fibrillation with RVR. - Status post cardioversion on 05/15/2018. Since the cardioversion patient's rhythm returned to sinus. Track Welder consulted. - Patient is on amiodarone, metoprolol. #. Right sided heart failure with [id number] pulmonary hypertension. - Patient is on Lasix. Continue to monitor strict input and putout and daily weight. #. Acute hypoxic respiratory failure secondary to anasarca and fluid overload. - On the diuretic. Currently patient maintained satisfactory oxygen saturation on room air. #. Thrombocytopenia. Improved. #. Adrenal insufficiency. On hydrocortisone. #. History of cerebrovascular accident (CVA). #. Left jugular vein thrombosis. Patient has an IVC filter due to the GI bleed. Heparin is on hold. #. Protein calorie malnutrition. On TPN. Will encourage oral intake. #. Deep vein thrombosis prophylaxis. On thromboembolic deterrent stockings (TEDS) compression. VS,Fishbone, I+O VS, Fishbone, I+O Laboratory Tests 06/13/18 18:09 06/14/18 05:48 Red Blood Count 2.32 L, Mean Corpuscular Volume 83.6, Mean Corpuscular Hemoglobin 28.0, Mean Corpuscular Hemoglobin Concent 33.5, Red Cell Distribution Width 16.8 H, Neutrophils (%) (Auto) 92.7 H, Lymphocytes (%) (Auto) 2.9 L, Monocytes (%) (Auto) 2.6, Eosinophils (%) (Auto) 0.5, Basophils (%) (Auto) 0.1, Neutrophils # (Auto) 19.4 H, Lymphocytes # (Auto) 0.6 L, Monocytes # (Auto) 0.6, Eosinophils # (Auto) 0.1, Basophils # (Auto) 0.0, Calcium Level 7.8 L, Aspartate Amino Transf (AST/SGOT) 60 H, Alanine Aminotransferase (ALT/SGPT) 67, Alkaline Phosphatase 238 H, Total Bilirubin 0.4, Total Protein 5.1 L, Albumin 1.4 L 06/14/18 06:41 Vital Signs Date Time Temp Pulse Resp B/P (MAP) Pulse Ox O2 Delivery O2 Flow Rate FiO2 06/14/18 12:00 100.5 116 18 132/71 (91) 95 Room Air 06/13/18 03:45 1.0 I&O- Last 24 Hours up to 6 AM 06/14/18 06:00 Intake Total 2410 ml Output Total 1450 ml Balance 960 ml VALE MARTÍNEZ DO Jun 14, 2018 15:17
[2018-06-14 16:00] VITALS: BP 120/59
[2018-06-14] MEDS: HumaLOG INSULIN (NovoLOG) PER UNIT SC SCH ×2 (17:37→23:48)
[2018-06-14] MEDS ORDERED: MULTIVITAMIN -ADULT INJECTION 10 ML, CR/CU/SE/MN/ZN INJ 1 ML in AMINO AC/ELECTROLYTE/DE... IV SCH (18:00)
[2018-06-14] MEDS ORDERED: FAT EMULSION IV 20% 500 ML IV SCH (18:00)
[2018-06-14 20:00] VITALS: BP 139/84
[2018-06-14] MEDS: ONDANSETRON 4MG/2ML VIAL (J2405) IV PRN (20:10)
[2018-06-14 23:59] VITALS: BP 138/70
[2018-06-15] MEDS: IPRATROPIUM 0.5MG/ALBUTEROL 2.5MG INH SOL UD 3ML (DUONEB)(J7620) NEB SCH ×4 (02:00→20:00)
[2018-06-15 04:00] VITALS: BP 132/79
[2018-06-15] MEDS: HumaLOG INSULIN (NovoLOG) PER UNIT SC SCH ×3 (05:31→17:16)
[2018-06-15] MEDS: MEROPENEM INJ 1 GM in APPROPRIATE DILUENT 1 EA IV SCH ×3 (05:32→21:22)
[2018-06-15] MEDS: SODIUM CHLORIDE 0.9% INJ 10 ML SYR IV SCH ×2 (05:32→17:07)
[2018-06-15 08:00] VITALS: BP 143/74
[2018-06-15 08:03] LABS: PREALBUMIN 15.1 MG/DL (20.0-40.0)
[2018-06-15 08:32] LABS: BASO % 0.1 % (0.0-1.0); EOS # 0.1 10^3/uL (0.0-0.50); EOS % 0.7 % (0.0-3.0); HEMATOCRIT 28.9 % (36.0-47.0); HEMOGLOBIN 9.6 g/dl (12.0-15.5); LYMPH # 0.5 10^3/uL (1.5-4.5); MEAN CORPUSCULAR HGB CONC 33.2 g/dl (32.0-36.5); MEAN CORPUSCULAR VOLUME 81.2 fl (80.0-96.0); MONO # 0.4 10^3/uL (0.0-0.8); MONO % 2.6 % (0.0-5.0); NEUTROPHILS # 12.3 10^3/uL (1.8-7.7); NEUTROPHILS % 91.9 % (36.0-66.0); PLATELET COUNT, AUTOMATED 144 10^3/uL (150-450); RED BLOOD COUNT 3.56 10^6/uL (4.00-5.40); WHITE BLOOD COUNT 13.4 10^3/uL (4.0-10.0)
[2018-06-15 08:47] LABS: ALBUMIN 1.4 GM/DL (3.2-5.2); ALT/SGPT 63 U/L (12-78); BILIRUBIN,TOTAL 0.5 MG/DL (0.2-1.0); BLOOD UREA NITROGEN 18 MG/DL (7-18); CALCIUM LEVEL 7.6 MG/DL (8.8-10.2); CARBON DIOXIDE LEVEL 24 MEQ/L (21-32); CHLORIDE LEVEL 94 MEQ/L (98-107); CREATININE FOR GFR 0.51 MG/DL (0.55-1.30); GLOMERULAR FILTRATION RATE > 60.0 (>45); GLUCOSE, FASTING 80 MG/DL (70-100); MAGNESIUM LEVEL 1.7 MG/DL (1.8-2.4); SODIUM LEVEL 131 MEQ/L (136-145); TOTAL PROTEIN 5.4 GM/DL (6.4-8.2)
[2018-06-15] MEDS: PANTOPRAZOLE 40MG INJ (PROTONIX) (C9113) IV SCH ×2 (09:03→21:21)
[2018-06-15] MEDS: HYDROCORTISONE 100 MG/2 ML VIAL (J1720) IV SCH ×2 (09:03→21:21)
[2018-06-15] MEDS: MAGNESIUM CHLORIDE 64 MG TABCR (SLO MAG) PO SCH (09:04)
[2018-06-15] MEDS: AMIODARONE 200 MG TAB (PACERONE) PO SCH (09:04)
[2018-06-15] MEDS: LISINOPRIL 20 MG TAB PO SCH (09:04)
[2018-06-15] MEDS: METOPROLOL SUCC (TopROL XL) 50MG **XL** TAB PO SCH (09:04)
[2018-06-15] MEDS: FUROSEMIDE 20 MG TAB PO SCH (09:04)
--- NOTE | 2018-06-15 10:09 | IPN ---
DATE: 06/15/2018 The patient seems to be making some good progress from a surgical standpoint. Really no other significant surgical issues at this time. Her Rahat-Sumner drain is decreasing its serosanguineous and she is not having any significant nausea, although really has no appetite. She has had some diarrhea and we had a discussion about starting her on some medication for her diarrhea and she at this point would like to see how things go. She has not had any significant fevers or chills. Otherwise her abdomen is soft, nontender and nondistended. No guarding or rebound. No peritoneal signs are appreciated. Incision is clean and dry and kashmir were intact. Rahat-Sumner drain is without any drainage from the area. IMPRESSION AND PLAN: The patient seems to be making some good progress at this time. My recommendation is that we see how she does overnight. If she is having ongoing diarrhea, will change things around and start up some Lomotil or some Imodium AD. Otherwise advancing her diet and encouraging by mouth intake is reasonable at this time.
--- NOTE | 2018-06-15 10:18 | IPN ---
DATE: 06/15/2018 The patient seems to be doing well. She has been afebrile. Her white count is down a little bit today with a white count of 13.4. Otherwise she has been tolerating a diet and has no other significant medical complaints at this time. Her abdomen is soft, nontender and nondistended. The Rahat-Sumner drain will take out today . She has had some diarrhea issues that she states that have been problematic for her. It is really not recorded on her ins and outs and thus will just start the Imodium for her and we will see how she does with this.
[2018-06-15] MEDS: LOPERAMIDE 2 MG CAP PO SCH ×3 (10:32→21:22)
[2018-06-15] MEDS ORDERED: POTASSIUM CHLORIDE 10 MEQ SR TABLET PO ONE (11:00)
[2018-06-15] MEDS: MICAFUNGIN SODIUM 100 MG in D5W MINI-BAG PLUS 100 ML IV SCH (11:55)
[2018-06-15 12:00] VITALS: BP 118/65
[2018-06-15 16:00] VITALS: BP 110/60
[2018-06-15] MEDS ORDERED: AMINO AC/ELECTROLYTE/DEX/CALC 2,000 ML IV SCH (18:00)
[2018-06-15] MEDS ORDERED: FAT EMULSION IV 20% 500 ML IV SCH (18:00)
--- NOTE | 2018-06-15 19:47 | IPNPDOC ---
Text Note Date of Service The patient was seen on 06/15/18. NOTE SUBJECTIVE: Patient is seen and examined in the room today. Patient states there is no recurrence of nausea or vomiting. Patient continues having loose stool. Patient has poor appetite/intake. OBJECTIVE: Listed below. GENERAL: No sign of acute distress. Patient alert and awake. HEENT: Normocephalic, atraumatic. Extraocular motor grossly intact. CARDIOVASCULAR: Positive S1, S2, regular rate. LUNGS: Clear to auscultation bilaterally. ABDOMEN: Positive drainage tube located in the left abdomen. Yellowish fluid noted. No blood. Abdomen is soft. EXTREMITIES: No edema. LABORATORY DATA: Listed below. ASSESSMENT AND PLAN: #. Small bowel perforation with bilateral peritonitis - status exploratory laparotomy with small bowel resection on 06/02/2018. - Culture from abdominal fluid and showed yeast like organism. On meropenem and micafungin. C diff study was negative. - Patient continues having poor oral intake. Continue on TPN. General surgery on board. # Metastatic lung cancer with metastases to brain, bilateral adrenal glands, infrascapular region and intestinal metastatic implants. - Patient had first cycle of palliative chemotherapy on 05/24. Oncology consulte d. Patient states she is not sure what is the next step for her. Will discuss with Dr. Jimenez when she is available. #. Acute blood loss anemia secondary to GI bleeding from anastomosis and from metastatic cancer. - Heparin drip has been on hold. Continue to follow hemoglobin and hematocrit. 5 packed red blood transfusion since admission. Most recent blood transfusion occurred on 06/11 and 06/12. #. Leukocytosis. Possible multifactorial. - Patient had Lunesta. Patient is on steroids. Patient also grew yeast like organism on the drainage fluid and wound cultures. Currently patient on tapering steroids. Patient is on meropenem and micafungin. Patient had recent bowel perforation status post surgery. #. Acute nonocclusive deep vein thrombosis of the left distal superficial femoral vein. - Dr. Young was consulted and patient had IVC filter in place. Due to the GI bleed, patient's heparin is discontinued. #. Atrial fibrillation with RVR. - Status post cardioversion on 05/15/2018. Since the cardioversion patient's rhythm returned to sinus. Co Supervisor Grounds And Landscape consulted. - Patient is on amiodarone, metoprolol. #. Right sided heart failure with [id number] pulmonary hypertension. - Patient is on Lasix. Continue to monitor strict input and putout and daily weight. #. Acute hypoxic respiratory failure secondary to anasarca and fluid overload. - On the diuretic. Currently patient maintained satisfactory oxygen saturation on room air. #. Thrombocytopenia. Improved. #. Adrenal insufficiency. On hydrocortisone. #. History of cerebrovascular accident (CVA). #. Left jugular vein thrombosis. Patient has an IVC filter due to the GI bleed. Heparin is on hold. #. Protein calorie malnutrition. On TPN. Will encourage oral intake. #. Deep vein thrombosis prophylaxis. On thromboembolic deterrent stockings (TEDS) compression. VS,Fishbone, I+O VS, Fishbone, I+O Laboratory Tests 06/15/18 07:02 Calcium Level 7.6 L, Aspartate Amino Transf (AST/SGOT) 65 H, Alanine Aminotransferase (ALT/SGPT) 63, Alkaline Phosphatase 267 H, Total Bilirubin 0.5, Total Protein 5.4 L, Albumin 1.4 L 06/15/18 08:12 Red Blood Count 3.56 L, Mean Corpuscular Volume 81.2, Mean Corpuscular Hemoglobin 27.0, Mean Corpuscular Hemoglobin Concent 33.2, Red Cell Distribution Width 16.3 H, Neutrophils (%) (Auto) 91.9 H, Lymphocytes (%) (Auto) 4.0 L, Monocytes (%) (Auto) 2.6, Eosinophils (%) (Auto) 0.7, Basophils (%) (Auto) 0.1, Neutrophils # (Auto) 12.3 H, Lymphocytes # (Auto) 0.5 L, Monocytes # (Auto) 0.4, Eosinophils # (Auto) 0.1, Basophils # (Auto) 0.0 Vital Signs Date Time Temp Pulse Resp B/P (MAP) Pulse Ox O2 Delivery O2 Flow Rate FiO2 06/15/18 16:00 98.4 110 18 110/60 (77) 97 Room Air 06/13/18 03:45 1.0 I&O- Last 24 Hours up to 6 AM 06/15/18 06:00 Intake Total 2530 ml Output Total 820 ml Balance 1710 ml VALE MARTÍNEZ DO Jun 15, 2018 19:47
[2018-06-15 20:00] VITALS: BP 130/78
[2018-06-15 23:59] VITALS: BP 114/70
[2018-06-16] MEDS: HumaLOG INSULIN (NovoLOG) PER UNIT SC SCH ×4 (00:18→17:20)
[2018-06-16] MEDS: IPRATROPIUM 0.5MG/ALBUTEROL 2.5MG INH SOL UD 3ML (DUONEB)(J7620) NEB SCH ×4 (01:47→20:00)
[2018-06-16 04:00] VITALS: BP 116/67
[2018-06-16] MEDS: SODIUM CHLORIDE 0.9% INJ 10 ML SYR IV SCH ×2 (05:38→17:19)
[2018-06-16] MEDS: MEROPENEM INJ 1 GM in APPROPRIATE DILUENT 1 EA IV SCH ×2 (05:38→15:24)
[2018-06-16 08:00] VITALS: BP 132/70
[2018-06-16 08:11] LABS: BASO % 0.2 % (0.0-1.0); EOS # 0.2 10^3/uL (0.0-0.50); EOS % 1.5 % (0.0-3.0); HEMATOCRIT 25.1 % (36.0-47.0); HEMOGLOBIN 8.5 g/dl (12.0-15.5); LYMPH # 0.5 10^3/uL (1.5-4.5); LYMPH % 4.6 % (24.0-44.0); MEAN CORPUSCULAR HEMOGLOBIN 28.1 pg (27.0-33.0); MEAN CORPUSCULAR HGB CONC 33.9 g/dl (32.0-36.5); MEAN CORPUSCULAR VOLUME 83.1 fl (80.0-96.0); MONO # 0.3 10^3/uL (0.0-0.8); MONO % 2.9 % (0.0-5.0); NEUTROPHILS # 9.8 10^3/uL (1.8-7.7); NEUTROPHILS % 90.1 % (36.0-66.0); PLATELET COUNT, AUTOMATED 127 10^3/uL (150-450); RED BLOOD COUNT 3.02 10^6/uL (4.00-5.40); WHITE BLOOD COUNT 10.9 10^3/uL (4.0-10.0)
[2018-06-16 08:18] LABS: ALBUMIN 1.2 GM/DL (3.2-5.2); ALT/SGPT 62 U/L (12-78); BILIRUBIN,TOTAL 0.5 MG/DL (0.2-1.0); BLOOD UREA NITROGEN 20 MG/DL (7-18); CARBON DIOXIDE LEVEL 23 MEQ/L (21-32); CHLORIDE LEVEL 96 MEQ/L (98-107); CREATININE FOR GFR 0.59 MG/DL (0.55-1.30); GLOMERULAR FILTRATION RATE > 60.0 (>45); GLUCOSE, FASTING 116 MG/DL (70-100); MAGNESIUM LEVEL 1.6 MG/DL (1.8-2.4); POTASSIUM SERUM 3.9 MEQ/L (3.5-5.1); SODIUM LEVEL 129 MEQ/L (136-145); TOTAL PROTEIN 5.9 GM/DL (6.4-8.2)
[2018-06-16] MEDS: PANTOPRAZOLE 40MG INJ (PROTONIX) (C9113) IV SCH ×2 (08:21→20:59)
[2018-06-16] MEDS: FUROSEMIDE 20 MG TAB PO SCH (08:21)
[2018-06-16] MEDS: AMIODARONE 200 MG TAB (PACERONE) PO SCH (08:21)
[2018-06-16] MEDS: HYDROCORTISONE 100 MG/2 ML VIAL (J1720) IV SCH ×2 (08:21→20:58)
[2018-06-16] MEDS: MAGNESIUM CHLORIDE 64 MG TABCR (SLO MAG) PO SCH (08:21)
[2018-06-16] MEDS: LISINOPRIL 20 MG TAB PO SCH (08:23)
[2018-06-16] MEDS: LOPERAMIDE 2 MG CAP PO SCH ×2 (08:24→20:58)
[2018-06-16] MEDS: METOPROLOL SUCC *XL* 25MG TAB (TopROL *XL*) PO SCH (08:24)
[2018-06-16] MEDS ORDERED: POTASSIUM CHLORIDE 10 MEQ SR TABLET PO SCH (09:00)
[2018-06-16 12:00] VITALS: BP 111/61
[2018-06-16] MEDS: MICAFUNGIN SODIUM 100 MG in D5W MINI-BAG PLUS 100 ML IV SCH (13:57)
[2018-06-16 16:00] VITALS: BP 127/70
[2018-06-16] MEDS ORDERED: MULTIVITAMIN -ADULT INJECTION 10 ML, CR/CU/SE/MN/ZN INJ 1 ML in AMINO AC/ELECTROLYTE/DE... IV SCH (18:00)
[2018-06-16] MEDS ORDERED: FAT EMULSION IV 20% 500 ML IV SCH (18:00)
--- NOTE | 2018-06-16 19:58 | CR ---
INFECTIOUS DISEASE CONSULTATION DATE OF SERVICE: 06/16/2018 REFERRING PHYSICIAN: Soha Breaux MD REASON FOR CONSULTATION: For evaluation of intraabdominal infection. HISTORY OF PRESENT ILLNESS Mrs. Turcios is a 63-year-old female with a history of metastatic lung cancer with mets to the bone, brain, adrenal glands and abdomen. The patient presented to [facility] on May 28 with hematemesis and GI bleeding. She had just received chemotherapy through Dr. Baker' office for metastatic lung cancer to the adrenals. She also had received gamma knife for brain mets. She was having bloody diarrhea and was noted to have a lesion on the abdomen. The patient was taken to the operating room by Dr. Hairston on June 07 and she had a small bowel partial resection which was positive for metastatic poorly differentiated adenocarcinoma. Cultures intra-abdominally were done on 06/04 from drainage fluid and from the abdomen on 06/10, both had yeastlike organisms. The patient has been treated with broad-spectrum antibiotics for bowel perforation and has been on meropenem since admission, 1 gram every 8 hours, a total of 20 days. IV micafungin was added on 06/04, 100 mg every 24 hours, currently day #12. The patient had the drains removed yesterday. She feels improved, although very weak. She has a mild cough, mild abdominal pain, but otherwise feels at least 75% better. She has been having diarrhea. On June 13, stool was sent for C diff; that was negative. She took one dose of Imodium and diarrhea has resolved. On June 14, her hemoglobin was down to 6.5 and she required a total of 5 units of packed red blood cells this hospitalization. Her white count had spiked to 36.9 on the , currently is down to 10.9. She has been afebrile for the past 48 hours. She denies any nausea, vomiting or diarrhea. PAST MEDICAL HISTORY: Significant for metastatic lung cancer, moderate to poorly differentiated adeno CA with mets to the brain, bone, adrenal glands and abdomen, dyslipidemia, transient ischemic attacks and deep venous thrombosis (DVT), on Lovenox. Adrenal insufficiency due to adrenal metastases. PAST SURGICAL HISTORY: Benign breast masses removed, D and C, cataract surgery, loop recorder placement. SOCIAL HISTORY She denies tobacco, alcohol or drug use. She is , lives with her . She is a F[employer]. She is currently on palliative care for her cancer. ALLERGIES: NO KNOWN DRUG ALLERGIES. MEDICATIONS: - TPN - metoprolol 75 mg by mouth daily - loperamide as needed - Flomax 64 mg by mouth daily - hydrocortisone 10 mg IV every 12 hours - Tylenol as needed - lisinopril 20 mg by mouth daily - amiodarone 200 mg by mouth daily - Percocet 1 tablet by mouth every 4 as needed - furosemide 20 mg by mouth daily - micafungin 100 mg IV every 24 hours - meropenem 1 gram IV every 8 hours - albuterol/Atrovent nebs every 4 as needed - heparin flushes for her central line - Zofran 4 mg IV every 6 as needed as needed - Protonix 14 mg IV every 12 hours LABORATORY DATA White count of 10.9, hemoglobin 8.5, hematocrit 25.1, platelets 127, 90% neutrophils, 4% lymphocytes, 3% monocytes. Sodium 129, potassium 3.9, chloride 96, bicarb 23, BUN 20, creatinine 0.59, glucose 116, calcium 8, phosphorus 1.6, bilirubin 0.5, AST 78, ALT 62, alkaline phosphatase was 72, CRP 14.5. The lowest CRP was on 06/01 down to 4.37 and the highest was 29.5 on 06/02. Blood cultures two sets done on 05/31 were no growth after 5 days. MRSA screen was negative. Wound cultures from 06/04 and 06/10 yeastlike organism and stool for C diff done on 06/13 was negative. IMAGING STUDIES Renal ultrasound 06/12 increased parenchymal echogenicity suggesting medical renal disease, 4.4 cm left renal cyst with septations likely benign but warrant followup. That was done for workup of hematuria. CT abdomen and pelvis done on 06/10 shows postsurgical changes with small amount of residual ascites, diffuse stranding throughout the mesentery consistent with peritonitis. No evidence of bowel obstruction. No discrete drainable collection or abscess. Moderate bilateral pleural effusion with right middle lobe infiltrate/consolidation. Vascular ultrasound done on 05/17 lower extremity bilateral shows an acute nonocclusive thrombus in the left distal superficial femoral vein. CT done on 06/02 shows pneumoperitoneum with large amount of ascites and some free intraperitoneal Gastrografin seen in the peritoneal space, mostly in the left midabdomen compatible with perforation. PHYSICAL EXAMINATION: Temperature is 98.8, pulse 130, respirations 18, blood pressure 111/61, O2 saturations 97% on room air. Heart: Normal S1, S2, tachycardiac. No murmurs appreciated. Lungs: Diminished breath sounds at the bases. No wheezes, rales or rhonchi appreciated. Abdomen: There are kashmir midline with some drainage from the mid incision mostly yellowish on the ABD pad. Two drains have been removed. There are scabs over a drain site with no tenderness. No redness or purulence. Back: No CVA tenderness. Extremities: Trace ankle edema. No rashes. No lesions. Oropharynx: Dry mucosa. She has blistering hemorrhagic blister lesion on the left lower lip. Oropharynx is clear. No lesions or thrush. Neurologic: Exam alert and oriented times three. Motor strength is normal. Frail looking. The patient is able to ambulate with a walker to the bathroom. IMPRESSION This is a 63-year-old female with a history of metastatic lung cancer to abdomen, adrenals, bone and brain who was admitted with bowel perforation due to what seems like an abdominal mass that eroded through the small bowel with secondary GI bleeding and peritonitis. Intra-abdominal cultures have only grown yeastlike organism. The patient has been on broad-spectrum coverage with meropenem since 05/27, a total of 20 days. She has been on micafungin for a total of 12 days and clinically is improved. Her white count is close to normal and she has defervesced in the past 48 hours. Drains have been removed. In spite of increasing CRP, the patient clinically is doing well. PLAN Discontinue IV micafungin. Culture has been sent to [facility] to identify the fungal pathogens, whether it is Grace albicans or non albicans and for susceptibility. Switch to fluconazole 200 mg by mouth daily. I would discontinue gram-negative coverage at this time. If the patient has recurrent fever or worsening white count, please repeat CT abdomen and pelvis. Case has been discussed with Dr. Hairston who agrees with the plan. The prognosis is very poor. Discussion of hospice care by Dr. Baker and Dr. Hairston at a later time as her prognosis is very poor and she probably would not tolerate any further chemotherapy.
[2018-06-16 20:00] VITALS: BP 158/72
--- NOTE | 2018-06-16 20:03 | IPNPDOC ---
Text Note Date of Service The patient was seen on 06/16/18. NOTE SUBJECTIVE: Patient is seen and examined in the room today. No recurrence of nausea or vomiting. No loose stool. Patient has poor appetite/intake. Denies abdominal pain. OBJECTIVE: Listed below. GENERAL: No sign of acute distress. Patient alert and awake. HEENT: Normocephalic, atraumatic. Extraocular motor grossly intact. CARDIOVASCULAR: Positive S1, S2, regular rate. LUNGS: Clear to auscultation bilaterally. ABDOMEN: Abdomen is soft. Bowel sound present. EXTREMITIES: No edema. LABORATORY DATA: Listed below. ASSESSMENT AND PLAN: #. Small bowel perforation with bilateral peritonitis - status exploratory laparotomy with small bowel resection on 06/02/2018. - Culture from abdominal fluid and showed yeast like organism. On meropenem and micafungin. Infectious consulted for antibiotic and antifungal medication management. - Patient continues having poor oral intake. Continue on TPN. General surgery on board. # Metastatic lung cancer with metastases to brain, bilateral adrenal glands, infrascapular region and intestinal metastatic implants. - Patient had first cycle of palliative chemotherapy on 05/24. Oncology consulted. Patient states she is not sure what is the next step for her. Will discuss with Dr. Jimenez when she is available. #. Acute blood loss anemia secondary to GI bleeding from anastomosis and from metastatic cancer. - Heparin drip has been on hold. Continue to follow hemoglobin and hematocrit. 5 packed red blood transfusion since admission. Most recent blood transfusion occurred on 06/11 and 06/12. #. Leukocytosis. Possible multifactorial. - Patient had Lunesta. Patient is on steroids. Patient also grew yeast like organism on the drainage fluid and wound cultures. Currently patient on tapering steroids. Patient is on meropenem and micafungin. Patient had recent bowel perforation status post surgery. Patient also has metastatic lung cancer. #. Acute nonocclusive deep vein thrombosis of the left distal superficial femoral vein. - Dr. Young was consulted and patient had IVC filter in place. Due to the GI bleed, patient's heparin is discontinued. #. Atrial fibrillation with RVR. - Status post cardioversion on 05/15/2018. Since the cardioversion patient's rhythm returned to sinus. Trimmer Operator consulted. - Patient is on amiodarone, metoprolol. #. Right sided heart failure with xskhtnwa-uw-mverhy pulmonary hypertension. - Patient is on Lasix. Continue to monitor strict input and putout and daily weight. #. Acute hypoxic respiratory failure secondary to anasarca and fluid overload. - On the diuretic. Currently patient maintained satisfactory oxygen saturation on room air. #. Thrombocytopenia. Improved. #. Adrenal insufficiency. On hydrocortisone. #. History of cerebrovascular accident (CVA). #. Left jugular vein thrombosis. Patient has an IVC filter due to the GI bleed. Heparin is on hold. #. Protein calorie malnutrition. On TPN. Will encourage oral intake. #. Deep vein thrombosis prophylaxis. On thromboembolic deterrent stockings (TEDS) compression. VS,Fishbone, I+O VS, Fishbone, I+O Laboratory Tests 06/16/18 04:49 Red Blood Count 3.02 L, Mean Corpuscular Volume 83.1, Mean Corpuscular Hemoglobin 28.1, Mean Corpuscular Hemoglobin Concent 33.9, Red Cell Distribution Width 16.8 H, Neutrophils (%) (Auto) 90.1 H, Lymphocytes (%) (Auto) 4.6 L, Monocytes (%) (Auto) 2.9, Eosinophils (%) (Auto) 1.5, Basophils (%) (Auto) 0.2, Neutrophils # (Auto) 9.8 H, Lymphocytes # (Auto) 0.5 L, Monocytes # (Auto) 0.3, Eosinophils # (Auto) 0.2, Basophils # (Auto) 0.0, Calcium Level 8.0 L, Aspartate Amino Transf (AST/SGOT) 78 H, Alanine Aminotransferase (ALT/SGPT) 62, Alkaline Phosphatase 272 H, Total Bilirubin 0.5, Total Protein 5.9 L, Albumin 1.2 L Vital Signs Date Time Temp Pulse Resp B/P (MAP) Pulse Ox O2 Delivery O2 Flow Rate FiO2 06/16/18 16:00 99.1 111 18 127/70 (89) 97 Room Air 06/13/18 03:45 1.0 I&O- Last 24 Hours up to 6 AM 06/16/18 06:00 Intake Total 2430 ml Output Total 400 ml Balance 2030 ml VALE MARTÍNEZ DO Jun 16, 2018 20:03
[2018-06-16] MEDS: SODIUM CHLORIDE 0.9% INJ 10 ML SYR IV PRN (20:59)
[2018-06-17] VITALS (8 sets, daily range): BP systolic 128–162; BP diastolic 76–92
[2018-06-17] MEDS: HumaLOG INSULIN (NovoLOG) PER UNIT SC SCH ×4 (00:10→17:53)
[2018-06-17] MEDS: IPRATROPIUM 0.5MG/ALBUTEROL 2.5MG INH SOL UD 3ML (DUONEB)(J7620) NEB SCH ×4 (02:00→20:00)
[2018-06-17] MEDS: SODIUM CHLORIDE 0.9% INJ 10 ML SYR IV SCH ×2 (06:00→17:52)
[2018-06-17 07:17] LABS: BASO % 0.1 % (0.0-1.0); EOS # 0.2 10^3/uL (0.0-0.50); EOS % 1.9 % (0.0-3.0); HEMATOCRIT 25.4 % (36.0-47.0); HEMOGLOBIN 8.6 g/dl (12.0-15.5); LYMPH # 0.4 10^3/uL (1.5-4.5); LYMPH % 4.8 % (24.0-44.0); MEAN CORPUSCULAR HGB CONC 33.9 g/dl (32.0-36.5); MEAN CORPUSCULAR VOLUME 82.7 fl (80.0-96.0); MONO # 0.2 10^3/uL (0.0-0.8); MONO % 2.5 % (0.0-5.0); NEUTROPHILS # 7.9 10^3/uL (1.8-7.7); PLATELET COUNT, AUTOMATED 158 10^3/uL (150-450); RED BLOOD COUNT 3.07 10^6/uL (4.00-5.40); WHITE BLOOD COUNT 8.8 10^3/uL (4.0-10.0)
[2018-06-17 07:47] LABS: ALBUMIN 1.3 GM/DL (3.2-5.2); ALT/SGPT 79 U/L (12-78); BILIRUBIN,TOTAL 0.4 MG/DL (0.2-1.0); BLOOD UREA NITROGEN 24 MG/DL (7-18); CALCIUM LEVEL 8.2 MG/DL (8.8-10.2); CARBON DIOXIDE LEVEL 26 MEQ/L (21-32); CHLORIDE LEVEL 96 MEQ/L (98-107); CREATININE FOR GFR 0.56 MG/DL (0.55-1.30); GLOMERULAR FILTRATION RATE > 60.0 (>45); GLUCOSE, FASTING 96 MG/DL (70-100); MAGNESIUM LEVEL 1.9 MG/DL (1.8-2.4); POTASSIUM SERUM 3.4 MEQ/L (3.5-5.1); SODIUM LEVEL 130 MEQ/L (136-145); TOTAL PROTEIN 5.9 GM/DL (6.4-8.2)
[2018-06-17] MEDS: POTASSIUM CHLORIDE 10 MEQ SR TABLET PO SCH (08:55)
[2018-06-17] MEDS: FUROSEMIDE 20 MG TAB PO SCH (08:55)
[2018-06-17] MEDS: METOPROLOL SUCC *XL* 25MG TAB (TopROL *XL*) PO SCH (08:55)
[2018-06-17] MEDS: LOPERAMIDE 2 MG CAP PO SCH ×2 (08:56→20:44)
[2018-06-17] MEDS: HYDROCORTISONE 100 MG/2 ML VIAL (J1720) IV SCH ×2 (08:56→20:44)
[2018-06-17] MEDS: LISINOPRIL 20 MG TAB PO SCH (08:56)
[2018-06-17] MEDS: FLUCONAZOLE 100 MG TAB PO SCH (08:56)
[2018-06-17] MEDS: AMIODARONE 200 MG TAB (PACERONE) PO SCH (08:56)
[2018-06-17] MEDS: MAGNESIUM CHLORIDE 64 MG TABCR (SLO MAG) PO SCH (08:56)
[2018-06-17] MEDS: PANTOPRAZOLE 40MG INJ (PROTONIX) (C9113) IV SCH ×2 (08:57→20:45)
[2018-06-17] MEDS: ONDANSETRON 4MG/2ML VIAL (J2405) IV PRN (17:52)
[2018-06-17] MEDS ORDERED: AMINO AC/ELECTROLYTE/DEX/CALC 2,000 ML IV SCH (18:00)
[2018-06-17] MEDS ORDERED: FAT EMULSION IV 20% 500 ML IV SCH (18:00)
--- NOTE | 2018-06-17 18:32 | IPNPDOC ---
Text Note Date of Service The patient was seen on 06/17/18. NOTE SUBJECTIVE: Patient is seen and examined in the room today. No recurrence of nausea or vomiting. No loose stool. Patient states she has better oral intake than yesterday. OBJECTIVE: Listed below. GENERAL: No sign of acute distress. Patient alert and awake. HEENT: Normocephalic, atraumatic. Extraocular motor grossly intact. CARDIOVASCULAR: Positive S1, S2, regular rate. LUNGS: Clear to auscultation bilaterally. ABDOMEN: Abdomen is soft. Bowel sound present. EXTREMITIES: No edema. LABORATORY DATA: Listed below. ASSESSMENT AND PLAN: #. Small bowel perforation with bilateral peritonitis - status post exploratory laparotomy with small bowel resection on 06/02/2018. - Culture from abdominal fluid and showed yeast like organism. Infectious consulted for antibiotic and antifungal medication management. Meropenem and micafungin discontinued. On Diflucan now. - Will monitor oral intake. Continue on TPN. - General surgery on board. # Metastatic lung cancer with metastases to brain, bilateral adrenal glands, infrascapular region and intestinal metastatic implants. - Patient had first cycle of palliative chemotherapy on 05/24. Oncology consulted. Will discuss with Dr. Jimenez when she is available. #. Acute blood loss anemia secondary to GI bleeding from anastomosis and from metastatic cancer. - Heparin drip has been on hold. Continue to follow hemoglobin and hematocrit. 5 packed red blood transfusion since admission. Most recent blood transfusion occurred on 06/11 and 06/12. #. Leukocytosis. Possible multifactorial. - Patient had Lunesta. Patient is on steroids. Patient also grew yeast like organism on the drainage fluid and wound cultures. Currently patient on tapering steroids. Patient is on meropenem and micafungin. Patient had recent bowel p erforation status post surgery. Patient also has metastatic lung cancer. #. Acute nonocclusive deep vein thrombosis of the left distal superficial femoral vein. - Dr. Young was consulted and patient had IVC filter in place. Due to the GI bleed, patient's heparin is discontinued. #. Atrial fibrillation with RVR. - Status post cardioversion on 05/15/2018. Since the cardioversion patient's rhyt hm returned to sinus. Fixing Machine Operator consulted. - Patient is on amiodarone, metoprolol. #. Right sided heart failure with [id number] pulmonary hypertension. - Patient is on Lasix. Continue to monitor strict input and putout and daily weight. #. Acute hypoxic respiratory failure secondary to anasarca and fluid overload. - On the diuretic. Currently patient maintained satisfactory oxygen saturation on room air. #. Thrombocytopenia. Improved. #. Adrenal insufficiency. On hydrocortisone. #. History of cerebrovascular accident (CVA). #. Left jugular vein thrombosis. Patient has an IVC filter due to the GI bleed. Heparin is on hold. #. Protein calorie malnutrition. On TPN. Will encourage oral intake. #. Deep vein thrombosis prophylaxis. On thromboembolic deterrent stockings (TEDS) compression. VS,Fishbone, I+O VS, Fishbone, I+O Laboratory Tests 06/17/18 07:05 Red Blood Count 3.07 L, Mean Corpuscular Volume 82.7, Mean Corpuscular Hemoglobin 28.0, Mean Corpuscular Hemoglobin Concent 33.9, Red Cell Distribution Width 16.8 H, Neutrophils (%) (Auto) 90.0 H, Lymphocytes (%) (Auto) 4.8 L, Monocytes (%) (Auto) 2.5, Eosinophils (%) (Auto) 1.9, Basophils (%) (Auto) 0.1, Neutrophils # (Auto) 7.9 H, Lymphocytes # (Auto) 0.4 L, Monocytes # (Auto) 0.2, Eosinophils # (Auto) 0.2, Basophils # (Auto) 0.0, Calcium Level 8.2 L, Aspartate Amino Transf (AST/SGOT) 94 H, Alanine Aminotransferase (ALT/SGPT) 79 H, Alkaline Phosphatase 354 H, Total Bilirubin 0.4, Total Protein 5.9 L, Albumin 1.3 L Vital Signs Date Time Temp Pulse Resp B/P (MAP) Pulse Ox O2 Delivery O2 Flow Rate FiO2 06/17/18 16:00 98.3 108 20 130/76 (94) 97 Room Air 06/13/18 03:45 1.0 I&O- Last 24 Hours up to 6 AM 06/17/18 06:00 Intake Total 1760 ml Output Total 725 ml Balance 1035 ml VALE MARTÍNEZ DO Jun 17, 2018 18:32
[2018-06-17] MEDS: SODIUM CHLORIDE 0.9% INJ 10 ML SYR IV PRN (20:45)
[2018-06-18] VITALS (7 sets, daily range): BP systolic 110–141; BP diastolic 70–82
[2018-06-18] MEDS: HumaLOG INSULIN (NovoLOG) PER UNIT SC SCH ×5 (00:37→23:08)
[2018-06-18] MEDS: IPRATROPIUM 0.5MG/ALBUTEROL 2.5MG INH SOL UD 3ML (DUONEB)(J7620) NEB SCH ×4 (02:00→20:00)
[2018-06-18] MEDS: SODIUM CHLORIDE 0.9% INJ 10 ML SYR IV SCH ×2 (06:26→17:03)
[2018-06-18 07:26] LABS: BASO % 0.1 % (0.0-1.0); EOS # 0.2 10^3/uL (0.0-0.50); EOS % 2.2 % (0.0-3.0); HEMOGLOBIN 7.9 g/dl (12.0-15.5); LYMPH # 0.7 10^3/uL (1.5-4.5); LYMPH % 6.9 % (24.0-44.0); MEAN CORPUSCULAR HEMOGLOBIN 28.1 pg (27.0-33.0); MEAN CORPUSCULAR HGB CONC 34.3 g/dl (32.0-36.5); MEAN CORPUSCULAR VOLUME 81.9 fl (80.0-96.0); MONO # 0.3 10^3/uL (0.0-0.8); MONO % 3.1 % (0.0-5.0); NEUTROPHILS # 8.8 10^3/uL (1.8-7.7); PLATELET COUNT, AUTOMATED 154 10^3/uL (150-450); RED BLOOD COUNT 2.81 10^6/uL (4.00-5.40); WHITE BLOOD COUNT 10.1 10^3/uL (4.0-10.0)
[2018-06-18 07:49] LABS: ALBUMIN 1.3 GM/DL (3.2-5.2); ALT/SGPT 72 U/L (12-78); BILIRUBIN,TOTAL 0.3 MG/DL (0.2-1.0); BLOOD UREA NITROGEN 22 MG/DL (7-18); CARBON DIOXIDE LEVEL 27 MEQ/L (21-32); CHLORIDE LEVEL 96 MEQ/L (98-107); CREATININE FOR GFR 0.53 MG/DL (0.55-1.30); GLOMERULAR FILTRATION RATE > 60.0 (>45); GLUCOSE, FASTING 113 MG/DL (70-100); POTASSIUM SERUM 3.6 MEQ/L (3.5-5.1); SODIUM LEVEL 131 MEQ/L (136-145); TOTAL PROTEIN 5.7 GM/DL (6.4-8.2)
[2018-06-18] MEDS: FLUCONAZOLE 100 MG TAB PO SCH (08:10)
[2018-06-18] MEDS: POTASSIUM CHLORIDE 10 MEQ SR TABLET PO SCH (08:10)
[2018-06-18] MEDS: LISINOPRIL 20 MG TAB PO SCH (08:10)
[2018-06-18] MEDS: AMIODARONE 200 MG TAB (PACERONE) PO SCH (08:10)
[2018-06-18] MEDS: MAGNESIUM CHLORIDE 64 MG TABCR (SLO MAG) PO SCH (08:11)
[2018-06-18] MEDS: PANTOPRAZOLE 40MG INJ (PROTONIX) (C9113) IV SCH ×2 (08:11→20:04)
[2018-06-18] MEDS: FUROSEMIDE 20 MG TAB PO SCH (08:11)
[2018-06-18] MEDS: LOPERAMIDE 2 MG CAP PO SCH ×2 (08:11→21:00)
[2018-06-18] MEDS: HYDROCORTISONE 100 MG/2 ML VIAL (J1720) IV SCH ×2 (08:11→20:04)
[2018-06-18] MEDS: METOPROLOL SUCC *XL* 25MG TAB (TopROL *XL*) PO SCH (08:11)
[2018-06-18] MEDS ORDERED: AMINO AC/ELECTROLYTE/DEX/CALC 2,000 ML IV SCH (18:00)
[2018-06-18] MEDS ORDERED: FAT EMULSION IV 20% 500 ML IV SCH (18:00)
--- NOTE | 2018-06-18 18:51 | IPNPDOC ---
Text Note Date of Service The patient was seen on 06/18/18. NOTE SUBJECTIVE: Patient is seen and examined in the room today. No recurrence of nausea or vomiting or diarrhea. Patient states her appetite and intake today are worse than yesterday. OBJECTIVE: Listed below. GENERAL: No sign of acute distress. Patient alert and awake. HEENT: Normocephalic, atraumatic. Extraocular motor grossly intact. CARDIOVASCULAR: Positive S1, S2, regular rate. LUNGS: Clear to auscultation bilaterally. ABDOMEN: Abdomen is soft. Bowel sound present. EXTREMITIES: No edema. LABORATORY DATA: Listed below. ASSESSMENT AND PLAN: #. Small bowel perforation with bilateral peritonitis - status post exploratory laparotomy with small bowel resection on 06/02/2018. - Culture from abdominal fluid and showed yeast like organism. Infectious consulted for antibiotic and antifungal medication management. Meropenem and micafungin discontinued. On Diflucan now. - Will monitor oral intake. Continue on TPN. - General surgery on board. - Continue Physical therapy. # Metastatic lung cancer with metastases to brain, bilateral adrenal glands, infrascapular region and intestinal metastatic implants. - Patient had first cycle of palliative chemotherapy on 05/24. Oncology consulted. Will discuss with Dr. Jimenez when she is available. #. Acute blood loss anemia secondary to GI bleeding from anastomosis and from metastatic cancer. - Heparin drip has been on hold. Continue to follow hemoglobin and hematocrit. 5 packed red blood transfusion since admission. Most recent blood transfusion occurred on 06/11 and 06/12. - HH decreased. Ordered 1 PRBC on 06/18/18. #. Leukocytosis. Possible multifactorial. - Patient had Lunesta. Patient is on steroids. Patient also grew yeast like organism on the drainage fluid and wound cultures. Currently patient on tapering steroids. Patient is on meropenem and micafungin. Patient had recent bowel perforation status post surgery. Patient also has metastatic lung cancer. #. Acute nonocclusive deep vein thrombosis of the left distal superficial femoral vein. - Dr. Young was consulted and patient had IVC filter in place. Due to the GI bleed, patient's heparin is discontinued. #. Atrial fibrillation with RVR. - Status post cardioversion on 05/15/2018. Since the cardioversion patient's rhythm returned to sinus. Plaster Model And Mold Maker consulted. - Patient is on amiodarone, metoprolol. #. Right sided heart failure with esarvhgl-mu-ewtkef pulmonary hypertension. - Patient is on Lasix. Continue to monitor strict input and putout and daily weight. #. Acute hypoxic respiratory failure secondary to anasarca and fluid overload. - On the diuretic. Currently patient maintained satisfactory oxygen saturation on room air. #. Thrombocytopenia. Improved. #. Adrenal insufficiency. On hydrocortisone. #. History of cerebrovascular accident (CVA). #. Left jugular vein thrombosis. Patient has an IVC filter due to the GI bleed. Heparin is on hold. #. Protein calorie malnutrition. On TPN. Will encourage oral intake. #. Deep vein thrombosis prophylaxis. On thromboembolic deterrent stockings (TEDS) compression. VS,Fishbone, I+O VS, Fishbone, I+O Laboratory Tests 06/18/18 06:40 Red Blood Count 2.81 L, Mean Corpuscular Volume 81.9, Mean Corpuscular Hemoglobin 28.1, Mean Corpuscular Hemoglobin Concent 34.3, Red Cell Distribution Width 16.8 H, Neutrophils (%) (Auto) 87.0 H, Lymphocytes (%) (Auto) 6.9 L, Monocytes (%) (Auto) 3.1, Eosinophils (%) (Auto) 2.2, Basophils (%) (Auto) 0.1, Neutrophils # (Auto) 8.8 H, Lymphocytes # (Auto) 0.7 L, Monocytes # (Auto) 0.3, Eosinophils # (Auto) 0.2, Basophils # (Auto) 0.0, Calcium Level 8.0 L, Aspartate Amino Transf (AST/SGOT) 75 H, Alanine Aminotransferase (ALT/SGPT) 72, Alkaline Phosphatase 330 H, Total Bilirubin 0.3, Total Protein 5.7 L, Albumin 1.3 L Vital Signs Date Time Temp Pulse Resp B/P (MAP) Pulse Ox O2 Delivery O2 Flow Rate FiO2 06/18/18 15:54 98.3 107 18 110/70 (83) 96 Room Air 06/13/18 03:45 1.0 I&O- Last 24 Hours up to 6 AM 06/18/18 06:00 Intake Total 1380 ml Output Total 1700 ml Balance -320 ml VALE MARTÍNEZ DO Jun 18, 2018 18:51
[2018-06-19] VITALS (10 sets, daily range): BP systolic 124–159; BP diastolic 69–90
[2018-06-19] MEDS: ACETAMINOPHEN TAB 650MG DOSE (2X325MG) PO PRN (01:18)
[2018-06-19] MEDS: IPRATROPIUM 0.5MG/ALBUTEROL 2.5MG INH SOL UD 3ML (DUONEB)(J7620) NEB SCH ×4 (02:00→22:45)
[2018-06-19] MEDS: SODIUM CHLORIDE 0.9% INJ 10 ML SYR IV SCH ×2 (05:52→17:59)
[2018-06-19] MEDS: HumaLOG INSULIN (NovoLOG) PER UNIT SC SCH ×2 (05:53→12:13)
[2018-06-19 06:48] LABS: BASO % 0.3 % (0.0-1.0); EOS # 0.2 10^3/uL (0.0-0.50); EOS % 2.6 % (0.0-3.0); HEMATOCRIT 27.2 % (36.0-47.0); HEMOGLOBIN 9.4 g/dl (12.0-15.5); LYMPH # 0.7 10^3/uL (1.5-4.5); LYMPH % 8.1 % (24.0-44.0); MEAN CORPUSCULAR HEMOGLOBIN 28.6 pg (27.0-33.0); MEAN CORPUSCULAR HGB CONC 34.6 g/dl (32.0-36.5); MEAN CORPUSCULAR VOLUME 82.7 fl (80.0-96.0); MONO # 0.3 10^3/uL (0.0-0.8); MONO % 3.2 % (0.0-5.0); NEUTROPHILS # 7.4 10^3/uL (1.8-7.7); NEUTROPHILS % 84.8 % (36.0-66.0); PLATELET COUNT, AUTOMATED 169 10^3/uL (150-450); RED BLOOD COUNT 3.29 10^6/uL (4.00-5.40); WHITE BLOOD COUNT 8.7 10^3/uL (4.0-10.0)
[2018-06-19 07:11] LABS: ALBUMIN 1.3 GM/DL (3.2-5.2); ALT/SGPT 72 U/L (12-78); BILIRUBIN,TOTAL 0.4 MG/DL (0.2-1.0); BLOOD UREA NITROGEN 23 MG/DL (7-18); CALCIUM LEVEL 8.5 MG/DL (8.8-10.2); CARBON DIOXIDE LEVEL 27 MEQ/L (21-32); CHLORIDE LEVEL 96 MEQ/L (98-107); CREATININE FOR GFR 0.55 MG/DL (0.55-1.30); GLOMERULAR FILTRATION RATE > 60.0 (>45); GLUCOSE, FASTING 114 MG/DL (70-100); POTASSIUM SERUM 4.1 MEQ/L (3.5-5.1); SODIUM LEVEL 131 MEQ/L (136-145); TOTAL PROTEIN 6.1 GM/DL (6.4-8.2)
[2018-06-19] MEDS: LOPERAMIDE 2 MG CAP PO SCH (09:00)
[2018-06-19] MEDS: FLUCONAZOLE 100 MG TAB PO SCH (09:20)
[2018-06-19] MEDS: AMIODARONE 200 MG TAB (PACERONE) PO SCH (09:21)
[2018-06-19] MEDS: FUROSEMIDE 20 MG TAB PO SCH (09:21)
[2018-06-19] MEDS: LISINOPRIL 20 MG TAB PO SCH (09:21)
[2018-06-19] MEDS: POTASSIUM CHLORIDE 10 MEQ SR TABLET PO SCH (09:22)
[2018-06-19] MEDS: METOPROLOL SUCC *XL* 25MG TAB (TopROL *XL*) PO SCH (09:23)
[2018-06-19] MEDS: MAGNESIUM CHLORIDE 64 MG TABCR (SLO MAG) PO SCH (09:24)
[2018-06-19] MEDS: PANTOPRAZOLE 40MG INJ (PROTONIX) (C9113) IV SCH ×2 (09:46→21:27)
[2018-06-19] MEDS: SODIUM CHLORIDE 0.9% INJ 10 ML SYR IV PRN ×2 (09:47→10:26)
[2018-06-19] MEDS: HYDROCORTISONE 100 MG/2 ML VIAL (J1720) IV SCH (09:47)
[2018-06-19] MEDS: ONDANSETRON 4MG/2ML VIAL (J2405) IV PRN (10:26)
--- NOTE | 2018-06-19 19:59 | IPNPDOC ---
Text Note Date of Service The patient was seen on 06/19/18. NOTE SUBJECTIVE: Patient is seen and examined in the room today. Patient states her oral intake is not as good as yesterday. She states she is not feeling well yesterday evening time. OBJECTIVE: Listed below. GENERAL: No sign of acute distress. Patient alert and awake. HEENT: Normocephalic, atraumatic. Extraocular motor grossly intact. CARDIOVASCULAR: Positive S1, S2, regular rate. LUNGS: Clear to auscultation bilaterally. ABDOMEN: Abdomen is soft. Bowel sound present. EXTREMITIES: No edema. LABORATORY DATA: Listed below. ASSESSMENT AND PLAN: #. Small bowel perforation with bilateral peritonitis - status post exploratory laparotomy with small bowel resection on 06/02/2018. - Culture from abdominal fluid and showed yeast like organism. Infectious consulted for antibiotic and antifungal medication management. Meropenem and micafungin discontinued. On Diflucan now. - Will monitor oral intake. Continue on TPN. - General surgery on board. - Continue Physical therapy. # Metastatic lung cancer with metastases to brain, bilateral adrenal glands, infrascapular region and intestinal metastatic implants. - Patient had first cycle of palliative chemotherapy on 05/24. Oncology consulted. - Discussed with Dr. Jimenez. Dr Jimenez will re-access the patient. #. Acute blood loss anemia secondary to GI bleeding from anastomosis and from metastatic cancer. - Heparin drip has been on hold. Continue to follow hemoglobin and hematocrit. 5 packed red blood transfusion since admission. Most recent blood transfusion occurred on 06/11 and 06/12 and 06/18/18 #. Leukocytosis. Possible multifactorial. - Patient had Lunesta. Patient is on steroids. Patient also grew yeast like organism on the drainage fluid and wound cultures. patient was on tapering steroids. Patient is on meropenem and micafungin. Patient had recent bowel perforation status post surgery. Patient also has metastatic lung cancer. #. Acute nonocclusive deep vein thrombosis of the left distal superficial femoral vein. - Dr. Young was consulted and patient had IVC filter in place. Due to the GI bl eed, patient's heparin is discontinued. #. Atrial fibrillation with RVR. - Status post cardioversion on 05/15/2018. Since the cardioversion patient's rhythm returned to sinus. Slicing Machine Operator consulted. - Patient is on amiodarone, metoprolol. #. Right sided heart failure with [id number] pulmonary hypertension. - Patient is on Lasix. Continue to monitor strict input and putout and daily we ight. #. Acute hypoxic respiratory failure secondary to anasarca and fluid overload. - On the diuretic. Currently patient maintained satisfactory oxygen saturation on room air. #. Thrombocytopenia. Improved. #. Adrenal insufficiency. On hydrocortisone. #. History of cerebrovascular accident (CVA). #. Left jugular vein thrombosis. Patient has an IVC filter due to the GI bleed. Heparin is on hold. #. Protein calorie malnutrition. On TPN. Will encourage oral intake. #. Deep vein thrombosis prophylaxis. On thromboembolic deterrent stockings (TEDS) compression. VS,Fishbone, I+O VS, Fishbone, I+O Laboratory Tests 06/19/18 06:32 Red Blood Count 3.29 L, Mean Corpuscular Volume 82.7, Mean Corpuscular Hemoglobin 28.6, Mean Corpuscular Hemoglobin Concent 34.6, Red Cell Distribution Width 16.2 H, Neutrophils (%) (Auto) 84.8 H, Lymphocytes (%) (Auto) 8.1 L, Monocytes (%) (Auto) 3.2, Eosinophils (%) (Auto) 2.6, Basophils (%) (Auto) 0.3, Neutrophils # (Auto) 7.4, Lymphocytes # (Auto) 0.7 L, Monocytes # (Auto) 0.3, Eosinophils # (Auto) 0.2, Basophils # (Auto) 0.0, Calcium Level 8.5 L, Aspartate Amino Transf (AST/SGOT) 86 H, Alanine Aminotransferase (ALT/SGPT) 72, Alkaline Phosphatase 347 H, Total Bilirubin 0.4, Total Protein 6.1 L, Albumin 1.3 L Vital Signs Date Time Temp Pulse Resp B/P (MAP) Pulse Ox O2 Delivery O2 Flow Rate FiO2 06/19/18 16:00 98.2 97 18 137/79 (98) 97 Room Air 06/13/18 03:45 1.0 I&O- Last 24 Hours up to 6 AM 06/19/18 06:00 Intake Total 2340 ml Output Total 2650 ml Balance -310 ml VALE MARTÍNEZ DO Jun 19, 2018 19:59
[2018-06-19] MEDS: HYDROCORTISONE 5MG TABLET PO SCH (21:27)
[2018-06-20] VITALS: BP 135/81
[2018-06-20] MEDS: IPRATROPIUM 0.5MG/ALBUTEROL 2.5MG INH SOL UD 3ML (DUONEB)(J7620) NEB SCH ×4 (02:00→20:00)
[2018-06-20 04:00] VITALS: BP 130/75
[2018-06-20] MEDS: SODIUM CHLORIDE 0.9% INJ 10 ML SYR IV SCH ×2 (05:38→17:51)
[2018-06-20 06:07] LABS: BASO % 0.3 % (0.0-1.0); EOS # 0.3 10^3/uL (0.0-0.50); EOS % 2.7 % (0.0-3.0); HEMATOCRIT 27.3 % (36.0-47.0); HEMOGLOBIN 9.3 g/dl (12.0-15.5); LYMPH # 0.8 10^3/uL (1.5-4.5); LYMPH % 8.2 % (24.0-44.0); MEAN CORPUSCULAR HEMOGLOBIN 27.4 pg (27.0-33.0); MEAN CORPUSCULAR HGB CONC 34.1 g/dl (32.0-36.5); MEAN CORPUSCULAR VOLUME 80.5 fl (80.0-96.0); MONO # 0.3 10^3/uL (0.0-0.8); MONO % 3.3 % (0.0-5.0); NEUTROPHILS # 8.4 10^3/uL (1.8-7.7); NEUTROPHILS % 84.2 % (36.0-66.0); PLATELET COUNT, AUTOMATED 188 10^3/uL (150-450); RED BLOOD COUNT 3.39 10^6/uL (4.00-5.40)
[2018-06-20 06:16] LABS: ALBUMIN 1.5 GM/DL (3.2-5.2); ALT/SGPT 63 U/L (12-78); BILIRUBIN,TOTAL 0.4 MG/DL (0.2-1.0); BLOOD UREA NITROGEN 22 MG/DL (7-18); CALCIUM LEVEL 8.3 MG/DL (8.8-10.2); CARBON DIOXIDE LEVEL 28 MEQ/L (21-32); CHLORIDE LEVEL 92 MEQ/L (98-107); CREATININE FOR GFR 0.53 MG/DL (0.55-1.30); GLOMERULAR FILTRATION RATE > 60.0 (>45); GLUCOSE, FASTING 77 MG/DL (70-100); MAGNESIUM LEVEL 1.8 MG/DL (1.8-2.4); POTASSIUM SERUM 3.8 MEQ/L (3.5-5.1); SODIUM LEVEL 129 MEQ/L (136-145); TOTAL PROTEIN 5.6 GM/DL (6.4-8.2)
--- NOTE | 2018-06-20 06:46 | IPN ---
DATE: 06/19/2018 Mrs. Turcios seems to be doing fairly well today. She had a fever yesterday up to 100.7. She denies any nausea, vomiting or diarrhea. Her appetite is improving. She still has some discharge from the mid incision, but that has decreased as well. She is gaining strength and has been ambulating more. LABORATORY DATA: White count is 8.7, hemoglobin 9.4, hematocrit 27.2, platelets 169, 85% neutrophils, 8% lymphocytes. Sodium 131, potassium 4.1, chloride 96, bicarb 27, BUN 23, creatinine 0.5, glucose 114, calcium 8.5, AST 86, ALT 72, alkaline phosphatase 347, total protein 6.1, albumin 1.3. Heart normal S1-S2. No murmurs. Lungs are clear. No wheezes or rhonchi. Abdomen is soft, nontender. She has minimal yellowish discharge on the ABD pad. No tenderness or redness. Extremities no clubbing, cyanosis or edema. No calf tenderness. IMPRESSION: 1. Intra-abdominal infection status post bowel perforation with peritonitis with cultures only positive for yeastlike organism. The patient is currently day 3 of fluconazole after she has received IV micafungin and meropenem. The patient had recurrent fever over the weekend, but clinically is improving. If the patient continues to be febrile, if white count increases or CRP, please repeat CT abdomen and pelvis as the drains were also removed and seems like she has a mild increase in her fever after drains were removed and antibiotics discontinued. 2. Metastatic lung cancer with mets to brain, adrenals and bone. The patient's chemotherapy is currently on hold. Dr. Hairston does not feel that she will be able to get back on chemotherapy after Bowel perforation status and peritonitis. PLAN: Repeat CT abdomen and pelvis in the morning if the patient has recurrent fever, or white count or CRP continue to increase. Continue p.o. Diflucan. Identification on organism is still pending. Will discuss case with Dr Olivia KRAUSE
[2018-06-20 08:00] VITALS: BP 142/89
[2018-06-20] MEDS: AMIODARONE 200 MG TAB (PACERONE) PO SCH (08:13)
[2018-06-20] MEDS: MAGNESIUM CHLORIDE 64 MG TABCR (SLO MAG) PO SCH (08:13)
[2018-06-20] MEDS: PANTOPRAZOLE 40MG INJ (PROTONIX) (C9113) IV SCH ×2 (08:13→20:31)
[2018-06-20] MEDS: POTASSIUM CHLORIDE 10 MEQ SR TABLET PO SCH (08:13)
[2018-06-20] MEDS: HYDROCORTISONE 5MG TABLET PO SCH ×2 (08:14→20:31)
[2018-06-20] MEDS: FLUCONAZOLE 100 MG TAB PO SCH (08:14)
[2018-06-20] MEDS: METOPROLOL SUCC *XL* 25MG TAB (TopROL *XL*) PO SCH (08:14)
[2018-06-20] MEDS: LISINOPRIL 20 MG TAB PO SCH (08:14)
[2018-06-20] MEDS: FUROSEMIDE 20 MG TAB PO SCH (08:15)
[2018-06-20] MEDS: GASTROGRAFIN SOLUTION 30ML PO SCH ×2 (09:34→10:01)
--- NOTE | 2018-06-20 10:02 | IPN ---
MEDICAL ONCOLOGY INPATIENT FOLLOWUP DATE OF SERVICE: 06/20/2018 DIAGNOSIS: Stage IV oligometastatic non-small cell lung carcinoma with recent progression, acquired TKI resistance, status post chemoimmunotherapy 05/24/2018 complicated by hospitalization for a gastrointestinal (GI) bleed, found to have intestinal perforation associated with tumor intestinal focus. Status post surgical intervention, now status post drain removal with low-grade fevers, on oral antifungals, gradual clinical improvement punctuated by intermittent low-grade fever, still-elevated CRP. INTERVAL HISTORY: Hallie has made progress in terms of more mobilization, out of bed, walking around halls. She continues to have low-grade fevers. Dr. Coffman following closely. Drains have been removed. She has not had re-imaging of the abdomen or chest since mid-May. Notably, a cough that has become persistent prior to starting her most recent new chemotherapy has now resolved. The only organism that has grown out is yeastlike from one of her drains. LABS: WBC 10, hemoglobin 9.3, hematocrit 27, platelets 188 (status post 1 RBC transfusion 06/19/2018). Sodium 129, chloride low. Remainder of electrolytes unremarkable. GFR intact. CRP 10.5 versus 14.5 06/16/2018. Albumin 1.5. IMPRESSION: Metastatic adenocarcinoma of lung in a never-smoker, originally with EGFR mutation sensitive to targeted agents, subsequently developed T790M mutation, also sensitive to targeted agents, presented in March, with symptoms of disease progression, found to have bilateral large adrenal metastases and intestinal implants. Began new chemotherapy with carboplatin/Taxol/bevacizumab/atezolizumab 05/24/2018, hospitalized shortly thereafter with GI bleed for which she had been symptomatic, retrospectively, over several weeks. Has now undergone laparoscopic surgical intervention, drains removed, clinically improving but gradually, unknown whether her persistent fevers are secondary to infection, persistent, or responding to antifungals. Hallie's weight continues to be low. She has been on total parenteral nutrition (TPN). RECOMMENDATIONS: 1. I discussed with Dr. Soha Breaux last night the need for restaging chest, abdomen and pelvis CTs to assess response to treatment. If there has been major response at the adrenals and lung sites, this would argue for the patient's current clinical situation being attributable to her GI perforation complications as opposed to her cancer per se. It is important to make this distinction in discussing prognosis. To date, she has enjoyed a great quality of life despite a metastatic cancer diagnosis with a highly treatable form of lung cancer. I have placed an order for chest, abdomen and pelvis CT with by mouth and IV contrast as restaging. This can also be used to assess for any residual infectious sites. 2. Chemoimmunotherapy on hold for the present. If evidence of disease response, I would argue for continued rehabilitation and treatment of infection with a potential prognosis of up to a year of good quality of life survival should she recover from the surgical complication. She may be a candidate in the future for more treatment, all depending on how she does with this intestinal perforation -- of course, assuming she is responding to treatment given 05/24/2018. Notably, her cough has resolved. I will continue to follow. MTDD
[2018-06-20] MEDS: LOPERAMIDE 2 MG CAP PO PRN (10:49)
[2018-06-20] MEDS ORDERED: ISOVUE-370 76% 100ML VIAL (Q9967) As Ordered ONE (11:21)
[2018-06-20] MEDS: SODIUM CHLORIDE 0.9% INJ 10 ML SYR IV PRN (11:30)
--- NOTE | 2018-06-20 12:45 | REP ---
CT CHEST WITH IV CONTRAST: HISTORY: Stage IV non-small cell lung carcinoma status post chemotherapy. Status post GI perforation May 27, [address] CONTRAST DOSE: 100 mL of intravenous Isovue 370. Comparison study is from April 20, 2018. CT FINDINGS: Digital preliminary ramp lead radiograph demonstrates a cardiac enlargement and bilateral pleural effusions right greater than left. Postoperative kashmir are seen in the mid abdomen with clips in the left lower abdomen. No dilated bowel loops. CT FINDINGS: Small bilateral pleural effusions are confirmed, right greater than left. There are areas of parietal pleural enhancement without pleural-based mass. There is atelectasis and consolidation in the lower lobes bilaterally, right lower lobe more than left lower lobe. No hilar or mediastinal mass or adenopathy is observed. The right lower lobe and right middle lobe consolidation have improved from the April 20, 2018 prior study. The left lower lobe atelectasis and consolidation are new. Today's study also shows small patchy infiltrates in the right upper lobe which are new from the prior study. The right posterior chest wall mass lesion along the medial border of the lower scapula is not apparent today consistent with improvement. There is a precarinal lymph node visible today with a 12 mm short axis dimension. This appears a little larger than on the April 20, 2018 study. No other abnormal lymph nodes are appreciated. No new or progressive bony destructive lesion is seen on bone window settings. IMPRESSION: 1. Bilateral pleural effusions, right greater than left, more prominent than on April 20, 2018. New on the left. 2. Improved atelectasis and consolidation right lower lobe and right middle lobe today. New atelectasis with consolidation left lower lobe. New subtle infiltrates right upper lobe. 3. There is a 12 mm lymph node in the precarinal region which was not previously apparent. On the other hand, the previously noted skeletal muscle metastasis along the medial scapular border on the right posterior chest wall is not apparent today consistent with improvement here. Electronically Signed by Eddie Connors MD 06/20/2018 01:50 P
--- NOTE | 2018-06-20 13:34 | REP ---
CT ABDOMEN WITH IV AND ORAL CONTRAST: HISTORY: Stage IV non-small cell lung carcinoma. Status post GI perforation. Status post chemo. Status-post surgery. Comparison CT studies are reviewed the most recent of which is from June 10, 2018. CT CONTRAST DOSE: 100 mL of intravenous Isovue [address] FINDINGS: There are small bilateral pleural effusions, new on the left and increased on the right with bilateral lower lobe atelectasis and consolidation. There is no ascites with diffuse peritoneal enhancement in the perihepatic and perisplenic region of the upper abdomen bilaterally. The left and right subphrenic components of these fluid collections are a little larger today than on the 06/10/2018 study. There is diffuse edema or fibrosis in the mesenteric fat in the left mid abdomen. There are two or three small triangular interloop fluid collections in the right lower quadrant and infraumbilical region. These are approximately the same as from the recent prior study. An IVC filter is noted in place and there appears to be a thrombus within it in the IVC. Postoperative changes are seen in the anterior abdominal wall. Small and large bowel loops are opacified with oral contrast. There is a cyst in the left mid kidney again noted. Adrenal masses are again noted bilaterally unchanged consistent with metastases. Metastatic liver lesions are again seen unchanged as well. IMPRESSION: There are bilateral subphrenic/perihepatic/perisplenic fluid collections with enhancing margins consistent with abscesses. These are a little larger. Metastatic liver lesion and adrenal lesions are again noted unchanged. Stable cyst left kidney. There is a small thrombus within the legs of the inferior vena cava filter. Electronically Signed by Eddie Connors MD 06/20/2018 01:51 P
[2018-06-20 14:00] VITALS: BP 143/65
--- NOTE | 2018-06-20 15:55 | IPNPDOC ---
Subjective Date Seen The patient was seen on 06/20/18. Subjective Chief Complaint/HPI Patient seen and examined at the bedside. Reports that she still feels the same. She does state that she was able to tolerate her breakfast. However the patient did have another fever early this morning. A CT scan of the chest/abdomen/pelvis has been ordered for cancer staging, and follow up for possible intra-abdominal abscesses. Objective Physical Examination General Exam: Positive: Alert, Cooperative, No Acute Distress ENT Exam: Positive: Atraumatic, Mucous membr. moist/pink, Other ENT (bitemporal wasting noted) Neck Exam: Negative: JVD Chest Exam: Positive: Diminished Heart Exam: Positive: Rate Normal, Normal S1, Normal S2 Telemetry: Positive: Sinus Abdomen Exam: Positive: Soft, Other (Purulant discharge noted from port site. Surgical dressing noted over the abdominal wall); Negative: Tenderness Extremity Exam: Negative: Tenderness, Swelling Psych Exam: Positive: Oriented x 3 Assessment /Plan Plan/VTE VTE Prophylaxis Ordered?: Yes Plan Small Bowel Perforation with Bile Peritonitis s/p Ex Lap with Small Bowel Resection on 06/[address] Abd/Pel with IV/PO contrast ordered for today as the patient continues to spike intermittent fevers. Currently on Fluconazole as per ID Gen Surg/ID on board Acute blood loss anemia likely 2/2 GI Bleeding H&H stable this morning Acute non-occlusive DVT at L distal superficial femoral vein Duplex US 06/06: Acute nonocclusive thrombus in the left distal superficial femoral vein. Normal right lower extremity without thrombosis. Dr. Young (Vascular surgery) consulted; s/p IVC filter on 06/07 Patient not a candidate for AC 2/2 above s/p Atrial fibrillation with RVR s/p Mechanical Cardioversion on 06/01 with conversion to normal sinus rhythm ECHO notable for preserved EF, and normal diastolic function. Moderate/severe pulmonary hypertension and tricuspid regurgitation noted. Continue metoprolol, amiodarone Patient not a candidate for AC 2/[address] 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 Baker as an outpatient Dr. Baker (Oncology) on consult; appreciate input Hx of CVA Left Jugular Vein Thrombosis s/p IVC filter Protein calorie malnutrition - likely moderate / severe Patient has had significant weight loss - likely 2/2 malignancy Poor oral intake Appears cachectic c/w TPN DVT Prophylaxis Heparin on hold 2/2 GI Bleed Poor Progress Man Prognosis Disposition: pending clinical improvement, f/u imaging of CT Chest/Abd/Pel. VS, I&O, 24H, Fishbone Vital Signs/I&O Vital Signs Date Time Temp Pulse Resp B/P (MAP) Pulse Ox O2 Delivery O2 Flow Rate FiO2 06/20/18 08:14 115 142/89 06/20/18 08:00 98.4 18 95 Room Air I&O- Last 24 Hours up to 6 AM 06/20/18 06:00 Intake Total 1560 ml Output Total 2700 ml Balance -1140 ml Laboratory Data 24H LABS Laboratory Tests 2 06/20/18 05:36: Immature Granulocyte % (Auto) 1.3, White Blood Count 10.0, Red Blood Count 3.39L, Hemoglobin 9.3L, Hematocrit 27.3L, Mean Corpuscular Volume 80.5, Mean Corpuscular Hemoglobin 27.4, Mean Corpuscular Hemoglobin Concent 34.1, Red Cell Distribution Width 16.2H, Platelet Count 188, Neutrophils (%) (Auto) 84.2H, Lymphocytes (%) (Auto) 8.2L, Monocytes (%) (Auto) 3.3, Eosinophils (%) (Auto) 2.7, Basophils (%) (Auto) 0.3, Neutrophils # (Auto) 8.4H, Lymphocytes # (Auto) 0.8L, Monocytes # (Auto) 0.3, Eosinophils # (Auto) 0.3, Basophils # (Auto) 0.0, Nucleated Red Blood Cells % (auto) 0.0, Anion Gap 9, Glomerular Filtration Rate > 60.0, Blood Urea Nitrogen 22H, Creatinine 0.53L, Sodium Level 129L, Potassium Level 3.8, Chloride Level 92L, Carbon Dioxide Level 28, Calcium Level 8.3L, Aspartate Amino Transf (AST/SGOT) 55H, Alanine Aminotransferase (ALT/SGPT) 63, Alkaline Phosphatase 332H, Total Bilirubin 0.4, Total Protein 5.6L, Albumin 1.5L, Magnesium Level 1.8, C-Reactive Protein, Quantitative 10.50H, Albumin/Globulin Ratio 0.37L 06/20/18 08:12: Bedside Glucose (Misc Panel) 112 06/20/18 13:52: CBC/BMP Laboratory Tests 06/20/18 05:36 Red Blood Count 3.39 L, Mean Corpuscular Volume 80.5, Mean Corpuscular Hemoglobin 27.4, Mean Corpuscular Hemoglobin Concent 34.1, Red Cell Distribution Width 16.2 H, Neutrophils (%) (Auto) 84.2 H, Lymphocytes (%) (Auto) 8.2 L, Monocytes (%) (Auto) 3.3, Eosinophils (%) (Auto) 2.7, Basophils (%) (Auto) 0.3, Neutrophils # (Auto) 8.4 H, Lymphocytes # (Auto) 0.8 L, Monocytes # (Auto) 0.3, Eosinophils # (Auto) 0.3, Basophils # (Auto) 0.0, Calcium Level 8.3 L, Aspartate Amino Transf (AST/SGOT) 55 H, Alanine Aminotransferase (ALT/SGPT) 63, Alkaline Phosphatase 332 H, Total Bilirubin 0.4, Total Protein 5.6 L, Albumin 1.5 L Microbiology Microbiology 06/13/18 Clostridium difficile (PCR) - Final, Complete 06/10/18 Wound Culture - Preliminary, Resulted Grace Albicans CONRADO MANLEY MD Jun 20, 2018 15:54
[2018-06-20 16:00] VITALS: BP 115/59
[2018-06-20 20:00] VITALS: BP 123/64
--- NOTE | 2018-06-20 21:56 | IPN ---
DATE: 06/20/2018 INFECTIOUS DISEASE PROGRESS NOTE Does not have major complaints today. She is somewhat frustrated. She still has difficulty eating. She has some nausea. She denied any abdominal pain. She had low grade fever, no chills. She denies any diarrhea. She was seen by Dr. Baker who has ordered a CT chest, abdomen and pelvis for restaging and for followup on intra-abdominal abscess. This was done this afternoon. PHYSICAL EXAMINATION: Heart: Normal S1, S2. No murmurs. Lungs are diminished at the bases but clear. Abdomen is soft, nontender. There is purulent discharge, which has decreased in amount on the ABD pad, yellow-greenish in color. It comes from the upper aspect of the incisional wound where kashmir are in place. There are two drains that are healed well with scabs. Extremities: No clubbing, cyanosis or edema. Neurologic Exam: Alert, oriented x3. Motor strength - generalized weakness but symmetric. Oropharynx: Dry. Neck is supple. LABORATORY: Sodium 129, potassium 3.8, chloride 92, bicarbonate 28, BUN 22, creatinine 0.53, glucose 77, calcium 8.3, magnesium 1.8, bilirubin 0.4, AST 55, ALT 63, alkaline phosphatase 322, CRP 10.5, down from 14.5, white count 10, hemoglobin 9.3, hematocrit 27.3, platelets 188, 84% neutrophils, 8% lymphocytes, 3% monocytes. Wound culture from 06/10/2018 had Grace albicans. Stool for Clostridium difficile (C diff) on 06/13/2018 was negative. IMAGING: CT abdomen and pelvis showed bilateral subphrenic/perihepatic fluid collections with enhancing margins consistent with abscesses. These are a little larger. Metastatic liver lesions and adrenal lesions are again noted and unchanged. Stable cysts of the left kidney and a thrombus within the legs of the inferior vena cava. Chest CT shows a 12 mm lymph node in the precarinal region which was not previously present, new atelectasis with consolidation of the left lower lobe, new subtle infiltrates right upper lobe. There are no new or progressive bony destructive lesions seen. The right posterior chest wall mass lesion along the medial border of the lower scapula is not apparent today consistent with improvement. IMPRESSION: 1. Bowel perforation with peritonitis with persistent fever and subphrenic abscesses. The patient will need further drainage procedure, probably with interventional radiology. I have discussed the case with Dr. Hairston and will be discussing that with radiology. The patient is on fluconazole for Grace albicans on previous cultures. Will add broad-spectrum gram-negative and anaerobic coverage to cover for bowel jenn until cultures are available. 2. Metastatic lung cancer to brain, bones and adrenals. Restaging CT shows some improvement in the scapular lesion but a new lymph node in the lung, precarinal lymph node. No change in adrenal mets and liver mets. The question is whether she will be able to tolerate further chemotherapy. This will be left to the discretion of Dr. Baker and on her clinical improvement. 3. Dizziness on standing. She seems to have orthostatic hypotension with hyponatremia. The patient is on Lasix 20 mg daily, lisinopril and metoprolol. Prior to admission, she was on no cardiac medication, and I suspect with her weight loss, she has some degree of dehydration and orthostasis. Consider discontinuing some of the blood pressure medication, especially diuretic. 4. Adrenal insufficiency, on steroid replacement. PLAN: Continue oral fluconazole. Will add Zosyn for gram-negative and anaerobic coverage. Tomorrow will discuss with interventional radiology drainage of subphrenic collection.
[2018-06-20] MEDS: PIPERACILLIN/TAZOBACTAM SOD 3.375 GM in D5W MINI-BAG PLUS 50 ML IV SCH (22:37)
[2018-06-21] VITALS (10 sets, daily range): BP systolic 89–138; BP diastolic 54–72
[2018-06-21] MEDS: IPRATROPIUM 0.5MG/ALBUTEROL 2.5MG INH SOL UD 3ML (DUONEB)(J7620) NEB SCH ×4 (02:00→20:00)
[2018-06-21] MEDS: PIPERACILLIN/TAZOBACTAM SOD 3.375 GM in D5W MINI-BAG PLUS 50 ML IV SCH ×4 (04:12→21:26)
[2018-06-21 05:39] LABS: BASO % 0.3 % (0.0-1.0); EOS # 0.2 10^3/uL (0.0-0.50); EOS % 2.1 % (0.0-3.0); HEMATOCRIT 25.2 % (36.0-47.0); HEMOGLOBIN 8.5 g/dl (12.0-15.5); LYMPH # 1.1 10^3/uL (1.5-4.5); LYMPH % 10.1 % (24.0-44.0); MEAN CORPUSCULAR HEMOGLOBIN 27.8 pg (27.0-33.0); MEAN CORPUSCULAR HGB CONC 33.7 g/dl (32.0-36.5); MEAN CORPUSCULAR VOLUME 82.4 fl (80.0-96.0); MONO # 0.4 10^3/uL (0.0-0.8); NEUTROPHILS # 8.6 10^3/uL (1.8-7.7); NEUTROPHILS % 82.2 % (36.0-66.0); PLATELET COUNT, AUTOMATED 182 10^3/uL (150-450); RED BLOOD COUNT 3.06 10^6/uL (4.00-5.40); WHITE BLOOD COUNT 10.4 10^3/uL (4.0-10.0)
[2018-06-21] MEDS: SODIUM CHLORIDE 0.9% INJ 10 ML SYR IV SCH ×2 (05:39→18:31)
[2018-06-21 05:49] LABS: INR 1.09; PROTHROMBIN TIME 14.2 SECONDS (12.1-14.4)
[2018-06-21 05:50] LABS: PARTIAL THROMBOPLASTIN TIME 33.3 SECONDS (25.4-37.6)
[2018-06-21 05:58] LABS: ALBUMIN 1.2 GM/DL (3.2-5.2); ALT/SGPT 47 U/L (12-78); BILIRUBIN,TOTAL 0.5 MG/DL (0.2-1.0); BLOOD UREA NITROGEN 23 MG/DL (7-18); CALCIUM LEVEL 7.4 MG/DL (8.8-10.2); CARBON DIOXIDE LEVEL 24 MEQ/L (21-32); CHLORIDE LEVEL 94 MEQ/L (98-107); CREATININE FOR GFR 0.78 MG/DL (0.55-1.30); GLOMERULAR FILTRATION RATE > 60.0 (>45); GLUCOSE, FASTING 82 MG/DL (70-100); MAGNESIUM LEVEL 1.5 MG/DL (1.8-2.4); POTASSIUM SERUM 4.1 MEQ/L (3.5-5.1); SODIUM LEVEL 128 MEQ/L (136-145); TOTAL PROTEIN 5.1 GM/DL (6.4-8.2)
[2018-06-21] MEDS ORDERED: MAG SULF 1GM/100ML (MAG RUN) 1 GM in APPROPRIATE DILUENT 1 EA IV ONE (06:30)
[2018-06-21] MEDS ORDERED: MAG SULF 1GM/100ML (MAG RUN) 1 GM in APPROPRIATE DILUENT 1 EA IV SCH (08:00)
[2018-06-21] MEDS: MAGNESIUM CHLORIDE 64 MG TABCR (SLO MAG) PO SCH (09:24)
[2018-06-21] MEDS: POTASSIUM CHLORIDE 10 MEQ SR TABLET PO SCH (09:24)
[2018-06-21] MEDS: PANTOPRAZOLE 40MG INJ (PROTONIX) (C9113) IV SCH ×2 (09:24→21:26)
[2018-06-21] MEDS: FLUCONAZOLE 100 MG TAB PO SCH (09:25)
[2018-06-21] MEDS: AMIODARONE 200 MG TAB (PACERONE) PO SCH (09:25)
[2018-06-21] MEDS: HYDROCORTISONE 5MG TABLET PO SCH ×2 (09:25→21:26)
[2018-06-21] MEDS: METOPROLOL SUCC *XL* 25MG TAB (TopROL *XL*) PO SCH (09:25)
[2018-06-21 10:16] LABS: HEP C VIRUS AB INDEX SOURCE PT 0.2 INDEX (0.0-0.8)
[2018-06-21] MEDS ORDERED: LIDOCAINE 1% MDV 20ML VIAL As Ordered ONE (12:53)
--- NOTE | 2018-06-21 12:59 | IPNPDOC ---
Subjective Date Seen The patient was seen on 06/21/18. Subjective Chief Complaint/HPI Patient seen and examined at the bedside. The patient was noted to have bilateral pleural effusions on CT of the chest, and intra-abdominal abscesses on CT scan of the abdomen/pelvis. She has been scheduled for intervention with IR today. Antibiotic coverage with Zosyn has been added by ID. Objective Physical Examination General Exam: Positive: Alert, Cooperative, No Acute Distress ENT Exam: Positive: Atraumatic, Mucous membr. moist/pink, Other ENT (bitemporal wasting) Neck Exam: Negative: JVD Chest Exam: Positive: Diminished Heart Exam: Positive: Rate Normal, Normal S1, Normal S2 Telemetry: Positive: Sinus Abdomen Exam: Positive: Soft, Other (surgical dressing noted on the abdominal wall. Noted to be draining some purulent material from previous drain site.) Extremity Exam: Negative: Tenderness, Swelling Psych Exam: Positive: Oriented x 3 Assessment /Plan Plan/VTE VTE Prophylaxis Ordered?: Yes Plan Small Bowel Perforation with Bile Peritonitis s/p Ex Lap with Small Bowel Resection on 06/[address] Abd/Pel with IV/PO contrast from 06/20 notable for bilateral subphrenic/perihepatic/ panic fluid collections CT of the chest notable for bilateral pleural effusions, right greater than left Interventional radiology has been consulted for abscess drainage, and pleural effusion drainage Currently on Fluconazole, Zosyn as per ID Gen Surg/ID on board Acute blood loss anemia likely 2/2 GI Bleeding H&H downward trending this morning, will repeat H&H this evening and transfuse if indicated Acute non-occlusive DVT at L distal superficial femoral vein Duplex US 06/06: Acute nonocclusive thrombus in the left distal superficial femoral vein. Normal right lower extremity without thrombosis. Dr. Young (Vascular surgery) consulted; s/p IVC filter on 06/07 Patient not a candidate for AC 2/2 above s/p Atrial fibrillation with RVR s/p Mechanical Cardioversion on 06/01 with conversion to normal sinus rhythm ECHO notable for preserved EF, and normal diastolic function. Moderate/severe pulmonary hypertension and tricuspid regurgitation noted. Continue metoprolol, amiodarone Patient not a candidate for AC 2/[address] 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 Baker as an outpatient Dr. Baker (Oncology) on consult; appreciate input Hx of CVA Left Jugular Vein Thrombosis s/p IVC filter Protein calorie malnutrition - likely moderate / severe Patient has had significant weight loss - likely 2/2 malignancy Poor oral intake Appears cachectic c/w TPN DVT Prophylaxis Heparin on hold / GI Bleed Poor Skilled Nursing Prognosis Disposition: pending clinical improvement. VS, I&O, 24H, Fishbone Vital Signs/I&O Vital Signs Date Time Temp Pulse Resp B/P (MAP) Pulse Ox O2 Delivery O2 Flow Rate FiO2 06/21/18 09:25 122 121/64 06/21/18 08:00 98.9 18 94 Room Air I&O- Last 24 Hours up to 6 AM 06/21/18 06:00 Intake Total 650 ml Output Total 400 ml Balance 250 ml Laboratory Data 24H LABS Laboratory Tests 2 06/20/18 13:52: Hepatitis B Surface Antigen NEGATIVE, Hepatitis C Antibody Index 0.2, HIV Antigen/Antibody Combo Qual NEGATIVE 06/21/18 05:00: Anion Gap 10, Glomerular Filtration Rate > 60.0, Blood Urea Nitrogen 23H, Creatinine 0.78, Sodium Level 128L, Potassium Level 4.1, Chloride Level 94L, Carbon Dioxide Level 24, Calcium Level 7.4L, Aspartate Amino Transf (AST/SGOT) 46H, Alanine Aminotransferase (ALT/SGPT) 47, Alkaline Phosphatase 314H, Total Bilirubin 0.5, Total Protein 5.1L, Albumin 1.2L, Magnesium Level 1.5L, Albumin/Globulin Ratio 0.31L 06/21/18 05:09: Immature Granulocyte % (Auto) 1.3, White Blood Count 10.4H, Red Blood Count 3.06L, Hemoglobin 8.5L, Hematocrit 25.2L, Mean Corpuscular Volume 82.4, Mean Corpuscular Hemoglobin 27.8, Mean Corpuscular Hemoglobin Concent 33.7, Red Cell Distribution Width 16.5H, Platelet Count 182, Neutrophils (%) (Auto) 82.2H, Lymphocytes (%) (Auto) 10.1L, Monocytes (%) (Auto) 4.0, Eosinophils (%) (Auto) 2.1, Basophils (%) (Auto) 0.3, Neutrophils # (Auto) 8.6H, Lymphocytes # (Auto) 1.1L, Monocytes # (Auto) 0.4, Eosinophils # (Auto) 0.2, Basophils # (Auto) 0.0, Nucleated Red Blood Cells % (auto) 0.0, Prothrombin Time 14.2, Prothromb Time International Ratio 1.09, Activated Partial Thromboplast Time 33.3 CBC/BMP Laboratory Tests 06/21/18 05:00 Calcium Level 7.4 L, Aspartate Amino Transf (AST/SGOT) 46 H, Alanine Aminotransferase (ALT/SGPT) 47, Alkaline Phosphatase 314 H, Total Bilirubin 0.5, Total Protein 5.1 L, Albumin 1.2 L 06/21/18 05:09 Red Blood Count 3.06 L, Mean Corpuscular Volume 82.4, Mean Corpuscular Hemoglobin 27.8, Mean Corpuscular Hemoglobin Concent 33.7, Red Cell Distribution Width 16.5 H, Neutrophils (%) (Auto) 82.2 H, Lymphocytes (%) (Auto) 10.1 L, Monocytes (%) (Auto) 4.0, Eosinophils (%) (Auto) 2.1, Basophils (%) (Auto) 0.3, Neutrophils # (Auto) 8.6 H, Lymphocytes # (Auto) 1.1 L, Monocytes # (Auto) 0.4, Eosinophils # (Auto) 0.2, Basophils # (Auto) 0.0 Microbiology Microbiology 06/13/18 Clostridium difficile (PCR) - Final, Complete CONRADO MANLEY MD Jun 21, 2018 12:59
--- NOTE | 2018-06-21 14:07 | REP ---
Chest x-ray: Two views. History: Status post right thoracentesis and left subphrenic abscess catheter drainage with ultrasound guidance. Comparison chest x-ray is from June 06, 2018. Findings: A right-sided PICC line is seen in place with its tip in the expected location of the superior vena cava. EKG monitoring electrodes are seen. The right pleural effusion is improved with persistent blunting of the right lateral and to some degree posterior pleural angles. There is no evidence of pneumothorax. The left subphrenic catheter is seen projecting in the left upper quadrant. Impression: No complication identified. Persistent small effusions improved from 06/06/2018 prior study. Left subphrenic catheter in place. A loop recorder seen. Electronically Signed by Eddie Connors MD 06/21/2018 05:46 P
--- NOTE | 2018-06-21 17:49 | REP ---
ULTRASOUND GUIDED SUBPHRENIC ABSCESS DRAIN The procedure was performed under the direct supervision of Dr. Connors. The patient has a history of bilateral subphrenic/perihepatic/perisplenic fluid collections seen on a previous CT scan dated 06/20/2018. The risks and benefits of the procedure were explained to the patient and informed consent was obtained. The left perisplenic fluid collection was localized using ultrasound guidance. The skin was prepped and draped in a sterile fashion. 1% lidocaine was used as a local anesthetic. Using ultrasound guidance an 8-Panamanian Skater APDL catheter was inserted using trocar technique. 45 ml of cloudy yellow fluid was withdrawn and sent to the lab for analysis. The catheter was affixed to the skin and a sterile dressing was applied. The catheter was connected to a gravity drainage bag. The patient tolerated the procedure well and there were no immediate complications. Reviewed by ZENY Reinoso 06/21/2018 03:17 P Electronically Signed by Eddie Connors MD 06/21/2018 05:40 P
--- NOTE | 2018-06-21 17:49 | REP ---
ULTRASOUND-GUIDED RIGHT THORACENTESIS The procedure was performed under the direct supervision of Dr. Connors. The risks and benefits of the procedure were explained to the patient and informed consent was obtained. The right pleural effusion was localized using ultrasound guidance. The skin was prepped and draped in a sterile fashion. 1% lidocaine was used as a local anesthetic. An 8-Arabic multi side-hole catheter was inserted using trocar technique. 490 ml of yellow fluid was withdrawn and sent to the lab for analysis. The patient tolerated the procedure well and there were no immediate complications. Reviewed by ZENY Reinoso 06/21/2018 03:19 P Electronically Signed by Eddie Connors MD 06/21/2018 05:40 P
[2018-06-21 17:57] LABS: HEMATOCRIT 22.5 % (36.0-47.0); HEMOGLOBIN 7.5 g/dl (12.0-15.5)
--- NOTE | 2018-06-21 18:21 | IPN ---
MEDICAL ONCOLOGY INPATIENT FOLLOWUP DATE OF SERVICE: 06/21/2018 DIAGNOSIS Recurrent metastatic adenocarcinoma of lung originally EGFR mutation sensitive to TKI, acquired resistance to first generation TKI followed by acquired resistance to osimertinib after T790M mutation discovered and treated. Hospitalized with intestinal perforation/GI bleed in the setting of bilateral large adrenal metastases, intestinal soft tissue cancer implants, adrenal insufficiency secondary to adrenal metastases. OVERNIGHT EVENTS CT chest, abdomen and pelvis yesterday demonstrated residual multiple sites of abscess, bilateral pleural effusions. Hallie has undergone drainage of a subphrenic abscess, has been started on broad-spectrum antibiotics, has undergone right thoracentesis. She has been afebrile now since about 10 o'clock last night. Antibiotics broadened beyond antifungals, now on and broad-spectrum antibiotics. She received a 1 unit RBC transfusion on the , initially with response but hematocrit dropping again and by report had a bloody stool episode today. Repeat CBC in process. At that at the bedside Hallie is reclining, awake, alert, complains of a feeling of slight tightness in her chest. Her O2 sat is 95-96. She has got a slight increase in respiratory rate. Denies any pain, any chest pain or active shortness of breath. Clear yellow fluid draining from the subphrenic drain. LABORATORY DATA WBC 10, hematocrit 25, hemoglobin 8.5, platelets 182, neutrophil percent 82, sodium 128, renal function normal, AST, ALT close to normal, alk phos elevated 314, albumin 1.2. Vital signs: Temperature 96.7, blood pressure 138/72, heart rate 77, respiratory rate 18, O2 sat 97% room air. IMPRESSION Hallie Turcios is a 63-year-old woman with metastatic adenocarcinoma of the lung with acquired resistance to T790M mutation targeting agents, status post chemotherapy on May 24 with multiple chemo and immunotherapy agents. Her first cycle complicated by a small bowel perforation associated with tumor implant, hematocrit drop, GI bleed and now finding of persistent multiple bowel abscesses likely secondary to intestinal contents seeding in addition to previously treated yeast organisms. I spoke frankly with Hallie and her about the overall prognosis which is very unclear. Restaging scans showed resolution of her right subscapular soft tissue lesion, possible new left lung density, increased pleural effusions, stable adrenal metastases. 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 Whether her bowel complications are purely from perforation or have a mixed component of infection secondary to perforation combined with miliary spread of carcinoma is unclear. The latter would be a very grave situation if she is not able to respond to chemotherapy / immunotherapy. Currently she is not a candidate for active treatment. She understands this. We have discussed this clearly. Active clinical concerns remain presence or absence of a GI bleed, infection, management of the abscesses. If she develops any progressive hypoxia would consider CT angio to rule out DVT. She is not currently on DVT prophylaxis. I did speak with Dr. Artemio Torres at [facility], the patient's medical oncologist there about possible treatment at [facility] for her current complications. Dr. Torres strongly discouraged this as an option. PLAN/RECOMMENDATIONS 1. Continue antibiotics and ID followup much appreciated. 2. Agree with repeat CBC and transfusions as needed to maintain hemoglobin 8 or higher. 3. If progressive chest symptoms, hypoxia, tachypnea would strongly recommend CT angio, rule out pulmonary embolism (PE). Patient with metastatic lung cancer at very high risk for embolic events and indeed on recent CT was found to have thrombus in the IVC filter. 4. Repeat abdomen and pelvis CT within 5-7 days appropriate to assess response to treatment of abscesses. Will follow. MTDD
[2018-06-21 18:44] LABS: MB/CK RELATIVE INDEX 5.38 (< OR =4); TROPONIN I 0.04 NG/ML (< 0.10)
--- NOTE | 2018-06-21 22:30 | ECGEPIP ---
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
[2018-06-22] VITALS: BP 121/64
[2018-06-22] MEDS: IPRATROPIUM 0.5MG/ALBUTEROL 2.5MG INH SOL UD 3ML (DUONEB)(J7620) NEB SCH ×4 (02:00→20:00)
[2018-06-22 03:16] LABS: MB/CK RELATIVE INDEX 3.72 (< OR =4); TROPONIN I 0.02 NG/ML (< 0.10)
[2018-06-22 04:00] VITALS: BP 142/82
[2018-06-22] MEDS: PIPERACILLIN/TAZOBACTAM SOD 3.375 GM in D5W MINI-BAG PLUS 50 ML IV SCH ×4 (04:00→21:04)
[2018-06-22 04:51] LABS: BASO % 0.4 % (0.0-1.0); EOS # 0.3 10^3/uL (0.0-0.50); EOS % 3.3 % (0.0-3.0); HEMATOCRIT 28.8 % (36.0-47.0); LYMPH # 0.6 10^3/uL (1.5-4.5); LYMPH % 7.1 % (24.0-44.0); MEAN CORPUSCULAR HEMOGLOBIN 28.4 pg (27.0-33.0); MEAN CORPUSCULAR VOLUME 83.5 fl (80.0-96.0); MONO # 0.3 10^3/uL (0.0-0.8); MONO % 3.7 % (0.0-5.0); NEUTROPHILS # 6.9 10^3/uL (1.8-7.7); NEUTROPHILS % 84.4 % (36.0-66.0); PLATELET COUNT, AUTOMATED 178 10^3/uL (150-450); RED BLOOD COUNT 3.45 10^6/uL (4.00-5.40); WHITE BLOOD COUNT 8.2 10^3/uL (4.0-10.0)
[2018-06-22 04:58] LABS: HEMOGLOBIN 9.8 g/dl (12.0-15.5)
[2018-06-22 05:20] LABS: ALBUMIN 1.3 GM/DL (3.2-5.2); ALT/SGPT 49 U/L (12-78); BLOOD UREA NITROGEN 24 MG/DL (7-18); CALCIUM LEVEL 7.8 MG/DL (8.8-10.2); CARBON DIOXIDE LEVEL 25 MEQ/L (21-32); CHLORIDE LEVEL 93 MEQ/L (98-107); CREATININE FOR GFR 0.92 MG/DL (0.55-1.30); GLOMERULAR FILTRATION RATE > 60.0 (>45); GLUCOSE, FASTING 107 MG/DL (70-100); POTASSIUM SERUM 4.1 MEQ/L (3.5-5.1); SODIUM LEVEL 129 MEQ/L (136-145); TOTAL PROTEIN 5.3 GM/DL (6.4-8.2)
[2018-06-22] MEDS: SODIUM CHLORIDE 0.9% INJ 10 ML SYR IV SCH ×2 (06:06→17:41)
[2018-06-22 08:00] VITALS: BP 148/78
[2018-06-22] MEDS: MAGNESIUM CHLORIDE 64 MG TABCR (SLO MAG) PO SCH (08:38)
[2018-06-22] MEDS: PANTOPRAZOLE 40MG INJ (PROTONIX) (C9113) IV SCH ×2 (08:38→21:03)
[2018-06-22] MEDS: AMIODARONE 200 MG TAB (PACERONE) PO SCH (08:39)
[2018-06-22] MEDS: METOPROLOL SUCC *XL* 25MG TAB (TopROL *XL*) PO SCH (08:39)
[2018-06-22] MEDS: HYDROCORTISONE 5MG TABLET PO SCH ×2 (08:39→21:03)
[2018-06-22] MEDS: FLUCONAZOLE 100 MG TAB PO SCH (08:39)
[2018-06-22] MEDS: LOPERAMIDE 2 MG CAP PO PRN ×3 (08:39→23:50)
[2018-06-22] MEDS: POTASSIUM CHLORIDE 10 MEQ SR TABLET PO SCH (10:14)
[2018-06-22] MEDS: ONDANSETRON 4MG/2ML VIAL (J2405) IV PRN (10:39)
[2018-06-22 11:29] LABS: MB/CK RELATIVE INDEX 4.08 (< OR =4); TROPONIN I 0.02 NG/ML (< 0.10)
[2018-06-22 12:00] VITALS: BP 114/59
--- NOTE | 2018-06-22 12:02 | REP ---
KUB, ONE VIEW: HISTORY: Vomiting. COMPARISON: 05/31/2018 Air is present in small and large intestine. There are no air-fluid levels or dilated loops of intestine. There is no pneumoperitoneum. Surgical clips are present in the mid abdomen. An IVC filter is present. A catheter is present in the left upper quadrant. IMPRESSION: Nonspecific bowel gas pattern. Electronically Signed by Rishi Mcleod MD 06/22/2018 12:08 P
[2018-06-22] MEDS: ACETAMINOPHEN TAB 650MG DOSE (2X325MG) PO PRN ×2 (13:41→22:53)
--- NOTE | 2018-06-22 15:26 | IPNPDOC ---
Subjective Date Seen The patient was seen on 06/22/18. Subjective Chief Complaint/HPI Patient seen and examined at the bedside. The patient reports that she did have an episode of nausea and vomiting this morning. KUB ordered. She denies any complaints of abdominal pain. The patient has not had any fevers since yesterday. Objective Physical Examination General Exam: Positive: Alert, Cooperative, No Acute Distress ENT Exam: Positive: Atraumatic, Mucous membr. moist/pink, Other ENT (bitemporal wasting) Neck Exam: Negative: JVD Chest Exam: Positive: Diminished Heart Exam: Positive: Rate Normal, Normal S1, Normal S2 Telemetry: Positive: Sinus Abdomen Exam: Positive: Soft, Other (surgical dressing noted on the abdominal wall. Noted to be draining some purulent material from previous drain site.) Extremity Exam: Negative: Tenderness, Swelling Psych Exam: Positive: Oriented x 3 Assessment /Plan Plan/VTE VTE Prophylaxis Ordered?: Yes Plan Small Bowel Perforation with Bile Peritonitis s/p Ex Lap with Small Bowel Resection on 06/[address] Abd/Pel with IV/PO contrast from 06/20 notable for bilateral subphrenic/perihepatic/ panic fluid collections CT of the chest notable for bilateral pleural effusions, right greater than left on 06/20 s/p Drainage of Right Pleural effusion, and Subphrenic Abscess drainage with catheter placement on 06/21/17 by Interventional radiology Cultures/Gram Stain pending Currently on Fluconazole, Zosyn as per ID Gen Surg/ID on board Acute blood loss anemia likely 2/2 GI Bleeding H&H stable following blood transfusion yesterday Acute non-occlusive DVT at L distal superficial femoral vein Duplex US 06/06: Acute nonocclusive thrombus in the left distal superficial femoral vein. Normal right lower extremity without thrombosis. Dr. Young (Vascular surgery) consulted; s/p IVC filter on 06/07 Patient not a candidate for AC 2/2 above, requiring 8 Units or PRBC's since admission s/p Atrial fibrillation with RVR s/p Mechanical Cardioversion on 06/01 with conversion to normal sinus rhythm ECHO notable for preserved EF, and normal diastolic function. Moderate/severe pulmonary hypertension and tricuspid regurgitation noted. Continue metoprolol, amiodarone Patient not a candidate for AC 2/[address] 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 Baker as an outpatient Dr. Baker (Oncology) on consult; appreciate input Hx of CVA Left Jugular Vein Thrombosis s/p IVC filter Protein calorie malnutrition - likely moderate / severe Patient has had significant weight loss - likely 2/2 malignancy Poor oral intake Appears cachectic c/w TPN DVT Prophylaxis Heparin on hold 2/ GI Bleed Poor Assisted Prognosis Disposition: pending clinical improvement. VS, I&O, 24H, Fishbone Vital Signs/I&O Vital Signs Date Time Temp Pulse Resp B/P (MAP) Pulse Ox O2 Delivery O2 Flow Rate FiO2 06/22/18 08:39 94 142/82 06/22/18 08:00 99.0 24 97 Room Air I&O- Last 24 Hours up to 6 AM 06/22/18 05:59 Intake Total 2751 ml Output Total 1255 ml Balance 1496 ml Laboratory Data 24H LABS Laboratory Tests 2 06/21/18 18:06: Total Creatine Kinase 26, Creatine Kinase MB 1.0, Creatine Kinase MB Relative Index 5.38H, Troponin I 0.04 06/22/18 02:09: Total Creatine Kinase 43, Creatine Kinase MB 2.0, Creatine Kinase MB Relative Index 3.72, Troponin I 0.02# 06/22/18 04:36: Immature Granulocyte % (Auto) 1.1, White Blood Count 8.2, Red Blood Count 3.45L, Hemoglobin 9.8#L, Hematocrit 28.8L, Mean Corpuscular Volume 83.5, Mean Corpuscular Hemoglobin 28.4, Mean Corpuscular Hemoglobin Concent 34.0, Red Cell Distribution Width 15.4H, Platelet Count 178, Neutrophils (%) (Auto) 84.4H, Lymphocytes (%) (Auto) 7.1L, Monocytes (%) (Auto) 3.7, Eosinophils (%) (Auto) 3.3H, Basophils (%) (Auto) 0.4, Neutrophils # (Auto) 6.9, Lymphocytes # (Auto) 0.6L, Monocytes # (Auto) 0.3, Eosinophils # (Auto) 0.3, Basophils # (Auto) 0.0, Nucleated Red Blood Cells % (auto) 0.0, Anion Gap 11, Glomerular Filtration Rate > 60.0, Blood Urea Nitrogen 24H, Creatinine 0.92, Sodium Level 129L, Potassium Level 4.1, Chloride Level 93L, Carbon Dioxide Level 25, Calcium Level 7.8L, Aspartate Amino Transf (AST/SGOT) 59H, Alanine Aminotransferase (ALT/SGPT) 49, Alkaline Phosphatase 272H, Total Bilirubin 1.0#, Total Protein 5.3L, Albumin 1.3L, Magnesium Level 2.0, Albumin/Globulin Ratio 0.33L 06/22/18 10:41: Total Creatine Kinase 49, Creatine Kinase MB 2.0, Creatine Kinase MB Relative Index 4.08H, Troponin I 0.02 CBC/BMP Laboratory Tests 06/21/18 17:39 06/22/18 04:36 Red Blood Count 3.45 L, Mean Corpuscular Volume 83.5, Mean Corpuscular Hemoglobin 28.4, Mean Corpuscular Hemoglobin Concent 34.0, Red Cell Distribution Width 15.4 H, Neutrophils (%) (Auto) 84.4 H, Lymphocytes (%) (Auto) 7.1 L, Monocytes (%) (Auto) 3.7, Eosinophils (%) (Auto) 3.3 H, Basophils (%) (Auto) 0.4, Neutrophils # (Auto) 6.9, Lymphocytes # (Auto) 0.6 L, Monocytes # (Auto) 0.3, Eosinophils # (Auto) 0.3, Basophils # (Auto) 0.0, Calcium Level 7.8 L, Aspartate Amino Transf (AST/SGOT) 59 H, Alanine Aminotransferase (ALT/SGPT) 49, Alkaline Phosphatase 272 H, Total Bilirubin 1.0 #, Total Protein 5.3 L, Albumin 1.3 L Microbiology Microbiology 06/21/18 Gram Stain - Final, Resulted 06/21/18 Body Fluid Culture, Resulted Pending 06/21/18 Anaerobic Culture, Resulted Pending 06/13/18 Clostridium difficile (PCR) - Final, Complete 06/21/18 Gram Stain - Final, Resulted 06/21/18 Abscess Culture, Resulted Pending 06/21/18 Anaerobic Culture, Resulted Pending CONRADO MANLEY MD Jun 22, 2018 15:26
[2018-06-22 16:00] VITALS: BP 107/55
[2018-06-22] MEDS ORDERED: FAT EMULSION IV 20% 500 ML IV SCH (18:00)
[2018-06-22] MEDS ORDERED: AMINO AC/ELECTROLYTE/DEX/CALC 2,000 ML IV SCH (18:00)
[2018-06-22] MEDS: HumaLOG INSULIN (NovoLOG) PER UNIT SC SCH (18:19)
[2018-06-22 20:00] VITALS: BP 132/84
[2018-06-22] MEDS: SODIUM CHLORIDE 0.9% INJ 10 ML SYR IV PRN (22:27)
[2018-06-23] MEDS ORDERED: IBUPROFEN 600 MG TAB PO ONE (00:15)
[2018-06-23 00:19] VITALS: BP 112/57
[2018-06-23] MEDS: HumaLOG INSULIN (NovoLOG) PER UNIT SC SCH ×4 (00:20→18:22)
[2018-06-23] MEDS: IPRATROPIUM 0.5MG/ALBUTEROL 2.5MG INH SOL UD 3ML (DUONEB)(J7620) NEB SCH ×4 (02:00→20:00)
[2018-06-23 04:00] VITALS: BP 128/72
[2018-06-23] MEDS: PIPERACILLIN/TAZOBACTAM SOD 3.375 GM in D5W MINI-BAG PLUS 50 ML IV SCH ×3 (04:39→16:17)
[2018-06-23 06:03] LABS: BASO % 0.5 % (0.0-1.0); EOS # 0.4 10^3/uL (0.0-0.50); EOS % 5.6 % (0.0-3.0); HEMATOCRIT 24.9 % (36.0-47.0); HEMOGLOBIN 8.7 g/dl (12.0-15.5); LYMPH # 0.4 10^3/uL (1.5-4.5); LYMPH % 5.8 % (24.0-44.0); MEAN CORPUSCULAR HEMOGLOBIN 29.4 pg (27.0-33.0); MEAN CORPUSCULAR HGB CONC 34.9 g/dl (32.0-36.5); MEAN CORPUSCULAR VOLUME 84.1 fl (80.0-96.0); MONO # 0.2 10^3/uL (0.0-0.8); MONO % 3.7 % (0.0-5.0); NEUTROPHILS # 5.3 10^3/uL (1.8-7.7); NEUTROPHILS % 82.8 % (36.0-66.0); PLATELET COUNT, AUTOMATED 168 10^3/uL (150-450); RED BLOOD COUNT 2.96 10^6/uL (4.00-5.40); WHITE BLOOD COUNT 6.4 10^3/uL (4.0-10.0)
[2018-06-23] MEDS: SODIUM CHLORIDE 0.9% INJ 10 ML SYR IV SCH ×2 (06:12→18:22)
[2018-06-23 06:42] LABS: ALBUMIN 1.1 GM/DL (3.2-5.2); BILIRUBIN,TOTAL 0.5 MG/DL (0.2-1.0); CALCIUM LEVEL 7.9 MG/DL (8.8-10.2); CREATININE FOR GFR 1.11 MG/DL (0.55-1.30); GLOMERULAR FILTRATION RATE 52.5 (>45); MAGNESIUM LEVEL 1.9 MG/DL (1.8-2.4); POTASSIUM SERUM 2.6 MEQ/L (3.5-5.1)
[2018-06-23] MEDS ORDERED: POTASSIUM CHLORIDE 10 MEQ SR TABLET PO ONE ×2 (06:45→12:00)
[2018-06-23 08:09] VITALS: BP 120/69
[2018-06-23] MEDS: PANTOPRAZOLE 40MG INJ (PROTONIX) (C9113) IV SCH ×2 (09:23→21:14)
[2018-06-23] MEDS: HYDROCORTISONE 5MG TABLET PO SCH (09:24)
[2018-06-23] MEDS: LOPERAMIDE 2 MG CAP PO PRN (09:24)
[2018-06-23] MEDS: FLUCONAZOLE 100 MG TAB PO SCH (09:24)
[2018-06-23] MEDS: METOPROLOL SUCC *XL* 25MG TAB (TopROL *XL*) PO SCH (09:24)
[2018-06-23] MEDS: MAGNESIUM CHLORIDE 64 MG TABCR (SLO MAG) PO SCH (09:24)
[2018-06-23] MEDS: POTASSIUM CHLORIDE 10 MEQ SR TABLET PO SCH (09:25)
[2018-06-23] MEDS: SODIUM CHLORIDE 0.9% INJ 10 ML SYR IV PRN ×3 (09:25→21:18)
[2018-06-23] MEDS: AMIODARONE 200 MG TAB (PACERONE) PO SCH (09:25)
[2018-06-23] MEDS: ACETAMINOPHEN TAB 650MG DOSE (2X325MG) PO PRN (11:00)
[2018-06-23 11:51] LABS: CREATININE,RANDOM URINE 31.2 MG/DL
[2018-06-23] MEDS: HYDROCORTISONE 100 MG/2 ML VIAL (J1720) IV SCH ×2 (14:01→21:14)
--- NOTE | 2018-06-23 14:14 | REP ---
Gastrointestinal GI blood loss study: History: Anemia. Dark stools. Technique: 25.7 mCi of technetium 99m RBC (UltraTag kit) is injected and sequential anterior abdominal images are acquired. Findings: The initial images demonstrate normal aortoiliac portal venous and other vascular uptake. Study becomes abnormal beginning at the 30-minute tip where there is progressive focal labeling of increased activity to the left of midline in the central abdomen consistent with a focus of gastrointestinal hemorrhage. This does not appear to spread away from the site of origin in a way that would help localize this as small versus large intestine. Impression: The study is positive for gastrointestinal hemorrhage site located in the left mid abdomen. Electronically Signed by Eddie Connors MD 06/23/2018 03:16 P
--- NOTE | 2018-06-23 15:57 | IPNPDOC ---
Subjective Date Seen The patient was seen on 06/23/18. Subjective Chief Complaint/HPI Patient seen and examined at the bedside. She reports that she continues to feel weaker and weaker every day. She was reported to have a large hilda colored bowel movement yesterday. Her H&H has continue to trend downward. We will repeat labs this afternoon and follow-up. Objective Physical Examination General Exam: Positive: Alert, Cooperative, No Acute Distress ENT Exam: Positive: Atraumatic, Mucous membr. moist/pink, Other ENT (bitemporal wasting) Neck Exam: Negative: JVD Chest Exam: Positive: Diminished Heart Exam: Positive: Rate Normal, Normal S1, Normal S2 Telemetry: Positive: Sinus Abdomen Exam: Positive: Soft, Other (surgical dressing noted on the abdominal wall. Noted to be draining some purulent material from previous drain site.) Extremity Exam: Negative: Tenderness, Swelling Psych Exam: Positive: Oriented x 3 Assessment /Plan Plan/VTE VTE Prophylaxis Ordered?: Yes Plan Small Bowel Perforation with Bile Peritonitis s/p Ex Lap with Small Bowel Resection on 06/[address] Abd/Pel with IV/PO contrast from 06/20 notable for bilateral subphrenic/perihepatic/ panic fluid collections CT of the chest notable for bilateral pleural effusions, right greater than left on 06/20 s/p Drainage of Right Pleural effusion, and Subphrenic Abscess drainage with catheter placement on 06/21/17 by Interventional radiology Abscess culture notable for Yeast Like Organism Currently on Fluconazole, Zosyn as per ID Gen Surg/ID on board Acute blood loss anemia 2/2 GI Bleeding likely from Intestinal Metastatic Lesion The patient has needed 8 Units total of PRBC's since admission, and she continues to have mohagony colored stools Bleeding scan obtained and notable for GI Hemorrhage located in the left mid- abdomen, with inability to identify small vs large intestinal source. I have discussed the case with Dr. Colby of GI; the patient is not a candidate for a colonoscopy at this time given extensive metastasis and overall clinical condition, and it is very possible that the lesion is from a small bowel origin from the metastasis which cannot be viewed with a colonoscopy Discussed the case with Dr. Hairston of Gen Surg who has recommended octreotide at this time, no surgical intervention indicated Acute non-occlusive DVT at L distal superficial femoral vein Duplex US 06/06: Acute nonocclusive thrombus in the left distal superficial femoral vein. Normal right lower extremity without thrombosis. Dr. Young (Vascular surgery) consulted; s/p IVC filter on 06/07 Patient not a candidate for AC 2/2 above, requiring 8 Units or PRBC's since admission s/p Atrial fibrillation with RVR s/p Mechanical Cardioversion on 06/01 with conversion to normal sinus rhythm ECHO notable for preserved EF, and normal diastolic function. Moderate/severe pulmonary hypertension and tricuspid regurgitation noted. Continue metoprolol, amiodarone Patient not a candidate for AC 2/[address] 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 Baker as an outpatient Dr. Baker (Oncology) on consult; appreciate input Hx of CVA Left Jugular Vein Thrombosis s/p IVC filter Protein calorie malnutrition - likely moderate / severe Patient has had significant weight loss - likely 2/2 malignancy Poor oral intake Appears cachectic c/w TPN DVT Prophylaxis Heparin on hold 2/ GI Bleed Poor Halfway Prognosis---I had a lengthy discussion with the patient and her about CODE STATUS and goals of care this morning. They have decided to change her CODE STATUS to DO NOT RESUSCITATE and DO NOT INTUBATE. The patient is interested in talking to hospice regarding further goals of care. I did discuss this with the patient's pickle maker/oncologist Dr. Baker who agrees with the decision to consider hospice at this time, and had discussed the same with the patient yesterday. VS, I&O, 24H, Fishbone Vital Signs/I&O Vital Signs Date Time Temp Pulse Resp B/P (MAP) Pulse Ox O2 Delivery O2 Flow Rate FiO2 06/23/18 08:09 97.4 69 22 120/69 (86) 99 Room Air I&O- Last 24 Hours up to 6 AM 06/23/18 06:00 Intake Total 2140 ml Output Total 1365 ml Balance 775 ml Laboratory Data 24H LABS Laboratory Tests 2 06/22/18 18:10: Bedside Glucose (Misc Panel) 151H 06/22/18 23:33: Bedside Glucose (Misc Panel) 145H 06/23/18 05:45: Bedside Glucose (Misc Panel) 133H 06/23/18 05:48: Immature Granulocyte % (Auto) 1.6, White Blood Count 6.4, Red Blood Count 2.96L, Hemoglobin 8.7L, Hematocrit 24.9L, Mean Corpuscular Volume 84.1, Mean Corpuscular Hemoglobin 29.4, Mean Corpuscular Hemoglobin Concent 34.9, Red Cell Distribution Width 15.8H, Platelet Count 168, Neutrophils (%) (Auto) 82.8H, Lymphocytes (%) (Auto) 5.8L, Monocytes (%) (Auto) 3.7, Eosinophils (%) (Auto) 5.6H, Basophils (%) (Auto) 0.5, Neutrophils # (Auto) 5.3, Lymphocytes # (Auto) 0.4L, Monocytes # (Auto) 0.2, Eosinophils # (Auto) 0.4, Basophils # (Auto) 0.0, Nucleated Red Blood Cells % (auto) 0.3H, Anion Gap 15, Glomerular Filtration Rate 52.5, Blood Urea Nitrogen 23H, Creatinine 1.11, Sodium Level 127L, P otassium Level 2.6#*L, Chloride Level 89L, Carbon Dioxide Level 23, Calcium Level 7.9L, Aspartate Amino Transf (AST/SGOT) 34, Alanine Aminotransferase (ALT/SGPT) 35, Alkaline Phosphatase 222H, Total Bilirubin 0.5, Total Protein 6.0L, Albumin 1.1L, Magnesium Level 1.9, Albumin/Globulin Ratio 0.22L 06/23/18 11:10: Urine Random Osmolality 240L, Urine Random Creatinine 31.2, Urine Random Sodium 17 06/23/18 13:30: Bedside Glucose (Misc Panel) 129H CBC/BMP Laboratory Tests 06/23/18 05:48 Red Blood Count 2.96 L, Mean Corpuscular Volume 84.1, Mean Corpuscular Hemoglobin 29.4, Mean Corpuscular Hemoglobin Concent 34.9, Red Cell Distribution Width 15.8 H, Neutrophils (%) (Auto) 82.8 H, Lymphocytes (%) (Auto) 5.8 L, Monocytes (%) (Auto) 3.7, Eosinophils (%) (Auto) 5.6 H, Basophils (%) (Auto) 0.5, Neutrophils # (Auto) 5.3, Lymphocytes # (Auto) 0.4 L, Monocytes # (Auto) 0.2, Eosinophils # (Auto) 0.4, Basophils # (Auto) 0.0, Calcium Level 7.9 L, Aspartate Amino Transf (AST/SGOT) 34, Alanine Aminotransferase (ALT/SGPT) 35, Alkaline Phosphatase 222 H, Total Bilirubin 0.5, Total Protein 6.0 L, Albumin 1.1 L Microbiology Microbiology 06/21/18 Gram Stain - Final, Complete 06/21/18 Body Fluid Culture - Final, Complete 06/21/18 Anaerobic Culture - Final, Complete 06/13/18 Clostridium difficile (PCR) - Final, Complete 06/21/18 Gram Stain - Final, Complete 06/21/18 Abscess Culture - Final, Complete Yeast Like Organism 06/21/18 Anaerobic Culture - Final, Complete CONRADO MANLEY MD Jun 23, 2018 15:57
[2018-06-23 16:00] VITALS: BP 140/71
[2018-06-23] MEDS: OCTREOTIDE ACETATE 100 MCG/ML VIAL (J2354) IV SCH (16:16)
[2018-06-23 16:44] LABS: HEMATOCRIT 26.5 % (36.0-47.0); HEMOGLOBIN 9.1 g/dl (12.0-15.5)
[2018-06-23 17:06] LABS: ALBUMIN 1.3 GM/DL (3.2-5.2); POTASSIUM SERUM 4.2 MEQ/L (3.5-5.1)
[2018-06-23] MEDS ORDERED: MULTIVITAMIN -ADULT INJECTION 10 ML, CR/CU/SE/MN/ZN INJ 1 ML in AMINO AC/ELECTROLYTE/DE... IV SCH (18:00)
[2018-06-23] MEDS ORDERED: FAT EMULSION IV 20% 500 ML IV SCH (18:00)
[2018-06-23 20:00] VITALS: BP 130/71
--- NOTE | 2018-06-23 20:18 | IPN ---
DATE: 06/23/2018 The patient had several issues that have been ongoing, one of which is gastrointestinal bleeding. I discussed with the hospitalist yesterday concerning possible bleeding scan today and indeed with adequate drop today did undergo a bleeding scan. The bleeding scan showed some bleeding within the midabdomen on the left-hand side, actually in an area very close to probably where the staple line was. The patient's other issues include low grade fever and evidence of yeast within the fluid in the upper abdomen in the left-hand side. From the standpoint of her activity level and GI issues, she is relatively stable, making some slow progress, etc. She still has drainage from her midline incision. ISSUES THE FOLLOWIN. Gastrointestinal bleeding. Unfortunately, with the GI bleeding, we will start her on some octreotide. I am not sure if this is going to improve the situation or not but from a long discussion with the patient and , they would like to avoid any heroic measures and at this point I feel operative intervention is not appropriate for her and would lead her to such frailty that she would have significant difficulty with getting back to even the current level of improvement. Operative intervention, if required would be to see if those additional fluid collections which probably have yeast in them could be irrigated, debrided and drained. Otherwise, we have to watch and wait with those areas. From a GI bleeding standpoint, we do not know where the area is and until that is identified either through endoscopy, operative intervention also would be fraught with significant difficulty and would be relatively limiting. My concern is that she probably has another small bowel lesion that is causing GI bleeding or that she is bleeding from the anastomosis as another possibility. The concern at this point is that she had GI bleeding before operative intervention and bleeding afterwards suggesting that there may have been another etiology for this. In any case, other options include balloon embolization and at this point that may be an option if the octreotide does not seem to make a difference over the weekend. She understands and will discuss this with her family and decide what their next course of action will be. Issue two is the yeast infection. At this point, with her wound draining, I would just continue wound care. There is no dehiscence per se requiring operative intervention and thus just local wound care is reasonable. The drainage in the left upper quadrant is continuing and I would keep the drain in essentially until it stops draining, less than 15 mL a day or close to that. Otherwise, the other areas to drain are not accessible by intervention without significant risk and thus at this point I would recommend holding off for those issues unless she continues to spike and then I would recommend repeat CT scan.
[2018-06-23 23:59] VITALS: BP 144/79
[2018-06-24] MEDS: PIPERACILLIN/TAZOBACTAM SOD 3.375 GM in D5W MINI-BAG PLUS 50 ML IV SCH ×5 (00:02→21:38)
[2018-06-24] MEDS: HumaLOG INSULIN (NovoLOG) PER UNIT SC SCH ×5 (00:04→23:55)
[2018-06-24] MEDS: OCTREOTIDE ACETATE 100 MCG/ML VIAL (J2354) IV SCH ×4 (00:04→23:55)
[2018-06-24] MEDS: IPRATROPIUM 0.5MG/ALBUTEROL 2.5MG INH SOL UD 3ML (DUONEB)(J7620) NEB SCH ×4 (00:43→20:00)
[2018-06-24 04:00] VITALS: BP 145/78
[2018-06-24 04:29] LABS: HEMATOCRIT 24.6 % (36.0-47.0); HEMOGLOBIN 8.2 g/dl (12.0-15.5); MEAN CORPUSCULAR HEMOGLOBIN 28.3 pg (27.0-33.0); MEAN CORPUSCULAR HGB CONC 33.3 g/dl (32.0-36.5); MEAN CORPUSCULAR VOLUME 84.8 fl (80.0-96.0); PLATELET COUNT, AUTOMATED 182 10^3/uL (150-450); WHITE BLOOD COUNT 7.3 10^3/uL (4.0-10.0)
[2018-06-24 05:06] LABS: BLOOD UREA NITROGEN 26 MG/DL (7-18); CALCIUM LEVEL 8.8 MG/DL (8.8-10.2); CARBON DIOXIDE LEVEL 26 MEQ/L (21-32); CHLORIDE LEVEL 100 MEQ/L (98-107); CREATININE FOR GFR 0.83 MG/DL (0.55-1.30); GLOMERULAR FILTRATION RATE > 60.0 (>45); GLUCOSE, FASTING 151 MG/DL (70-100); POTASSIUM SERUM 4.7 MEQ/L (3.5-5.1); SODIUM LEVEL 133 MEQ/L (136-145)
[2018-06-24] MEDS: HYDROCORTISONE 100 MG/2 ML VIAL (J1720) IV SCH ×3 (05:24→21:38)
[2018-06-24] MEDS: SODIUM CHLORIDE 0.9% INJ 10 ML SYR IV SCH ×2 (05:24→18:18)
[2018-06-24] MEDS: LOPERAMIDE 2 MG CAP PO PRN ×3 (05:43→16:10)
[2018-06-24 07:30] VITALS: BP 132/70
[2018-06-24] MEDS: MAGNESIUM CHLORIDE 64 MG TABCR (SLO MAG) PO SCH (08:32)
[2018-06-24] MEDS: PANTOPRAZOLE 40MG INJ (PROTONIX) (C9113) IV SCH ×2 (08:32→21:38)
[2018-06-24] MEDS: FLUCONAZOLE 100 MG TAB PO SCH (08:33)
[2018-06-24] MEDS: POTASSIUM CHLORIDE 10 MEQ SR TABLET PO SCH (08:33)
[2018-06-24] MEDS: METOPROLOL SUCC *XL* 25MG TAB (TopROL *XL*) PO SCH (08:33)
[2018-06-24] MEDS: AMIODARONE 200 MG TAB (PACERONE) PO SCH (08:34)
--- NOTE | 2018-06-24 10:44 | IPNPDOC ---
Subjective Date Seen The patient was seen on 06/24/18. Subjective Chief Complaint/HPI Patient seen and examined at bedside. Denies any acute overnight events. Denies any nausea/vomiting or abdominal pain. However, notes that she did have 2 dark colored loose bowels this morning. The patient's hemoglobin is continuing to trend downward. We will repeat another level this afternoon, and transfuse as needed. Objective Physical Examination General Exam: Positive: Alert, Cooperative, No Acute Distress ENT Exam: Positive: Atraumatic, Mucous membr. moist/pink, Other ENT (bitemporal wasting) Neck Exam: Negative: JVD Chest Exam: Positive: Diminished Heart Exam: Positive: Rate Normal, Normal S1, Normal S2 Telemetry: Positive: Sinus Abdomen Exam: Positive: Soft, Other (surgical dressing noted on the abdominal wall. Noted to be draining some purulent material from previous drain site.) Extremity Exam: Negative: Tenderness, Swelling Psych Exam: Positive: Oriented x 3 Assessment /Plan Plan/VTE VTE Prophylaxis Ordered?: Yes Plan Small Bowel Perforation with Bile Peritonitis s/p Ex Lap with Small Bowel Resection on 06/[address] Abd/Pel with IV/PO contrast from 06/20 notable for bilateral subphrenic/perihepatic/ panic fluid collections CT of the chest notable for bilateral pleural effusions, right greater than left on 06/20 s/p Drainage of Right Pleural effusion, and Subphrenic Abscess drainage with catheter placement on 06/21/17 by Interventional radiology Abscess culture notable for Yeast Like Organism Currently on Fluconazole, Zosyn as per ID Gen Surg/ID on board Acute blood loss anemia 2/2 GI Bleeding likely from Intestinal Metastatic Lesion The patient has needed 8 Units total of PRBC's since admission, and she continues to have mohagony colored stools Bleeding scan obtained and notable for GI Hemorrhage located in the left mid- abdomen, with inability to identify small vs large intestinal source. I have discussed the case with Dr. Colby of GI; the patient is not a candidate for a colonoscopy at this time given extensive metastasis and overall clinical condition, and it is very possible that the lesion is from a small bowel origin from the metastasis which cannot be viewed with a colonoscopy Discussed the case with Dr. Hairston of Gen Surg who has recommended octreotide at this time, patient not a candidate for surgery Acute non-occlusive DVT at L distal superficial femoral vein Duplex US 06/06: Acute nonocclusive thrombus in the left distal superficial femoral vein. Normal right lower extremity without thrombosis. Dr. Young (Vascular surgery) consulted; s/p IVC filter on 06/07 Patient not a candidate for AC 2/2 above, requiring 8 Units or PRBC's since admission s/p Atrial fibrillation with RVR s/p Mechanical Cardioversion on 06/01 with conversion to normal sinus rhythm ECHO notable for preserved EF, and normal diastolic function. Moderate/severe pulmonary hypertension and tricuspid regurgitation noted. Continue metoprolol, amiodarone Patient not a candidate for AC 2/[address] 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 Baker as an outpatient Dr. Baker (Oncology) on consult; appreciate input Hx of CVA Left Jugular Vein Thrombosis s/p IVC filter Protein calorie malnutrition - likely moderate / severe Patient has had significant weight loss - likely 2/2 malignancy Poor oral intake Appears cachectic c/w TPN DVT Prophylaxis Heparin on hold 2/2 GI Bleed Poor Prognosis Code Status: DNR/DNI VS, I&O, 24H, Fishbone Vital Signs/I&O Vital Signs Date Time Temp Pulse Resp B/P (MAP) Pulse Ox O2 Delivery O2 Flow Rate FiO2 06/24/18 08:33 74 132/70 06/24/18 07:30 97.0 18 98 Room Air I&O- Last 24 Hours up to 6 AM 06/24/18 06:00 Intake Total 2550 ml Output Total 2050 ml Balance 500 ml Laboratory Data 24H LABS Laboratory Tests 2 06/23/18 11:10: Urine Random Osmolality 240L, Urine Random Creatinine 31.2, Urine Random Sodium 17 06/23/18 13:30: Bedside Glucose (Misc Panel) 129H 06/23/18 16:15: Albumin 1.3L 06/23/18 17:56: Bedside Glucose (Misc Panel) 172H 06/23/18 23:50: Bedside Glucose (Misc Panel) 197H 06/24/18 04:00: Nucleated Red Blood Cells % (auto) 0.0, Anion Gap 7L, Glomerular Filtration Rate > 60.0, Blood Urea Nitrogen 26H, Creatinine 0.83, Sodium Level 133L, Potassium Level 4.7, Chloride Level 100, Carbon Dioxide Level 26, Calcium Level 8.8, Magnesium Level 2.0, C-Reactive Protein, Quantitative 12.80H CBC/BMP Laboratory Tests 06/23/18 16:15 06/24/18 04:00 Red Blood Count 2.90 L, Mean Corpuscular Volume 84.8, Mean Corpuscular Hemoglobin 28.3, Mean Corpuscular Hemoglobin Concent 33.3, Red Cell Distribution Width 16.1 H, Calcium Level 8.8 Microbiology Microbiology 06/21/18 Gram Stain - Final, Complete 06/21/18 Body Fluid Culture - Final, Complete 06/21/18 Anaerobic Culture - Final, Complete 06/21/18 Gram Stain - Final, Complete 06/21/18 Abscess Culture - Final, Complete Yeast Like Organism 06/21/18 Anaerobic Culture - Final, Complete CONRADO MANLEY MD Jun 24, 2018 10:44
[2018-06-24 11:51] VITALS: BP 128/74
[2018-06-24 14:48] LABS: HEMATOCRIT 23.4 % (36.0-47.0); HEMOGLOBIN 7.9 g/dl (12.0-15.5)
[2018-06-24] MEDS ORDERED: AMINO AC/ELECTROLYTE/DEX/CALC 2,000 ML IV SCH (18:00)
[2018-06-24] MEDS ORDERED: FAT EMULSION IV 20% 500 ML IV SCH (18:00)
[2018-06-24 20:00] VITALS: BP 148/101
[2018-06-24] MEDS: SODIUM CHLORIDE 0.9% INJ 10 ML SYR IV PRN ×2 (21:39→23:56)
[2018-06-24 23:59] VITALS: BP 146/74
[2018-06-25] MEDS: IPRATROPIUM 0.5MG/ALBUTEROL 2.5MG INH SOL UD 3ML (DUONEB)(J7620) NEB SCH ×4 (01:42→22:53)
[2018-06-25 04:00] VITALS: BP 162/73
[2018-06-25] MEDS: PIPERACILLIN/TAZOBACTAM SOD 3.375 GM in D5W MINI-BAG PLUS 50 ML IV SCH ×4 (04:16→22:39)
[2018-06-25 04:30] LABS: HEMATOCRIT 26.7 % (36.0-47.0); HEMOGLOBIN 9.2 g/dl (12.0-15.5); MEAN CORPUSCULAR HEMOGLOBIN 29.3 pg (27.0-33.0); MEAN CORPUSCULAR HGB CONC 34.5 g/dl (32.0-36.5); PLATELET COUNT, AUTOMATED 259 10^3/uL (150-450); RED BLOOD COUNT 3.14 10^6/uL (4.00-5.40); WHITE BLOOD COUNT 12.5 10^3/uL (4.0-10.0)
[2018-06-25 05:02] LABS: ALBUMIN 1.5 GM/DL (3.2-5.2); ALT/SGPT 36 U/L (12-78); BILIRUBIN,TOTAL 0.4 MG/DL (0.2-1.0); BLOOD UREA NITROGEN 31 MG/DL (7-18); C REACTIVE PROTEIN QUANTITATIV 8.06 MG/DL (0.00-0.30); CALCIUM LEVEL 8.7 MG/DL (8.8-10.2); CARBON DIOXIDE LEVEL 26 MEQ/L (21-32); CHLORIDE LEVEL 100 MEQ/L (98-107); CREATININE FOR GFR 0.78 MG/DL (0.55-1.30); GLOMERULAR FILTRATION RATE > 60.0 (>45); GLUCOSE, FASTING 143 MG/DL (70-100); POTASSIUM SERUM 4.9 MEQ/L (3.5-5.1); SODIUM LEVEL 134 MEQ/L (136-145); TOTAL PROTEIN 6.3 GM/DL (6.4-8.2)
[2018-06-25] MEDS: HumaLOG INSULIN (NovoLOG) PER UNIT SC SCH ×3 (05:40→17:27)
[2018-06-25] MEDS: SODIUM CHLORIDE 0.9% INJ 10 ML SYR IV SCH ×2 (05:40→18:10)
[2018-06-25] MEDS: HYDROCORTISONE 100 MG/2 ML VIAL (J1720) IV SCH (05:41)
[2018-06-25 08:00] VITALS: BP 162/92
[2018-06-25] MEDS: PANTOPRAZOLE 40MG INJ (PROTONIX) (C9113) IV SCH ×2 (09:32→20:29)
[2018-06-25] MEDS: AMIODARONE 200 MG TAB (PACERONE) PO SCH (09:32)
[2018-06-25] MEDS: POTASSIUM CHLORIDE 10 MEQ SR TABLET PO SCH (09:32)
[2018-06-25] MEDS: OCTREOTIDE ACETATE 100 MCG/ML VIAL (J2354) IV SCH ×2 (09:32→17:04)
[2018-06-25] MEDS: FLUCONAZOLE 100 MG TAB PO SCH (09:33)
[2018-06-25] MEDS: METOPROLOL SUCC *XL* 25MG TAB (TopROL *XL*) PO SCH (09:34)
[2018-06-25] MEDS: MAGNESIUM CHLORIDE 64 MG TABCR (SLO MAG) PO SCH (09:34)
[2018-06-25] MEDS: LOPERAMIDE 2 MG CAP PO PRN (09:34)
[2018-06-25] MEDS: SODIUM CHLORIDE 0.9% INJ 10 ML SYR IV PRN ×2 (11:30→17:23)
[2018-06-25 12:00] VITALS: BP 150/92
--- NOTE | 2018-06-25 12:55 | IPNPDOC ---
Subjective Date Seen The patient was seen on 06/25/18. Subjective Chief Complaint/HPI Patient seen and examined at the bedside. Reports that she had a good night of sleep last night. Denies any complaints of nausea, vomiting, or abdominal pain. However, the patient does state that she had 2 loose movements yesterday that were dark and tarry in appearance. The patient's hemoglobin has responded appropriately to 1 unit of packed red blood cell transfusion. Otherwise no other acute complaints or events noted. Objective Physical Examination General Exam: Positive: Alert, Cooperative, No Acute Distress ENT Exam: Positive: Atraumatic, Mucous membr. moist/pink, Other ENT (bitemporal wasting) Neck Exam: Negative: JVD Chest Exam: Positive: Diminished Heart Exam: Positive: Rate Normal, Normal S1, Normal S2 Telemetry: Positive: Sinus Abdomen Exam: Positive: Soft; Negative: Tenderness Extremity Exam: Negative: Tenderness, Swelling Psych Exam: Positive: Oriented x 3 Assessment /Plan Plan/VTE VTE Prophylaxis Ordered?: Yes Plan Small Bowel Perforation with Bile Peritonitis s/p Ex Lap with Small Bowel Resection on 06/[address] Abd/Pel with IV/PO contrast from 06/20 notable for bilateral subphrenic/perihepatic/ panic fluid collections CT of the chest notable for bilateral pleural effusions, right greater than left on 06/20 s/p Drainage of Right Pleural effusion, and Subphrenic Abscess drainage with catheter placement on 06/21/17 by Interventional radiology Abscess culture notable for Yeast Like Organism Currently on Fluconazole, Zosyn as per ID Gen Surg/ID on board Acute blood loss anemia 2/2 GI Bleeding likely from Intestinal Metastatic Lesion The patient has needed 9 Units total of PRBC's since admission, and she continues to have mohagony/dark tarry colored stools Bleeding scan obtained and notable for GI Hemorrhage located in the left mid- abdomen, with inability to identify small vs large intestinal source. I have discussed the case with Dr. Colby of GI; the patient is not a candidate for a colonoscopy at this time given extensive metastasis and overall clinical condition, and it is very possible that the lesion is from a small bowel origin from the metastasis which cannot be viewed with a colonoscopy Discussed the case with Dr. Hairston of Gen Surg who has recommended octreotide at this time, patient not a candidate for surgery Acute non-occlusive DVT at L distal superficial femoral vein Duplex US 06/06: Acute nonocclusive thrombus in the left distal superficial femoral vein. Normal right lower extremity without thrombosis. Dr. Young (Vascular surgery) consulted; s/p IVC filter on 06/07 Patient not a candidate for AC 2/2 above, requiring 9 Units or PRBC's since admission s/p Atrial fibrillation with RVR s/p Mechanical Cardioversion on 06/01 with conversion to normal sinus rhythm ECHO notable for preserved EF, and normal diastolic function. Moderate/severe pulmonary hypertension and tricuspid regurgitation noted. Continue metoprolol, amiodarone Patient not a candidate for AC 2/[address] 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 Baker as an outpatient Dr. Baker (Oncology) on consult; appreciate input Hx of CVA Left Jugular Vein Thrombosis s/p IVC filter Protein calorie malnutrition - likely moderate / severe Patient has had significant weight loss - likely 2/2 malignancy Poor oral intake Appears cachectic c/w TPN DVT Prophylaxis Heparin on hold 2/2 GI Bleed Poor Prognosis Code Status: DNR/DNI Dispo--will follow up with the patient's clinical condition, Hospice consult, and Oncology/ID/Surgery input. VS, I&O, 24H, Fishbone Vital Signs/I&O Vital Signs Date Time Temp Pulse Resp B/P (MAP) Pulse Ox O2 Delivery O2 Flow Rate FiO2 06/25/18 12:00 98.0 73 18 150/92 (111) 100 Room Air I&O- Last 24 Hours up to 6 AM 06/25/18 06:00 Intake Total 1850 ml Output Total 2430 ml Balance -580 ml Laboratory Data 24H LABS Laboratory Tests 2 06/24/18 17:56: Bedside Glucose (Misc Panel) 188H 06/24/18 23:43: Bedside Glucose (Misc Panel) 187H 06/25/18 04:14: Nucleated Red Blood Cells % (auto) 0.0, Anion Gap 8, Glomerular Filtration Rate > 60.0, Blood Urea Nitrogen 31H, Creatinine 0.78, Sodium Level 134L, Potassium Level 4.9, Chloride Level 100, Carbon Dioxide Level 26, Calcium Level 8.7L, Aspartate Amino Transf (AST/SGOT) 69H, Alanine Aminotransferase (ALT/SGPT) 36, Alkaline Phosphatase 252H, Total Bilirubin 0.4, Total Protein 6.3L, Albumin 1.5L, Magnesium Level 2.0, C-Reactive Protein, Quantitative 8.06H, Albumin/Globulin Ratio 0.31L 06/25/18 05:25: Bedside Glucose (Misc Panel) 180H 06/25/18 12:16: Bedside Glucose (Misc Panel) 174H CBC/BMP Laboratory Tests 06/24/18 14:19 06/25/18 04:14 Red Blood Count 3.14 L, Mean Corpuscular Volume 85.0, Mean Corpuscular Hemoglobin 29.3, Mean Corpuscular Hemoglobin Concent 34.5, Red Cell Distribution Width 16.8 H, Calcium Level 8.7 L, Aspartate Amino Transf (AST/SGOT) 69 H, Alanine Aminotransferase (ALT/SGPT) 36, Alkaline Phosphatase 252 H, Total Bilirubin 0.4, Total Protein 6.3 L, Albumin 1.5 L Microbiology Microbiology 06/21/18 Gram Stain - Final, Complete 06/21/18 Body Fluid Culture - Final, Complete 06/21/18 Anaerobic Culture - Final, Complete 06/21/18 Gram Stain - Final, Complete 06/21/18 Abscess Culture - Final, Complete Yeast Like Organism 06/21/18 Anaerobic Culture - Final, Complete CONRADO MANLEY MD Jun 25, 2018 12:55
[2018-06-25 16:00] VITALS: BP 164/98
[2018-06-25] MEDS: ONDANSETRON 4MG/2ML VIAL (J2405) IV PRN (17:23)
[2018-06-25] MEDS ORDERED: AMINO AC/ELECTROLYTE/DEX/CALC 2,000 ML IV SCH (18:00)
[2018-06-25] MEDS ORDERED: FAT EMULSION IV 20% 500 ML IV SCH (18:00)
[2018-06-25 20:00] VITALS: BP 141/82
[2018-06-25] MEDS: HYDROCORTISONE 5MG TABLET PO SCH (20:29)
[2018-06-25 23:59] VITALS: BP 153/81
[2018-06-26] VITALS (7 sets, daily range): BP systolic 95–130; BP diastolic 47–84
[2018-06-26] MEDS: IPRATROPIUM 0.5MG/ALBUTEROL 2.5MG INH SOL UD 3ML (DUONEB)(J7620) NEB SCH ×4 (02:00→20:00)
[2018-06-26] MEDS: PIPERACILLIN/TAZOBACTAM SOD 3.375 GM in D5W MINI-BAG PLUS 50 ML IV SCH ×3 (04:34→15:58)
[2018-06-26] MEDS: ACETAMINOPHEN TAB 650MG DOSE (2X325MG) PO PRN ×3 (04:35→20:05)
[2018-06-26 05:09] LABS: HEMATOCRIT 31.4 % (36.0-47.0); MEAN CORPUSCULAR HEMOGLOBIN 29.4 pg (27.0-33.0); PLATELET COUNT, AUTOMATED 357 10^3/uL (150-450); RED BLOOD COUNT 3.74 10^6/uL (4.00-5.40); WHITE BLOOD COUNT 14.1 10^3/uL (4.0-10.0)
[2018-06-26] MEDS: SODIUM CHLORIDE 0.9% INJ 10 ML SYR IV SCH ×2 (06:00→18:00)
[2018-06-26] MEDS: HumaLOG INSULIN (NovoLOG) PER UNIT SC SCH ×4 (06:29→18:03)
[2018-06-26] MEDS: ONDANSETRON 4MG/2ML VIAL (J2405) IV PRN (08:33)
[2018-06-26] MEDS: OCTREOTIDE ACETATE 100 MCG/ML VIAL (J2354) IV SCH ×3 (08:34→15:57)
[2018-06-26 08:50] LABS: ALBUMIN 1.6 GM/DL (3.2-5.2); ALT/SGPT 76 U/L (12-78); BILIRUBIN,TOTAL 0.7 MG/DL (0.2-1.0); BLOOD UREA NITROGEN 40 MG/DL (7-18); CALCIUM LEVEL 8.5 MG/DL (8.8-10.2); CARBON DIOXIDE LEVEL 26 MEQ/L (21-32); CHLORIDE LEVEL 93 MEQ/L (98-107); CREATININE FOR GFR 0.86 MG/DL (0.55-1.30); GLOMERULAR FILTRATION RATE > 60.0 (>45); GLUCOSE, FASTING 101 MG/DL (70-100); MAGNESIUM LEVEL 1.7 MG/DL (1.8-2.4); POTASSIUM SERUM 3.5 MEQ/L (3.5-5.1); SODIUM LEVEL 132 MEQ/L (136-145); TOTAL PROTEIN 5.8 GM/DL (6.4-8.2)
[2018-06-26] MEDS: MAGNESIUM CHLORIDE 64 MG TABCR (SLO MAG) PO SCH (10:15)
[2018-06-26] MEDS: HYDROCORTISONE 5MG TABLET PO SCH ×2 (10:17→20:04)
[2018-06-26] MEDS: POTASSIUM CHLORIDE 10 MEQ SR TABLET PO SCH (10:17)
[2018-06-26] MEDS: METOPROLOL SUCC *XL* 25MG TAB (TopROL *XL*) PO SCH (10:17)
[2018-06-26] MEDS: FLUCONAZOLE 100 MG TAB PO SCH (10:17)
[2018-06-26] MEDS: AMIODARONE 200 MG TAB (PACERONE) PO SCH (10:17)
[2018-06-26] MEDS: PANTOPRAZOLE 40MG INJ (PROTONIX) (C9113) IV SCH ×2 (10:18→20:04)
--- NOTE | 2018-06-26 12:03 | IPNPDOC ---
Subjective Date Seen The patient was seen on 06/26/18. Subjective Chief Complaint/HPI Patient continued to spike fevers of 102.1 and 101.1 early this morning. Her white blood cell count has also trended upward. The patient notes that she feels nauseous this morning but denies any vomiting or abdominal pain. Repeat CT scan of the abdomen and pelvis was offered to the patient this morning, however she has declined at this time. She states that she would like to talk to hospice and oncology about further goals of care. Objective Physical Examination General Exam: Positive: Alert, Cooperative, No Acute Distress ENT Exam: Positive: Atraumatic, Mucous membr. moist/pink, Other ENT (bitemporal wasting) Neck Exam: Negative: JVD Chest Exam: Positive: Diminished Heart Exam: Positive: Rate Normal, Normal S1, Normal S2 Telemetry: Positive: Sinus Abdomen Exam: Positive: Soft; Negative: Tenderness Extremity Exam: Negative: Tenderness, Swelling Psych Exam: Positive: Oriented x 3 Assessment /Plan Plan/VTE VTE Prophylaxis Ordered?: Yes Plan Small Bowel Perforation with Bile Peritonitis s/p Ex Lap with Small Bowel Resection on 06/[address] Abd/Pel with IV/PO contrast from 06/20 notable for bilateral subphrenic/perihepatic/ panic fluid collections CT of the chest notable for bilateral pleural effusions, right greater than left on 06/20 s/p Drainage of Right Pleural effusion, and Subphrenic Abscess drainage with catheter placement on 06/21/17 by Interventional radiology Abscess culture notable for Yeast Like Organism Currently on Fluconazole, Zosyn as per ID Gen Surg/ID on board Patient continued to spike fevers of 102.1 and 101.1 early this morning. Her white blood cell count has also trended upward. The patient notes that she feels nauseous this morning but denies any vomiting or abdominal pain. Repeat CT scan of the abdomen and pelvis was offered to the patient this morning, however she has declined at this time. She states that she would like to talk to hospice and oncology about further goals of care. Acute blood loss anemia 2/2 GI Bleeding likely from Intestinal Metastatic Lesion The patient has needed 9 Units total of PRBC's since admission, and she continues to have mohagony/dark tarry colored stools Bleeding scan obtained and notable for GI Hemorrhage located in the left mid- abdomen, with inability to identify small vs large intestinal source. I have discussed the case with Dr. Colby of GI; the patient is not a candidate for a colonoscopy at this time given extensive metastasis and overall clinical condition, and it is very possible that the lesion is from a small bowel origin from the metastasis which cannot be viewed with a colonoscopy Discussed the case with Dr. Hairston of Gen Surg who has recommended octreotide at this time, patient not a candidate for surgery. Hemoglobin stable this morning Acute non-occlusive DVT at L distal superficial femoral vein Duplex US 06/06: Acute nonocclusive thrombus in the left distal superficial femoral vein. Normal right lower extremity without thrombosis. Dr. Young (Vascular surgery) consulted; s/p IVC filter on 06/07 Patient not a candidate for AC 2/2 above, requiring 9 Units or PRBC's since admission s/p Atrial fibrillation with RVR s/p Mechanical Cardioversion on 06/01 with conversion to normal sinus rhythm ECHO notable for preserved EF, and normal diastolic function. Moderate/severe pulmonary hypertension and tricuspid regurgitation noted. Continue metoprolol, amiodarone Patient not a candidate for AC 2/[address] 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 Baker as an outpatient Dr. Baker (Oncology) on consult; appreciate input Hx of CVA Left Jugular Vein Thrombosis s/p IVC filter Protein calorie malnutrition - likely moderate / severe Patient has had significant weight loss - likely 2/2 malignancy Poor oral intake Appears cachectic c/w TPN DVT Prophylaxis Heparin on hold 2/2 GI Bleed Poor Prognosis Code Status: DNR/DNI Dispo--will follow up with the patient's decision regarding further goals of care after her discussion with hospice and oncology today. VS, I&O, 24H, Fishbone Vital Signs/I&O Vital Signs Date Time Temp Pulse Resp B/P (MAP) Pulse Ox O2 Delivery O2 Flow Rate FiO2 06/26/18 10:17 88 114/64 06/26/18 08:00 98.9 22 95 Room Air I&O- Last 24 Hours up to 6 AM 06/26/18 06:00 Intake Total 2440 ml Output Total 2820 ml Balance -380 ml Laboratory Data 24H LABS Laboratory Tests 2 06/25/18 12:16: Bedside Glucose (Misc Panel) 174H 06/25/18 17:22: Bedside Glucose (Misc Panel) 142H 06/25/18 23:54: Bedside Glucose (Misc Panel) 138H 06/26/18 04:36: Nucleated Red Blood Cells % (auto) 0.3H 06/26/18 06:24: Bedside Glucose (Misc Panel) 115 06/26/18 08:01: Anion Gap 13, Glomerular Filtration Rate > 60.0, Blood Urea Nitrogen 40H, Creatinine 0.86, Sodium Level 132L, Potassium Level 3.5#, Chloride Level 93L, Carbon Dioxide Level 26, Calcium Level 8.5L, Aspartate Amino Transf (AST/SGOT) 121H, Alanine Aminotransferase (ALT/SGPT) 76, Alkaline Phosphatase 327H, Total Bilirubin 0.7#, Total Protein 5.8L, Albumin 1.6L, Magnesium Level 1.7L, Albumin/Globulin Ratio 0.38L CBC/BMP Laboratory Tests 06/26/18 04:36 Red Blood Count 3.74 L, Mean Corpuscular Volume 84.0, Mean Corpuscular Hemoglobin 29.4, Mean Corpuscular Hemoglobin Concent 35.0, Red Cell Distribution Width 17.4 H 06/26/18 08:01 Calcium Level 8.5 L, Aspartate Amino Transf (AST/SGOT) 121 H, Alanine Aminotransferase (ALT/SGPT) 76, Alkaline Phosphatase 327 H, Total Bilirubin 0.7 #, Total Protein 5.8 L, Albumin 1.6 L Microbiology Microbiology 06/21/18 Gram Stain - Final, Complete 06/21/18 Body Fluid Culture - Final, Complete 06/21/18 Anaerobic Culture - Final, Complete 06/21/18 Gram Stain - Final, Complete 06/21/18 Abscess Culture - Final, Complete Yeast Like Organism 06/21/18 Anaerobic Culture - Final, Complete CONRADO MANLEY MD Jun 26, 2018 12:03
--- NOTE | 2018-06-26 16:26 | IPN ---
DATE: 06/26/2018 Mrs. Turcios has gotten worse this afternoon. She became febrile with temperature up to 102. She has been nauseous, is tachycardic. She did not sleep last night and therefore she is sleeping this afternoon. There has been discussion on comfort measures. She did not want to have a CT done of the abdomen today as she was exhausted. LABORATORY DATA: White count is 14, hemoglobin 11, hematocrit 31.4, platelets 357. Sodium 132, potassium 3.5, chloride 93, bicarbonate 26, BUN 40, creatinine 0.86, glucose 101, calcium 8.5, magnesium 1.7, AST 121, ALT 76, alkaline phosphatase 327. Fluid was drained from the left upper quadrant, 45 mL of cloudy yellow fluid was withdrawn and only had yeastlike organisms again. MEDICATIONS: She has been on IV Zosyn since 06/20/2018 and fluconazole 200 mg daily. She is currently day #10 of fluconazole. IMPRESSION: 1. Intra-abdominal abscess with Grace albicans on culture on by mouth fluconazole. Broad-spectrum antibiotics with IV Zosyn had been empirically started but since cultures are negative that could be discontinued. 2. Metastatic lung cancer to adrenals, bone, abdomen. The patient is discussing hospice and would like to go [facility]. PLAN: Infectious disease signing off. Could discontinue IV Zosyn since cultures did not grow any gram negatives at this point.
[2018-06-26] MEDS ORDERED: FAT EMULSION IV 20% 500 ML IV SCH (18:00)
[2018-06-26] MEDS ORDERED: MULTIVITAMIN -ADULT INJECTION 10 ML, CR/CU/SE/MN/ZN INJ 1 ML in AMINO AC/ELECTROLYTE/DE... IV SCH (18:00)
[2018-06-27] MEDS: OCTREOTIDE ACETATE 100 MCG/ML VIAL (J2354) IV SCH ×2 (00:36→09:16)
[2018-06-27] MEDS: HumaLOG INSULIN (NovoLOG) PER UNIT SC SCH ×3 (00:36→12:00)
[2018-06-27] MEDS: IPRATROPIUM 0.5MG/ALBUTEROL 2.5MG INH SOL UD 3ML (DUONEB)(J7620) NEB SCH ×2 (02:00→08:00)
[2018-06-27 04:00] VITALS: BP 136/70
[2018-06-27] MEDS: ACETAMINOPHEN TAB 650MG DOSE (2X325MG) PO PRN ×2 (04:16→20:11)
[2018-06-27 05:43] LABS: HEMATOCRIT 25.9 % (36.0-47.0); MEAN CORPUSCULAR HEMOGLOBIN 28.5 pg (27.0-33.0); MEAN CORPUSCULAR HGB CONC 33.2 g/dl (32.0-36.5); MEAN CORPUSCULAR VOLUME 85.8 fl (80.0-96.0); PLATELET COUNT, AUTOMATED 265 10^3/uL (150-450); RED BLOOD COUNT 3.02 10^6/uL (4.00-5.40); WHITE BLOOD COUNT 15.7 10^3/uL (4.0-10.0)
[2018-06-27 05:54] LABS: HEMOGLOBIN 8.6 g/dl (12.0-15.5)
[2018-06-27] MEDS: SODIUM CHLORIDE 0.9% INJ 10 ML SYR IV SCH ×2 (06:00→17:30)
[2018-06-27 06:10] LABS: ALBUMIN 1.5 GM/DL (3.2-5.2); BILIRUBIN,TOTAL 0.4 MG/DL (0.2-1.0); CALCIUM LEVEL 8.6 MG/DL (8.8-10.2); CREATININE FOR GFR 1.16 MG/DL (0.55-1.30); GLOMERULAR FILTRATION RATE 49.9 (>45); MAGNESIUM LEVEL 1.7 MG/DL (1.8-2.4); POTASSIUM SERUM 4.2 MEQ/L (3.5-5.1); TOTAL PROTEIN 6.2 GM/DL (6.4-8.2)
[2018-06-27] MEDS: LOPERAMIDE 2 MG CAP PO PRN (06:20)
[2018-06-27 08:00] VITALS: BP 99/58
[2018-06-27] MEDS: MAGNESIUM CHLORIDE 64 MG TABCR (SLO MAG) PO SCH (09:00)
[2018-06-27] MEDS: PANTOPRAZOLE 40MG INJ (PROTONIX) (C9113) IV SCH (09:16)
[2018-06-27] MEDS: POTASSIUM CHLORIDE 10 MEQ SR TABLET PO SCH (09:17)
[2018-06-27] MEDS: FLUCONAZOLE 100 MG TAB PO SCH (09:19)
[2018-06-27] MEDS: AMIODARONE 200 MG TAB (PACERONE) PO SCH (09:19)
[2018-06-27] MEDS: HYDROCORTISONE 5MG TABLET PO SCH (09:19)
[2018-06-27] MEDS: METOPROLOL SUCC *XL* 25MG TAB (TopROL *XL*) PO SCH (09:20)
[2018-06-27 12:00] VITALS: BP 150/70
[2018-06-27] MEDS ORDERED: LORazepam 1 MG TAB PO PRN (15:30)
[2018-06-27] MEDS ORDERED: MORPHINE 10MG/0.5ML ORAL CONCENTRATE SOLUTION U/D SL PRN (15:30)
[2018-06-27] MEDS ORDERED: SCOPOLAMINE 1MG TRANSDERMAL PATCH TOP PRN (15:30)
--- NOTE | 2018-06-27 16:04 | IPN ---
DATE: 06/27/2018 Patient overall has been stable from a medical standpoint just from the standpoint that she is appearing clinically stable. However, she has had some decreased hematocrit again today although she records that she did not have any bloody bowel movements. She had some diarrhea. She has been having fevers over the weekend and her white counts has been slowly increasing. She has had no nausea, no vomiting. Still has some intermittent diarrhea that is controlled well with minimal Imodium. She is continuing with some total parenteral nutrition (TPN) at this time. Her drain is draining just serous drainage and has minimal output. Her abdomen is soft, nontender, nondistended and she has much less drainage via the midline incision. IMPRESSION AND PLAN: The patient has been made hospice care at this point and I do feel that it is reasonable to start removing the Rahat Sumner (GREER) drain in the left side of the abdomen, remove the kashmir, continue with dressing changes as necessary and I anticipate this drainage will continue at this point but it does not appear to be a small bowel leak, does not appear to be a colonic leak, and thus I would recommend just local wound care.
--- NOTE | 2018-06-27 16:08 | IPN ---
DATE: 06/27/2018 SUBJECTIVE: The patient is seen and examined in the room today multiple times. The patient complained about recurrent fever, nausea and vomiting resulting in very poor oral intake. The patient had a discussion with hospice service yesterday and she decided to move forward with hospice facility placement. Later, medical orders for life-sustaining treatment (MOLST) form was updated with the patient and the patient's and the patient's family members. OBJECTIVE: VITAL SIGNS: Temperature is 98.1, pulse is 90, respiratory rate 18, blood pressure is 99/58, pulse oximetry is 97% in room air. GENERAL: Fatigued, alert and awake, in no acute distress. HEENT: Some soft tissue injury at the left lower lip. Otherwise, normocephalic, atraumatic. CARDIOVASCULAR: Positive S1, S2, regular rate. LUNGS: Decreased breath sounds bilaterally. No wheezes or rhonchi. ABDOMEN: Bowel sounds present, soft. EXTREMITIES: No edema. LABORATORY DATA: WBC is 15.7, hemoglobin 8.6, hematocrit 25.9, platelet count is 265. Sodium is 127, potassium 4.2, chloride is 93, carbon dioxide 24, BUN is 47, creatinine 1.16, GFR is 49.9, fasting glucose is 104, calcium 8.6, magnesium 1.7, total bilirubin 0.4, AST is 75, ALT is 53, alkaline phosphatase is 301, total protein 6.2, albumin 1.5. ASSESSMENT AND PLAN: 1. Small fred perforation with bile peritonitis, status post exploratory laparotomy with small bowel resection. 2. Acute gastrointestinal (GI) blood loss anemia. 3. Left jugular vein thrombosis. 4. History of atrial fibrillation with rapid ventricular response (RVR). 5. Metastatic lung cancer with metastasis to the brain, bilateral adrenal gland, infrascapular region and intestinal metastatic implants. 6. Anasarca. 7. Right-sided heart failure. 8. Moderate to severe pulmonary hypertension. 9. Thrombocytopenia. 10. Adrenal insufficiency. 11. History of cerebrovascular accident (CVA). 12. Protein calorie malnutrition. PLAN: The patient decided to move forward with hospice care. 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 Poor intermediate prognosis. The patient is on hospice medication. The patient is comfortable. MTDD
[2018-06-27] MEDS ORDERED: SODIUM CHLORIDE 0.9% INJ 10 ML SYR IV PRN (16:30)
[2018-06-27] MEDS ORDERED: HumaLOG INSULIN (NovoLOG) PER UNIT SC SCH (18:00)
[2018-06-27] MEDS ORDERED: FAT EMULSION IV 20% 500 ML IV SCH (18:00)
[2018-06-27] MEDS ORDERED: AMINO AC/ELECTROLYTE/DEX/CALC 2,000 ML IV SCH (18:00)
[2018-06-28] MEDS: ONDANSETRON 4MG/2ML VIAL (J2405) IV PRN (05:46)
[2018-06-28] MEDS: SODIUM CHLORIDE 0.9% INJ 10 ML SYR IV SCH ×2 (05:47→18:09)
[2018-06-28] MEDS: ACETAMINOPHEN TAB 650MG DOSE (2X325MG) PO PRN ×3 (06:09→20:06)
--- NOTE | 2018-06-28 08:08 | ECGEPIP ---
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
--- NOTE | 2018-06-28 18:48 | IPNPDOC ---
Text Note Date of Service The patient was seen on 06/28/18. NOTE SUBJECTIVE: The patient is seen in the room today with her . Patient is resting comfortably during encounter. Patient had fever this morning. OBJECTIVE: VITAL SIGNS: Listed below. GENERAL: no acute distress. Resting comfortably. HEENT: Some soft tissue injury at the left lower lip. Normocephalic, atraumatic. EXTREMITIES: No edema. LABORATORY DATA: None. ASSESSMENT AND PLAN: #. Small fred perforation with bile peritonitis, status post exploratory laparotomy with small bowel resection. #. Metastatic lung cancer with metastasis to the brain, bilateral adrenal gland, infrascapular region and intestinal metastatic implants. #. Acute gastrointestinal (GI) blood loss anemia. #. Left jugular vein thrombosis. #. History of atrial fibrillation with rapid ventricular response (RVR). #. Anasarca. #. Right-sided heart failure. #. Moderate to severe pulmonary hypertension. #. Thrombocytopenia. #. Adrenal insufficiency. #. History of cerebrovascular accident (CVA). #. Protein calorie malnutrition. 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 Poor long term prognosis. The patient is on hospice medication. The patient is comfortable. Waiting hospice facility placement. VS,Fishbone, I+O VS, Fishbone, I+O Vital Signs Date Time Temp Pulse Resp B/P (MAP) Pulse Ox O2 Delivery O2 Flow Rate FiO2 06/27/18 12:00 99.4 80 18 150/70 (96) 97 Room Air I&O- Last 24 Hours up to 6 AM 06/28/18 06:00 Intake Total 0 ml Output Total 0 ml Balance 0 ml VALE MARTÍNEZ DO Jun 28, 2018 18:48
[2018-06-29] MEDS: ACETAMINOPHEN TAB 650MG DOSE (2X325MG) PO PRN ×2 (02:05→09:55)
[2018-06-29] MEDS: SODIUM CHLORIDE 0.9% INJ 10 ML SYR IV SCH ×2 (05:54→18:00)
[2018-06-29] MEDS: ACETAMINOPHEN TAB 650MG DOSE (2X325MG) PO SCH ×2 (15:00→20:40)
--- NOTE | 2018-06-29 17:35 | IPNPDOC ---
Text Note Date of Service The patient was seen on 06/29/18. NOTE SUBJECTIVE: The patient is seen in the room today with her . Patient has had frequent fever. She requires more frequent Tylenol usage. Patient denies pain. OBJECTIVE: VITAL SIGNS: Listed below. GENERAL: no acute distress. Resting comfortably. HEENT: Soft tissue injury at the left lower lip. Normocephalic, atraumatic. EXTREMITIES: No edema. LABORATORY DATA: None. ASSESSMENT AND PLAN: #. Small fred perforation with bile peritonitis, status post exploratory laparotomy with small bowel resection. #. Metastatic lung cancer with metastasis to the brain, bilateral adrenal gland, infrascapular region and intestinal metastatic implants. #. Acute gastrointestinal (GI) blood loss anemia. #. Left jugular vein thrombosis. #. History of atrial fibrillation with rapid ventricular response (RVR). #. Anasarca. #. Right-sided heart failure. #. Moderate to severe pulmonary hypertension. #. Thrombocytopenia. #. Adrenal insufficiency. #. History of cerebrovascular accident (CVA). #. Protein calorie malnutrition. 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 Poor long-term prognosis. The patient is on hospice medication. The patient is comfortable. Waiting hospice facility placement. Fever has been more persistent. Adjust Tylenol frequency for fever management. VS,Fishbone, I+O VS, Fishbone, I+O Vital Signs Date Time Temp Pulse Resp B/P (MAP) Pulse Ox O2 Delivery O2 Flow Rate FiO2 06/27/18 12:00 99.4 80 18 150/70 (96) 97 Room Air VALE MARTÍNEZ DO Jun 29, 2018 17:35
[2018-06-30] MEDS: ACETAMINOPHEN TAB 650MG DOSE (2X325MG) PO SCH ×5 (01:48→21:16)
[2018-06-30] MEDS: SODIUM CHLORIDE 0.9% INJ 10 ML SYR IV SCH ×2 (06:03→18:06)
[2018-06-30] MEDS: ONDANSETRON 4MG/2ML VIAL (J2405) IV PRN (14:11)
--- NOTE | 2018-06-30 19:29 | IPNPDOC ---
Text Note Date of Service The patient was seen on 06/30/18. NOTE SUBJECTIVE: The patient is seen in the room today. She feels the fever is under better control. She is comfortable. OBJECTIVE: VITAL SIGNS: Listed below. GENERAL: no acute distress. Resting comfortably. HEENT: Soft tissue injury at the left lower lip. Normocephalic, atraumatic. EXTREMITIES: No edema. LABORATORY DATA: None. ASSESSMENT AND PLAN: #. Small fred perforation with bile peritonitis, status post exploratory laparotomy with small bowel resection. #. Metastatic lung cancer with metastasis to the brain, bilateral adrenal gland, infrascapular region and intestinal metastatic implants. #. Acute gastrointestinal (GI) blood loss anemia. #. Left jugular vein thrombosis. #. History of atrial fibrillation with rapid ventricular response (RVR). #. Anasarca. #. Right-sided heart failure. #. Moderate to severe pulmonary hypertension. #. Thrombocytopenia. #. Adrenal insufficiency. #. History of cerebrovascular accident (CVA). #. Protein calorie malnutrition. 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 Poor long-term prognosis. The patient is on hospice medication. The patient is comfortable. Waiting hospice facility placement. Fever is under good control. VS,Fishbone, I+O VS, Fishbone, I+O Vital Signs Date Time Temp Pulse Resp B/P (MAP) Pulse Ox O2 Delivery O2 Flow Rate FiO2 06/27/18 12:00 99.4 80 18 150/70 (96) 97 Room Air I&O- Last 24 Hours up to 6 AM 06/30/18 06:00 Intake Total 360 ml Balance 360 ml VALE MARTÍNEZ DO Jun 30, 2018 19:29
[2018-07-01] MEDS: ACETAMINOPHEN TAB 650MG DOSE (2X325MG) PO SCH ×5 (02:21→21:23)
[2018-07-01] MEDS: SODIUM CHLORIDE 0.9% INJ 10 ML SYR IV SCH (06:00)
[2018-07-01] MEDS: MORPHINE 10MG/0.5ML ORAL CONCENTRATE SOLUTION U/D SL PRN ×2 (12:56→21:22)
--- NOTE | 2018-07-01 19:42 | IPNPDOC ---
Text Note Date of Service The patient was seen on 07/01/18. NOTE SUBJECTIVE: The patient is seen in the room today with her and her sister. Patient started having agitation. She was able to get some rest after medication. Patient has poor oral intake. OBJECTIVE: VITAL SIGNS: Listed below. GENERAL: no acute distress. Resting comfortably. HEENT: Soft tissue injury at the left lower lip. Normocephalic, atraumatic. EXTREMITIES: No edema. LABORATORY DATA: None. ASSESSMENT AND PLAN: #. Small fred perforation with bile peritonitis, status post exploratory laparotomy with small bowel resection. #. Metastatic lung cancer with metastasis to the brain, bilateral adrenal gland, infrascapular region and intestinal metastatic implants. #. Acute gastrointestinal (GI) blood loss anemia. #. Left jugular vein thrombosis. #. History of atrial fibrillation with rapid ventricular response (RVR). #. Anasarca. #. Right-sided heart failure. #. Moderate to severe pulmonary hypertension. #. Thrombocytopenia. #. Adrenal insufficiency. #. History of cerebrovascular accident (CVA). #. Protein calorie malnutrition. 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 Poor long-term prognosis. The patient is on hospice medications. Pending hospice facility placement. No medication adjusted needed today. VS,Fishbone, I+O VS, Fishbone, I+O Vital Signs Date Time Temp Pulse Resp B/P (MAP) Pulse Ox O2 Delivery O2 Flow Rate FiO2 07/01/18 13:26 18 Room Air 06/27/18 12:00 99.4 80 150/70 (96) 97 I&O- Last 24 Hours up to 6 AM 07/01/18 06:00 Intake Total 960 ml Output Total 300 ml Balance 660 ml VALE MARTÍNEZ DO Jul 01, 2018 19:42
[2018-07-02] MEDS: ACETAMINOPHEN 325 MG/10.15 ML UDC PO SCH ×8 (02:54→21:33)
[2018-07-02] MEDS: SODIUM CHLORIDE 0.9% INJ 10 ML SYR IV SCH ×2 (05:52→13:23)
[2018-07-02] MEDS ORDERED: ACETAMINOPHEN TAB 650MG DOSE (2X325MG) PO PRN (09:00)
[2018-07-02] MEDS: ONDANSETRON 4MG/2ML VIAL (J2405) IV PRN ×2 (09:19→13:23)
[2018-07-02] MEDS ORDERED: METOCLOPRAMIDE INJ 10MG/2ML VIAL (J2765) IV PRN (13:15)
--- NOTE | 2018-07-02 14:43 | IPNPDOC ---
Text Note Date of Service The patient was seen on 07/02/18. NOTE SUBJECTIVE: The patient is seen in the room today with her , her sister, her daughter with her granddaughter. Patient had morphine yesterday and she had good night sleep. Patient requires tylenol around the clock to control the fever. She also demonstrates intermittent nausea and vomiting. Oral intake has been poor. OBJECTIVE: GENERAL: no acute distress. Resting comfortably. HEENT: Soft tissue injury at the left lower lip. Normocephalic, atraumatic. EXTREMITIES: No edema. LABORATORY DATA: None. ASSESSMENT AND PLAN: #. Small fred perforation with bile peritonitis, status post exploratory laparotomy with small bowel resection. #. Metastatic lung cancer with metastasis to the brain, bilateral adrenal gland, infrascapular region and intestinal metastatic implants. #. Acute gastrointestinal (GI) blood loss anemia. #. Left jugular vein thrombosis. #. History of atrial fibrillation with rapid ventricular response (RVR). #. Anasarca. #. Right-sided heart failure. #. Moderate to severe pulmonary hypertension. #. Thrombocytopenia. #. Adrenal insufficiency. #. History of cerebrovascular accident (CVA). #. Protein calorie malnutrition. 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 Poor long-term prognosis. The patient is on hospice medications. Tylenol is scheduled to prevent breakthrough fever. IV nausea/vomiting medications for symptomatic control. Will adjust medications as needed to provide comfort. VS,Fishbone, I+O VS, Fishbone, I+O Vital Signs Date Time Temp Pulse Resp B/P (MAP) Pulse Ox O2 Delivery O2 Flow Rate FiO2 07/01/18 13:26 18 Room Air 06/27/18 12:00 99.4 80 150/70 (96) 97 I&O- Last 24 Hours up to 6 AM 07/02/18 05:59 Intake Total 1440 ml Output Total 300 ml Balance 1140 ml VALE MARTÍNEZ DO Jul 02, 2018 14:43
[2018-07-03] MEDS: ACETAMINOPHEN 325 MG/10.15 ML UDC PO SCH ×4 (03:00→13:34)
[2018-07-03] MEDS: ONDANSETRON 4MG/2ML VIAL (J2405) IV PRN ×2 (04:12→13:25)
[2018-07-03] MEDS: SODIUM CHLORIDE 0.9% INJ 10 ML SYR IV SCH ×2 (06:00→18:03)
[2018-07-03] MEDS: MORPHINE 10MG/0.5ML ORAL CONCENTRATE SOLUTION U/D SL PRN (13:30)
[2018-07-03] MEDS ORDERED: MORPHINE 4 MG/ML 1ML VIAL/SYRINGE (J2270) IV PRN (14:00)
[2018-07-03] MEDS ORDERED: LORazepam 2 MG/ML VIAL (J2060) IV PRN (14:00)
--- NOTE | 2018-07-03 14:35 | IPNPDOC ---
Text Note Date of Service The patient was seen on 07/03/18. NOTE SUBJECTIVE: The patient is seen in the room today with her , and her daughter. Patient has increased nausea and vomiting. Patient has persistent fever. Patient has minimal intake. OBJECTIVE: GENERAL: no acute distress. Resting comfortably. HEENT: Soft tissue injury at the left lower lip. Normocephalic, atraumatic. EXTREMITIES: No edema. LABORATORY DATA: None. ASSESSMENT AND PLAN: #. Small fred perforation with bile peritonitis, status post exploratory laparotomy with small bowel resection. #. Metastatic lung cancer with metastasis to the brain, bilateral adrenal gland, infrascapular region and intestinal metastatic implants. #. Acute gastrointestinal (GI) blood loss anemia. #. Left jugular vein thrombosis. #. History of atrial fibrillation with rapid ventricular response (RVR). #. Anasarca. #. Right-sided heart failure. #. Moderate to severe pulmonary hypertension. #. Thrombocytopenia. #. Adrenal insufficiency. #. History of cerebrovascular accident (CVA). #. Protein calorie malnutrition. 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 Poor long-term prognosis. The patient is on hospice medications. Continue scheduled Tylenol SS to control fever. IV nausea/vomiting medications for symptomatic control. Will adjust medications as needed to provide comfort. VS,Fishbone, I+O VS, Fishbone, I+O Vital Signs Date Time Temp Pulse Resp B/P (MAP) Pulse Ox O2 Delivery O2 Flow Rate FiO2 07/01/18 13:26 18 Room Air 06/27/18 12:00 99.4 80 150/70 (96) 97 I&O- Last 24 Hours up to 6 AM 07/03/18 06:00 Intake Total 620 ml Output Total 0 ml Balance 620 ml VALE MARTÍNEZ DO Jul 03, 2018 14:35
[2018-07-03] MEDS ORDERED: ACETAMINOPHEN 325 MG/10.15 ML UDC PO SCH (15:00)
--- NOTE | 2018-07-03 19:37 | IPNPDOC ---
Text Note Date of Service The patient was seen on 07/03/18. NOTE informed by nurse at 7:36pm on 07/03/18 that patient has . VS,Fishbone, I+O VS, Fishbone, I+O Vital Signs Date Time Temp Pulse Resp B/P (MAP) Pulse Ox O2 Delivery O2 Flow Rate FiO2 07/01/18 13:26 18 Room Air 06/27/18 12:00 99.4 80 150/70 (96) 97 I&O- Last 24 Hours up to 6 AM 07/03/18 06:00 Intake Total 620 ml Output Total 0 ml Balance 620 ml TUESDAY,GABY GAMBOA Jul 03, 2018 19:37
--- NOTE | 2018-07-04 19:15 | DSES ---
DATE OF ADMISSION: 05/27/2018 DATE OF : 07/03/2018 TIME OF : 7 CONSULTANTS: General surgery, cardiology, oncology, county judge, pulmonology. DISCHARGE DIAGNOSES: 1. Metastatic adenocarcinoma, lung cancer with metastases to the brain, bilateral adrenal gland, first scapular region, and intestinal metastatic implants. 2. Small-bowel perforation with bile peritonitis. 3. Acute gastrointestinal blood loss anemia. 4. Left jugular vein thrombosis. 5. History of atrial fibrillation with rapid ventricular response. 6. Anasarca. 7. Right-sided heart failure. 8. Moderate to severe pulmonary hypertension. 9. Thrombocytopenia. 10. Adrenal insufficiency. 11. History of cerebrovascular accident. 12. Severe protein calorie malnutrition. HOSPITALIZATION COURSE: Patient is a 63-year-old female who presented to [facility] on 05/27/2018 with a chief complaint of abdominal pain, hematemesis, and rectal bleed. Patient was admitted under hospitalist service for acute gastrointestinal (GI) bleed. Diagnostic workup was performed and general surgery consulted. On admission, there was a suspicion for sepsis, and patient was started on broad-spectrum antibiotics while waiting for the diagnostic workup. Blood consent obtained, and patient received a blood transfusion. Due to significant cancer history and recent chemotherapy, oncology was consulted. Patient started having cardiac arrhythmia. Patient was found to have atrial fibrillation with rapid ventricular response (RVR). Heart rate medication was given to the patient and cardiology was consulted. Repeated abdominal imaging was performed. Patient was found to have a perforation of the upper GI tract. General surgery was notified of the findings, and patient was brought to the operating room (OR) on 06/05/2019. Patient had an exploratory laparotomy with small-bowel resection. Patient was continued on total parenteral nutrition (TPN). Patient was continued nothing by mouth. Later, patient was found to have acute occlusive deep vein thrombosis (DVT) at the left upper extremity. Dr. Young was consulted. Patient had an inferior vena cava (IVC) filter placement. Later, patient was found to have abdominal fluid. Culture reviewed. Patient was started on antifungal therapy. Patient continued on the TPN due to extremely poor oral intake. Patient does not demonstrate any significant clinical improvement. Continued with medical management. The infectious disease also consulted for antibiotic and antifungal medication management. Repeat imaging study with contrast demonstrated notable significant fluid collection, and patient sent to the interventional radiology (IR) for right pleural effusion, subphrenic abscess drainage, catheter placement. Patient continued to demonstrate clinical deterioration without any significant improvement. Goals of care were discussed with the patient multiple times. Later, after patient had multiple discussions with family members, patient decided to have a discussion with hospice service. Later, patient decided to move forward with comfort measures only. Patient's TPN was discontinued, and patient's medication was reviewed and adjusted to hospice medications. Patient was seen on a daily basis, and patient's medication was adjusted to provide comfort. On 07/03/2018, patient was pronounced at 7:36 p.m. DISCHARGE TIME: Less than 30 minutes.
--- NOTE | 2018-07-05 14:16 | REPIR ---
DATE OF PROCEDURE: 06/07/2018 ATTENDING SURGEON: Dr. Taylor Young SEAFOOD PREPARER: Kev Gonzalez and Pamela Carrasco PREOPERATIVE DIAGNOSIS: Gastrointestinal bleeding, left superficial femoral deep venous thrombosis. POSTOPERATIVE DIAGNOSIS: Gastrointestinal bleeding, left superficial femoral deep venous thrombosis. PROCEDURE: Ultrasound-guided right common femoral vein cannulation. Superior vena cava catheter placed via the venogram. Inferior vena cava filter placement with a Bard Tea retrievable inferior cava filter. INDICATION: The patient is a 63-year-old female with gastrointestinal bleeding and a left superficial femoral vein deep venous thrombosis who was unable to undergo anticoagulation due to her gastrointestinal bleeding. The patient will require protection from pulmonary embolus and will undergo placement of an inferior vena cava filter. Risks, benefit and alternative treatment options were discussed with the patient. The procedure was described and explained to the patient in detail including drawing of pictures demonstrating the procedure and the anatomy. Alternative treatment options including but were not limited to no intervention. The risks included but were not limited to infection, bleeding, IVC filter migration, IVC filter thrombosis, IVC filter perforation, requirement for exploratory laparotomy, renal failure requiring hemodialysis, allergic reaction to contrast and/or prepping materials, cerebrovascular accident, myocardial infarction, pulmonary embolus, deep venous thrombosis, loss of limb, loss of life, poor outcome, and poor results. The patient's questions were answered. The patient voices understanding and acceptance of these risks, benefits and alternative treatment options and consented to proceed with inferior vena cava filter placement. No promises or guarantees were made to the patient regarding the procedure, and/or outcome. ANESTHESIA: Local with 10 mL of 2% lidocaine. FLUORO TIME: 0.8 minutes. CONTRAST: 5 mL. HEPARIN: None. COMPLICATIONS: None. DRAINS: None. SPECIMENS: None. IMPLANTS: Bard Tea retrievable inferior vena cava filter placed in the inferior vena cava below the level of the renal vein. DESCRIPTION OF PROCEDURE: The patient was taken to the angiography suite and placed supine on the angiography table and then prepped and draped in standard surgical fashion. The ultrasound was used to evaluate the right common femoral vein which was noted to be widely patent and easily compressible. Ultrasound was used to guide cannulation of the right common femoral vein with real-time concurrent visualization of the entry of the needle into the right common femoral vein with a hard copy image preserved. The right micropuncture wire was advanced through the micropuncture needle which was upsized to a micropuncture sheath. The Bentson wire was advanced through the micropuncture sheath which was upsized to the introducer catheter and sheath. A catheter was placed in the inferior vena cava and a venogram performed confirming the position of the renal vein. The filter was then placed under fluoroscopic guidance below the level of the renal vein. The sheath was removed and manual pressure applied at the puncture site for hemostasis. Dressings were then applied. The patient tolerated the procedure well. All instrument, sponge and needle counts were correct at the end of case. There were no complications. Dr. Young was present for and directed the entire case. The patient was transferred to holding area where the procedure and results were discussed with the patient with all of her questions being answered. Fluoroscopic image showed the filter to be in good position with good alignment.
== END 2018-07-03 19:17 | disposition expired | DRG 329 ==
LOC: EDBD 17:23 → M ED 17:23 → M ED INP 22:14 → M ICU 23:40 → M PCU 06-08 15:04 → M MS5PR 06-27 18:44
PROVIDERS: ADMIT Hospitalist; ATTEND Internal Medicine
PROC: 30233N1 Transfusion of Nonautologous Red Blood Cells into Peripheral Vein, Percutaneous Approach (ICD-10-PCS; 2018-05-27)
PROC: 02HV33Z Insertion of Infusion Device into Superior Vena Cava, Percutaneous Approach (ICD-10-PCS; 2018-05-29)
PROC: 5A2204Z Restoration of Cardiac Rhythm, Single (ICD-10-PCS; 2018-06-01)
PROC: 0DB80ZZ Excision of Small Intestine, Open Approach (ICD-10-PCS; principal; 2018-06-02 15:00)
PROC: 06L03DZ Occlusion of Inferior Vena Cava with Intraluminal Device, Percutaneous Approach (ICD-10-PCS; 2018-06-07)
PROC: 0W993ZX Drainage of Right Pleural Cavity, Percutaneous Approach, Diagnostic (ICD-10-PCS; 2018-06-21)
PROC: 0W9G30Z Drainage of Peritoneal Cavity with Drainage Device, Percutaneous Approach (ICD-10-PCS; 2018-06-21)
PROC: 30233J1 Transfusion of Nonautologous Serum Albumin into Peripheral Vein, Percutaneous Approach (ICD-10-PCS; 2018-06-23)
DX: K92.2 Gastrointestinal hemorrhage, unspecified (principal); K63.1 Perforation of intestine (nontraumatic); E43 Unspecified severe protein-calorie malnutrition; K65.1 Peritoneal abscess; K65.0 Generalized (acute) peritonitis; C79.31 Secondary malignant neoplasm of brain; C79.51 Secondary malignant neoplasm of bone; C79.71 Secondary malignant neoplasm of right adrenal gland; C79.72 Secondary malignant neoplasm of left adrenal gland; C34.81 Malignant neoplasm of overlapping sites of right bronchus and lung; C78.7 Secondary malignant neoplasm of liver and intrahepatic bile duct; C78.89 Secondary malignant neoplasm of other digestive organs; D62 Acute posthemorrhagic anemia; C78.6 Secondary malignant neoplasm of retroperitoneum and peritoneum; E27.40 Unspecified adrenocortical insufficiency; J98.11 Atelectasis; N17.9 Acute kidney failure, unspecified; J96.11 Chronic respiratory failure with hypoxia; I82.412 Acute embolism and thrombosis of left femoral vein; B37.82 Candidal enteritis; Z51.5 Encounter for palliative care; Z66 Do not resuscitate; I48.0 Paroxysmal atrial fibrillation; D69.59 Other secondary thrombocytopenia; I50.89 Other heart failure; I27.20 Pulmonary hypertension, unspecified; E78.5 Hyperlipidemia, unspecified; Z86.73 Personal history of transient ischemic attack (TIA), and cerebral infarction without residual deficits; Z86.718 Personal history of other venous thrombosis and embolism; Z98.49 Cataract extraction status, unspecified eye; Z79.01 Long term (current) use of anticoagulants; Z79.52 Long term (current) use of systemic steroids; Z79.899 Other long term (current) drug therapy